=== PATIENT | male | born 1935 | race Two or more races ===

== ENCOUNTER → 2016-08-29 | Outpatient (CLI) | payer MEDICARE, BC ==
--- NOTE | 2016-08-29 14:28 | XR ---
EXAMINATION TYPE: XR chest 2V DATE OF EXAM: 08/29/2016 1:28 PM COMPARISON: 02/04/2016 HISTORY: 81-year-old male with dyspnea and shortness of breath TECHNIQUE: Frontal and lateral views FINDINGS: Heart is normal size. Mild atherosclerotic arch calcifications. Eventration of the right hemidiaphrag m. Mild interstitial prominence is unchanged. There is also mild hyperinflation. Some strandy atelect asis or scarring in the lower lungs. No consolidation or pleural effusion. IMPRESSION: Chronic appearing changes, possible underlying chronic bronchitis/asthma. Clinically correlate. No ac [place] process identified.
== END | disposition home or self-care (01) ==
LOC: RADXRMAIN 13:05
PROVIDERS: ATTEND Physician Assistant
DX: R06.00 Dyspnea, unspecified (principal)
CPT/HCPCS: 71020

== ENCOUNTER → 2016-12-19 | Outpatient (CLI) | payer MEDICARE, BC ==
[2016-12-19 15:00] LABS: CH 28.2; CHCM 32.1; HDW 2.52; HGB 15.8 gm/dL (13.0-17.5); MCH 29.1 pg (25.0-35.0); MCV 88.2 fL (80.0-100.0); RBC 5.44 m/uL (4.30-5.90); RDW 13.9 % (11.5-15.5)
[2016-12-19 15:17] LABS: Anion Gap 13 mmol/L; Blood Urea Nitrogen 17 mg/dL (9-20); Calcium 9.5 mg/dL (8.4-10.2); Carbon Dioxide 25 mmol/L (22-30); Chloride 104 mmol/L (98-107); Glucose 93 mg/dL (74-99); Iron 84 ug/dL (49-181); Non-African American GFR(MDRD) 53 (>60 ml/min/1.73 sqM); Potassium 3.9 mmol/L (3.5-5.1); Sodium 142 mmol/L (137-145); Uric Acid 5.5 mg/dL (3.5-8.5)
[2016-12-19 15:20] LABS: Creatinine,Urine Random 45.8 mg/dL
[2016-12-19 15:26] LABS: Total Iron Binding Capacity 279 ug/dL (261-462)
== END | disposition home or self-care (01) ==
LOC: LABWHC1 14:12
PROVIDERS: ATTEND Nurse Practitioner Family
DX: E21.3 Hyperparathyroidism, unspecified (principal); N18.3 Chronic kidney disease, stage 3 (moderate); D64.9 Anemia, unspecified; R80.9 Proteinuria, unspecified; E55.9 Vitamin D deficiency, unspecified; M10.9 Gout, unspecified
CPT/HCPCS: 36415; 80048; 82306; 82570; 82728; 83540; 83550; 83970; 84156; 84550; 85027

== ENCOUNTER → 2017-01-22 | Outpatient (CLI) | payer MEDICARE, BC ==
--- NOTE | 2017-01-22 08:04 | US ---
EXAMINATION TYPE: US kidneys/renal and bladder DATE OF EXAM: 01/22/2017 COMPARISON: NONE CLINICAL HISTORY: N18.3 Chronic kidney disease stage 3. CKD stage 3 EXAM MEASUREMENTS: Right Kidney: 11.4 x 5.9 x 5.9 cm Left Kidney: 10.8 x 5.7 x 4.9 cm Right Kidney: 0.9cm cystic area superior pole Left Kidney: fullness of renal pelvis Bladder: 4.3cm outpouching along right posterior portion of bladder Bilateral Jets seen: yes 9 mm cystic lesion in the right kidney is not simply cystic. The left kidney is normal. There is a hu tch-like diverticulum arising from the posterolateral aspect of the bladder on the right. IMPRESSION: 1. RIGHT RENAL CYST IS NOT SIMPLY CYSTIC. FURTHER EVALUATION WITH CT OR MR WOULD BE SUGGESTED. 2. ATELECTATIC DIVERTICULUM ARISING FROM THE POSTERIOR LATERAL ASPECT OF THE BLADDER ON THE RIGHT.
== END | disposition home or self-care (01) ==
LOC: RADUSWWP 06:49
PROVIDERS: ATTEND Internal Medicine Nephrology
DX: N28.1 Cyst of kidney, acquired (principal); N32.3 Diverticulum of bladder
CPT/HCPCS: 76770

== ENCOUNTER → 2017-02-04 | Outpatient (CLI) | payer MEDICARE, BC ==
--- NOTE | 2017-02-04 15:30 | CT ---
EXAMINATION TYPE: CT abdomen wo con DATE OF EXAM: 02/04/2017 COMPARISON: Correlation ultrasound 01/22/2017. CT chest 06/03/2015 HISTORY: 82-year-old male follow-up right renal cyst. TECHNIQUE: Contiguous axial scanning of the abdomen without IV contrast. Coronal and sagittal reconst ructions performed. CT DLP: 618 mGycm Automated exposure control for dose reduction was used. FINDINGS: The heart is normal size without pericardial effusion. Strandy atelectasis or scarring at the lung ba ses. A 5 mm subpleural pulmonary nodule right middle lobe was present back in 2014 compatible with a benign etiology. Fat-containing right-sided Bochdalek hernia. There is also a small hiatal hernia. Noncontrast appearance of the liver, gallbladder, adrenal glands, kidneys, spleen, and pancreas show no gross abnormally. No dilated small bowel, free fluid, or free air. Normal appendix. There is generalized colonic diverticulosis and scattered minimal stool. No pericolo antwon inflammatory change. Mild to moderate prostatic calcifications within the infrarenal abdominal aorta without aneurysm. The 9 mm cortical lesion seen on 01/22/2017 CT is not confidently identified on noncontrast CT. It may be along the lateral upper to midpole, axial image 33. No nephrolithiasis or hydronephrosis. Bones: Degenerative changes lower lumbar spine and endplate spondylosis lower thoracic spine. Grade 1 anterolisthesis at L4-L5. No osseous destructive process. IMPRESSION: 1. THE 9 MM RIGHT KIDNEY CORTICAL LESION SEEN ON 01/22/2017 ULTRASOUND IS NOT CONFIDENTLY IDENTIFIED O N NONCONTRAST CT. POSSIBLY ALONG THE LATERAL UPPER TO MID POLE, AXIAL IMAGE 33. A 6 MONTH FOLLOW-UP U LTRASOUND OF THE KIDNEYS IS RECOMMENDED TO REASSESS THIS REGION. 2. COLONICDIVERTICULOSIS AND SMALL HIATAL HERNIA.
== END | disposition home or self-care (01) ==
LOC: RADCTMAIN 12:45
PROVIDERS: ATTEND Internal Medicine Nephrology
DX: N28.89 Other specified disorders of kidney and ureter (principal); K44.9 Diaphragmatic hernia without obstruction or gangrene
CPT/HCPCS: 74150

== ENCOUNTER → 2017-09-29 | Outpatient (CLI) | payer MEDICARE, BC ==
[2017-09-29 07:47] LABS: HCT 46.3 % (39.0-53.0); MCH 27.6 pg (25.0-35.0); MCHC 32.3 g/dL (31.0-37.0); MCV 85.5 fL (80.0-100.0); Mean Platelet Volume 7.6; Platelet Count 151 k/uL (150-450); RBC 5.42 m/uL (4.30-5.90); RDW 13.9 % (11.5-15.5); WBC 5.3 k/uL (3.8-10.6)
[2017-09-29 08:15] LABS: Anion Gap 11 mmol/L; Blood Urea Nitrogen 18 mg/dL (9-20); Calcium 9.5 mg/dL (8.4-10.2); Carbon Dioxide 30 mmol/L (22-30); Chloride 101 mmol/L (98-107); Glucose 111 mg/dL (74-99); Phosphorus 3.5 mg/dL (2.5-4.5); Potassium 4.5 mmol/L (3.5-5.1); Sodium 142 mmol/L (137-145); Uric Acid 5.4 mg/dL (3.5-8.5)
[2017-09-29 11:18] LABS: Iron Saturation 25.42 (15.00-50.00)
[2017-09-29 11:26] LABS: Parathyroid Hormone Intact 52.1 pg/mL (14.0-72.0)
== END | disposition home or self-care (01) ==
LOC: LABWHC1 06:36
PROVIDERS: ATTEND Nurse Practitioner Family
DX: N18.3 Chronic kidney disease, stage 3 (moderate) (principal); D63.1 Anemia in chronic kidney disease; E21.3 Hyperparathyroidism, unspecified; E55.9 Vitamin D deficiency, unspecified; M10.9 Gout, unspecified
CPT/HCPCS: 36415; 80048; 82306; 82728; 83540; 83550; 83735; 83970; 84100; 84550; 85027

== ENCOUNTER → 2017-10-21 | Outpatient (CLI) | payer MEDICARE, BC ==
--- NOTE | 2017-10-21 12:15 | US ---
EXAMINATION TYPE: US kidneys/renal and bladder DATE OF EXAM: 10/21/2017 COMPARISON: US dated 01/14/2017, CT CLINICAL HISTORY: N18.3 Chronic kidney disease stage III; patient states has difficulty voiding EXAM MEASUREMENTS: Right Kidney: 10.5 x 4.7 x 5.4 cm Left Kidney: 10.6 x 4.5 x 4.5 cm Post Void Residual Volume: 464.6 mL Right Kidney: two cortical cysts noted: upper pole simple cyst = 0.8 x 0.6 x 0.7cm and lower lateral pole simple cyst = 0.6 x 0.7 x 0.6cm; micro hyperechoic focus noted lateral pole may be vascular wal l calcification. Left Kidney: mid low cortical cyst noted = 0.8 x 0.9 x 0.9cm; couple of hyperechoic foci note lower p ole may be vascular wall calcification Bladder: bladder diverticulum is noted posteriorly = 7.7 x 2.4 x 2.9cm and was previously seen Bilateral Jets seen: Yes Normal Post Void Residual: no, as volume > 50ml. In comparison to prior exam the upper pole focus at the right kidney is anechoic and shows increased through transmission, imperceptible wall compatible with simple cyst. IMPRESSION: Abnormal post void residual volume. Hutch diverticulum. Small cortical cysts are associated with the kidneys.
== END | disposition home or self-care (01) ==
LOC: RADUSWWP 09:40
PROVIDERS: ATTEND Internal Medicine Nephrology
DX: N28.1 Cyst of kidney, acquired (principal); N32.3 Diverticulum of bladder; N18.3 Chronic kidney disease, stage 3 (moderate)
CPT/HCPCS: 76770

== ENCOUNTER → 2017-12-12 | Outpatient (CLI) | payer MEDICARE, BC ==
[~2017-12-12] MED LIST: DIPH,PERTUS(ACELL)TETVAC-LF 0.5 ML VIAL IM ONE
[2017-12-12 11:17] VITALS: BP 192/87; PULSE 89; RESP 16; TEMP 97.8
== END | disposition home or self-care (01) ==
LOC: PROCWHC3 10:12
PROVIDERS: ATTEND Family Medicine
DX: S60.414A Abrasion of right ring finger, initial encounter (principal)
CPT/HCPCS: 90471; 90715

== ENCOUNTER 2018-01-07 15:54 | Inpatient (IN) | payer MEDICARE, BC ==
--- NOTE | 2018-01-07 15:56 | ED ---
General Adult HPI - General Stated complaint: Chest Pian Time Seen by Provider: 01/07/18 15:55 Source: RN notes reviewed, old records reviewed - History of Present Illness Initial comments: This is an 82-year-old male to the ER for evaluation. They presents for evaluation of pain. Patient has chest pain left-sided chest pain left-sided chest pain rating to his shoulder scapula and back. Patient has history of high cholesterol high blood pressure. Denies recent travel history no trauma no fevers. Mild shortness breath no cough or congestion. Patient denies history of similar pain. Pain started this morning around 1:00 and has persisted no modifying factors for pain - Related Data Home Medications Medication Instructions Recorded Confirmed Dutasteride [Avodart] 0.5 mg PO DAILY 03/21/14 01/07/18 Quinapril HCl [Accupril] 20 mg PO BID 03/21/14 01/07/18 Simvastatin [Zocor] 20 mg PO HS 03/21/14 01/07/18 amLODIPine BESYLATE [Amlodipine 1 tab PO DAILY 06/03/15 01/07/18 Besylate] Tamsulosin HCl [Flomax] 0.4 mg PO HS 02/04/16 01/07/18 Meclizine HCl 25 mg PO DIRECTED PRN 12/12/17 01/07/18 Cholecalciferol (Vitamin D3) 2,000 unit PO DAILY 01/07/18 01/07/18 [Vitamin D3] Allergies Allergy/AdvReac Type Severity Reaction Status Date / Time No Known Allergies Allergy Verified 01/07/18 16:34 Review of Systems ROS Statement: Those systems with pertinent positive or pertinent negative responses have been documented in the HPI. ROS Other: All systems not noted in ROS Statement are negative. Past Medical History Past Medical History: Hyperlipidemia, Hypertension, Renal Disease History of Any Multi-Drug Resistant Organisms: None Reported Past Surgical History: Hernia Repair, Tonsillectomy Additional Past Surgical History / Comment(s): hemorroid sx, Retina reattached Additional Past Anesthesia/Blood Transfusion Reaction / Comment(s): as a child had loss of vision after hernia surgery Smoking Status: Former smoker General Exam General appearance: alert, in no apparent distress Head exam: Present: atraumatic, normocephalic, normal inspection Eye exam: Present: normal appearance, PERRL, EOMI. Absent: scleral icterus, conjunctival injection, periorbital swelling ENT exam: Present: normal exam, mucous membranes moist Neck exam: Present: normal inspection. Absent: tenderness, meningismus, lymphadenopathy Respiratory exam: Present: normal lung sounds bilaterally. Absent: respiratory distress, wheezes, rales, rhonchi, stridor Cardiovascular Exam: Present: regular rate, normal rhythm, normal heart sounds. Absent: systolic murmur, diastolic murmur, rubs, gallop, clicks GI/Abdominal exam: Present: soft, normal bowel sounds. Absent: distended, tenderness, guarding, rebound, rigid Extremities exam: Present: normal inspection, full ROM, normal capillary refill. Absent: tenderness, pedal edema, joint swelling, calf tenderness Back exam: Present: normal inspection Neurological exam: Present: alert, oriented X3, CN II-XII intact Psychiatric exam: Present: normal affect, normal mood Skin exam: Present: warm, dry, intact, normal color. Absent: rash Course Vital Signs 01/07/18 01/07/18 16:10 17:15 Temperature 97.0 F L Pulse Rate 91 93 Respiratory 18 18 Rate Blood Pressure 175/79 180/79 O2 Sat by Pulse 94 L 97 Oximetry - Reevaluation(s) Reevaluation #1: 01/07/18 18:42 Patient has continuous chest pain here in the ER EKG Findings - EKG Comments: EKG Findings:: EKG shows normal sinus rhythm rate of 87, [place] 188, QRS 84, QTc 447 Medical Decision Making - Medical Decision Making 82 male the ER for evaluation, positive chest pain. Patient has continuous chest pain here in the ER CT negative, patient will be admitted for cardiac observation secondary to history of high blood pressure high cholesterol and age - Lab Data Result diagrams: 01/07/18 16:03 01/07/18 16:03 Lab Results 01/07/18 01/07/18 01/07/18 Range/Units 16:03 16:03 16:03 WBC 5.7 (3.8-10.6) k/uL RBC 5.47 (4.30-5.90) m/uL Hgb 15.4 (13.0-17.5) gm/dL Hct 46.2 (39.0-53.0) % MCV 84.5 (80.0-100.0) fL MCH 28.3 (25.0-35.0) pg MCHC 33.4 (31.0-37.0) g/dL RDW 14.5 (11.5-15.5) % Plt Count 164 (150-450) k/uL Neutrophils % 68 % Lymphocytes % 20 % Monocytes % 7 % Eosinophils % 2 % Basophils % 1 % Neutrophils # 3.9 (1.3-7.7) k/uL Lymphocytes # 1.1 (1.0-4.8) k/uL Monocytes # 0.4 (0-1.0) k/uL Eosinophils # 0.1 (0-0.7) k/uL Basophils # 0.0 (0-0.2) k/uL PT (9.0-12.0) sec INR (<1.2) APTT (22.0-30.0) sec D-Dimer (<0.60) mg/L FEU Sodium 143 (137-145) mmol/L Potassium 3.8 (3.5-5.1) mmol/L Chloride 105 (98-107) mmol/L Carbon Dioxide 26 (22-30) mmol/L Anion Gap 12 mmol/L BUN 20 (9-20) mg/dL Creatinine 1.10 (0.66-1.25) mg/dL Est GFR (CKD-EPI)AfAm 73 (>60 ml/min/1.73 sqM) Est GFR (CKD-EPI)NonAf 63 (>60 ml/min/1.73 sqM) Glucose 126 H (74-99) mg/dL Calcium 9.5 (8.4-10.2) mg/dL Magnesium 2.1 (1.6-2.3) mg/dL Total Bilirubin 0.4 (0.2-1.3) mg/dL AST 20 (17-59) U/L ALT 27 (21-72) U/L Alkaline Phosphatase 76 (38-126) U/L Total Creatine Kinase 66 (55-170) U/L CK-MB (CK-2) 1.5 (0.0-2.4) ng/mL CK-MB (CK-2) Rel Index 2.3 Troponin I <0.012 (0.000-0.034) ng/mL Total Protein 6.8 (6.3-8.2) g/dL Albumin 4.4 (3.5-5.0) g/dL Lipase 49 (23-300) U/L 01/07/18 Range/Units 16:03 WBC (3.8-10.6) k/uL RBC (4.30-5.90) m/uL Hgb (13.0-17.5) gm/dL Hct (39.0-53.0) % MCV (80.0-100.0) fL MCH (25.0-35.0) pg MCHC (31.0-37.0) g/dL RDW (11.5-15.5) % Plt Count (150-450) k/uL Neutrophils % % Lymphocytes % % Monocytes % % Eosinophils % % Basophils % % Neutrophils # (1.3-7.7) k/uL Lymphocytes # (1.0-4.8) k/uL Monocytes # (0-1.0) k/uL Eosinophils # (0-0.7) k/uL Basophils # (0-0.2) k/uL PT 9.9 (9.0-12.0) sec INR 1.0 (<1.2) APTT 23.2 (22.0-30.0) sec D-Dimer 0.30 (<0.60) mg/L FEU Sodium (137-145) mmol/L Potassium (3.5-5.1) mmol/L Chloride (98-107) mmol/L Carbon Dioxide (22-30) mmol/L Anion Gap mmol/L BUN (9-20) mg/dL Creatinine (0.66-1.25) mg/dL Est GFR (CKD-EPI)AfAm (>60 ml/min/1.73 sqM) Est GFR (CKD-EPI)NonAf (>60 ml/min/1.73 sqM) Glucose (74-99) mg/dL Calcium (8.4-10.2) mg/dL Magnesium (1.6-2.3) mg/dL Total Bilirubin (0.2-1.3) mg/dL AST (17-59) U/L ALT (21-72) U/L Alkaline Phosphatase (38-126) U/L Total Creatine Kinase (55-170) U/L CK-MB (CK-2) (0.0-2.4) ng/mL CK-MB (CK-2) Rel Index Troponin I (0.000-0.034) ng/mL Total Protein (6.3-8.2) g/dL Albumin (3.5-5.0) g/dL Lipase (23-300) U/L - Radiology Data Radiology results: report reviewed (CTA chest is negative for acute disease), image reviewed Critical Care Time Critical Care Time: Yes Total Critical Care Time: 31 Disposition Clinical Impression: Chest pain Disposition: ADMITTED IP TO THIS HOSP Condition: Undetermined Instructions: Chest Pain (ED) Referrals: Andrés Snow MD [Primary Care Provider] - 1-2 days
[2018-01-07 16:22] LABS: Basophils % (A) 1 %; Eosinophils # (A) 0.1 k/uL (0-0.7); Eosinophils % (A) 2 %; HCT 46.2 % (39.0-53.0); HGB 15.4 gm/dL (13.0-17.5); Lymphocytes # (A) 1.1 k/uL (1.0-4.8); Lymphocytes % (A) 20 %; MCH 28.3 pg (25.0-35.0); MCHC 33.4 g/dL (31.0-37.0); MCV 84.5 fL (80.0-100.0); Monocytes # (A) 0.4 k/uL (0-1.0); Monocytes % (A) 7 %; Neutrophils # (A) 3.9 k/uL (1.3-7.7); Neutrophils % (A) 68 %; Platelet Count 164 k/uL (150-450); RBC 5.47 m/uL (4.30-5.90); RDW 14.5 % (11.5-15.5); WBC 5.7 k/uL (3.8-10.6)
--- NOTE | 2018-01-07 16:23 | XR ---
EXAMINATION TYPE: XR chest 2V DATE OF EXAM: 01/07/2018 COMPARISON: 08/29/2016 INDICATION: Chest pain TECHNIQUE: Frontal and lateral views of the chest are obtained. FINDINGS: The heart size is normal. The pulmonary vasculature is normal. The lungs are clear. IMPRESSION: 1. No acute pulmonary process.
[2018-01-07 16:40] LABS: Albumin 4.4 g/dL (3.5-5.0); Calcium 9.5 mg/dL (8.4-10.2); D-Dimer 0.3 mg/L FEU (<0.60); Magnesium 2.1 mg/dL (1.6-2.3); Partial Thromboplastin Time 23.2 sec (22.0-30.0); Potassium 3.8 mmol/L (3.5-5.1); Prothrombin Time 9.9 sec (9.0-12.0); Total Bilirubin 0.4 mg/dL (0.2-1.3); Total Protein 6.8 g/dL (6.3-8.2)
[2018-01-07 16:45] LABS: Creatine Kinase 66 U/L (55-170)
[2018-01-07 16:58] LABS: Creatine Kinase MB 1.5 ng/mL (0.0-2.4); Troponin I <0.012 ng/mL (0.000-0.034)
[2018-01-07] MEDS ORDERED: MORPHINE SULFATE 2 MG/ML SYRINGE IVP STA (16:58)
--- NOTE | 2018-01-07 18:38 | CT ---
EXAMINATION TYPE: CT angio chest DATE OF EXAM: 01/07/2018 6:23 PM COMPARISON: NONE HISTORY: Right scapular pain and epigastric pain. CT DLP: 604 mGycm Automated exposure control for dose reduction was used. CONTRAST: CTA scan of the thorax is performed with IV Contrast, patient injected with 70 mL of Isovue 370, pulm onary embolism protocol. There are 3-D post processed images.. FINDINGS: The lungs are clear of infiltrate. There is no evidence of pleural effusion. There is no pulmonary ma ss. There is no pericardial effusion. There is normal contrast opacification of the pulmonary arteries. I see no filling defects. There is no evidence of aortic aneurysm or dissection. Osseous aorta is atheromatous. There are a few mediasti nal paratracheal lymph nodes that measure up to 1 cm. There is spurring in the thoracic spine. IMPRESSION: NO EVIDENCE OF PULMONARY EMBOLISM. MILD ATHEROSCLEROTIC VASCULAR DISEASE.
[2018-01-07] MEDS ORDERED: NITROGLYCERIN SL TABS 0.4 MG TAB SUBLINGUAL PRN (18:40)
[2018-01-07] MEDS ORDERED: ASPIRIN 81 MG PO STA (18:40)
[2018-01-07] MEDS: METOPROLOL TARTRATE 25 MG TAB PO SCH (21:19)
[2018-01-07 23:31] LABS: Creatine Kinase MB 3.8 ng/mL (0.0-2.4); Troponin I 0.541 ng/mL (0.000-0.034)
[2018-01-07] MEDS ORDERED: HEPARIN SODIUM,PORCINE 5,000 UNIT/ML 1 ML VIAL IV ONE (23:44)
[2018-01-07] MEDS ORDERED: HEPARIN SODIUM,PORCINE 5,000 UNIT/ML 1 ML VIAL IV PRN (23:44)
[2018-01-07] MEDS ORDERED: HEPARIN SODIUM,PORCINE/D5W PMX 25,000 UNIT in DEXTROSE/WATER 1 500ML.BAG IV SCH (23:45)
[2018-01-08 03:59] LABS: Basophils % (A) 1 %; Eosinophils # (A) 0.2 k/uL (0-0.7); Eosinophils % (A) 3 %; HCT 44.7 % (39.0-53.0); HGB 14.2 gm/dL (13.0-17.5); Lymphocytes # (A) 1.3 k/uL (1.0-4.8); Lymphocytes % (A) 23 %; MCH 27.1 pg (25.0-35.0); MCHC 31.8 g/dL (31.0-37.0); MCV 85.5 fL (80.0-100.0); Monocytes # (A) 0.4 k/uL (0-1.0); Monocytes % (A) 8 %; Neutrophils # (A) 3.5 k/uL (1.3-7.7); Neutrophils % (A) 63 %; Platelet Count 163 k/uL (150-450); RBC 5.23 m/uL (4.30-5.90); RDW 14.5 % (11.5-15.5); WBC 5.6 k/uL (3.8-10.6)
[2018-01-08 04:22] LABS: Cholesterol 137 mg/dL (<200); HDL Cholesterol 45 mg/dL (40-60); LDL Cholesterol,Calculated 79 mg/dL (0-99); Triglycerides 63 mg/dL (<150)
[2018-01-08 04:42] LABS: Creatine Kinase MB 5.4 ng/mL (0.0-2.4); Troponin I 1.26 ng/mL (0.000-0.034)
[2018-01-08] MEDS ORDERED: ATORVASTATIN 80 MG TAB PO SCH (09:00)
[2018-01-08] MEDS: ASPIRIN 325 MG TAB PO SCH (10:03)
[2018-01-08] MEDS: NITROGLYCERIN OINT 1 INCH/GM PACKET TOPICAL SCH ×3 (10:11→23:45)
[2018-01-08] MEDS ORDERED: ALPRAZolam 0.5 MG TAB PO PRN (10:26)
[2018-01-08] MEDS ORDERED: ALPRAZolam 0.25 MG TAB PO PRN (10:26)
[2018-01-08] MEDS ORDERED: SODIUM CHLORIDE 0.9% 1,000 ML in EMPTY BAG 1 BAG IV ONE (10:26)
[2018-01-08] MEDS ORDERED: MIDAZOLAM 2 MG/2 ML VIAL IV ONE ×2 (10:35→13:35)
--- NOTE | 2018-01-08 10:42 | P.CRDCN ---
History of Present Illness History of present illness: Mr. Cain is a pleasant 82-year-old male past medical history significant for hypertension, dyslipidemia and BPH. He denies history of coronary artery disease and is never seen a petrol tanker driver for any reason. We have been asked to see him in consultation for complaints of chest pain. He states he woke up around 1:00 the morning on Friday night and felt a discomfort in his right flank thoracic region he got up to use the restroom and back to bed and then he started feeling a discomfort in the right anterior chest wall. These sensations persisted throughout the night and into the morning. He states he was feeling like a mild ache or discomfort in his chest with no specific aggravating or alleviating factors. He denies associated shortness of breath, palpitations, nausea, vomiting, diaphoresis or dizziness. His symptoms persisted until he presented to the emergency department and he received morphine, aspirin and sublingual nitroglycerin. He denies any recurrence of the symptoms throughout the night. At the time of my exam he is resting comfortably in bed in no acute distress with no symptoms of chest pain. However when coming back around to the unit nurse advised me that the patient is starting to have pain in his right arm and shoulder. Described as a heavy sensation. He was given sublingual nitroglycerin times one and achieved relief of the pain. Nitropaste has been applied. EKG on arrival reveals sinus mechanism with no acute ST or T-wave abnormalities. Repeat EKG this morning reveals T-wave inversions in the anterior lateral leads. Chest x-ray is negative for an acute cardiopulmonary process. CT angios the chest performed yesterday and negative for pulmonary embolism with evidence of mild atherosclerotic vascular disease. Laboratory data reviewed, hemoglobin 14.2, platelets 163, d-dimer 0.30, sodium 143, potassium 3.8, creatinine 1.1, magnesium 2.1, cardiac enzymes 0.012, 0.541 and 1.26 with CK-MB 1.5, 3.8 and 5.4 respectively. LDL 79, HDL 45, triglycerides 63 and total cholesterol 137. Review of Systems At the time of my exam: CONSTITUTIONAL: Denies fever. Denies chills. EYES: Denies blurred vision. Denies vision changes. Denies eye pain. EARS, NOSE, MOUTH & THROAT: Denies headache. Denies sore throat. Denies ear pain. CARDIOVASCULAR: Complains of right shoulder and arm pain. Denies chest pain. Denies shortness of breath. Denies orthopnea. Denies PND. Denies palpitations. RESPIRATORY: Denies cough. GASTROINTESTINAL: Denies abdominal pain. Denies diarrhea. Denies constipation. Denies nausea. Denies vomiting. MUSCULOSKELETAL: Denies myalgias. INTEGUMENTARY: Denies pruitis. Denies rash. NEUROLOGIC: Denies numbness. Denies tingling. Denies weakness. PSYCHIATRIC: Denies anxiety. Denies depression. ENDOCRINE: Denies fatigue. Denies weight change. Denies polydipsia. Denies polyurina. GENITOURINARY: Denies burning, hematuria or urgency with micturation. HEMATOLOGIC: Denies history of anemia. Denies bleeding. Past Medical History Past Medical History: Hyperlipidemia, Hypertension, Pneumonia, Renal Disease Additional Past Medical History / Comment(s): born premature,vertigo, bph, colitis since 1968,past detatched retina -pt not sure which side, cataracts,as child had pne and yellow jaundice,sciatic nerve pain-sees chiropractor, wears hearing aids, glasses History of Any Multi-Drug Resistant Organisms: None Reported Past Surgical History: Hernia Repair, Orthopedic Surgery, Tonsillectomy Additional Past Surgical History / Comment(s): hemorroid sx, Retina reattached, rt knee sx reapired cartilage-wears a brace when uo Additional Past Anesthesia/Blood Transfusion Reaction / Comment(s): as a child had loss of vision after hernia surgery Smoking Status: Former smoker - Past Family History Father Additional Family Medical History / Comment(s): alcoholic- at age 69 Mother Family Medical History: CVA/TIA Medications and Allergies Home Medications Medication Instructions Recorded Confirmed Type Dutasteride [Avodart] 0.5 mg PO DAILY 03/21/14 01/07/18 History Quinapril HCl [Accupril] 20 mg PO BID 03/21/14 01/07/18 History Simvastatin [Zocor] 20 mg PO HS 03/21/14 01/07/18 History amLODIPine BESYLATE [Amlodipine 1 tab PO DAILY 06/03/15 01/07/18 History Besylate] Tamsulosin HCl [Flomax] 0.4 mg PO HS 02/04/16 01/07/18 History Meclizine HCl 25 mg PO DIRECTED PRN 12/12/17 01/07/18 History Cholecalciferol (Vitamin D3) 2,000 unit PO DAILY 01/07/18 01/07/18 History [Vitamin D3] Allergies Allergy/AdvReac Type Severity Reaction Status Date / Time No Known Allergies Allergy Verified 01/07/18 16:34 Physical Exam Vitals: Vital Signs Temp Pulse Pulse Resp BP BP Pulse Ox 01/08/18 07:20 97.7 F 63 18 151/80 93 L 01/08/18 04:00 74 16 01/08/18 03:49 98.2 F 62 16 146/73 92 L 01/08/18 00:00 53 L 16 01/07/18 23:38 97.8 F 56 L 16 108/65 93 L 01/07/18 20:30 51 L 16 01/07/18 20:24 174/76 01/07/18 19:30 97.8 F 88 18 179/85 93 L 01/07/18 18:57 97.6 F 82 18 157/77 97 01/07/18 17:15 93 18 180/79 97 01/07/18 16:10 97.0 F L 91 18 175/79 94 L Intake and Output 01/07/18 01/08/18 01/08/18 22:59 06:59 14:59 Other: Voiding Method Toilet Toilet # Voids 1 2 Weight 85.7 kg Blood pressure 151/80 heart rate 63 afebrile maintaining oxygen saturation on room air GENERAL: This is a 82-year-old male in no apparent distress at the time of my examination. HEENT: Head is atraumatic, normocephalic. Pupils are equal, round. Sclerae anicteric. Conjunctivae are clear. Mucous membranes of the mouth are moist. Neck is supple. There is no jugular venous distention. No carotid bruit is heard. LUNGS: Clear to auscultation no wheezes, rales or rhonchi. No chest wall tenderness is noted on palpation or with deep breathing. HEART: Regular rate and rhythm without murmurs, rubs or gallops. S1 and S2 heard. ABDOMEN: Soft, nontender. Bowel sounds are heard. No organomegaly noted. EXTREMITIES: No evidence of peripheral edema and no calf tenderness noted. VASCULAR: Radial and dorsalis pedis pulses palpated, no evidence of clubbing. NEUROLOGIC: Patient is awake, alert and oriented x3. Results 01/08/18 03:39 01/07/18 16:03 Cardiac Enzymes 01/07/18 01/07/18 01/07/18 Range/Units 16:03 16:03 21:46 AST 20 (17-59) U/L CK-MB (CK-2) 1.5 3.8 H* (0.0-2.4) ng/mL Troponin I <0.012 0.541 H* (0.000-0.034) ng/mL 01/08/18 Range/Units 03:39 AST (17-59) U/L CK-MB (CK-2) 5.4 H* (0.0-2.4) ng/mL Troponin I 1.260 H* (0.000-0.034) ng/mL Coagulation 01/07/18 01/08/18 Range/Units 16:03 07:20 PT 9.9 (9.0-12.0) sec APTT 23.2 58.4 H (22.0-30.0) sec Lipids 01/08/18 Range/Units 03:39 Triglycerides 63 (<150) mg/dL Cholesterol 137 (<200) mg/dL HDL Cholesterol 45 (40-60) mg/dL CBC 01/07/18 01/08/18 Range/Units 16:03 03:39 WBC 5.7 5.6 (3.8-10.6) k/uL RBC 5.47 5.23 (4.30-5.90) m/uL Hgb 15.4 14.2 (13.0-17.5) gm/dL Hct 46.2 44.7 (39.0-53.0) % Plt Count 164 163 (150-450) k/uL Comprehensive Metabolic Panel 01/07/18 Range/Units 16:03 Sodium 143 (137-145) mmol/L Potassium 3.8 (3.5-5.1) mmol/L Chloride 105 (98-107) mmol/L Carbon Dioxide 26 (22-30) mmol/L BUN 20 (9-20) mg/dL Creatinine 1.10 (0.66-1.25) mg/dL Glucose 126 H (74-99) mg/dL Calcium 9.5 (8.4-10.2) mg/dL AST 20 (17-59) U/L ALT 27 (21-72) U/L Alkaline Phosphatase 76 (38-126) U/L Total Protein 6.8 (6.3-8.2) g/dL Albumin 4.4 (3.5-5.0) g/dL Current Medications Generic Name Dose Route Start Last Admin Trade Name Freq PRN Reason Stop Dose Admin Aspirin 325 mg 01/08/18 09:00 Aspirin PO DAILY [facility] Atorvastatin Calcium 80 mg 01/08/18 09:00 Lipitor PO DAILY [facility] Heparin Sodium (Porcine) 0 unit 01/07/18 23:44 Heparin IV PER PROTOCOL PRN Low PTT Protocol Heparin Sodium/Dextrose 25,000 500 mls @ 20.56 mls/hr 01/07/18 23:45 01:24 unit/ IV Solution IV 12 units/kg/hr .Q24H ANA 20.56 mls/hr Protocol Administration 12 UNITS/KG/HR Metoprolol Tartrate 25 mg 01/07/18 21:00 01/07/18 21:19 Lopressor PO 25 mg BID [facility] Administration Nitroglycerin 0.4 mg 01/07/18 18:40 Nitrostat SUBLINGUAL Q5M PRN Chest Pain Intake and Output 01/07/18 01/08/18 01/08/18 22:59 06:59 14:59 Other: Voiding Method Toilet Toilet # Voids 1 2 Weight 85.7 kg 01/08/18 03:39 01/07/18 16:03 Assessment and Plan Assessment: ASSESSMENT 1. Non ST-elevated myocardial infarction with symptoms of ongoing chest and arm discomfort relieved with nitroglycerin. 2. Hypertension 3. Dyslipidemia 4. Benign prostatic hypertrophy PLAN 2-D echocardiogram and Doppler study has been performed and will be reviewed. Apply Nitropaste 1 inch now. Repeat kidney function 1 now prior to catheterization after receiving IV dye yesterday for CT. We recommend proceeding with cardiac catheterization to further assess for coronary artery disease. I have discussed the risks, benefits and alternative therapies for the above-mentioned procedure and for both sedation/analgesia as well as necessary blood product administration, if indicated, as they pertain to this patient. The patient has indicated understanding and acceptance of the risks and procedures discussed. I have also called and spoken with his next of kin which is his step-brother. Questions have been answered appropriately and he is agreeable to move forward with above stated procedure. Further recommendations to follow based on clinical course. Thank you kindly for this consultation. Nurse Practitioner note has been reviewed, I agree with a documented findings and plan of care. Patient was seen and examined.
[2018-01-08] MEDS: METOPROLOL TARTRATE 25 MG TAB PO SCH ×2 (10:45→21:31)
--- NOTE | 2018-01-08 11:20 | P.HPIM ---
History of Present Illness 82-year-old male presented to family physician wanting to the office complaining of midsternal chest pain since 1 AM in the morning. No history of coronary disease. This of a history of hyperlipidemia hypertension BPH. Computed tomography scan chest was negative. Patient does have elevated troponins diagnosed per cardiology with non-STEMI NE. Patient scheduled for cardiac catheterization. patient is very anxious man Review of Systems Cardiovascular: Reports chest pain Past Medical History Past Medical History: Hyperlipidemia, Hypertension, Pneumonia, Renal Disease Additional Past Medical History / Comment(s): born premature,vertigo, bph, colitis since 1968,past detatched retina -pt not sure which side, cataracts,as child had pne and yellow jaundice,sciatic nerve pain-sees chiropractor, wears hearing aids, glasses History of Any Multi-Drug Resistant Organisms: None Reported Past Surgical History: Hernia Repair, Orthopedic Surgery, Tonsillectomy Additional Past Surgical History / Comment(s): hemorroid sx, Retina reattached, rt knee sx reapired cartilage-wears a brace when uo Additional Past Anesthesia/Blood Transfusion Reaction / Comment(s): as a child had loss of vision after hernia surgery Smoking Status: Former smoker - Past Family History Father Additional Family Medical History / Comment(s): alcoholic- at age 69 Mother Family Medical History: CVA/TIA Medications and Allergies Home Medications Medication Instructions Recorded Confirmed Type Dutasteride [Avodart] 0.5 mg PO DAILY 03/21/14 01/07/18 History Quinapril HCl [Accupril] 20 mg PO BID 03/21/14 01/07/18 History Simvastatin [Zocor] 20 mg PO HS 03/21/14 01/07/18 History amLODIPine BESYLATE [Amlodipine 1 tab PO DAILY 06/03/15 01/07/18 History Besylate] Tamsulosin HCl [Flomax] 0.4 mg PO HS 02/04/16 01/07/18 History Meclizine HCl 25 mg PO DIRECTED PRN 12/12/17 01/07/18 History Cholecalciferol (Vitamin D3) 2,000 unit PO DAILY 01/07/18 01/07/18 History [Vitamin D3] Allergies Allergy/AdvReac Type Severity Reaction Status Date / Time No Known Allergies Allergy Verified 01/07/18 16:34 Physical Exam Vitals: Vital Signs Temp Pulse Pulse Resp BP BP Pulse Ox 01/08/18 08:00 18 01/08/18 07:20 97.7 F 63 18 151/80 93 L 01/08/18 04:00 74 16 01/08/18 03:49 98.2 F 62 16 146/73 92 L 01/08/18 00:00 53 L 16 01/07/18 23:38 97.8 F 56 L 16 108/65 93 L 01/07/18 20:30 51 L 16 01/07/18 20:24 174/76 01/07/18 19:30 97.8 F 88 18 179/85 93 L 01/07/18 18:57 97.6 F 82 18 157/77 97 01/07/18 17:15 93 18 180/79 97 01/07/18 16:10 97.0 F L 91 18 175/79 94 L Intake and Output 01/07/18 01/08/18 01/08/18 22:59 06:59 14:59 Other: Voiding Method Toilet Toilet # Voids 1 2 1 Weight 85.7 kg - Constitutional General appearance: mild distress - EENT Eyes: PERRLA Ears: bilateral: normal - Neck Neck: normal ROM - Respiratory Respiratory: bilateral: CTA - Cardiovascular Rhythm: regular - Gastrointestinal General gastrointestinal: soft - Integumentary Integumentary: normal - Neurologic Neurologic: CNII-XII intact - Musculoskeletal Musculoskeletal: gait normal - Psychiatric Psychiatric: A&O x's 3, intact judgment & insight Results CBC & Chem 7: 01/08/18 03:39 01/08/18 03:39 Labs: Abnormal Lab Results - Last 24 Hours (Table) 01/07/18 01/07/18 01/08/18 Range/Units 16:03 21:46 03:39 APTT (22.0-30.0) sec Glucose 126 H (74-99) mg/dL CK-MB (CK-2) 3.8 H* 5.4 H* (0.0-2.4) ng/mL Troponin I 0.541 H* 1.260 H* (0.000-0.034) ng/mL 01/08/18 Range/Units 07:20 APTT 58.4 H (22.0-30.0) sec Glucose (74-99) mg/dL CK-MB (CK-2) (0.0-2.4) ng/mL Troponin I (0.000-0.034) ng/mL Chest x-ray: report reviewed CT scan - chest: report reviewed Thrombosis Risk Factor Assmnt - Choose All That Apply Each Risk Factor Represents 3 Points: Age 75 years or older Thrombosis Risk Factor Assessment Total Risk Factor Score: 3 Thrombosis Risk Factor Assessment Level: Moderate Risk Assessment and Plan Plan: Assessment Chest pain non-STEMI Elevated troponins Hyperlipidemia Hypertension BPH Plan Cardiac catheterization schedule continue consultation with cardiology
--- NOTE | 2018-01-08 11:22 | ECHOF ---
Referral Reason:cp MEASUREMENTS -------- HEIGHT: 167.6 cm WEIGHT: 85.3 kg BP: 147/73 RVIDd: 3.1 cm (< 3.3) IVSd: 1.4 cm (0.6 - 1.1) LVIDd: 5.2 cm (3.9 - 5.3) LVPWd: 1.4 cm (0.6 - 1.1) IVSs: 2.1 cm LVIDs: 2.8 cm LVPWs: 1.7 cm LA Diam: 3.8 cm (2.7 - 3.8) LAESV Index (A-L): 27.72 ml/m Ao Diam: 3.8 cm (2.0 - 3.7) AV Cusp: 2.2 cm (1.5 - 2.6) MV EXCURSION: 15.618 mm (> 18.000) MV EF SLOPE: 48 mm/s (70 - 150) EPSS: 0.2 cm MV E Joesph: 0.89 m/s MV DecT: 162 ms MV A Joesph: 0.74 m/s MV E/A Ratio: 1.20 AR PHT: 681 ms RAP: 5.00 mmHg RVSP: 31.76 mmHg FINDINGS -------- Sinus rhythm. This was a technically good study. The left ventricular size is normal. There is moderate concentric left ventricular hypertrophy. O verall left ventricular systolic function is low-normal with, an EF between 50 - 55 %. Mid anterior LV wall motion is normal. Mid anteroseptal LV wall motion is normal. Apical anterior LV wall mot ion is hypokinetic. Apical inferior LV wall motion is hypokinetic. Apical septum LV wall motion is hypokinetic. The right ventricle is normal in size. Normal LA size by volume 22+/-6 ml/m2. The right atrium is normal in size. There is mild aortic valve sclerosis. There is [id number] aortic regurgitation. Mild mitral regurgitation is present. Mild tricuspid regurgitation present. Right ventricular systolic pressure is normal at < 35 mmHg. Trace/mild (physiologic) pulmonic regurgitation. The aortic root is dilated measuring 3.8cm. IVC Not well visulized. There is no pericardial effusion. CONCLUSIONS -------- 1. Sinus rhythm. 2. This was a technically good study. 3. The left ventricular size is normal. 4. There is moderate concentric left ventricular hypertrophy. 5. Overall left ventricular systolic function is low-normal with, an EF between 50 - 55 %. 6. Mid anterior LV wall motion is normal. 7. Mid anteroseptal LV wall motion is normal. 8. Apical anterior LV wall motion is hypokinetic. 9. Apical inferior LV wall motion is hypokinetic. 10. Apical septum LV wall motion is hypokinetic. 11. The right ventricle is normal in size. 12. Normal LA size by volume 22+/-6 ml/m2. 13. The right atrium is normal in size. 14. There is mild aortic valve sclerosis. 15. There is [id number] aortic regurgitation. 16. Mild mitral regurgitation is present. 17. Mild tricuspid regurgitation present. 18. Right ventricular systolic pressure is normal at < 35 mmHg. 19. Trace/mild (physiologic) pulmonic regurgitation. 20. The aortic root is dilated measuring 3.8cm. 21. IVC Not well visulized. 22. There is no pericardial effusion. CLINICAL UNIT EDUCATOR: Linn Villarreal RDCS
[2018-01-08] MEDS ORDERED: LIDOCAINE 2% SYG (PF) 100 MG/5 ML MISCELLANE ONE (13:50)
[2018-01-08] MEDS ORDERED: fentaNYL (PF) 50 MCG/ML 2 ML AMP IV ONE (13:53)
[2018-01-08] MEDS ORDERED: SODIUM CHLORIDE 0.9% 1,000 ML IV ONE (13:53)
[2018-01-08] MEDS ORDERED: RX INFO: IV CONTRAST WAS GIVEN 1 EACH MISC MISCELLANE PRN ×2 (14:12→20:09)
[2018-01-08] MEDS ORDERED: IOPAMIDOL-370 125ML BTL INJ ONE ×2 (14:18→19:58)
--- NOTE | 2018-01-08 14:24 | P.PCN ---
Date of Procedure: 01/08/18 Preoperative Diagnosis: Non-STEMI Postoperative Diagnosis: Critical lesion involving the mid LAD and significant lesion involving the distal LAD Procedure(s) Performed: Left heart catheterization without left ventriculography Description of Procedure: HISTORY: This is a 82-year-old gentleman who was admitted to the hospital with complaints of chest pain and positive cardiac enzymes. Suggestive of non-ST elevation MS. Echocardiogram showed hypokinesis of the mid and apical anterior and septal sommer. Patient is advised to have a cardiac catheterization for definitive diagnosis. CONSENT:I have discussed the risks, benefits and alternative therapies for the above-mentioned procedure and for both sedation/analgesia as well as necessary blood product administration, if indicated, as they pertain to this patient. The patient has indicated understanding and acceptance of the risks and procedures discussed. PROCEDURE: Patient was brought to the lab in a fasting state. Patient was given some IV sedation. The right groin is infiltrated with lidocaine and right femoral artery was entered using Seldinger technique. A 6-Persian catheter was left in place and selective coronary arteriography was performed. Patient tolerated the procedure well. Femoral angiogram was performed . No immediate complications were noted and patient was transferred to [facility] care in a stable condition. Patient has a sheath in the right femoral artery and is being maintained on heparin drip. I spoke with interventionalists. Patient will have stent placement later today Conscious Sedation: Versed 0.5mg Fentanyl 12.5 g Duration 17minutes HEMODYNAMICS: The aortic pressure is 120/70. Left ankle end-diastolic pressure is about 12-16. No gradient across the aortic valve SELECTIVE CORONARY ARTERIOGRAPHY: LEFT MAIN: Short and free of occlusive disease. THE LEFT ANTERIOR DESCENDING CORONARY ARTERY: Good caliber vessel with about 90% lesion in the mid LAD up to septal branch. There is also 70-80% lesion at the origin of the distal diagonal. THE LEFT CIRCUMFLEX AND IS CORONARY ARTERY: Good caliber vessel and codominant. It gives rise to good-sized OM branch and to PLV branches. The circumflex and branches are free of occlusive disease THE RIGHT CORONARY ARTERY: This is a good caliber vessel with a mild diffuse disease in the midportion. Gives rise to good-sized PDA branch. Free of any Sigmund focal occlusive disease. LEFT VENTRICULOGRAPHY: Not performed FINAL IMPRESSION: Critical lesion involving the mid LAD. Significant lesion involving the distal LAD at the origin of the diagonal. PLAN: Stent placement of the LAD to be done by Dr. Vincent PROGNOSIS: Fair
[2018-01-08] MEDS ORDERED: DEXTROSE IV SCH (14:30)
[2018-01-08] MEDS ORDERED: HEPARIN SODIUM IV SCH (14:30)
[2018-01-08] MEDS: SODIUM CHLORIDE 0.9% 1,000 ML IV SCH (14:44)
[2018-01-08] MEDS ORDERED: SODIUM CHLORIDE 0.9% 500 ML IV ONE (19:12)
[2018-01-08] MEDS ORDERED: HEPARIN SODIUM,PORCINE 30 ML 30 ML ONE (19:14)
[2018-01-08] MEDS ORDERED: MIDAZOLAM 2 MG/2 ML VIAL ONE (19:18)
[2018-01-08] MEDS ORDERED: fentaNYL (PF) 50 MCG/ML 2 ML AMP ONE (19:30)
[2018-01-08] MEDS ORDERED: fentaNYL (PF) 50 MCG/ML 2 ML AMP IVP ONE (19:31)
[2018-01-08] MEDS ORDERED: MIDAZOLAM 2 MG/2 ML VIAL IVP ONE (19:34)
[2018-01-08] MEDS ORDERED: LIDOCAINE 2% INJ 20 MG/ML SQ ONE (19:36)
[2018-01-08] MEDS ORDERED: CLOPIDOGREL 75 MG TAB ONE ×2 (19:42)
[2018-01-08] MEDS ORDERED: BIVALIRUDIN 250 MG in SODIUM CHLORIDE 0.9% 50 ML IV ONE (19:42)
[2018-01-08] MEDS ORDERED: BIVALIRUDIN BOLUS 250 MG/50 ML IV ONE (19:42)
[2018-01-08] MEDS ORDERED: CLOPIDOGREL 75 MG TAB PO ONE (19:47)
[2018-01-08] MEDS ORDERED: NITROGLYCERIN 1000MCG/10ML SYRINGE INTRACORON ONE (19:49)
[2018-01-08] MEDS ORDERED: ATROPINE SULFATE 0.1 MG/ML 10ML SYRINGE IV PRN (20:09)
[2018-01-08] MEDS ORDERED: ZOLPIDEM 5 MG TAB PO PRN (20:09)
[2018-01-08] MEDS ORDERED: MAG HYDROX/AL HYDROX/SIMETH 30 ML CUP PO PRN (20:09)
[2018-01-08] MEDS ORDERED: NITROGLYCERIN SL TABS 0.4 MG TAB SUBLINGUAL PRN (20:09)
[2018-01-08] MEDS ORDERED: SODIUM CHLORIDE 0.9% 1,000 ML IV SCH (20:15)
[2018-01-08] MEDS ORDERED: ATORVASTATIN 10 MG TAB PO SCH (21:00)
[2018-01-08] MEDS: LISINOPRIL 20 MG TAB PO SCH (21:30)
[2018-01-08] MEDS: TAMSULOSIN 0.4 MG CAP.ER.24H PO SCH (21:30)
[2018-01-09] MEDS: SODIUM CHLORIDE 0.9% 1,000 ML IV SCH ×2 (04:41→16:16)
[2018-01-09] MEDS: NITROGLYCERIN OINT 1 INCH/GM PACKET TOPICAL SCH (05:56)
[2018-01-09 06:35] LABS: Calcium 8.6 mg/dL (8.4-10.2); Potassium 3.9 mmol/L (3.5-5.1)
[2018-01-09 06:42] LABS: Basophils # (A) 0.1 k/uL (0-0.2); Basophils % (A) 1 %; Eosinophils # (A) 0.1 k/uL (0-0.7); Eosinophils % (A) 1 %; HCT 44.3 % (39.0-53.0); HGB 14.5 gm/dL (13.0-17.5); Lymphocytes # (A) 0.9 k/uL (1.0-4.8); Lymphocytes % (A) 13 %; MCH 28.3 pg (25.0-35.0); MCHC 32.8 g/dL (31.0-37.0); MCV 86.2 fL (80.0-100.0); Mean Platelet Volume 6.8; Monocytes # (A) 0.6 k/uL (0-1.0); Monocytes % (A) 9 %; Neutrophils # (A) 5.1 k/uL (1.3-7.7); Neutrophils % (A) 74 %; Platelet Count 148 k/uL (150-450); RBC 5.13 m/uL (4.30-5.90); RDW 14.9 % (11.5-15.5); WBC 6.9 k/uL (3.8-10.6)
[2018-01-09] MEDS: LISINOPRIL 20 MG TAB PO SCH ×2 (08:48→20:24)
[2018-01-09] MEDS: amLODIPine 5 MG TAB PO SCH (08:48)
[2018-01-09] MEDS: METOPROLOL TARTRATE 25 MG TAB PO SCH ×2 (08:48→20:24)
[2018-01-09] MEDS: FINASTERIDE 5 MG TAB PO SCH (08:48)
[2018-01-09] MEDS: ASPIRIN 325 MG TAB PO SCH (08:48)
--- NOTE | 2018-01-09 09:19 | PTCA ---
PERCUTANEOUSTRANS CORORONARY ANGIOGRAPHY DATE OF SERVICE: January 08, 2018 PERFORMING PHYSICIAN: Gonzalo Oliver MD, window repairer. PROCEDURE PERFORMED: Successful stenting of the proximal left anterior descending using a 3.0 x 15 mm Xience WOLFGANG with a good angiographic result. INDICATION: This is a pleasant 82-year-old gentleman who presented to the hospital with chest discomfort and ruled in for acute non ST elevation myocardial infarction. He underwent a heart catheterization by Dr. Galvan and was found to have severe disease involving the proximal LAD with possible thrombus formation. PCI of the LAD was advised. APPROACH: Right common femoral artery. COMPLICATION: None. LEVEL OF SEDATION: Moderate. Sedation length of 30 minutes. PROCEDURE DESCRIPTION: After diagnostic heart catheterization was performed by Dr. Galvan and after reviewing the angiogram, we decided to pursue with intervention on the LAD. Anticoagulation was initiated using Angiomax. Subsequently, I did engage the left main using a JL4 guiding catheter. Subsequently, I did wire the LAD using a Whisper wire. I did after that balloon angioplasty using 2.5 x 12 mm balloon, then I deployed 3.0 x 15 mm Xience WOLFGANG where the stent was positioned under fluoroscopic guidance and deployed under its nominal pressure. The following angiogram showed good angiographic results and the procedure was completed without any complication. POSTPROCEDURE MANAGEMENT: Dual anti-platelet therapy, risk factor modifications, follow up with the patient. MAGDIEL / ANIYAN: [id number] /
[2018-01-09 11:51] VITALS: BMI 20.6
--- NOTE | 2018-01-09 14:01 | P.PN ---
Subjective Progress Note Date: 01/09/18 Mr. Cain is a pleasant 82-year-old male past medical history significant for hypertension, dyslipidemia and BPH. He denies history of coronary artery disease and is never seen a grails web application developer for any reason. We have been asked to see him in consultation for complaints of chest pain. He states he woke up around 1:00 the morning on Friday night and felt a discomfort in his right flank thoracic region he got up to use the restroom and back to bed and then he started feeling a discomfort in the right anterior chest wall. These sensations persisted throughout the night and into the morning. He states he was feeling like a mild ache or discomfort in his chest with no specific aggravating or alleviating factors. He denies associated shortness of breath, palpitations, nausea, vomiting, diaphoresis or dizziness. His symptoms persisted until he presented to the emergency department and he received morphine, aspirin and sublingual nitroglycerin. He denies any recurrence of the symptoms throughout the night. At the time of my exam he is resting comfortably in bed in no acute distress with no symptoms of chest pain. However when coming back around to the unit nurse advised me that the patient is starting to have pain in his right arm and shoulder. Described as a heavy sensation. He was given sublingual nitroglycerin times one and achieved relief of the pain. Nitropaste has been applied. EKG on arrival reveals sinus mechanism with no acute ST or T-wave abnormalities. Repeat EKG this morning reveals T-wave inversions in the anterior lateral leads. Chest x-ray is negative for an acute cardiopulmonary process. CT angios the chest performed yesterday and negative for pulmonary embolism with evidence of mild atherosclerotic vascular disease. Laboratory data reviewed, hemoglobin 14.2, platelets 163, d-dimer 0.30, sodium 143, potassium 3.8, creatinine 1.1, magnesium 2.1, cardiac enzymes 0.012, 0.541 and 1.26 with CK-MB 1.5, 3.8 and 5.4 respectively. LDL 79, HDL 45, triglycerides 63 and total cholesterol 137. 01/09/2018 Patient was taken to the cardiac catheterization lab yesterday and subsequently underwent angioplasty with stenting of the LAD. He was seen and examined this morning, denied any chest pain or difficulty in breathing. Right groin is soft no evidence of any hematoma. Blood pressure 114/60 with a heart rate in the 60s , 93% on room air. White blood cell count 6.9, hemoglobin 14.5, platelet count 148. Sodium 142, potassium 3.9, BUN 19, creatinine 1.0. Patient did have a run of nonsustained ventricular tachycardia on the monitor. Echocardiogram with Doppler study was performed which revealed an ejection fraction of 50-55%. Patient has been encouraged to be up ambulating in the hallway today, plan for possible discharge home in 24 hours if stable. Objective - Vital Signs Vital signs: Vital Signs Temp 97.4 F L 01/09/18 08:00 Pulse 61 01/09/18 12:00 Resp 16 01/09/18 11:31 BP 114/66 01/09/18 11:31 Pulse Ox 93 L 01/09/18 11:31 Intake & Output 01/08/18 01/09/18 01/09/18 18:59 06:59 18:59 Intake Total 189 531 75 Output Total 2100 Balance 189 -1569 75 Weight 58 kg 58 kg Intake: IV 100 156 Intake, IV Titration 89 375 75 Amount Dextrose/Water 1 500ml. 14 bag @ 700 UNIT/HR 14 mls/ hr IV .Q24H AAN with Heparin Sodium,Porcine/ D5w Pmx 25,000 unit Rx#: [id number] Sodium Chloride 0.9% 1, 75 375 000 ml @ 75 mls/hr IV . [id number] ANA Rx#:[id number] Sodium Chloride 0.9% 1, 75 000 ml In Empty Bag 1 bag @ 1 ML/KG/HR 85.7 mls/hr IV .[id number] ONE Rx#: [id number] Output: Urine 1050 Straight 1050 Post Void Residual 1050 Other: Voiding Method Urinal # Voids 1 - Exam PHYSICAL EXAMINATION: GENERAL: 82-year-old gentleman in no apparent distress at the time of our examination. HEENT: Head is atraumatic, normocephalic. Pupils equal, round. Sclera anicteric. Conjunctiva are clear. Mucous membranes of the mouth are moist. Neck is supple. There is no elevated jugular venous pressure.] bruit is heard. HEART EXAMINATION: Heart S1, S2 normal. No murmur or gallop heard. CHEST EXAMINATION: Lungs are clear to auscultation and precussion. No chest wall tenderness is noted on palpation or with deep breathing. ABDOMEN: Soft, nontender. Bowel sounds are heard. No organomegaly noted. Right groin soft, no evidence of any hematoma. EXTREMITIES: 2+ peripheral pulses with no evidence of peripheral edema and no calf tenderness noted. NEUROLOGIC patient is awake, alert and oriented -3. . - Labs CBC & Chem 7: 01/09/18 05:22 01/09/18 05:22 Labs: Abnormal Lab Results - Last 24 Hours (Table) 01/09/18 Range/Units 05:22 Plt Count 148 L (150-450) k/uL Lymphocytes # 0.9 L (1.0-4.8) k/uL Assessment and Plan Plan: Assessment and plan #1 non-ST elevation myocardial infarction status post angioplasty and stenting of the LAD. #2 hypertension #3 hyperlipidemia #4 BPH Plan From cardiology's perspective, patient has been encouraged to be up ambulating in the hallway today. We'll plan for possible discharge home in 24 hours if stable. Follow-up appointment with Dr. Galvan in the office post discharge. DNP note has been reviewed, I agree with a documented findings and plan of care. Patient was seen and examined.
[2018-01-09] MEDS: CLOPIDOGREL 75 MG TAB PO SCH (17:52)
[2018-01-09] MEDS: TAMSULOSIN 0.4 MG CAP.ER.24H PO SCH (20:27)
[2018-01-09] MEDS ORDERED: ATORVASTATIN 40 MG TAB PO SCH (21:00)
[2018-01-10 03:53] VITALS: TEMP 97.5
[2018-01-10] MEDS: SODIUM CHLORIDE 0.9% 1,000 ML IV SCH (06:16)
[2018-01-10 06:27] LABS: Basophils % (A) 0 %; Eosinophils # (A) 0.1 k/uL (0-0.7); Eosinophils % (A) 2 %; HCT 42.2 % (39.0-53.0); HGB 13.9 gm/dL (13.0-17.5); Lymphocytes % (A) 15 %; MCH 28.2 pg (25.0-35.0); MCV 85.3 fL (80.0-100.0); Mean Platelet Volume 7.3; Monocytes # (A) 0.5 k/uL (0-1.0); Monocytes % (A) 8 %; Neutrophils # (A) 4.8 k/uL (1.3-7.7); Neutrophils % (A) 72 %; Platelet Count 129 k/uL (150-450); RBC 4.95 m/uL (4.30-5.90); RDW 15.4 % (11.5-15.5); WBC 6.7 k/uL (3.8-10.6)
[2018-01-10 06:28] LABS: Calcium 8.8 mg/dL (8.4-10.2); Potassium 4.1 mmol/L (3.5-5.1)
[2018-01-10 08:07] VITALS: RESP 16
[2018-01-10] MEDS: CLOPIDOGREL 75 MG TAB PO SCH (08:15)
[2018-01-10] MEDS: FINASTERIDE 5 MG TAB PO SCH (08:15)
[2018-01-10] MEDS: amLODIPine 5 MG TAB PO SCH (08:15)
[2018-01-10] MEDS: ASPIRIN 325 MG TAB PO SCH (08:15)
[2018-01-10] MEDS: METOPROLOL TARTRATE 25 MG TAB PO SCH (08:16)
[2018-01-10] MEDS: LISINOPRIL 20 MG TAB PO SCH (08:16)
[2018-01-10] MEDS ORDERED: METOPROLOL TARTRATE 25 MG TAB PO STA (09:17)
--- NOTE | 2018-01-10 11:12 | P.GSCN ---
History of Present Illness Consult date: 01/10/18 Reason for Consult: Urinary retention History of present illness: The patient is an 82-year-old male originally admitted on 01/07 for evaluation of chest pain. He was discovered to have a non-ST elevation myocardial infarction and underwent cardiac catheterization on 01/08. This showed evidence of severe stenosis of the LAD which was treated with placement of a stent. Later in the evening of 01/08 the patient was noted to have increasing difficulty with voiding and was in and out cathed for 1100 mL. He continued to have problems on 01/09 and a Jordan was eventually inserted when his post void residual was 700 mL. The catheter has remained in place. The patient has no previous history of urinary retention. He says that he has taken tamsulosin and dutasteride for several years. He says that his urine flow is actually relatively good and rated it as a 6 out of 10. He denied straining to void and night sensations of incomplete bladder emptying. Prior to his admission he was voiding every 2-4 hours during the day and 2 or 3 times at night. He has no history of gross hematuria or urinary tract infection. He says he has had constipation in the past but has had some bowel movements since he has been in the hospital. Review of Systems - Constitutional Reports as per HPI - Gastrointestinal Denies abdominal pain, Denies constipation - Genitourinary Reports as per HPI Past Medical History Past Medical History: Hyperlipidemia, Hypertension, Pneumonia, Renal Disease Additional Past Medical History / Comment(s): born premature,vertigo, bph, colitis since 1968,past detatched retina -pt not sure which side, cataracts,as child had pne and yellow jaundice,sciatic nerve pain-sees chiropractor, wears hearing aids, glasses History of Any Multi-Drug Resistant Organisms: None Reported Past Surgical History: Hernia Repair (Bilateral), Orthopedic Surgery, Tonsillectomy Additional Past Surgical History / Comment(s): hemorroid sx, Retina reattached, rt knee sx reapired cartilage-wears a brace when uo Additional Past Anesthesia/Blood Transfusion Reaction / Comm: as a child had loss of vision after hernia surgery Smoking Status: Former smoker - Past Family History Father Additional Family Medical History / Comment(s): alcoholic- at age 69 Mother Family Medical History: CVA/TIA Medications and Allergies Home Medications Medication Instructions Recorded Confirmed Type Dutasteride [Avodart] 0.5 mg PO DAILY 03/21/14 01/07/18 History Quinapril HCl [Accupril] 20 mg PO BID 03/21/14 01/07/18 History amLODIPine BESYLATE [Amlodipine 1 tab PO DAILY 06/03/15 01/07/18 History Besylate] Tamsulosin HCl [Flomax] 0.4 mg PO HS 02/04/16 01/07/18 History Meclizine HCl 25 mg PO DIRECTED PRN 12/12/17 01/07/18 History Cholecalciferol (Vitamin D3) 2,000 unit PO DAILY 01/07/18 01/07/18 History [Vitamin D3] Aspirin 325 mg PO DAILY #30 tab 01/09/18 Rx Atorvastatin [Lipitor] 40 mg PO HS #30 tab 01/09/18 Rx Clopidogrel [Plavix] 75 mg PO DAILY #30 tab 01/09/18 Rx Metoprolol Tartrate [Lopressor] 25 mg PO BID #60 tab 01/09/18 Rx Nitroglycerin Sl Tabs [Nitrostat] 0.4 mg SUBLINGUAL Q5M PRN #25 tab 01/09/18 Rx Allergies Allergy/AdvReac Type Severity Reaction Status Date / Time No Known Allergies Allergy Verified 01/07/18 16:34 Surgical - Exam Vital Signs Temp Pulse Resp BP Pulse Ox 97.0 F L 91 18 175/79 94 L 01/07/18 16:10 01/07/18 16:10 01/07/18 16:10 01/07/18 16:10 01/07/18 16:10 - General well developed, well nourished, no distress - Respiratory normal respiratory effort - Abdomen Abdomen: soft, non tender, no organomegaly - Genitourinary normal penis with no external lesions (Only catheters in place and is draining clear urine), testicles present, testicles non-tender - Rectum Rectum: normal sphincter tone, no hemorrhoids, no masses, other (Prostate is 20- 30 g size and benign) Results - Labs 01/10/18 05:31 01/10/18 05:31 Abnormal Lab Results - Last 24 Hours (Table) 01/10/18 01/10/18 Range/Units 05:31 05:31 Plt Count 129 L (150-450) k/uL BUN 25 H (9-20) mg/dL Diabetes panel 01/10/18 Range/Units 05:31 Sodium 139 (137-145) mmol/L Potassium 4.1 (3.5-5.1) mmol/L Chloride 107 (98-107) mmol/L Carbon Dioxide 22 (22-30) mmol/L BUN 25 H (9-20) mg/dL Creatinine 1.10 (0.66-1.25) mg/dL Glucose 92 (74-99) mg/dL Calcium 8.8 (8.4-10.2) mg/dL Calcium panel 01/10/18 Range/Units 05:31 Calcium 8.8 (8.4-10.2) mg/dL Pituitary panel 01/10/18 Range/Units 05:31 Sodium 139 (137-145) mmol/L Potassium 4.1 (3.5-5.1) mmol/L Chloride 107 (98-107) mmol/L Carbon Dioxide 22 (22-30) mmol/L BUN 25 H (9-20) mg/dL Creatinine 1.10 (0.66-1.25) mg/dL Glucose 92 (74-99) mg/dL Calcium 8.8 (8.4-10.2) mg/dL Adrenal panel 01/10/18 Range/Units 05:31 Sodium 139 (137-145) mmol/L Potassium 4.1 (3.5-5.1) mmol/L Chloride 107 (98-107) mmol/L Carbon Dioxide 22 (22-30) mmol/L BUN 25 H (9-20) mg/dL Creatinine 1.10 (0.66-1.25) mg/dL Glucose 92 (74-99) mg/dL Calcium 8.8 (8.4-10.2) mg/dL Assessment and Plan (1) Urinary retention Narrative/Plan: The patient's urinary retention following cardiac catheterization may have been related to some sedation given at the time of the procedure coupled with IV fluids which allowed the bladder to become distended without the patient being aware of this. He may have also had difficulty voiding lying in bed following the procedure. Unfortunately the patient's bladder was overdistended to 1100 mL later that day and this may lead to some temporary bladder dysfunction. The patient should be continued on tamsulosin and dutasteride. I told him I would like for him to have the catheter left in place at the time of discharge. Ideally the patient or a nurse can remove the catheter for him before he goes to bed on 01/12 and I can see him on 01/13 in the morning in the office to check a postvoid residual. Current Visit: Yes Status: Acute Code(s): R33.9 - RETENTION OF URINE, UNSPECIFIED SNOMED Code(s): 349978660
[2018-01-10 11:16] VITALS: BP 131/71; PULSE 56
--- NOTE | 2018-01-10 12:08 | PN ---
PROGRESS NOTE Mr. Cain came in with an with an acute myocardial infarction. He underwent stenting to the LAD. He is stable, doing well. His LV function is normal. He is afebrile, 97.5 degrees Fahrenheit, pulse rate in the 50s and 60s. He is appropriately medicated for CAD and post acute [place]. Blood pressure is 131/79 mmHg. Head and neck examination normal. Heart sounds normal. Lungs are clear to auscultation. Extremities are warm, no edema. IMPRESSION: Acute myocardial infarction status post coronary stenting. SUGGEST: Continue statins. Continue dual anti-platelet therapy and beta blockers and follow up with primary skidder loader within 1 week. The patient may be discharged home within the next 24 to 48 hours. MMODL / IJN: [id number] /
--- NOTE | 2018-01-10 14:05 | P.DS ---
Providers Date of admission: 01/08/18 13:54 Attending physician: Andrés Snow Consults: 01/07/18 18:40 Consult Physician Urgent Consulting Provider: Ethan Delgado Consult Reason/Comments: cp Do you want consulting provider notified?: Yes 01/08/18 20:09 Consult Physician Routine Consulting Provider: [facility] Consult Reason/Comments: Post Interventional patient Do you want consulting provider notified?: Already Contacted 01/09/18 16:58 Consult Physician Urgent Consulting Provider: Estrada Booker Consult Reason/Comments: retention, bph Do you want consulting provider notified?: Yes Primary care physician: Andrés Snow Hospital Course: 82-year-old admitted for non-ST elevation myocardial infarction patient underwent stenting of LAD clinically doing well patient is unable to urinate because of which urology valid the patient the recommending to keep his Jordan catheter and patient will be seen in urology clinic on Friday. Patient blood pressure is on the low normal side because of which discontinued amlodipine rest the medications will be continued, patient has normal ejection fraction. Physical therapy is recommending home with home care which will be provided to the patient and patient will be discharged today. PHYSICAL EXAMINATION: GENERAL: The patient is alert and oriented x3, not in any acute distress. Well developed, well nourished. HEENT: Pupils are round and equally reacting to light. EOMI. No scleral icterus. No conjunctival pallor. Normocephalic, atraumatic. No pharyngeal erythema. No thyromegaly. CARDIOVASCULAR: S1 and S2 present. No murmurs, rubs, or gallops. PULMONARY: Chest is clear to auscultation, no wheezing or crackles. ABDOMEN: Soft, nontender, nondistended, normoactive bowel sounds. No palpable organomegaly. MUSCULOSKELETAL: No joint swelling or deformity. EXTREMITIES: No cyanosis, clubbing, or pedal edema. NEUROLOGICAL: Gross neurological examination did not reveal any focal deficits. SKIN: No rashes. Plan: Assessment and plan #1 non-ST elevation myocardial infarction status post angioplasty and stenting of the LAD. #2 hypertension #3 hyperlipidemia #4 BPH Patient Condition at Discharge: Undetermined Plan - Discharge Summary Discharge Rx Participant: Yes New Discharge Prescriptions: New Aspirin 325 mg PO DAILY #30 tab Atorvastatin [Lipitor] 40 mg PO HS #30 tab Clopidogrel [Plavix] 75 mg PO DAILY #30 tab Metoprolol Tartrate [Lopressor] 25 mg PO BID #60 tab Nitroglycerin Sl Tabs [Nitrostat] 0.4 mg SUBLINGUAL Q5M PRN #25 tab PRN Reason: Chest Pain Continue Quinapril HCl [Accupril] 20 mg PO BID Discontinued Simvastatin [Zocor] 20 mg PO HS amLODIPine BESYLATE [Amlodipine Besylate] 1 tab PO DAILY No Action Dutasteride [Avodart] 0.5 mg PO DAILY Tamsulosin HCl [Flomax] 0.4 mg PO HS Meclizine HCl 25 mg PO DIRECTED PRN PRN Reason: Vertigo Cholecalciferol (Vitamin D3) [Vitamin D3] 2,000 unit PO DAILY Discharge Medication List Dutasteride [Avodart] 0.5 mg PO DAILY 03/21/14 [History] Quinapril HCl [Accupril] 20 mg PO BID 03/21/14 [History] Tamsulosin HCl [Flomax] 0.4 mg PO HS 02/04/16 [History] Meclizine HCl 25 mg PO DIRECTED PRN 12/12/17 [History] Cholecalciferol (Vitamin D3) [Vitamin D3] 2,000 unit PO DAILY 01/07/18 [History] Aspirin 325 mg PO DAILY #30 tab 01/09/18 [Rx] Atorvastatin [Lipitor] 40 mg PO HS #30 tab 01/09/18 [Rx] Clopidogrel [Plavix] 75 mg PO DAILY #30 tab 01/09/18 [Rx] Metoprolol Tartrate [Lopressor] 25 mg PO BID #60 tab 01/09/18 [Rx] Nitroglycerin Sl Tabs [Nitrostat] 0.4 mg SUBLINGUAL Q5M PRN #25 tab 01/09/18 [Rx ] Follow up Appointment(s)/Referral(s): Andrés Snow MD [Primary Care Provider] - 01/14/18 9:40 am [facility], [NON-STAFF] - Viraj Delgado MD [STAFF PHYSICIAN] - 01/13/18 (Call office to make appointment. ) Emily Galvan MD [STAFF PHYSICIAN] - 01/15/18 2:30 pm Patient Instructions/Handouts: *Surgery [facility] - After Heart Catheterization - Structural Engineering Drafting Officer Instructions, Urinary Retention in Men (GEN), Heart Healthy Diet (DC), Urinary Leg Bag (GEN), Coronary Intravascular Stent Placement (DC) Discharge Disposition: HOME WITH HOME HEALTH SERVICES
[2018-01-10] MEDS ORDERED: METOPROLOL TARTRATE 50 MG TAB PO SCH (21:00)
[2018-01-11] MEDS ORDERED: LISINOPRIL 20 MG TAB PO SCH (09:00)
--- NOTE | 2018-01-11 15:45 | P.PN ---
Subjective Progress Note Date: 01/09/18 Progress note being dictated for Dr. Avilez Interval history:82-year-old admitted for non-ST elevation myocardial infarction , status post stenting of LAD, and multiple other medical issues. Presenting with urinary retention in a patient with history of BPH. Denies chest pain, palpitations or increased shortness of breath. Telemetry sinus rhythm. Objective - Vital Signs Vital signs: Vital Signs Temp 97.5 F L 01/10/18 11:15 Pulse 56 L 01/10/18 12:00 Resp 16 01/10/18 11:15 BP 131/71 01/10/18 11:15 Pulse Ox 93 L 01/10/18 11:15 Intake & Output 01/10/18 01/11/18 01/11/18 18:59 06:59 18:59 Intake Total 716 Balance 716 Intake: Oral 716 Other: Voiding Method Indwelling Catheter - Exam GENERAL:alert and oriented x3, not in any acute distress. Well developed, well nourished. HEENT: Pupils are round and equally reacting to light. EOMI. No scleral icterus. No conjunctival pallor. Normocephalic, atraumatic. No pharyngeal erythema. No thyromegaly. CARDIOVASCULAR: S1 and S2 present. No murmurs, rubs, or gallops. PULMONARY: Chest is clear to auscultation, no wheezing or crackles. ABDOMEN: Soft, nontender, nondistended, normoactive bowel sounds. No palpable organomegaly. MUSCULOSKELETAL: No joint swelling or deformity. EXTREMITIES: No cyanosis, clubbing, or pedal edema. NEUROLOGICAL: Gross neurological examination did not reveal any focal deficits. SKIN: No rashes. - Labs CBC & Chem 7: 01/10/18 05:31 01/10/18 05:31 Assessment and Plan Assessment: #1 non-ST elevation myocardial infarction status post angioplasty and stenting of the LAD. #2 hypertension #3 hyperlipidemia #4 Urinary retention with hx of BPH Plan continue on current medication regime ,monitoring and symptomatic treatment. Orders given for Jordan catheter and urology consult. Increase ambulation as tolerated. Discharge planning in progress for tomorrow. The impression and plan of care has been dictated as directed. : I performed a history and examination of this patient, discussed the same with the dictator. I agree with the dictator's note ,documented as a scribe. Any additional findings or plans will be noted.
== END 2018-01-10 15:15 | disposition home health service (06) | DRG 247 ==
LOC: EC 15:54 → 3OBS 18:40 → 6SEL 01-08 11:07 → OBSVTOIN 01-08 13:54
PROVIDERS: ADMIT Family Medicine; ATTEND Family Medicine
PROC: 4A023N7 Measurement of Cardiac Sampling and Pressure, Left Heart, Percutaneous Approach (ICD-10-PCS; 2018-01-08)
PROC: B2111ZZ Fluoroscopy of Multiple Coronary Arteries using Low Osmolar Contrast (ICD-10-PCS; 2018-01-08)
PROC: 027034Z Dilation of Coronary Artery, One Artery with Drug-eluting Intraluminal Device, Percutaneous Approach (ICD-10-PCS; principal; 2018-01-08 13:40)
DX: I21.4 Non-ST elevation (NSTEMI) myocardial infarction (principal); I47.2 Ventricular tachycardia; I25.10 Atherosclerotic heart disease of native coronary artery without angina pectoris; E78.5 Hyperlipidemia, unspecified; I10 Essential (primary) hypertension; E78.00 Pure hypercholesterolemia, unspecified; N40.1 Benign prostatic hyperplasia with lower urinary tract symptoms; R33.8 Other retention of urine; Z87.891 Personal history of nicotine dependence; Z79.899 Other long term (current) drug therapy; Z79.4 Long term (current) use of insulin; Z79.3 Long term (current) use of hormonal contraceptives
CPT/HCPCS: 36415; 71046; 71275; 80048; 80053; 80061; 82550; 82553; 82565; 83690; 83735; 84484; 84520; 85025; 85379; 85610; 85730; 93005; 93306; 93458; 94760; 96374; 99291

== ENCOUNTER 2018-01-15 09:34 | Emergency (ER) | payer MEDICARE, BC ==
[2018-01-15 09:38] VITALS: RESP 16
[2018-01-15 10:34] LABS: Appearance,Urine Clear (Clear); Bacteria,Urine Rare /hpf; Bilirubin,Urine Negative (Negative); Blood,Urine Moderate (Negative); Color,Urine Light Yellow; Glucose,Urine (UA) Negative (Negative); Ketones,Urine Negative (Negative); Leukocyte Esterase,Urine Negative (Negative); Mucus,Urine Rare /hpf; Nitrite,Urine Negative (Negative); PH, Urine 6.5 (5.0-8.0); Protein,Urine Negative (Negative); RBC,Urine 6 /hpf (0-5); Specific Gravity,Urine 1.006 (1.001-1.035); Urobilinogen,Urine <2.0 mg/dL (<2.0); WBC,Urine 1 /hpf (0-5)
--- NOTE | 2018-01-15 10:45 | ED ---
Male Urogenital HPI - General Chief complaint: Urogenital Stated complaint: catheter problem Time Seen by Provider: 01/15/18 09:45 Source: patient Mode of arrival: wheelchair Limitations: no limitations - History of Present Illness Initial comments: 82-year-old male presents emergency Department chief complaint of catheter pain. Patient states that he has pain in his penis where the catheter isn't states that he knows some blood this morning. Patient states it was placed last Friday he has a follow-up appointment on Friday with urology to have it removed. Patient states he is not sure why her ears this time. Patient reports no fever no chills. He did have urine in the Jordan bag. - Related Data Home Medications Medication Instructions Recorded Confirmed Dutasteride [Avodart] 0.5 mg PO DAILY 03/21/14 01/15/18 Quinapril HCl [Accupril] 20 mg PO BID 03/21/14 01/15/18 Tamsulosin HCl [Flomax] 0.4 mg PO HS 02/04/16 01/15/18 Meclizine HCl 25 mg PO TID PRN 12/12/17 01/15/18 Cholecalciferol (Vitamin D3) 2,000 unit PO DAILY 01/07/18 01/15/18 [Vitamin D3] Previous Rx's Medication Instructions Recorded Aspirin 325 mg PO DAILY #30 tab 01/09/18 Atorvastatin [Lipitor] 40 mg PO HS #30 tab 01/09/18 Clopidogrel [Plavix] 75 mg PO DAILY #30 tab 01/09/18 Metoprolol Tartrate [Lopressor] 25 mg PO BID #60 tab 01/09/18 Nitroglycerin Sl Tabs [Nitrostat] 0.4 mg SUBLINGUAL Q5M PRN #25 tab 01/09/18 Allergies Allergy/AdvReac Type Severity Reaction Status Date / Time No Known Allergies Allergy Verified 01/15/18 10:02 Review of Systems ROS Statement: Those systems with pertinent positive or pertinent negative responses have been documented in the HPI. ROS Other: All systems not noted in ROS Statement are negative. Past Medical History Past Medical History: Hyperlipidemia, Hypertension, Pneumonia, Renal Disease Additional Past Medical History / Comment(s): born premature,vertigo, bph, colitis since 1968,past detatched retina -pt not sure which side, cataracts,as child had pne and yellow jaundice,sciatic nerve pain-sees chiropractor, wears hearing aids, glasses History of Any Multi-Drug Resistant Organisms: None Reported Past Surgical History: Hernia Repair, Orthopedic Surgery, Tonsillectomy Additional Past Surgical History / Comment(s): hemorroid sx, Retina reattached, rt knee sx reapired cartilage-wears a brace when uo Additional Past Anesthesia/Blood Transfusion Reaction / Comment(s): as a child had loss of vision after hernia surgery Past Psychological History: No Psychological Hx Reported Smoking Status: Former smoker - Past Family History Father Additional Family Medical History / Comment(s): alcoholic- at age 69 Mother Family Medical History: CVA/TIA General Exam Limitations: no limitations General appearance: alert, in no apparent distress Respiratory exam: Present: normal lung sounds bilaterally. Absent: respiratory distress, wheezes, rales, rhonchi, stridor Cardiovascular Exam: Present: regular rate, normal rhythm, normal heart sounds. Absent: systolic murmur, diastolic murmur, rubs, gallop, clicks GI/Abdominal exam: Present: soft, normal bowel sounds. Absent: distended, tenderness, guarding, rebound, rigid exam: Absent: normal inspection (Catheter noted with some blood at the urethra) Course Vital Signs 01/15/18 09:37 Temperature 98 F Pulse Rate 71 Respiratory 16 Rate Blood Pressure 167/75 O2 Sat by Pulse 97 Oximetry Medical Decision Making - Medical Decision Making 82-year-old male presented emergency from for catheter pain. The balloon was deflated, advanced and reinflated. The salt patient's pain this time. Patient most likely pulled the catheter down causing some urethral trauma. Patient has a follow-up appointment on Friday. Return parameters were discussed. - Lab Data Lab Results 01/15/18 Range/Units 10:01 Urine Color Light Yellow Urine Appearance Clear (Clear) Urine pH 6.5 (5.0-8.0) Ur Specific [place] 1.006 (1.001-1.035) Urine Protein Negative (Negative) Urine Glucose (UA) Negative (Negative) Urine Ketones Negative (Negative) Urine Blood Moderate H (Negative) Urine Nitrite Negative (Negative) Urine Bilirubin Negative (Negative) Urine Urobilinogen <2.0 (<2.0) mg/dL Ur Leukocyte Esterase Negative (Negative) Urine RBC 6 H (0-5) /hpf Urine WBC 1 (0-5) /hpf Urine Bacteria Rare H (None) /hpf Urine Mucus Rare H (None) /hpf Disposition Clinical Impression: Jordan catheter problem Disposition: HOME SELF-CARE Condition: Stable Instructions: Jordan Catheter Placement and Care (ED) Additional Instructions: Please return to the Emergency Department if symptoms worsen or any other concerns. Is patient prescribed a controlled substance at d/c from ED?: No Referrals: Andrés Snow MD [Primary Care Provider] - 1-2 days Time of Disposition: 10:45
[2018-01-15 11:09] VITALS: BP 159/78; PULSE 66; TEMP 97.8
== END 2018-01-15 11:08 | disposition home or self-care (01) ==
LOC: EC 09:34
DX: T83.098A Other mechanical complication of other urinary catheter, initial encounter (principal); N40.0 Benign prostatic hyperplasia without lower urinary tract symptoms; I10 Essential (primary) hypertension; Z87.891 Personal history of nicotine dependence; Z79.899 Other long term (current) drug therapy
CPT/HCPCS: 81001; 87086; 99283

== ENCOUNTER 2018-01-18 12:14 | Emergency (ER) | payer MEDICARE, BC ==
--- NOTE | 2018-01-18 12:28 | ED ---
General Adult HPI - General Stated complaint: Blood in Urine Time Seen by Provider: 01/18/18 12:27 Limitations: no limitations - History of Present Illness Initial comments: Patient presents for hematuria. Patient has indwelling Jordan catheter has been in for approximately 10 days since getting cardiac stents placed. Patient states she had an appointment with urologist Dr. Delgado tomorrow to have catheter removed. Patient states he noticed blood in the urine this morning, everything was normal yesterday. Patient denies any pain. Patient on aspirin and Plavix for recent cardiac stent. Patient states Jordan catheter was placed for urinary retention following the cardiac cath procedure. - Related Data Home Medications Medication Instructions Recorded Confirmed Dutasteride [Avodart] 0.5 mg PO DAILY 03/21/14 01/18/18 Quinapril HCl [Accupril] 20 mg PO BID 03/21/14 01/18/18 Tamsulosin HCl [Flomax] 0.4 mg PO HS 02/04/16 01/18/18 Meclizine HCl 25 mg PO TID PRN 12/12/17 01/18/18 Cholecalciferol (Vitamin D3) 2,000 unit PO DAILY 01/07/18 01/18/18 [Vitamin D3] Previous Rx's Medication Instructions Recorded Aspirin 325 mg PO DAILY #30 tab 01/09/18 Atorvastatin [Lipitor] 40 mg PO HS #30 tab 01/09/18 Clopidogrel [Plavix] 75 mg PO DAILY #30 tab 01/09/18 Metoprolol Tartrate [Lopressor] 25 mg PO BID #60 tab 01/09/18 Nitroglycerin Sl Tabs [Nitrostat] 0.4 mg SUBLINGUAL Q5M PRN #25 tab 01/09/18 Allergies Allergy/AdvReac Type Severity Reaction Status Date / Time No Known Allergies Allergy Verified 01/18/18 12:37 Review of Systems ROS Statement: Those systems with pertinent positive or pertinent negative responses have been documented in the HPI. ROS Other: All systems not noted in ROS Statement are negative. Constitutional: Denies: fever, chills, weakness, night sweats Eyes: Denies: vision change ENT: Denies: epistaxis Respiratory: Denies: cough, dyspnea Cardiovascular: Denies: chest pain, palpitations, dyspnea on exertion, syncope Endocrine: Denies: fatigue Gastrointestinal: Denies: abdominal pain, nausea, vomiting, diarrhea, constipation, melena, hematochezia Genitourinary: Reports: hematuria. Denies: urgency, dysuria, frequency, discharge, testicular pain, testicular mass Musculoskeletal: Denies: back pain Skin: Denies: rash, change in color Neurological: Denies: headache, weakness, numbness, confusion Hematological/Lymphatic: Reports: easy bleeding Past Medical History Past Medical History: Hyperlipidemia, Hypertension, Pneumonia, Renal Disease Additional Past Medical History / Comment(s): born premature,vertigo, bph, colitis since 1968,past detatched retina -pt not sure which side, cataracts,as child had pne and yellow jaundice,sciatic nerve pain-sees chiropractor, wears hearing aids, glasses History of Any Multi-Drug Resistant Organisms: None Reported Past Surgical History: Hernia Repair, Orthopedic Surgery, Tonsillectomy Additional Past Surgical History / Comment(s): hemorroid sx, Retina reattached, rt knee sx reapired cartilage-wears a brace when uo Additional Past Anesthesia/Blood Transfusion Reaction / Comment(s): as a child had loss of vision after hernia surgery Past Psychological History: No Psychological Hx Reported Smoking Status: Former smoker - Past Family History Father Additional Family Medical History / Comment(s): alcoholic- at age 69 Mother Family Medical History: CVA/TIA General Exam - General Exam Comments Initial Comments: Sitting up in bed. No acute distress. Conversing normally. Calm, pleasant. Limitations: no limitations General appearance: alert, in no apparent distress Head exam: Present: atraumatic, normocephalic Eye exam: Present: normal appearance, PERRL, EOMI. Absent: scleral icterus, conjunctival injection ENT exam: Present: normal exam, mucous membranes moist Neck exam: Present: normal inspection Respiratory exam: Present: normal lung sounds bilaterally. Absent: respiratory distress, wheezes, rales Cardiovascular Exam: Present: regular rate, normal rhythm GI/Abdominal exam: Present: soft. Absent: distended, tenderness, guarding, rebound exam: Present: normal inspection, other (Jordan catheter in place, dark red urine in Jordan leg bag.). Absent: urethral discharge, scrotal swelling External exam: Absent: erythema, swelling, lesions Extremities exam: Present: normal inspection Back exam: Present: normal inspection Neurological exam: Present: alert, oriented X3 Psychiatric exam: Present: normal affect, normal mood Skin exam: Present: warm, dry, intact, normal color. Absent: rash, erythema, pallor Course Vital Signs 01/18/18 01/18/18 12:26 13:44 Temperature 97.4 F L Pulse Rate 71 67 Respiratory 18 16 Rate Blood Pressure 180/79 172/75 O2 Sat by Pulse 94 L 93 L Oximetry Medical Decision Making - Medical Decision Making Patient with 365 on bladder scan, Jordan catheter extending far out of urethral meatus, possibly pulled out partially/dislodged, will remove Jordan and replace. Urinalysis shows hematuria, culture pending. Hemoglobin level within normal range. Jordan catheter exchange, draining clear red urine. Patient has appointment tomorrow morning at 8 AM with his urologist, patient instructed to follow-up at his scheduled appointment tomorrow morning. Return to ER if new or worsening symptoms including increased bleeding, urinary retention. Given recent stent placement, patient to speak with his senior systems software engineer regarding aspirin and Plavix use, given hematuria, continue as prescribed at this time, call senior systems software engineer in the morning. - Lab Data Result diagrams: 01/18/18 13:02 01/18/18 13:02 Lab Results 01/18/18 01/18/18 01/18/18 Range/Units 13:02 13:02 13:02 WBC 12.1 H (3.8-10.6) k/uL RBC 5.50 (4.30-5.90) m/uL Hgb 15.4 (13.0-17.5) gm/dL Hct 46.6 (39.0-53.0) % MCV 84.7 (80.0-100.0) fL MCH 28.0 (25.0-35.0) pg MCHC 33.1 (31.0-37.0) g/dL RDW 14.1 (11.5-15.5) % Plt Count 182 (150-450) k/uL Neutrophils % 88 % Lymphocytes % 5 % Monocytes % 5 % Eosinophils % 1 % Basophils % 0 % Neutrophils # 10.6 H (1.3-7.7) k/uL Lymphocytes # 0.6 L (1.0-4.8) k/uL Monocytes # 0.6 (0-1.0) k/uL Eosinophils # 0.1 (0-0.7) k/uL Basophils # 0.1 (0-0.2) k/uL PT 10.6 (9.0-12.0) sec INR 1.1 (<1.2) APTT 24.7 (22.0-30.0) sec Sodium 139 (137-145) mmol/L Potassium 4.1 (3.5-5.1) mmol/L Chloride 103 (98-107) mmol/L Carbon Dioxide 24 (22-30) mmol/L Anion Gap 12 mmol/L BUN 18 (9-20) mg/dL Creatinine 1.10 (0.66-1.25) mg/dL Est GFR (CKD-EPI)AfAm 73 (>60 ml/min/1.73 sqM) Est GFR (CKD-EPI)NonAf 63 (>60 ml/min/1.73 sqM) Glucose 105 H (74-99) mg/dL Calcium 9.3 (8.4-10.2) mg/dL Urine Color Urine Appearance (Clear) Urine RBC (0-5) /hpf Urine WBC (0-5) /hpf 01/18/18 Range/Units 13:35 WBC (3.8-10.6) k/uL RBC (4.30-5.90) m/uL Hgb (13.0-17.5) gm/dL Hct (39.0-53.0) % MCV (80.0-100.0) fL MCH (25.0-35.0) pg MCHC (31.0-37.0) g/dL RDW (11.5-15.5) % Plt Count (150-450) k/uL Neutrophils % % Lymphocytes % % Monocytes % % Eosinophils % % Basophils % % Neutrophils # (1.3-7.7) k/uL Lymphocytes # (1.0-4.8) k/uL Monocytes # (0-1.0) k/uL Eosinophils # (0-0.7) k/uL Basophils # (0-0.2) k/uL PT (9.0-12.0) sec INR (<1.2) APTT (22.0-30.0) sec Sodium (137-145) mmol/L Potassium (3.5-5.1) mmol/L Chloride (98-107) mmol/L Carbon Dioxide (22-30) mmol/L Anion Gap mmol/L BUN (9-20) mg/dL Creatinine (0.66-1.25) mg/dL Est GFR (CKD-EPI)AfAm (>60 ml/min/1.73 sqM) Est GFR (CKD-EPI)NonAf (>60 ml/min/1.73 sqM) Glucose (74-99) mg/dL Calcium (8.4-10.2) mg/dL Urine Color Red Urine Appearance Bloody (Clear) Urine RBC >182 H (0-5) /hpf Urine WBC >182 H (0-5) /hpf Disposition Clinical Impression: Hematuria Disposition: HOME SELF-CARE Condition: Good Instructions: Hematuria (ED) Additional Instructions: Follow-up at your urology appointment tomorrow. Call your senior systems software engineer to discuss aspirin tablets he is given hematuria. Is patient prescribed a controlled substance at d/c from ED?: No Referrals: Andrés Snow MD [Primary Care Provider] - 1-2 days Viraj Delgado MD [STAFF PHYSICIAN] - 1-2 days
[2018-01-18] MEDS ORDERED: LIDOCAINE URO-JET JELLY 2% 5 ML KIT URETHRAL ONE ×2 (13:04→15:27)
[2018-01-18 13:26] LABS: Basophils # (A) 0.1 k/uL (0-0.2); Basophils % (A) 0 %; Eosinophils # (A) 0.1 k/uL (0-0.7); Eosinophils % (A) 1 %; HCT 46.6 % (39.0-53.0); HGB 15.4 gm/dL (13.0-17.5); Lymphocytes # (A) 0.6 k/uL (1.0-4.8); Lymphocytes % (A) 5 %; MCHC 33.1 g/dL (31.0-37.0); MCV 84.7 fL (80.0-100.0); Mean Platelet Volume 7.1; Monocytes # (A) 0.6 k/uL (0-1.0); Monocytes % (A) 5 %; Neutrophils # (A) 10.6 k/uL (1.3-7.7); Neutrophils % (A) 88 %; Platelet Count 182 k/uL (150-450); RDW 14.1 % (11.5-15.5); WBC 12.1 k/uL (3.8-10.6)
[2018-01-18 13:27] LABS: INR 1.1 (<1.2); Partial Thromboplastin Time 24.7 sec (22.0-30.0); Prothrombin Time 10.6 sec (9.0-12.0)
[2018-01-18 13:30] LABS: Calcium 9.3 mg/dL (8.4-10.2); Potassium 4.1 mmol/L (3.5-5.1)
[2018-01-18 13:52] LABS: RBC,Urine >182 /hpf (0-5); WBC,Urine >182 /hpf (0-5)
[2018-01-18 13:53] LABS: Appearance,Urine Bloody (Clear); Color,Urine Red
[2018-01-18 15:15] VITALS: RESP 18
[2018-01-18 18:37] VITALS: BP 171/69; PULSE 78; TEMP 98.1
== END 2018-01-18 17:30 | disposition home or self-care (01) ==
LOC: EC 12:14
DX: R31.9 Hematuria, unspecified (principal); Z87.891 Personal history of nicotine dependence; I10 Essential (primary) hypertension; N40.1 Benign prostatic hyperplasia with lower urinary tract symptoms; H33.20 Serous retinal detachment, unspecified eye; H26.9 Unspecified cataract; Z79.02 Long term (current) use of antithrombotics/antiplatelets; Z79.82 Long term (current) use of aspirin; Z79.899 Other long term (current) drug therapy; Z97.3 Presence of spectacles and contact lenses; Z97.4 Presence of external hearing-aid; Z95.5 Presence of coronary angioplasty implant and graft
CPT/HCPCS: 36415; 51702; 51798; 80048; 85025; 85610; 85730; 87077; 87086; 87186; 99284

== ENCOUNTER 2018-01-18 19:13 | Inpatient (IN) | payer MEDICARE, BC ==
--- NOTE | 2018-01-18 19:43 | ED ---
Male Urogenital HPI - General Chief complaint: Urogenital Stated complaint: Recheck/Cath/Blocked Time Seen by Provider: 01/18/18 19:43 Source: patient, family Mode of arrival: wheelchair Limitations: physical limitation - History of Present Illness Initial comments: Patient presents with hematuria, Jordan catheter dysfunction. Patient was seen in the ER the previous visit earlier today. During your visit earlier today patient's Jordan catheter appeared to be partially pulled out, causing hematuria that started this morning. Patient's Jordan catheter was exchanged for a 22- Macedonian Jordan catheter and irrigated. Jordan catheter was draining without difficulty at time of discharge from ER earlier today. Patient states he feels scared at home, lives at home by himself, would like to be admitted to the hospital for this. He called a friend from his [facility] who brought him back to the ER for evaluations as Jordan catheter, she was concerned it might not be draining. Patient denies any abdominal pain or flank pain, patient bled some mild discomfort in his penis from the catheter. Denies lightheadedness, syncope , chest pain, shortness breath, palpitations, nausea, vomiting. Hemoglobin was within normal limits earlier today during 1st ER visit. - Related Data Home Medications Medication Instructions Recorded Confirmed Dutasteride [Avodart] 0.5 mg PO DAILY 03/21/14 01/18/18 Quinapril HCl [Accupril] 20 mg PO BID 03/21/14 01/18/18 Tamsulosin HCl [Flomax] 0.4 mg PO HS 02/04/16 01/18/18 Meclizine HCl 25 mg PO TID PRN 12/12/17 01/18/18 Cholecalciferol (Vitamin D3) 2,000 unit PO DAILY 01/07/18 01/18/18 [Vitamin D3] Previous Rx's Medication Instructions Recorded Aspirin 325 mg PO DAILY #30 tab 01/09/18 Atorvastatin [Lipitor] 40 mg PO HS #30 tab 01/09/18 Clopidogrel [Plavix] 75 mg PO DAILY #30 tab 01/09/18 Metoprolol Tartrate [Lopressor] 25 mg PO BID #60 tab 01/09/18 Nitroglycerin Sl Tabs [Nitrostat] 0.4 mg SUBLINGUAL Q5M PRN #25 tab 01/09/18 Allergies Allergy/AdvReac Type Severity Reaction Status Date / Time No Known Allergies Allergy Verified 01/18/18 19:40 Review of Systems ROS Statement: Those systems with pertinent positive or pertinent negative responses have been documented in the HPI. ROS Other: All systems not noted in ROS Statement are negative. Constitutional: Denies: fever, chills Eyes: Denies: vision change ENT: Denies: congestion Respiratory: Denies: dyspnea Cardiovascular: Denies: chest pain, palpitations Endocrine: Denies: fatigue Gastrointestinal: Denies: abdominal pain, nausea, vomiting Genitourinary: Reports: hematuria, other (Mild penile pain). Denies: testicular pain, testicular mass Musculoskeletal: Denies: back pain, joint swelling, arthralgia Skin: Denies: change in color Neurological: Denies: headache, weakness, numbness, confusion Hematological/Lymphatic: Reports: easy bleeding Past Medical History Past Medical History: Hyperlipidemia, Hypertension, Pneumonia, Renal Disease Additional Past Medical History / Comment(s): born premature,vertigo, bph, colitis since 1968,past detatched retina -pt not sure which side, cataracts,as child had pne and yellow jaundice,sciatic nerve pain-sees chiropractor, wears hearing aids, glasses History of Any Multi-Drug Resistant Organisms: None Reported Past Surgical History: Hernia Repair, Orthopedic Surgery, Tonsillectomy Additional Past Surgical History / Comment(s): hemorroid sx, Retina reattached, rt knee sx reapired cartilage-wears a brace when uo Additional Past Anesthesia/Blood Transfusion Reaction / Comment(s): as a child had loss of vision after hernia surgery Past Psychological History: No Psychological Hx Reported Smoking Status: Former smoker Past Alcohol Use History: None Reported Past Drug Use History: None Reported - Past Family History Father Additional Family Medical History / Comment(s): alcoholic- at age 69 Mother Family Medical History: CVA/TIA General Exam - General Exam Comments Initial Comments: Sitting up in bed alert. No acute distress. Conversing normally. Calm, pleasant. Well-groomed well-dressed. Well-appearing. Not appear in pain. Limitations: physical limitation General appearance: alert, in no apparent distress Head exam: Present: atraumatic, normocephalic Eye exam: Present: normal appearance, PERRL, EOMI ENT exam: Present: normal exam, normal oropharynx Neck exam: Present: normal inspection. Absent: tenderness Respiratory exam: Present: normal lung sounds bilaterally. Absent: respiratory distress, wheezes, rales Cardiovascular Exam: Present: regular rate, normal rhythm GI/Abdominal exam: Present: soft, other (No suprapubic tenderness or distention. No CVA tenderness.). Absent: distended, tenderness, guarding, rebound exam: Present: other (Jordan catheter in place. Draining clear red urine from Jordan. Jordan bag emptied, drained clear red urine immediately, catheter appears to be functioning properly.). Absent: urethral discharge, scrotal swelling Extremities exam: Present: normal inspection. Absent: pedal edema Back exam: Present: normal inspection. Absent: CVA tenderness (R), CVA tenderness (L) Neurological exam: Present: alert, oriented X3 Psychiatric exam: Present: normal affect, normal mood Skin exam: Present: warm, dry, intact, normal color. Absent: pallor Course Vital Signs 01/18/18 19:35 Temperature 98.4 F Pulse Rate 73 Respiratory 18 Rate Blood Pressure 120/74 O2 Sat by Pulse 94 L Oximetry Medical Decision Making - Medical Decision Making 19:[address] Booker, covering for Dr Delgado, updated with patient condition results, states no acute interventions required at this time, however this patient's primary care team would like to be admitted, urology will see him during admission. 20:[address] Jensen, covering for Dr. Snow, updated patient condition results, agrees with observation. Patient updated with results and plan, Elizabeth observation at this time. Patient may require continuous bladder irrigation, if Jordan starts to clot, however at this time. Draining, although patient does have persistent hematuria despite irrigation. Patient may require cystoscopy by urology, will await urology recommendations after patient is evaluated tomorrow. Consult to urology placed. Disposition Clinical Impression: Urinary retention, Hematuria Disposition: ADMITTED IP TO THIS [facility] Condition: Good Referrals: Andrés Snow MD [Primary Care Provider] - 1-2 days
[2018-01-18] MEDS ORDERED: NITROGLYCERIN SL TABS 0.4 MG TAB SUBLINGUAL PRN (21:37)
[2018-01-18] MEDS ORDERED: MECLIZINE 25 MG TAB PO PRN (21:37)
[2018-01-18] MEDS ORDERED: ACETAMINOPHEN TAB 500 MG TAB PO PRN (21:39)
[2018-01-18] MEDS ORDERED: TEMAZEPAM 15 MG CAP PO PRN (21:39)
[2018-01-18] MEDS ORDERED: HYDROcodone/APAP 5-325MG 1 EACH TAB PO PRN (21:39)
[2018-01-18] MEDS ORDERED: ALPRAZolam 0.25 MG TAB PO PRN (21:39)
[2018-01-18] MEDS: TAMSULOSIN 0.4 MG CAP.ER.24H PO SCH (22:37)
--- NOTE | 2018-01-18 23:46 | HP ---
HISTORY AND PHYSICAL DATE OF SERVICE: 01/18/2018. I am covering for Dr. Andrés Snow. CHIEF COMPLAINT: Hematuria and catheter placement. HISTORY OF PRESENT ILLNESS: This 82-year-old gentleman with a past medical history of multiple medical problems, being followed by Dr. Andrés Snow in the outpatient setting, recently had non-ST segment elevation myocardial infarction and patient had angioplasty and stenting of the LAD. The patient had some urinary difficulties during the procedure. The patient had a catheter which was placed and subsequently patient was also evaluated by Urology , Dr. Delgado as well. Patient also had a previous history of urinary retention. The patient had an ER visit this morning, Jordan catheter was partially pulled out causing hematuria. The Jordan catheter was 65, 20-[place] Jordan catheter and was irrigated. Jordan catheter was draining without any difficulty at the time in the ER, but subsequently the patient was living by himself and the patient was brought back to the hospital with some bloody urine and the patient was admitted for evaluation and treatment. There is no history of any fever, rigors or chills at this time. PAST MEDICAL HISTORY: History of recent CAD stenting, history of hypertension, pneumonia, history of vertigo. HOME MEDICATIONS: 1. Flomax 0.4 at bedtime. 2. 20 mg b.i.d. 3. Antivert 25 mg t.i.d. p.r.n. 4. Avodart 0.5 mg daily. 5. Vitamin D3, 2000 daily. 6. Nitrostat 0.4. 7. Lopressor 25 mg b.i.d. 8. Plavix 75 mg. 9. Lipitor 40 mg a.m. 10.Aspirin 325 mg p.o. daily. ALLERGIES: None. FAMILY HISTORY: History of cerebrovascular accident, transient ischemic attack, alcoholism. SOCIAL HISTORY: History of alcohol on occasion. Smoked previously. REVIEW OF SYSTEMS: ENT: No diminished hearing or vision. CARDIOVASCULAR: As mentioned. GI: No nausea. : No dysuria. NERVOUS SYSTEMS: No numbness or weakness. ALLERGY/IMMUNOLOGY: As mentioned. MUSCULOSKELETAL: As mentioned earlier. HEMATOLOGY: As mentioned. ENDOCRINE: No history of diabetes or hypothyroidism. CONSTITUTIONAL: As mentioned earlier. DERMATOLOGY: Negative. PSYCHIATRY: As mentioned earlier. PHYSICAL EXAMINATION: GENERAL: Alert and oriented x3. Pulse 67, blood pressure 153/70, respirations 16, temperature 98.2, pulse ox 94% room air. HEENT: Conjunctivae normal. Oral mucosa moist. NECK: No jugular venous distention. No lymph node enlargement. CARDIOVASCULAR: S1 and S2 muffled. RESPIRATORY: Breath sounds diminished in the bases. No rhonchi no crackles. ABDOMEN: Soft nontender. EXTREMITIES: Legs, status post right femoral cardiac cath. Some minimal ecchymosis. : Jordan catheter draining some bloody urine. LEGS: No edema. No swelling. NERVOUS SYSTEM: Higher functions as mentioned earlier. Moves all four limbs. LYMPHATICS: No skin lesions. No rash. LAB STUDIES: WBC 12.5, hemoglobin 15.4, and INR is 1.1. Chemistry showed glucose 105. ASSESSMENT: 1. Hematuria for evaluation. 2. Recent folic catheter for urinary obstruction. 3. History of recent non ST-segment elevation myocardial, status post angioplasty with stenting of the LAD. 4. History of hypertension. 5. History of hyperlipidemia. 6. History of benign prostatic hypertrophy. 7. Previous history of nicotine dependence. 8. History of detached retina. 9. History of degenerative joint disease. 10.FULL CODE. RECOMMENDATIONS: This 82-year-old gentleman presented with multiple medical problems. We will monitor the patient closely. Continue the current management and symptomatic treatment. Recommend initiate home medications. Monitor labs closely. Cardiology evaluation. Urology evaluation. Prognosis guarded because of multiple complex medical issues. We will repeat the labs tomorrow morning. Dr. Snow will follow in the morning. MMODL / IJN: [id number] / MTDD
[2018-01-19] MEDS: METOPROLOL TARTRATE 25 MG TAB PO SCH ×3 (00:40→20:39)
[2018-01-19] MEDS: ATORVASTATIN 20 MG TAB PO SCH ×3 (00:40→20:39)
[2018-01-19] MEDS: CLOPIDOGREL 75 MG TAB PO SCH ×2 (00:40→10:34)
[2018-01-19] MEDS: ATORVASTATIN 40 MG TAB PO SCH ×2 (00:40→20:39)
[2018-01-19] MEDS: FINASTERIDE 5 MG TAB PO SCH ×2 (00:52→10:33)
[2018-01-19 06:48] LABS: Basophils # (A) 0.1 k/uL (0-0.2); Basophils % (A) 1 %; Eosinophils # (A) 0.1 k/uL (0-0.7); Eosinophils % (A) 2 %; HGB 13.7 gm/dL (13.0-17.5); Lymphocytes # (A) 1.1 k/uL (1.0-4.8); Lymphocytes % (A) 14 %; MCH 27.8 pg (25.0-35.0); MCHC 32.6 g/dL (31.0-37.0); MCV 85.4 fL (80.0-100.0); Mean Platelet Volume 7.4; Monocytes # (A) 0.6 k/uL (0-1.0); Monocytes % (A) 8 %; Neutrophils # (A) 5.7 k/uL (1.3-7.7); Neutrophils % (A) 74 %; Platelet Count 180 k/uL (150-450); RBC 4.92 m/uL (4.30-5.90); RDW 14.3 % (11.5-15.5); WBC 7.6 k/uL (3.8-10.6)
[2018-01-19 06:57] LABS: Calcium 8.6 mg/dL (8.4-10.2); Potassium 4.2 mmol/L (3.5-5.1)
--- NOTE | 2018-01-19 07:30 | P.GSCN ---
History of Present Illness Consult date: 01/19/18 Reason for Consult: Hematuria Requesting physician: Andrés Snow History of present illness: The patient is an 82 year old white male who had an acute myocardial infarction on 01/07/2018 and underwent cardiac catheterization with stent placement of the LAD on 01/08/2018. He was unable to void postop and had 1100 cc in his bladder when a catheter was inserted. He remained unable to void and a catheter was reinserted the next day, draining 700 cc. He failed a voiding trial one week ago. He has no previous history of urinary retention. He has taken tamsulosin and dutasteride for years. He usually voids every 2-4 hours during the day and 2 or 3 times at night. He was scheduled to see Dr. Delgado today in the office but presented to the ER last night with gross hematuria and was admitted. Review of Systems - Constitutional Denies fever - Genitourinary Reports hematuria Past Medical History Past Medical History: Hyperlipidemia, Hypertension, Pneumonia, Renal Disease Additional Past Medical History / Comment(s): born premature,vertigo, bph, colitis since 1968,past detatched retina -pt not sure which side, cataracts,as child had pne and yellow jaundice,sciatic nerve pain-sees chiropractor, wears hearing aids, glasses History of Any Multi-Drug Resistant Organisms: None Reported Past Surgical History: Heart Catheterization With Stent, Hernia Repair, Orthopedic Surgery, Tonsillectomy Additional Past Surgical History / Comment(s): hemorroid sx, Retina reattached, rt knee sx reapired cartilage-wears a brace when uo Additional Past Anesthesia/Blood Transfusion Reaction / Comm: as a child had loss of vision after hernia surgery Date of Last Stent Placement:: 01/08/2018 Smoking Status: Former smoker - Past Family History Father Additional Family Medical History / Comment(s): alcoholic- at age 69 Mother Family Medical History: CVA/TIA Medications and Allergies Home Medications Medication Instructions Recorded Confirmed Type Dutasteride [Avodart] 0.5 mg PO DAILY 03/21/14 01/18/18 History Quinapril HCl [Accupril] 20 mg PO BID 03/21/14 01/18/18 History Tamsulosin HCl [Flomax] 0.4 mg PO HS 02/04/16 01/18/18 History Meclizine HCl 25 mg PO TID PRN 12/12/17 01/18/18 History Cholecalciferol (Vitamin D3) 2,000 unit PO DAILY 01/07/18 01/18/18 History [Vitamin D3] Aspirin 325 mg PO DAILY #30 tab 01/09/18 01/18/18 Rx Atorvastatin [Lipitor] 40 mg PO HS #30 tab 01/09/18 01/18/18 Rx Clopidogrel [Plavix] 75 mg PO DAILY #30 tab 01/09/18 01/18/18 Rx Metoprolol Tartrate [Lopressor] 25 mg PO BID #60 tab 01/09/18 01/18/18 Rx Nitroglycerin Sl Tabs [Nitrostat] 0.4 mg SUBLINGUAL Q5M PRN #25 tab 01/09/18 Rx Allergies Allergy/AdvReac Type Severity Reaction Status Date / Time No Known Allergies Allergy Verified 01/18/18 21:29 Surgical - Exam Vital Signs Temp Pulse Resp BP Pulse Ox 98.4 F 73 18 120/74 94 L 01/18/18 19:35 01/18/18 19:35 01/18/18 19:35 01/18/18 19:35 01/18/18 19:35 - General well developed, well nourished, no distress - Abdomen Abdomen: soft, non tender, no guarding, no rigid, no rebound - Genitourinary normal penis with no external lesions, testicles non-tender - Psychiatric oriented to time, oriented to person, oriented to place, speech is normal, memory intact Results - Labs 01/19/18 06:10 01/19/18 06:10 Assessment and Plan (1) Hematuria Current Visit: Yes Status: Acute Code(s): R31.9 - HEMATURIA, UNSPECIFIED SNOMED Code(s): 19392105 (2) Urinary retention Current Visit: Yes Status: Acute Code(s): R33.9 - RETENTION OF URINE, UNSPECIFIED SNOMED Code(s): 049587251 Plan: Continue Avodart and tamsulosin. Remove Jordan catheter for a voiding trial. Time with Patient: Less than 30
[2018-01-19] MEDS ORDERED: ASPIRIN 325 MG TAB PO SCH (09:00)
[2018-01-19] MEDS: PANTOPRAZOLE 40 MG TABLET PO SCH (10:33)
[2018-01-19] MEDS: CHOLECALCIFEROL 1,000 UNIT TAB PO SCH (10:34)
[2018-01-19] MEDS: ASPIRIN 81 MG PO SCH (10:34)
--- NOTE | 2018-01-19 11:56 | P.PN ---
Subjective Jordan catheter removed patient able to void on his own. Will discharge when cleared with urology Objective - Vital Signs Vital signs: Vital Signs Temp 97.5 F L 01/19/18 11:51 Pulse 63 01/19/18 11:51 Resp 18 01/19/18 11:51 BP 164/77 01/19/18 11:51 Pulse Ox 95 01/19/18 11:51 Intake & Output 01/18/18 01/19/18 01/19/18 18:59 06:59 18:59 Intake Total 118 Output Total 500 Balance -500 118 Weight 81.193 kg Intake: Oral 118 Output: Urine 500 Other: Voiding Method Indwelling Catheter - Constitutional General appearance: Present: mild distress - EENT Eyes: Present: PERRLA Ears: bilateral: normal - Neck Neck: Present: normal ROM - Respiratory Respiratory: bilateral: CTA - Cardiovascular Rhythm: regular - Gastrointestinal General gastrointestinal: Present: soft - Genitourinary Genitourinary Comment(s): Hematuria - Integumentary Integumentary: Present: normal - Neurologic Neurologic: Present: CNII-XII intact - Psychiatric Psychiatric: Present: A&O x's 3, appropriate affect, intact judgment & insight - Labs CBC & Chem 7: 01/19/18 06:10 01/19/18 06:10 Labs: Abnormal Lab Results - Last 24 Hours (Table) 01/19/18 Range/Units 06:10 BUN 21 H (9-20) mg/dL Assessment and Plan Plan: Assessment Hematuria with urinary retention has of Jordan catheter Recent history of non-ST segment elevation DE post angioplasty with stent LAD Hypertension Hyperlipidemia Degenerative joint disease Plan Continue consultation with urology
[2018-01-19 12:17] VITALS: BMI 28.8
--- NOTE | 2018-01-19 12:36 | P.CRDCN ---
History of Present Illness History of present illness: Mr. Cain is a pleasant 82-year-old male past medical history significant for coronary artery disease s/p LAD angioplasty earlier this month, dyslipidemia, hypertension, BPH, chronic kidney disease and former nicotine dependence. We have been asked to see him in consultation secondary to hematuria on aspirin and plavix. He was here with unstable angina 01/07 and underwent coronary angiography and successful stenting of the proximal LAD. He has had urinary retention in the past and after his catheterization he was having difficulty urinating and was seen in consultation by urology. He was sent home with an indwelling hong catheter at that time. He was seen in the ER twice yesterday for what seemed to be a partially pulled out catheter with hematuria. Urinalysis noted with blood in urine. Urology saw the patient this morning and has recommended removal of the hong for voiding trial. At the time of my exam he is seen sitting up in bed in no acute distress. He denies symptoms of chest pain, shortness of breath, nausea, vomiting, diaphoresis, palpitations or dizziness. He states he has been taking his plavix and aspirin as prescribed. Hgb is stable at13.7, platelets 180. Review of Systems At the time of my exam: CONSTITUTIONAL: Denies fever. Denies chills. EYES: Denies blurred vision. Denies vision changes. Denies eye pain. EARS, NOSE, MOUTH & THROAT: Denies headache. Denies sore throat. Denies ear pain. CARDIOVASCULAR: Denies chest pain. Denies shortness of breath. Denies orthopnea. Denies PND. Denies palpitations. RESPIRATORY: Denies cough. GASTROINTESTINAL: Denies abdominal pain. Denies diarrhea. Denies constipation. Denies nausea. Denies vomiting. MUSCULOSKELETAL: Denies myalgias. INTEGUMENTARY: Denies pruitis. Denies rash. NEUROLOGIC: Denies numbness. Denies tingling. Denies weakness. PSYCHIATRIC: Denies anxiety. Denies depression. ENDOCRINE: Denies fatigue. Denies weight change. Denies polydipsia. Denies polyurina. GENITOURINARY: Denies burning, hematuria or urgency with micturation. HEMATOLOGIC: Denies history of anemia. Denies bleeding. Past Medical History Past Medical History: Hyperlipidemia, Hypertension, Pneumonia, Renal Disease Additional Past Medical History / Comment(s): born premature,vertigo, bph, colitis since 1968,past detatched retina -pt not sure which side, cataracts,as child had pne and yellow jaundice,sciatic nerve pain-sees chiropractor, wears hearing aids, glasses History of Any Multi-Drug Resistant Organisms: None Reported Past Surgical History: Heart Catheterization With Stent, Hernia Repair, Orthopedic Surgery, Tonsillectomy Additional Past Surgical History / Comment(s): hemorroid sx, Retina reattached, rt knee sx reapired cartilage-wears a brace when uo Additional Past Anesthesia/Blood Transfusion Reaction / Comment(s): as a child had loss of vision after hernia surgery Date of Last Stent Placement:: 01/08/2018 Smoking Status: Former smoker - Past Family History Father Additional Family Medical History / Comment(s): alcoholic- at age 69 Mother Family Medical History: CVA/TIA Medications and Allergies Home Medications Medication Instructions Recorded Confirmed Type Dutasteride [Avodart] 0.5 mg PO DAILY 03/21/14 01/19/18 History Quinapril HCl [Accupril] 20 mg PO BID 03/21/14 01/19/18 History Tamsulosin HCl [Flomax] 0.4 mg PO HS 02/04/16 01/19/18 History Meclizine HCl 25 mg PO TID PRN 12/12/17 01/19/18 History Cholecalciferol (Vitamin D3) 2,000 unit PO DAILY 01/07/18 01/19/18 History [Vitamin D3] Aspirin 325 mg PO DAILY #30 tab 01/09/18 01/19/18 Rx Atorvastatin [Lipitor] 40 mg PO HS #30 tab 01/09/18 01/19/18 Rx Clopidogrel [Plavix] 75 mg PO DAILY #30 tab 01/09/18 01/19/18 Rx Metoprolol Tartrate [Lopressor] 25 mg PO BID #60 tab 01/09/18 01/19/18 Rx Nitroglycerin Sl Tabs [Nitrostat] 0.4 mg SUBLINGUAL Q5M PRN #25 tab 01/09/18 Rx Allergies Allergy/AdvReac Type Severity Reaction Status Date / Time No Known Allergies Allergy Verified 01/19/18 07:54 Physical Exam Vitals: Vital Signs Temp Pulse Pulse Resp BP BP Pulse Ox 01/19/18 11:51 97.5 F L 63 18 164/77 95 01/19/18 08:00 98 F 68 16 165/71 93 L 01/19/18 04:00 97.4 F L 68 18 128/60 92 L 01/19/18 00:00 97.7 F 65 18 133/74 95 01/18/18 22:18 16 01/18/18 20:39 98.2 F 67 16 153/70 94 L 01/18/18 19:35 98.4 F 73 18 120/74 94 L Intake and Output 01/18/18 01/19/18 01/19/18 22:59 06:59 14:59 Intake Total 118 Output Total 500 Balance -500 118 Intake: Oral 118 Output: Urine 500 Other: Voiding Method Indwelling Catheter Indwelling Catheter Weight 81.193 kg 81.193 kg Blood pressure 165/71 heart rate 68 afebrile maintaining oxygen saturation on room air GENERAL: This is a 82-year-old male in no apparent distress at the time of my examination. HEENT: Head is atraumatic, normocephalic. Pupils are equal, round. Sclerae anicteric. Conjunctivae are clear. Mucous membranes of the mouth are moist. Neck is supple. There is no jugular venous distention. No carotid bruit is heard. LUNGS: Clear to auscultation no wheezes, rales or rhonchi. No chest wall tenderness is noted on palpation or with deep breathing. HEART: Regular rate and rhythm without murmurs, rubs or gallops. S1 and S2 heard. ABDOMEN: Soft, nontender. Bowel sounds are heard. No organomegaly noted. EXTREMITIES: No evidence of peripheral edema and no calf tenderness noted. VASCULAR: Radial and dorsalis pedis pulses palpated, no evidence of clubbing. NEUROLOGIC: Patient is awake, alert and oriented x3. Results 01/19/18 06:10 01/19/18 06:10 CBC 01/19/18 Range/Units 06:10 WBC 7.6 (3.8-10.6) k/uL RBC 4.92 (4.30-5.90) m/uL Hgb 13.7 (13.0-17.5) gm/dL Hct 42.0 (39.0-53.0) % Plt Count 180 (150-450) k/uL Comprehensive Metabolic Panel 01/19/18 Range/Units 06:10 Sodium 138 (137-145) mmol/L Potassium 4.2 (3.5-5.1) mmol/L Chloride 104 (98-107) mmol/L Carbon Dioxide 26 (22-30) mmol/L BUN 21 H (9-20) mg/dL Creatinine 1.00 (0.66-1.25) mg/dL Glucose 94 (74-99) mg/dL Calcium 8.6 (8.4-10.2) mg/dL Current Medications Generic Name Dose Route Start Last Admin Trade Name Freq PRN Reason Stop Dose Admin Acetaminophen 500 mg 01/18/18 21:39 Tylenol Tab PO Q6HR PRN Fever and/ or Pain Hydrocodone Bitart/Acetaminophen 1 each 01/18/18 21:39 [place] 5-325 PO Q6HR PRN Pain Alprazolam 0.25 mg 01/18/18 21:39 Xanax PO TID PRN Anxiety Aspirin 81 mg 01/19/18 09:00 01/19/18 10:34 Aspirin PO 81 mg DAILY ANA Administration Atorvastatin Calcium 40 mg 01/18/18 22:00 01/19/18 00:40 Lipitor PO Not Given HS ANA Atorvastatin Calcium 20 mg 01/18/18 22:00 01/19/18 10:33 Lipitor PO 20 mg BID ANA Administration Cholecalciferol 2,000 unit 01/19/18 09:00 01/19/18 10:34 Vitamin D3 PO 2,000 unit DAILY ANA Administration Clopidogrel Bisulfate 75 mg 01/18/18 22:00 01/19/18 10:34 Plavix PO 75 mg DAILY ANA Administration Finasteride 5 mg 01/18/18 21:45 01/19/18 10:33 Proscar PO 5 mg DAILY ANA Administration Meclizine HCl 25 mg 01/18/18 21:37 Antivert PO TID PRN Vertigo Metoprolol Tartrate 25 mg 01/18/18 22:00 01/19/18 10:33 Lopressor PO 25 mg BID ANA Administration Nitroglycerin 0.4 mg 01/18/18 21:37 Nitrostat SUBLINGUAL Q5M PRN Chest Pain Pantoprazole Sodium 40 mg 01/19/18 07:30 01/19/18 10:33 Protonix PO 40 mg [id number] ANA Administration Tamsulosin HCl 0.4 mg 01/18/18 21:00 01/18/18 22:37 Flomax PO 0.4 mg HS ANA Administration Temazepam 15 mg 01/18/18 21:39 Restoril PO HS PRN Insomnia Intake and Output 01/18/18 01/19/18 01/19/18 22:59 06:59 14:59 Intake Total 118 Output Total 500 Balance -500 118 Intake: Oral 118 Output: Urine 500 Other: Voiding Method Indwelling Catheter Indwelling Catheter Weight 81.193 kg 81.193 kg Patient Weight 01/20/18 06:59 Weight 81.193 kg 01/19/18 06:10 01/19/18 06:10 Assessment and Plan Assessment: ASSESSMENT 1. Hematuria with urinary retention. Hemodynamically stable. 2. Coronary artery disease with recent angioplasty of LAD on dual anti-platelet therapy 3. Hypertension 4. Dyslipidemia 5. Benign prostatic hypertrophy PLAN Continue with ongoing medical management with urology team. Continue dual anti-platelet therapy, decrease aspirin to 81 mg daily. Follow up with Dr. Galvan at next scheduled appointment. Thank you kindly for this consultation. Nurse Practitioner note has been reviewed, I agree with a documented findings and plan of care. Patient was seen and examined.
[2018-01-19] MEDS ORDERED: LIDOCAINE URO-JET JELLY 2% 5 ML KIT URETHRAL ONE (15:51)
--- NOTE | 2018-01-19 16:18 | P.PN ---
Progress Note - Text Progress Note Date: 01/19/18 The patient's hematuria resolved overnight and his catheter was removed this morning. The patient has been able to void only small amounts and his post void residuals have gradually increased and are now over 600 mL. A catheter will be reinserted and the patient will need to be discharged with a catheter in place. He should continue tamsulosin and finasteride and should see me in the office in 1 week for another voiding trial.
[2018-01-19] MEDS: TAMSULOSIN 0.4 MG CAP.ER.24H PO SCH (20:39)
[2018-01-20 07:14] LABS: Basophils # (A) 0.1 k/uL (0-0.2); Basophils % (A) 1 %; Eosinophils # (A) 0.2 k/uL (0-0.7); Eosinophils % (A) 2 %; HCT 39.9 % (39.0-53.0); HGB 13.3 gm/dL (13.0-17.5); Lymphocytes % (A) 13 %; MCH 28.7 pg (25.0-35.0); MCHC 33.4 g/dL (31.0-37.0); Mean Platelet Volume 7.1; Monocytes # (A) 0.6 k/uL (0-1.0); Monocytes % (A) 9 %; Neutrophils # (A) 5.5 k/uL (1.3-7.7); Neutrophils % (A) 73 %; Platelet Count 203 k/uL (150-450); RBC 4.64 m/uL (4.30-5.90); RDW 14.3 % (11.5-15.5); WBC 7.4 k/uL (3.8-10.6)
[2018-01-20 07:35] LABS: Calcium 8.4 mg/dL (8.4-10.2)
[2018-01-20] MEDS: CHOLECALCIFEROL 1,000 UNIT TAB PO SCH (08:59)
[2018-01-20] MEDS: ASPIRIN 81 MG PO SCH (08:59)
[2018-01-20] MEDS: FINASTERIDE 5 MG TAB PO SCH (08:59)
[2018-01-20] MEDS: PANTOPRAZOLE 40 MG TABLET PO SCH (08:59)
[2018-01-20] MEDS: CLOPIDOGREL 75 MG TAB PO SCH (08:59)
[2018-01-20] MEDS: ATORVASTATIN 20 MG TAB PO SCH ×2 (08:59→20:50)
[2018-01-20] MEDS: METOPROLOL TARTRATE 25 MG TAB PO SCH ×2 (08:59→20:59)
--- NOTE | 2018-01-20 11:55 | P.PN ---
Subjective Patient has needed to have the catheter reinserted for urinary retention. Patient has developed significant weakness as observed by physical therapy plan is to changed to inpatient status and hopefully transferred to extended care facility for rehab Objective - Vital Signs Vital signs: Vital Signs Temp 97.6 F 01/20/18 11:33 Pulse 68 01/20/18 11:33 Resp 16 01/20/18 11:33 BP 168/79 01/20/18 11:33 Pulse Ox 94 L 01/20/18 11:33 Intake & Output 01/19/18 01/20/18 01/20/18 18:59 06:59 18:59 Intake Total 762 118 Output Total 1200 400 Balance -438 -400 118 Weight 81.193 kg Intake: Oral 762 118 Output: Urine 1200 400 Other: Voiding Method Indwelling Catheter Indwelling Catheter Indwelling Catheter # Voids 150 - Constitutional General appearance: Present: mild distress - EENT Eyes: Present: PERRLA Ears: bilateral: normal - Neck Neck: Present: normal ROM - Respiratory Respiratory: bilateral: CTA - Cardiovascular Rhythm: regular - Gastrointestinal General gastrointestinal: Present: soft - Genitourinary Genitourinary Comment(s): Jordan catheter in place - Integumentary Integumentary: Present: normal - Neurologic Neurologic: Present: CNII-XII intact - Musculoskeletal Musculoskeletal: Present: generalized weakness - Psychiatric Psychiatric: Present: A&O x's 3, appropriate affect, intact judgment & insight - Labs CBC & Chem 7: 01/20/18 06:56 01/20/18 06:56 Labs: Abnormal Lab Results - Last 24 Hours (Table) 01/20/18 Range/Units 06:56 BUN 25 H (9-20) mg/dL Assessment and Plan Plan: Assessment Hematuria with urinary retention History of recent non-ST segment ID post angioplasty with stenting to LAD Hypertension Hyperlipidemia BPH Degenerative joint disease Generalized weakness with gait dysfunction Plan Hopeful transferred to extended care facility for rehab Continue consultation with urology
[2018-01-20] MEDS: ATORVASTATIN 40 MG TAB PO SCH (20:59)
[2018-01-20] MEDS: TAMSULOSIN 0.4 MG CAP.ER.24H PO SCH (20:59)
[2018-01-21 09:05] LABS: Calcium 8.4 mg/dL (8.4-10.2); Potassium 4.3 mmol/L (3.5-5.1)
[2018-01-21] MEDS ORDERED: FINASTERIDE 5 MG TAB ONE (09:30)
[2018-01-21] MEDS ORDERED: METOPROLOL TARTRATE 25 MG TAB ONE (09:30)
[2018-01-21] MEDS ORDERED: PANTOPRAZOLE 40 MG TABLET PO ONE (09:30)
[2018-01-21] MEDS ORDERED: CLOPIDOGREL 75 MG TAB ONE (09:30)
[2018-01-21] MEDS ORDERED: CHOLECALCIFEROL 1,000 UNIT TAB ONE (09:30)
[2018-01-21] MEDS ORDERED: ASPIRIN 81 MG ONE (09:30)
[2018-01-21] MEDS: ASPIRIN 81 MG PO SCH (10:46)
[2018-01-21] MEDS: PANTOPRAZOLE 40 MG TABLET PO SCH (10:46)
[2018-01-21] MEDS: ATORVASTATIN 20 MG TAB PO SCH ×2 (10:46→21:37)
[2018-01-21] MEDS: FINASTERIDE 5 MG TAB PO SCH (10:47)
[2018-01-21] MEDS: CLOPIDOGREL 75 MG TAB PO SCH (10:47)
[2018-01-21] MEDS: METOPROLOL TARTRATE 25 MG TAB PO SCH ×2 (10:47→21:36)
[2018-01-21] MEDS: CHOLECALCIFEROL 1,000 UNIT TAB PO SCH (10:47)
[2018-01-21 10:59] LABS: Basophils % (A) 1 %; Eosinophils # (A) 0.2 k/uL (0-0.7); Eosinophils % (A) 3 %; HCT 41.2 % (39.0-53.0); HGB 13.3 gm/dL (13.0-17.5); Lymphocytes # (A) 0.8 k/uL (1.0-4.8); Lymphocytes % (A) 11 %; MCH 28.2 pg (25.0-35.0); MCHC 32.4 g/dL (31.0-37.0); MCV 87.1 fL (80.0-100.0); Mean Platelet Volume 7.5; Monocytes # (A) 0.4 k/uL (0-1.0); Monocytes % (A) 7 %; Neutrophils # (A) 5.2 k/uL (1.3-7.7); Neutrophils % (A) 77 %; Platelet Count 186 k/uL (150-450); RBC 4.74 m/uL (4.30-5.90); RDW 14.2 % (11.5-15.5); WBC 6.8 k/uL (3.8-10.6)
[2018-01-21] MEDS: MAGNESIUM HYDROXIDE 2,400 MG/10 ML CUP PO PRN (12:56)
--- NOTE | 2018-01-21 13:05 | P.PN ---
Subjective Patient stable at this time awaiting on transfer to extended care facility for rehab for generalized weakness Objective - Vital Signs Vital signs: Vital Signs Temp 97.5 F L 01/21/18 11:34 Pulse 59 L 01/21/18 12:00 Resp 18 01/21/18 12:00 BP 118/69 01/21/18 11:34 Pulse Ox 95 01/21/18 11:34 Intake & Output 01/20/18 01/21/18 01/21/18 18:59 06:59 18:59 Intake Total 236 Output Total 1500 1200 0 Balance -1264 -1200 0 Intake: Oral 236 Output: Urine 1500 1200 Straight 900 Stool 0 0 Other: Voiding Method Indwelling Catheter Indwelling Catheter Indwelling Catheter - Constitutional General appearance: Present: average body habitus - EENT Eyes: Present: PERRLA Ears: bilateral: normal - Neck Neck: Present: normal ROM - Respiratory Respiratory: bilateral: CTA - Cardiovascular Rhythm: regular - Gastrointestinal General gastrointestinal: Present: soft - Integumentary Integumentary: Present: normal - Neurologic Neurologic: Present: CNII-XII intact - Musculoskeletal Musculoskeletal: Present: generalized weakness - Psychiatric Psychiatric: Present: A&O x's 3, appropriate affect, intact judgment & insight - Labs CBC & Chem 7: 01/21/18 06:22 01/20/18 06:56 Labs: Abnormal Lab Results - Last 24 Hours (Table) 01/21/18 Range/Units 06:22 Lymphocytes # 0.8 L (1.0-4.8) k/uL Assessment and Plan Plan: Assessment Hematuria secondary to urinary Jordan catheter present on admission Urinary retention History of recent non-ST segment elevation VT with angioplasty stenting of LAD History of hypertension History of hyperlipidemia BPH Degenerative joint disease Generalized weakness with gait dysfunction Plan Transfer to extended care facility for rehab
[2018-01-21] MEDS: ATORVASTATIN 40 MG TAB PO SCH (21:33)
[2018-01-21] MEDS: TAMSULOSIN 0.4 MG CAP.ER.24H PO SCH (21:36)
[2018-01-22 08:08] LABS: Basophils % (A) 1 %; Eosinophils # (A) 0.2 k/uL (0-0.7); Eosinophils % (A) 4 %; HCT 41.9 % (39.0-53.0); HGB 13.8 gm/dL (13.0-17.5); Lymphocytes % (A) 16 %; MCH 28.4 pg (25.0-35.0); MCHC 32.9 g/dL (31.0-37.0); MCV 86.3 fL (80.0-100.0); Mean Platelet Volume 7.3; Monocytes # (A) 0.5 k/uL (0-1.0); Monocytes % (A) 8 %; Neutrophils # (A) 4.3 k/uL (1.3-7.7); Neutrophils % (A) 69 %; Platelet Count 219 k/uL (150-450); RBC 4.85 m/uL (4.30-5.90); RDW 14.3 % (11.5-15.5); WBC 6.1 k/uL (3.8-10.6)
[2018-01-22] MEDS: ASPIRIN 81 MG PO SCH (08:15)
[2018-01-22] MEDS: ATORVASTATIN 20 MG TAB PO SCH ×2 (08:15→21:57)
[2018-01-22] MEDS: FINASTERIDE 5 MG TAB PO SCH (08:15)
[2018-01-22] MEDS: METOPROLOL TARTRATE 25 MG TAB PO SCH ×2 (08:15→21:57)
[2018-01-22] MEDS: CLOPIDOGREL 75 MG TAB PO SCH (08:16)
[2018-01-22] MEDS: CHOLECALCIFEROL 1,000 UNIT TAB PO SCH (08:16)
[2018-01-22] MEDS: PANTOPRAZOLE 40 MG TABLET PO SCH (08:16)
[2018-01-22 08:24] LABS: Calcium 8.8 mg/dL (8.4-10.2); Potassium 4.6 mmol/L (3.5-5.1)
[2018-01-22] MEDS: MAGNESIUM HYDROXIDE 2,400 MG/10 ML CUP PO PRN (11:57)
--- NOTE | 2018-01-22 13:02 | P.PN ---
Subjective Patient sitting at side of bed. No complaints expressed. Awaiting transferred to extended care facility [facility] for rehab regarding weakness and gait dysfunction. Can to use with of Jordan catheter will continue for 1 week as prescribed by Dr. Freitas Objective - Vital Signs Vital signs: Vital Signs Temp 97.5 F L 01/22/18 06:00 Pulse 62 01/22/18 08:00 Resp 17 01/22/18 08:00 BP 124/70 01/22/18 06:00 Pulse Ox 94 L 01/22/18 06:00 Intake & Output 01/21/18 01/22/18 01/22/18 18:59 06:59 18:59 Intake Total 800 Output Total 1800 1200 Balance -1000 -1200 Intake: Oral 800 Output: Urine 1800 1200 Stool 0 Other: Voiding Method Indwelling Catheter Indwelling Catheter Indwelling Catheter # Bowel Movements 1 - Constitutional General appearance: Present: average body habitus - EENT Eyes: Present: PERRLA Ears: bilateral: normal - Neck Neck: Present: normal ROM - Respiratory Respiratory: bilateral: CTA - Cardiovascular Rhythm: regular - Gastrointestinal General gastrointestinal: Present: soft - Genitourinary Genitourinary Comment(s): Jordan catheter in place - Integumentary Integumentary: Present: normal - Neurologic Neurologic Comment(s): Resting tremor Neurologic: Present: CNII-XII intact - Musculoskeletal Musculoskeletal: Present: generalized weakness - Psychiatric Psychiatric: Present: A&O x's 3, appropriate affect, intact judgment & insight - Labs CBC & Chem 7: 01/22/18 07:35 01/22/18 07:35 Labs: Abnormal Lab Results - Last 24 Hours (Table) 01/21/18 Range/Units 06:22 BUN 22 H (9-20) mg/dL Assessment and Plan Plan: Assessment Hematuria from Jordan catheter use Urinary retention Recent history of non-ST segment elevation HI with post angioplasty to LAD Hypertension Hyperlipidemia BPH General weakness and gait dysfunction Plan Transfer to [facility] for rehab tomorrow
[2018-01-22] MEDS: ATORVASTATIN 40 MG TAB PO SCH (21:55)
[2018-01-22] MEDS: TAMSULOSIN 0.4 MG CAP.ER.24H PO SCH (21:57)
[2018-01-23 07:50] LABS: Basophils # (A) 0.1 k/uL (0-0.2); Basophils % (A) 1 %; Eosinophils # (A) 0.2 k/uL (0-0.7); Eosinophils % (A) 4 %; HCT 43.2 % (39.0-53.0); HGB 13.9 gm/dL (13.0-17.5); Lymphocytes # (A) 0.8 k/uL (1.0-4.8); Lymphocytes % (A) 13 %; MCH 27.5 pg (25.0-35.0); MCHC 32.1 g/dL (31.0-37.0); MCV 85.6 fL (80.0-100.0); Monocytes # (A) 0.4 k/uL (0-1.0); Monocytes % (A) 7 %; Neutrophils # (A) 4.3 k/uL (1.3-7.7); Neutrophils % (A) 73 %; Platelet Count 233 k/uL (150-450); RBC 5.05 m/uL (4.30-5.90); RDW 14.3 % (11.5-15.5); WBC 5.9 k/uL (3.8-10.6)
[2018-01-23 08:01] LABS: Potassium 4.8 mmol/L (3.5-5.1)
[2018-01-23] MEDS: CLOPIDOGREL 75 MG TAB PO SCH (09:08)
[2018-01-23] MEDS: PANTOPRAZOLE 40 MG TABLET PO SCH (09:08)
[2018-01-23] MEDS: METOPROLOL TARTRATE 25 MG TAB PO SCH (09:08)
[2018-01-23] MEDS: ASPIRIN 81 MG PO SCH (09:08)
[2018-01-23] MEDS: ATORVASTATIN 20 MG TAB PO SCH (09:09)
[2018-01-23] MEDS: FINASTERIDE 5 MG TAB PO SCH (09:09)
[2018-01-23] MEDS: CHOLECALCIFEROL 1,000 UNIT TAB PO SCH (09:09)
[2018-01-23 15:05] VITALS: BP 111/57; PULSE 67; RESP 18; TEMP 97.1
--- NOTE | 2018-01-23 16:04 | P.DS ---
Providers Date of admission: 01/20/18 15:25 Expected date of discharge: 01/23/18 Attending physician: Andrés Avilez Consults: 01/18/18 20:17 Consult Physician Routine Consulting Provider: Viraj Delgado Consult Reason/Comments: hematuria Do you want consulting provider notified?: Yes 01/19/18 00:27 Consult Physician Routine Consulting Provider: Gonzalo Oliver Consult Reason/Comments: recent stent Do you want consulting provider notified?: Yes, Notify in am Primary care physician: Andrés Snow Hospital Course: Final Diagnoses: 1. Hematuria secondary to traumatic injury associated with Jordan catheter, placed for urinary retention. 2. Recent non-STEMI, with angioplasty, stenting of LAD 3. Hypertension 4. Hyperlipidemia 5. BPH 6. Gait dysfunction Hospital course: This is a 82-year-old gentleman admitted with hematuria secondary to traumatic Jordan catheter use. Presented to ER with Jordan catheter partially pulled out. Evaluated by urology and cardiology. Maintained on dual antiplatelet therapy with aspirin decreased 81 mg as per cardiology. Hematuria resolved, hemoglobin stable 13.9. Voiding trials attempted. Jordan catheter reinserted and patient to be discharged with Jordan catheter, follow up with urology in 1 week. Significant clinical improvement. Patient has been cleared by her consults for discharge. Patient is being discharged to [facility] subacute rehab in a stable condition with guarded prognosis. Exam: Gen.: ALert & Oriented X 3, no acute distress.CV: Regular S1 and S2. LUNGS; diminished. ABD: Soft, nontender, positive bowel sounds. Neuro: No focal deficits. The impression and plan of care has been dictated as directed. : I performed a history and examination of this patient, discussed the same with the dictator. I agree with the dictator's note ,documented as a scribe. Any additional findings or plans will be noted. Time taken: 35 minutes Patient Condition at Discharge: Stable Plan - Discharge Summary Discharge Rx Participant: No New Discharge Prescriptions: New Acetaminophen Tab [Tylenol] 500 mg PO Q6HR PRN tab PRN Reason: Fever And/ Or Pain Aspirin 81 mg PO DAILY chew Magnesium Hydroxide [Milk of Magnesia Concentrate] 2,400 mg PO DAILY PRN ml PRN Reason: Constipation Pantoprazole [Protonix] 40 mg PO AC-BRKFST tablet.dr Miguel Quinapril HCl [Accupril] 20 mg PO BID Dutasteride [Avodart] 0.5 mg PO DAILY Tamsulosin HCl [Flomax] 0.4 mg PO HS Cholecalciferol (Vitamin D3) [Vitamin D3] 2,000 unit PO DAILY Atorvastatin [Lipitor] 40 mg PO HS #30 tab Clopidogrel [Plavix] 75 mg PO DAILY #30 tab Metoprolol Tartrate [Lopressor] 25 mg PO BID #60 tab Nitroglycerin Sl Tabs [Nitrostat] 0.4 mg SUBLINGUAL Q5M PRN #25 tab PRN Reason: Chest Pain Changed Meclizine HCl 12.5 mg PO TID PRN #1 PRN Reason: Vertigo Discontinued Aspirin 325 mg PO DAILY #30 tab Discharge Medication List Dutasteride [Avodart] 0.5 mg PO DAILY 03/21/14 [History] Quinapril HCl [Accupril] 20 mg PO BID 03/21/14 [History] Tamsulosin HCl [Flomax] 0.4 mg PO HS 02/04/16 [History] Cholecalciferol (Vitamin D3) [Vitamin D3] 2,000 unit PO DAILY 01/07/18 [History] Atorvastatin [Lipitor] 40 mg PO HS #30 tab 01/09/18 [Rx] Clopidogrel [Plavix] 75 mg PO DAILY #30 tab 01/09/18 [Rx] Metoprolol Tartrate [Lopressor] 25 mg PO BID #60 tab 01/09/18 [Rx] Nitroglycerin Sl Tabs [Nitrostat] 0.4 mg SUBLINGUAL Q5M PRN #25 tab 01/09/18 [Rx ] Acetaminophen Tab [Tylenol] 500 mg PO Q6HR PRN tab 01/23/18 [Rx] Aspirin 81 mg PO DAILY chew 01/23/18 [Rx] Magnesium Hydroxide [Milk of Magnesia Concentrate] 2,400 mg PO DAILY PRN ml [Rx] Meclizine HCl 12.5 mg PO TID PRN #1 01/23/18 [Rx] Pantoprazole [Protonix] 40 mg PO AC-BRKFST tablet. 01/23/18 [Rx] Follow up Appointment(s)/Referral(s): Andrés Snow MD [Primary Care Provider] - 1-2 days Viraj Delgado MD [STAFF PHYSICIAN] - 1 Week Emily Galvan MD [STAFF PHYSICIAN] - 1 Week Activity/Diet/Wound Care/Special Instructions: [facility] Diet: Cardiac Activity: As tolerated cbc,bmp in 3 days Refer to discharge summary note, maintaining Jordan catheter, follow up with urology in 1 week. Discharge Disposition: TRANSFER TO SNF/ECF
== END 2018-01-23 17:15 | DRG 699 ==
LOC: EC 19:13 → 3OBS 20:18 → OBSVTOIN 01-20 15:25 → 4MS4W 01-21 19:28
PROVIDERS: ADMIT Family Medicine; ATTEND Family Medicine
DX: T83.091A Other mechanical complication of indwelling urethral catheter, initial encounter (principal); S37.19XA Other injury of ureter, initial encounter; I25.110 Atherosclerotic heart disease of native coronary artery with unstable angina pectoris; Y73.8 Miscellaneous gastroenterology and urology devices associated with adverse incidents, not elsewhere classified; E78.5 Hyperlipidemia, unspecified; I12.9 Hypertensive chronic kidney disease with stage 1 through stage 4 chronic kidney disease, or unspecified chronic kidney disease; I25.2 Old myocardial infarction; M19.90 Unspecified osteoarthritis, unspecified site; N18.9 Chronic kidney disease, unspecified; N40.1 Benign prostatic hyperplasia with lower urinary tract symptoms; R31.0 Gross hematuria; R33.8 Other retention of urine; Z79.02 Long term (current) use of antithrombotics/antiplatelets; Z79.82 Long term (current) use of aspirin; Z79.899 Other long term (current) drug therapy; Z87.891 Personal history of nicotine dependence
CPT/HCPCS: 36415; 51702; 51798; 80048; 85025; 85610; 85730; 87077; 87086; 87186; 99284

== ENCOUNTER 2018-03-29 14:18 | Emergency (ER) | payer MEDICARE, BC ==
[2018-03-29 14:26] VITALS: RESP 16
[2018-03-29 14:36] LABS: Basophils % (A) 1 %; Eosinophils # (A) 0.1 k/uL (0-0.7); Eosinophils % (A) 1 %; HCT 43.5 % (39.0-53.0); HGB 14.1 gm/dL (13.0-17.5); Lymphocytes # (A) 0.7 k/uL (1.0-4.8); Lymphocytes % (A) 9 %; MCH 27.5 pg (25.0-35.0); MCHC 32.3 g/dL (31.0-37.0); MCV 85.2 fL (80.0-100.0); Monocytes # (A) 0.3 k/uL (0-1.0); Monocytes % (A) 4 %; Neutrophils # (A) 6.6 k/uL (1.3-7.7); Neutrophils % (A) 84 %; Platelet Count 187 k/uL (150-450); RDW 14.2 % (11.5-15.5); WBC 7.9 k/uL (3.8-10.6)
[2018-03-29 14:45] LABS: Calcium 9.4 mg/dL (8.4-10.2); Potassium 4.3 mmol/L (3.5-5.1); Total Bilirubin 0.8 mg/dL (0.2-1.3); Total Protein 6.8 g/dL (6.3-8.2)
--- NOTE | 2018-03-29 14:47 | XR ---
EXAMINATION TYPE: XR KUB DATE OF EXAM: 03/29/2018 COMPARISON: NONE HISTORY: Constipation TECHNIQUE: 2 views upright FINDINGS: Bowel gas pattern is normal. There is no sign of intestinal obstruction or pneumoperitoneum . Fecal pattern is normal. Lung bases are clear. There are coils over the right pubic symphysis. Ther e are no pathologic calcifications over the kidneys. IMPRESSION: Nonacute abdomen.
--- NOTE | 2018-03-29 15:09 | ED ---
General Adult HPI - General Chief complaint: Abdominal Pain Stated complaint: Constipation/ HTN Time Seen by Provider: 03/29/18 14:20 Source: patient, RN notes reviewed Mode of arrival: EMS Limitations: no limitations - History of Present Illness Initial comments: This is a 83-year-old male whose presenting to the emergency department with no complaint. EMS was called by the [id number] because the patient was unable to bowel movement for one day and he thought maybe the patient had a bowel obstruction even though there is no history of bowel obstructions. Patient currently states he has no pain he states his last bowel movement was 1 day ago. Patient states he does feel like he has to go but he has been unable to go. Patient denies any abdominal pain patient denies any nausea or vomiting. Patient denies any fever chills. Patient denies any chest pain difficulty breathing or shortness of breath. Patient denies any recent injury or trauma. - Related Data Home Medications Medication Instructions Recorded Confirmed Dutasteride [Avodart] 0.5 mg PO DAILY 03/21/14 03/29/18 Quinapril HCl [Accupril] 20 mg PO BID 03/21/14 03/29/18 Tamsulosin HCl [Flomax] 0.4 mg PO HS 02/04/16 03/29/18 Cholecalciferol (Vitamin D3) 2,000 unit PO DAILY 01/07/18 03/29/18 [Vitamin D3] Previous Rx's Medication Instructions Recorded Atorvastatin [Lipitor] 40 mg PO HS #30 tab 01/09/18 Clopidogrel [Plavix] 75 mg PO DAILY #30 tab 01/09/18 Metoprolol Tartrate [Lopressor] 25 mg PO BID #60 tab 01/09/18 Nitroglycerin Sl Tabs [Nitrostat] 0.4 mg SUBLINGUAL Q5M PRN #25 tab 01/09/18 Acetaminophen Tab [Tylenol] 500 mg PO Q6HR PRN tab 01/23/18 Aspirin 81 mg PO DAILY chew 01/23/18 Meclizine HCl 12.5 mg PO TID PRN #1 01/23/18 Pantoprazole [Protonix] 40 mg PO AC-BRKFST tablet. 01/23/18 Allergies Allergy/AdvReac Type Severity Reaction Status Date / Time No Known Allergies Allergy Verified 03/29/18 14:58 Review of Systems ROS Statement: Those systems with pertinent positive or pertinent negative responses have been documented in the HPI. ROS Other: All systems not noted in ROS Statement are negative. Past Medical History Past Medical History: Hyperlipidemia, Hypertension, Pneumonia, Renal Disease Additional Past Medical History / Comment(s): born premature,vertigo, bph, colitis since 1968,past detatched retina -pt not sure which side, cataracts,as child had pne and yellow jaundice,sciatic nerve pain-sees chiropractor, wears hearing aids, glasses History of Any Multi-Drug Resistant Organisms: None Reported Past Surgical History: Heart Catheterization With Stent, Hernia Repair, Orthopedic Surgery, Tonsillectomy Additional Past Surgical History / Comment(s): hemorroid sx, Retina reattached, rt knee sx reapired cartilage-wears a brace when uo Additional Past Anesthesia/Blood Transfusion Reaction / Comment(s): as a child had loss of vision after hernia surgery Date of Last Stent Placement:: 01/08/2018 Past Psychological History: No Psychological Hx Reported Smoking Status: Former smoker Past Alcohol Use History: None Reported - Past Family History Father Additional Family Medical History / Comment(s): alcoholic- at age 69 Mother Family Medical History: CVA/TIA General Exam - General Exam Comments Initial Comments: GENERAL: Patient is well-developed and well-nourished. Patient is nontoxic and well- hydrated and is in no acute distress. ENT: Neck is soft and supple. No significant lymphadenopathy is noted. Oropharynx is clear. Moist mucous membranes. Neck has full range of motion without eliciting any pain. EYES: The sclera were anicteric and conjunctiva were pink and moist. Extraocular movements were intact and pupils were equal round and reactive to light. Eyelids were unremarkable. PULMONARY: Unlabored respirations. Good breath sounds bilaterally. No audible rales rhonchi or wheezing was noted. CARDIOVASCULAR: There is a regular rate and rhythm without any murmurs gallops or rubs. ABDOMEN: Soft and nontender with normal bowel sounds. No palpable organomegaly was noted. There is no palpable pulsatile mass. SKIN: Skin is clear with no lesions or rashes and otherwise unremarkable. NEUROLOGIC: Patient is alert and oriented x3. Cranial nerves II through XII are grossly intact. Motor and sensory are also intact. Normal speech, volume and content. Symmetrical smile. MUSCULOSKELETAL: Normal extremities with adequate strength and full range of motion. No lower extremity swelling or edema. No calf tenderness. LYMPHATICS: No significant lymphadenopathy is noted PSYCHIATRIC: Normal psychiatric evaluation. Limitations: no limitations Course Vital Signs 03/29/18 14:22 Temperature 98.8 F Pulse Rate 70 Respiratory 16 Rate Blood Pressure 155/78 O2 Sat by Pulse 94 L Oximetry Medical Decision Making - Medical Decision Making Patient is a large bowel movement in the emergency department. KUB shows some stool - Lab Data Result diagrams: 03/29/18 14:23 03/29/18 14:23 Lab Results 03/29/18 03/29/18 Range/Units 14:23 14:23 WBC 7.9 (3.8-10.6) k/uL RBC 5.10 (4.30-5.90) m/uL Hgb 14.1 (13.0-17.5) gm/dL Hct 43.5 (39.0-53.0) % MCV 85.2 (80.0-100.0) fL MCH 27.5 (25.0-35.0) pg MCHC 32.3 (31.0-37.0) g/dL RDW 14.2 (11.5-15.5) % Plt Count 187 (150-450) k/uL Neutrophils % 84 % Lymphocytes % 9 % Monocytes % 4 % Eosinophils % 1 % Basophils % 1 % Neutrophils # 6.6 (1.3-7.7) k/uL Lymphocytes # 0.7 L (1.0-4.8) k/uL Monocytes # 0.3 (0-1.0) k/uL Eosinophils # 0.1 (0-0.7) k/uL Basophils # 0.0 (0-0.2) k/uL Sodium 138 (137-145) mmol/L Potassium 4.3 (3.5-5.1) mmol/L Chloride 102 (98-107) mmol/L Carbon Dioxide 25 (22-30) mmol/L Anion Gap 11 mmol/L BUN 20 (9-20) mg/dL Creatinine 1.15 (0.66-1.25) mg/dL Est GFR (CKD-EPI)AfAm 69 (>60 ml/min/1.73 sqM) Est GFR (CKD-EPI)NonAf 59 (>60 ml/min/1.73 sqM) Glucose 107 H (74-99) mg/dL Calcium 9.4 (8.4-10.2) mg/dL Total Bilirubin 0.8 (0.2-1.3) mg/dL AST 17 (17-59) U/L ALT 27 (21-72) U/L Alkaline Phosphatase 114 (38-126) U/L Total Protein 6.8 (6.3-8.2) g/dL Albumin 4.0 (3.5-5.0) g/dL Amylase 75 (30-110) U/L Lipase 113 (23-300) U/L Disposition Clinical Impression: Constipation Disposition: HOME SELF-CARE Condition: Good Instructions: Constipation (ED), High Fiber Diet (ED) Is patient prescribed a controlled substance at d/c from ED?: No Referrals: Ganesh Melo MD [Primary Care Provider] - 1-2 days
[2018-03-29 15:38] VITALS: BP 139/79; PULSE 78; TEMP 97.8
== END 2018-03-29 15:37 | disposition home or self-care (01) ==
LOC: EC 14:18
DX: K59.00 Constipation, unspecified (principal); I10 Essential (primary) hypertension; N40.0 Benign prostatic hyperplasia without lower urinary tract symptoms; Z87.891 Personal history of nicotine dependence; Z98.890 Other specified postprocedural states; Z79.899 Other long term (current) drug therapy
CPT/HCPCS: 36415; 74018; 80053; 82150; 83690; 85025; 99284

== ENCOUNTER 2018-04-04 13:14 | Emergency (ER) | payer MEDICARE, BC ==
[2018-04-04 13:28] VITALS: BP 145/70; PULSE 76; RESP 18; TEMP 98
--- NOTE | 2018-04-04 13:50 | ED ---
General Adult HPI - General Chief complaint: Recheck/Abnormal Lab/Rx Stated complaint: Nose packing falling out Time Seen by Provider: 04/04/18 13:26 Source: patient Mode of arrival: ambulatory Limitations: no limitations - History of Present Illness Initial comments: This 83-year-old male presenting today for chief complaint of nasal packing falling out. Patient was seen in emergency yesterday by myself, posterior epistaxis on Plavix. He was minimal and patient was sent home when hemostasis was obtained. Packing was in place. Patient placed on Augmentin. Patient presents today for the nasal packing falling out. He denies any additional bleeding, stating that he is no longer spitting up blood. Patient denies any palpitations, pallor, or cold intolerance. Patient states that he is feeling fine he just would like the nasal packing out. Patient states that he did fill his medication yesterday. Patient did not yet make his appointment with ENT, however he states that today he well. Remainder of review of systems negative. Vital signs stable. Heart rate within normal limits and blood pressure stable. - Related Data Previous Rx's Medication Instructions Recorded Amoxicillin/Potassium Clav 1 tab PO Q12HR 5 Days #10 tab 04/03/18 [Augmentin 500-125 Tablet] Allergies Allergy/AdvReac Type Severity Reaction Status Date / Time No Known Allergies Allergy Verified 04/03/18 12:39 Review of Systems ROS Statement: Those systems with pertinent positive or pertinent negative responses have been documented in the HPI. ROS Other: All systems not noted in ROS Statement are negative. Constitutional: Denies: fever, chills ENT: Denies: ear pain, epistaxis Respiratory: Denies: cough, dyspnea Cardiovascular: Denies: chest pain, palpitations Endocrine: Denies: fatigue, heat or cold intolerance Gastrointestinal: Denies: abdominal pain, nausea, vomiting Genitourinary: Denies: urgency, dysuria, frequency, hematuria Skin: Denies: rash, lesions Neurological: Denies: headache Past Medical History Past Medical History: Coronary Artery Disease (CAD), Hyperlipidemia, Hypertension, Myocardial Infarction (SC) History of Any Multi-Drug Resistant Organisms: None Reported Past Surgical History: Heart Catheterization With Stent Past Psychological History: No Psychological Hx Reported Smoking Status: Never smoker Past Alcohol Use History: None Reported Past Drug Use History: None Reported General Exam - General Exam Comments Initial Comments: General: The patient is awake and alert, in no distress, and does not appear acutely ill. Pt skin pink, no pallor or diaphoresis. Warm to touch. Eye: Pupils are equal, round and reactive to light, extra-ocular movements are intact. No nystagmus. There is normal conjunctiva bilaterally. No signs of icterus. Ears, nose, mouth and throat: There are moist mucous membranes and no oral lesions. Exam of the oropharynx, reveals no active bleeding. No bleeding from the nares bilaterally. Neck: The neck is supple, there is no tenderness or JVD. Cardiovascular: There is a regular rate and rhythm. No murmur, rub or gallop is appreciated. Respiratory: Lungs are clear to auscultation, respirations are non-labored, breath sounds are equal. No wheezes, stridor, rales, or rhonchi. Musculoskeletal: Radial pulses equal bilaterally 2+. Neurological: A&O x 3. CN II-XII intact, There are no obvious motor or sensory deficits. Coordination appears grossly intact. Speech is normal. Skin: Skin is warm and dry and no rashes or lesions are noted. Psychiatric: Cooperative, appropriate mood & affect, normal judgment. Limitations: no limitations Course Vital Signs 04/04/18 13:24 Temperature 98.0 F Pulse Rate 76 Respiratory 18 Rate Blood Pressure 145/70 O2 Sat by Pulse 98 Oximetry Medical Decision Making - Medical Decision Making Nasal packing removed. No signs of active bleeding. pt instructed to continue antibiotics and f/u with ENT on Friday as instructed yesterday. Pt verbalized understanding. Case discussed in detail with Dr. Bowers. Pt discharged VS in stable. Pt instructed to return for any active bleeding, palpatations, pallor or cold intolerance. Pt verbalized agreement as well as his friend that accompanied him today. Disposition Clinical Impression: Encounter for removal of nasal packing Disposition: HOME SELF-CARE Condition: Good Instructions: Nosebleed (ED) Additional Instructions: Please use medication as discussed. Please follow-up with ENT Friday as instructed. Please return to emergency room if the symptoms increase or worsen or for any other concerns, as discussed. Is patient prescribed a controlled substance at d/c from ED?: No Referrals: Andrés Snow MD [Primary Care Provider] - 1-2 days Escobar Lopes MD [STAFF PHYSICIAN] - 1-2 days Time of Disposition: 13:49
== END 2018-04-04 14:12 | disposition home or self-care (01) ==
LOC: EC 13:14 → MERGE 13:14 → EC 14:12
DX: Z48.00 Encounter for change or removal of nonsurgical wound dressing (principal); I25.10 Atherosclerotic heart disease of native coronary artery without angina pectoris; I25.2 Old myocardial infarction; Z95.5 Presence of coronary angioplasty implant and graft; Z79.02 Long term (current) use of antithrombotics/antiplatelets
CPT/HCPCS: 99283

== ENCOUNTER 2018-04-04 21:48 | Emergency (ER) | payer MEDICARE, BC ==
[2018-04-04 21:58] VITALS: BP 154/83; PULSE 66; RESP 20; TEMP 97.9
[2018-04-04] MEDS ORDERED: LIDOCAINE URO-JET JELLY 2% 5 ML KIT URETHRAL ONE (22:23)
--- NOTE | 2018-04-04 22:29 | ED ---
ENT HPI - General Chief complaint: ENT Stated complaint: Nose Bleed Time Seen by Provider: 04/04/18 21:58 Source: patient, RN notes reviewed Mode of arrival: ambulatory Limitations: no limitations - History of Present Illness Initial comments: This is an 83-year-old male who presents to the emergency department with chief complaint of epistaxis. Patient states that he was seen here in the emergency department yesterday and diagnosed with posterior epistaxis. Nasal packing was placed at that time and patient returned again today and the packing was removed. At that time, patient no longer had bleeding from the nose. Patient states that between 6 and 9 PM this evening he has had intermittent mild bleeding from both the right nostril and in the back of his throat. Patient states he does plan on following up with ENT on Friday. He denies any recent fevers or chills, chest pain or shortness of breath, abdominal pain, nausea or vomiting, dizziness. Patient does state that he is currently on Plavix. - Related Data Previous Rx's Medication Instructions Recorded Amoxicillin/Potassium Clav 1 tab PO Q12HR 5 Days #10 tab 04/03/18 [Augmentin 500-125 Tablet] Allergies Allergy/AdvReac Type Severity Reaction Status Date / Time No Known Allergies Allergy Verified 04/04/18 21:57 Review of Systems ROS Statement: Those systems with pertinent positive or pertinent negative responses have been documented in the HPI. ROS Other: All systems not noted in ROS Statement are negative. Past Medical History Past Medical History: Coronary Artery Disease (CAD), Hyperlipidemia, Hypertension, Myocardial Infarction ([place]) History of Any Multi-Drug Resistant Organisms: None Reported Past Surgical History: Heart Catheterization With Stent Past Psychological History: No Psychological Hx Reported Smoking Status: Never smoker Past Alcohol Use History: None Reported Past Drug Use History: None Reported General Exam - General Exam Comments Initial Comments: General: Awake and alert, well-developed; in no apparent distress. HEENT: Head atraumatic, normocephalic. Pupils are equal, round and reactive to light. Extraocular movements intact. Oropharynx moist with minimal bright red blood noted posteriorly. No active bleeding from bilateral nares. No septal hematomas. Neck: Supple. Normal ROM. Cardiovascular: Regular rate and rhythm. No murmurs, rubs or gallops. Chest symmetrical. Respiratory: Lungs clear to auscultation bilaterally. No wheezes, rales or rhonchi. Normal respiratory effort with no use of accessory muscles. Musculoskeletal: Normal ROM, no tenderness bilateral upper and lower extremities. Ambulating with assistance from cane. Skin: [place], warm and dry without rashes or lesions. Neurological: Alert and oriented x3. CN II-XII grossly intact. Speech is fluent and answers are appropriate. No focal neuro deficits. Psychiatric: Normal mood and affect. No overt signs of depression or anxiety noted. Limitations: no limitations Course Vital Signs 04/04/18 21:53 Temperature 97.9 F Pulse Rate 66 Respiratory 20 Rate Blood Pressure 154/83 O2 Sat by Pulse 95 Oximetry Medical Decision Making - Medical Decision Making This is an 83-year-old male who presents to the emergency department with chief complaint of nosebleed. Patient diagnosed with posterior epistaxis yesterday and nasal packing was placed. Patient returned again today to the emergency department and the packing was removed. Patient was noted to have no more active bleeding. Patient reports that the bleeding returned at approximately 6 PM this evening. States it has been minimal, however he has noticed some blood coming from the right nare as well as the back of the throat. Minimal bright red blood noted to the posterior oropharynx. No septal hematomas or bleeding from bilateral nares. Urojet lidocaine was used to coat rhino rocket. Packing was placed into the right nare and patient tolerated well. Recommended following up with ENT on Friday. Patient states he does have contact information for this. Vital signs are stable and patient is in no acute distress. He will be discharged home at this time. He voices understanding. All questions answered. Disposition Clinical Impression: Posterior epistaxis Disposition: HOME SELF-CARE Condition: Good Instructions: Nosebleed (ED) Additional Instructions: As discussed, please follow-up with ENT on Friday. Please follow up with primary care provider within 1-2 days. Return to emergency department if symptoms should worsen or any concerns arise. Is patient prescribed a controlled substance at d/c from ED?: No Referrals: Andrés Snow MD [Primary Care Provider] - 1-2 days Time of Disposition: 22:44
== END 2018-04-04 22:48 | disposition home or self-care (01) ==
LOC: MERGE 21:48 → EC 21:48
DX: R04.0 Epistaxis (principal); I25.10 Atherosclerotic heart disease of native coronary artery without angina pectoris; I25.2 Old myocardial infarction; Z79.02 Long term (current) use of antithrombotics/antiplatelets; Z95.5 Presence of coronary angioplasty implant and graft
CPT/HCPCS: 30901; 99283

== ENCOUNTER 2018-07-13 23:47 | Observation (INO) | payer MEDICARE, BC ==
[2018-07-14 01:34] LABS: Basophils % (A) 1 %; Eosinophils # (A) 0.2 k/uL (0-0.7); Eosinophils % (A) 3 %; HCT 44.9 % (39.0-53.0); HGB 14.6 gm/dL (13.0-17.5); Lymphocytes # (A) 0.9 k/uL (1.0-4.8); Lymphocytes % (A) 13 %; MCH 27.4 pg (25.0-35.0); MCHC 32.4 g/dL (31.0-37.0); MCV 84.6 fL (80.0-100.0); Mean Platelet Volume 7.1; Monocytes # (A) 0.5 k/uL (0-1.0); Monocytes % (A) 7 %; Neutrophils # (A) 5.4 k/uL (1.3-7.7); Neutrophils % (A) 75 %; Platelet Count 159 k/uL (150-450); RBC 5.31 m/uL (4.30-5.90); RDW 14.1 % (11.5-15.5); WBC 7.2 k/uL (3.8-10.6)
[2018-07-14 01:42] LABS: Albumin 3.9 g/dL (3.5-5.0); Calcium 9.2 mg/dL (8.4-10.2); Magnesium 2.2 mg/dL (1.6-2.3); Potassium 4.8 mmol/L (3.5-5.1); Total Bilirubin 0.5 mg/dL (0.2-1.3); Total Protein 6.6 g/dL (6.3-8.2)
[2018-07-14 01:43] LABS: INR 0.9 (<1.2); Partial Thromboplastin Time 24.4 sec (22.0-30.0); Prothrombin Time 9.9 sec (9.0-12.0)
--- NOTE | 2018-07-14 01:48 | XR ---
EXAMINATION TYPE: XR chest 1V portable DATE OF EXAM: 07/14/2018 COMPARISON: 01/07/2018 HISTORY: Chest pain TECHNIQUE: Single frontal view of the chest is obtained. FINDINGS: There is no heart failure nor confluent pneumonic infiltrate. Costophrenic angles are doyle r. There is small linear density at the right lung base. Heart size is normal. Thoracic aorta is athe romatous. Bony thorax is intact. IMPRESSION: Minimal subsegmental atelectasis right lung base is new compared to old exam. Normal hea rt.
[2018-07-14 01:53] LABS: Creatine Kinase 70 U/L (55-170)
[2018-07-14 02:06] LABS: Creatine Kinase MB 1.4 ng/mL (0.0-2.4); Troponin I <0.012 ng/mL (0.000-0.034)
[2018-07-14] MEDS ORDERED: NITROGLYCERIN SL TABS 0.4 MG TAB SUBLINGUAL PRN ×2 (03:13→11:47)
[2018-07-14] MEDS ORDERED: METOPROLOL TARTRATE 25 MG TAB PO STA (03:19)
[2018-07-14] MEDS ORDERED: LISINOPRIL 20 MG TAB PO STA (03:19)
--- NOTE | 2018-07-14 03:24 | ED ---
Chest Pain HPI - General Chief Complaint: Back Pain/Injury Stated Complaint: back pain Time Seen by Provider: 07/14/18 00:50 Source: patient, EMS Mode of arrival: EMS Limitations: no limitations - History of Present Illness Initial Comments: This patient is a 3-year-old man who presents to be evaluated for pain in the left chest that does radiate to his back. He indicates the area below they left scapula. The triage complaint was as his back pain but he states that this is where the pain seems to radiate to. He states the pain started about 4 hours ago. He denies an exertional component. States the pain was constant but has resolved now. He did not have any associated symptoms. The pain was moderate intensity. He did not note any worsening or relieving factors. When asked if this was similar to the pain he had associated with his previous AL he states that it is somewhat similar but not identical. MD Complaint: chest pain Onset/Timin -: hour(s) Onset: during rest Pain Location: left chest Pain Radiation: back Severity: mild Quality: aching Consistency: now resolved Improves With: nothing Worsens With: nothing Treatments Prior to Arrival: none - Related Data Home Medications Medication Instructions Recorded Confirmed Dutasteride [Avodart] 0.5 mg PO DAILY 03/21/14 04/07/18 Quinapril HCl [Accupril] 20 mg PO BID 03/21/14 04/07/18 Tamsulosin HCl [Flomax] 0.4 mg PO HS 02/04/16 04/07/18 Cholecalciferol (Vitamin D3) 2,000 unit PO AC-SUPPER 01/07/18 04/07/18 [Vitamin D3] Aspirin 81 mg PO AC-SUPPER 04/07/18 04/07/18 Previous Rx's Medication Instructions Recorded Atorvastatin [Lipitor] 40 mg PO HS #30 tab 01/09/18 Clopidogrel [Plavix] 75 mg PO DAILY #30 tab 01/09/18 Metoprolol Tartrate [Lopressor] 25 mg PO BID #60 tab 01/09/18 Nitroglycerin Sl Tabs [Nitrostat] 0.4 mg SUBLINGUAL Q5M PRN #25 tab 01/09/18 Acetaminophen Tab [Tylenol] 500 mg PO Q6HR PRN tab 01/23/18 Meclizine HCl 12.5 mg PO TID PRN #1 01/23/18 Pantoprazole [Protonix] 40 mg PO AC-BRKFST tablet. 01/23/18 Amoxicillin/Potassium Clav 1 tab PO Q12HR 5 Days #10 tab 04/03/18 [Augmentin 500-125 Tablet] Cephalexin [Keflex] 500 mg PO Q12HR 7 Days cap 04/07/18 Allergies Allergy/AdvReac Type Severity Reaction Status Date / Time No Known Allergies Allergy Verified 04/07/18 16:23 Review of Systems ROS Statement: Those systems with pertinent positive or pertinent negative responses have been documented in the HPI. ROS Other: All systems not noted in ROS Statement are negative. Constitutional: Denies: fever, chills Respiratory: Denies: cough, dyspnea Cardiovascular: Reports: chest pain. Denies: palpitations, orthopnea, edema, syncope Gastrointestinal: Denies: abdominal pain, nausea, vomiting Genitourinary: Denies: dysuria, hematuria Musculoskeletal: Denies: back pain Skin: Denies: rash Neurological: Denies: headache, weakness, numbness EKG Findings - EKG Results: EKG: interpreted by ERMA, sinus rhythm (Rate 61 bpm), normal ST/T - Blocks, [place], Hypertrophy, ST Abn: QRS axis and voltage: left axis deviation (-30 to -90) Chamber hypertrophy or enlargement: left ventricular hypertrophy or enlargement (LVE) Past Medical History Past Medical History: Coronary Artery Disease (CAD), Hyperlipidemia, Hypertension, Myocardial Infarction ([place]), Pneumonia, Renal Disease Additional Past Medical History / Comment(s): born premature,vertigo, bph, colitis since 1968,past detatched retina -pt not sure which side, cataracts,as child had pne and yellow jaundice,sciatic nerve pain-sees chiropractor, wears hearing aids, glasses History of Any Multi-Drug Resistant Organisms: None Reported Past Surgical History: Heart Catheterization With Stent, Hernia Repair, Orthopedic Surgery, Tonsillectomy Additional Past Surgical History / Comment(s): hemorroid sx, Retina reattached, rt knee sx reapired cartilage-wears a brace when uo Additional Past Anesthesia/Blood Transfusion Reaction / Comment(s): as a child had loss of vision after hernia surgery Date of Last Stent Placement:: 01/08/2018 Past Psychological History: No Psychological Hx Reported Smoking Status: Never smoker Past Alcohol Use History: None Reported Past Drug Use History: None Reported - Past Family History Father Additional Family Medical History / Comment(s): alcoholic- at age 69 Mother Family Medical History: CVA/TIA General Exam Limitations: no limitations General appearance: alert, in no apparent distress Head exam: Present: atraumatic, normocephalic Eye exam: Present: normal appearance. Absent: scleral icterus, conjunctival injection Neck exam: Present: normal inspection Respiratory exam: Present: normal lung sounds bilaterally. Absent: respiratory distress, wheezes, rales, rhonchi, stridor, chest wall tenderness, accessory muscle use, decreased breath sounds Cardiovascular Exam: Present: regular rate, normal rhythm, normal heart sounds. Absent: systolic murmur, diastolic murmur, rubs, gallop GI/Abdominal exam: Present: soft. Absent: distended, tenderness, guarding, rebound, mass Extremities exam: Present: normal inspection, normal capillary refill. Absent: pedal edema, calf tenderness Back exam: Present: normal inspection. Absent: CVA tenderness (R), CVA tenderness (L) Neurological exam: Present: alert Skin exam: Present: warm, dry, intact, normal color. Absent: rash Course Vital Signs 07/13/18 23:51 Temperature 98.9 F Pulse Rate 67 Respiratory 19 Rate Blood Pressure 151/106 O2 Sat by Pulse 96 Oximetry Disposition Clinical Impression: Chest pain, Hypertension Disposition: ADMITTED IP TO THIS HOSP Condition: Good Referrals: Andrés Snow MD [Primary Care Provider] - 1-2 days
[2018-07-14 09:35] LABS: Creatine Kinase 51 U/L (55-170)
[2018-07-14 09:49] LABS: Troponin I <0.012 ng/mL (0.000-0.034)
[2018-07-14] MEDS ORDERED: DOBUTamine DRIP for NUC MED 500 MG in DEXTROSE/WATER 1 250ML.BAG IV ONE (10:22)
[2018-07-14] MEDS ORDERED: CLOPIDOGREL 75 MG TAB PO SCH (10:45)
[2018-07-14] MEDS ORDERED: ATROPINE SULFATE 0.1 MG/ML 10ML SYRINGE ONE (11:18)
--- NOTE | 2018-07-14 11:27 | P.CRDCN ---
History of Present Illness History of present illness: This is a pleasant 83-year-old male past medical history significant for coronary artery disease s/p stenting of proximal LAD 12/2017, hypertension, dyslipidemia, chronic kidney disease and BPH. He follows with Dr. Galvan in the office. We have been asked to see him in consultation for chest pain. He states he saw his chiropractor earlier in the morning yesterday for symptoms of lower back pain and sciatica. He had an adjustment. Later in the evening around 1900 he started feeling an achy sensation in the mid-scapular region. The pain seemed to be worse when he moved his arms. It remained persistent through the evening and eventually started radiating around under the left axilla and left thoracic region. He called EMS to come around 2300. Through the night his pain has subsided. He denies associated shortness of breath, dizziness, nausea, vomiting or diaphoresis. EKG reveals sinus mechanism with no acute ST or T-wave abnormalities. Chest x-ray reveals minimal subsegmental atelectasis in the right lung base. Laboratory data reviewed, WBC 7.2, hemoglobin 14.6, platelets 159, sodium 139, potassium 4.8, creatinine 1.12, magnesium 2.2, cardiac enzymes negative 2. Most recent echocardiogram obtained reveals preserved left ventricular systolic function with ejection fraction 50-55%. Mild to moderate aortic regurgitation, mild mitral regurgitation and mild tricuspid regurgitation. Most recent cardiac catheterization performed December 2017 revealed diffuse disease to the RCA as well as critical stenosis to proximal LAD, he underwent stenting of the LAD at that time. Current cardiac medications include aspirin 81 mg daily, atorvastatin 40 mg daily, Lopressor 25 mg twice a day, Plavix 75 mg daily and quinapril 20 mg twice a day. At the time of my exam: CONSTITUTIONAL: Denies fever. Denies chills. EYES: Denies blurred vision. Denies vision changes. Denies eye pain. EARS, NOSE, MOUTH & THROAT: Denies headache. Denies sore throat. Denies ear pain. CARDIOVASCULAR: Denies chest pain. Denies shortness of breath. Denies orthopnea. Denies PND. Denies palpitations. RESPIRATORY: Denies cough. GASTROINTESTINAL: Denies abdominal pain. Denies diarrhea. Denies constipation. Denies nausea. Denies vomiting. MUSCULOSKELETAL: Denies myalgias. INTEGUMENTARY: Denies pruitis. Denies rash. NEUROLOGIC: Denies numbness. Denies tingling. Denies weakness. PSYCHIATRIC: Denies anxiety. Denies depression. ENDOCRINE: Denies fatigue. Denies weight change. Denies polydipsia. Denies polyurina. GENITOURINARY: Denies burning, hematuria or urgency with micturation. HEMATOLOGIC: Denies history of anemia. Denies bleeding. Blood pressure 179/71 heart rate 60 afebrile maintaining oxygen saturation on room air GENERAL: This is a 83-year-old male in no apparent distress at the time of my examination. Hard of hearing. HEENT: Head is atraumatic, normocephalic. Pupils are equal, round. Sclerae anicteric. Conjunctivae are clear. Mucous membranes of the mouth are moist. Neck is supple. There is no jugular venous distention. No carotid bruit is heard. LUNGS: Clear to auscultation no wheezes, rales or rhonchi. No chest wall tenderness is noted on palpation or with deep breathing. HEART: Regular rate and rhythm without murmurs, rubs or gallops. S1 and S2 heard. ABDOMEN: Soft, nontender. Bowel sounds are heard. No organomegaly noted. EXTREMITIES: No evidence of peripheral edema and no calf tenderness noted. VASCULAR: Radial and dorsalis pedis pulses palpated, no evidence of clubbing. NEUROLOGIC: Patient is awake, alert and oriented x3. ASSESSMENT Chest pain, atypical. An acute coronary event has been ruled out with no EKG evidence of ischemia and negative cardiac enzymes. Pain may be musckuloskeletal related to recent chiropractor manipulation. History of coronary artery disease s/p recent stenting to proximal LAD 12/2017 maintained on dual anti-platelet therapy Hypertension Dyslipidemia Chronic kidney disease Benign prostatic hypertrophy PLAN An acute coronary event has been ruled out with no EKG evidence of ischemia and negative cardiac enzymes. Obtain 2D echocardiogram and doppler study to assess cardiac structure and function. Perform dobutamine stress echocardiogram to assess for stress induced ischemia. Resume home medications, plavix, aspirin, lisinopril and atorvastatin. If stress test is normal he is stable from a cardiac perspective. Follow up with Dr. Galvan upon discharge. Thank you kindly for this consultation. Nurse Practitioner note has been reviewed, I agree with a documented findings and plan of care. Patient was seen and examined. Past Medical History Past Medical History: Coronary Artery Disease (CAD), Hyperlipidemia, Hypertension, Myocardial Infarction ([place]), Pneumonia, Renal Disease Additional Past Medical History / Comment(s): born premature,vertigo, bph, colitis since 1968,past detatched retina -pt not sure which side, cataracts,as child had pne and yellow jaundice,sciatic nerve pain-sees chiropractor, wears hearing aids, glasses History of Any Multi-Drug Resistant Organisms: None Reported Past Surgical History: Heart Catheterization With Stent, Hernia Repair, Orthopedic Surgery, Tonsillectomy Additional Past Surgical History / Comment(s): hemorroid sx, Retina reattached, rt knee sx reapired cartilage-wears a brace when uo Additional Past Anesthesia/Blood Transfusion Reaction / Comment(s): as a child had loss of vision after hernia surgery Date of Last Stent Placement:: 01/08/2018 Past Psychological History: No Psychological Hx Reported Smoking Status: Never smoker Past Alcohol Use History: None Reported Past Drug Use History: None Reported - Past Family History Father Additional Family Medical History / Comment(s): alcoholic- at age 69 Mother Family Medical History: CVA/TIA Medications and Allergies Home Medications Medication Instructions Recorded Confirmed Type Dutasteride [Avodart] 0.5 mg PO DAILY 03/21/14 07/14/18 History Quinapril HCl [Accupril] 20 mg PO BID 03/21/14 07/14/18 History Tamsulosin HCl [Flomax] 0.4 mg PO HS 02/04/16 07/14/18 History Cholecalciferol (Vitamin D3) 2,000 unit PO AC-SUPPER 01/07/18 07/14/18 History [Vitamin D3] Atorvastatin [Lipitor] 40 mg PO HS #30 tab 01/09/18 07/14/18 Rx Clopidogrel [Plavix] 75 mg PO DAILY #30 tab 01/09/18 07/14/18 Rx Metoprolol Tartrate [Lopressor] 25 mg PO BID #60 tab 01/09/18 07/14/18 Rx Nitroglycerin Sl Tabs [Nitrostat] 0.4 mg SUBLINGUAL Q5M PRN #25 tab 01/09/18 Rx Acetaminophen Tab [Tylenol] 500 mg PO Q6HR PRN tab 01/23/18 07/14/18 Rx Meclizine HCl 12.5 mg PO TID PRN #1 01/23/18 07/14/18 Rx Pantoprazole [Protonix] 40 mg PO AC-BRKFST tablet. 01/23/18 07/14/18 Rx Aspirin 81 mg PO AC-SUPPER 04/07/18 07/14/18 History Allergies Allergy/AdvReac Type Severity Reaction Status Date / Time No Known Allergies Allergy Verified 07/14/18 07:30 Physical Exam Vitals: Vital Signs Temp Pulse Resp BP Pulse Ox 07/14/18 07:00 98.3 F 54 L 19 158/84 96 07/14/18 06:06 64 16 07/14/18 04:57 64 18 165/92 99 07/14/18 03:10 57 L 19 204/86 100 07/13/18 23:51 98.9 F 67 19 151/106 96 Intake and Output 07/13/18 07/14/18 07/14/18 22:59 06:59 14:59 Other: Weight 84.368 kg Results 07/14/18 01:20 07/14/18 01:20 Cardiac Enzymes 07/14/18 07/14/18 Range/Units 01:20 01:20 AST 22 (17-59) U/L CK-MB (CK-2) 1.4 (0.0-2.4) ng/mL Troponin I <0.012 (0.000-0.034) ng/mL Coagulation 07/14/18 Range/Units 01:20 PT 9.9 (9.0-12.0) sec APTT 24.4 (22.0-30.0) sec CBC 07/14/18 Range/Units 01:20 WBC 7.2 (3.8-10.6) k/uL RBC 5.31 (4.30-5.90) m/uL Hgb 14.6 (13.0-17.5) gm/dL Hct 44.9 (39.0-53.0) % Plt Count 159 (150-450) k/uL Comprehensive Metabolic Panel 07/14/18 Range/Units 01:20 Sodium 139 (137-145) mmol/L Potassium 4.8 (3.5-5.1) mmol/L Chloride 106 (98-107) mmol/L Carbon Dioxide 26 (22-30) mmol/L BUN 29 H (9-20) mg/dL Creatinine 1.12 (0.66-1.25) mg/dL Glucose 112 H (74-99) mg/dL Calcium 9.2 (8.4-10.2) mg/dL AST 22 (17-59) U/L ALT 22 (21-72) U/L Alkaline Phosphatase 76 (38-126) U/L Total Protein 6.6 (6.3-8.2) g/dL Albumin 3.9 (3.5-5.0) g/dL Current Medications Generic Name Dose Route Start Last Admin Trade Name Freq PRN Reason Stop Dose Admin Aspirin 325 mg 07/15/18 09:00 Aspirin PO DAILY ANA Nitroglycerin 0.4 mg 07/14/18 03:13 Nitrostat SUBLINGUAL Q5M PRN Chest Pain Sodium Chloride 10 ml 07/14/18 09:00 Saline Flush IV BID ANA Intake and Output 07/13/18 07/14/18 07/14/18 22:59 06:59 14:59 Other: Weight 84.368 kg 07/14/18 01:20 07/14/18 01:20
[2018-07-14] MEDS ORDERED: ACETAMINOPHEN TAB 500 MG TAB PO PRN (11:47)
[2018-07-14] MEDS ORDERED: MECLIZINE 25 MG TAB PO PRN (11:47)
[2018-07-14 11:51] VITALS: TEMP 97.6
--- NOTE | 2018-07-14 12:34 | ECHOF ---
Referral Reason:cp MEASUREMENTS -------- HEIGHT: 167.6 cm WEIGHT: 80.7 kg BP: 179/71 RVIDd: 3.4 cm (< 3.3) IVSd: 1.1 cm (0.6 - 1.1) LVIDd: 4.7 cm (3.9 - 5.3) LVPWd: 1.1 cm (0.6 - 1.1) IVSs: 1.7 cm LVIDs: 2.8 cm LVPWs: 1.7 cm LAESV Index (A-L): 18.82 ml/m Ao Diam: 3.6 cm (2.0 - 3.7) AV Cusp: 2.2 cm (1.5 - 2.6) LA Diam: 4.3 cm (2.7 - 3.8) MV E Joesph: 0.67 m/s MV DecT: 211 ms MV A Joesph: 0.80 m/s MV E/A Ratio: 0.84 RAP: 5.00 mmHg RVSP: 23.60 mmHg FINDINGS -------- Resting bradycardia (HR<60bpm). This was a technically adequate study. The left ventricular size is normal. There is borderline concentric left ventricular hypertrophy. Overall left ventricular systolic function is normal with, an EF between 55 - 60 %. The right ventricle is mildly enlarged. Normal LA size by volume 22+/-6 ml/m2. RA appears enlarged. Aortic valve is trileaflet and is mildly thickened. Trace to mild aortic regurgitation. There is no evidence of aortic stenosis. The mitral valve leaflets are mildly thickened. There is trace to mild mitral regurgitation. Mild tricuspid regurgitation present. Right ventricular systolic pressure is normal at < 35 mmHg. There is no evidence of pulmonary hypertension. Trace/mild (physiologic) pulmonic regurgitation. The aortic root size is normal. Normal inferior vena cava with normal inspiratory collapse consistent with estimated right atrial pre ssure of 5 mmHg. There is no pericardial effusion. CONCLUSIONS -------- 1. Resting bradycardia (HR<60bpm). 2. This was a technically adequate study. 3. The left ventricular size is normal. 4. There is borderline concentric left ventricular hypertrophy. 5. Overall left ventricular systolic function is normal with, an EF between 55 - 60 %. 6. The right ventricle is mildly enlarged. 7. Normal LA size by volume 22+/-6 ml/m2. 8. RA appears enlarged. 9. Aortic valve is trileaflet and is mildly thickened. 10. Trace to mild aortic regurgitation. 11. The mitral valve leaflets are mildly thickened. 12. There is trace to mild mitral regurgitation. 13. Mild tricuspid regurgitation present. 14. Right ventricular systolic pressure is normal at < 35 mmHg. 15. There is no evidence of pulmonary hypertension. 16. Trace/mild (physiologic) pulmonic regurgitation. 17. The aortic root size is normal. 18. There is no pericardial effusion. COM WRITER: Fredrick Muhammad RDCS
--- NOTE | 2018-07-14 13:26 | ECHOS ---
STRESS ECHOCARDIOGRAM DATE OF SERVICE: 07/14/2018 INDICATIONS: Chest pain. MEDICATIONS: BASELINE HEART RATE: 59 BASELINE BLOOD PRESSURE: 162/87 MAXIMUM HEART RATE: 124 MAXIMUM BLOOD PRESSURE: 194/70 85% MPHR: 117 100% MPHR: 138 METS: MAXIMUM STAGE REACHED: TOTAL EXERCISE TIME: CLINICAL INFORMATION: A dobutamine echocardiographic study was performed. The peak heart rate of 124 was achieved. Maximum blood pressure of 194/70 mmHg was noted. Resting EKG shows normal sinus rhythm with normal AK interval and QRS duration and normal ST-T waves. No ST- segment depression suggestive of ischemia was noted. Occasional PVCs were noted. The baseline echocardiographic images reveals normal left ventricular chamber size with normal left ventricular systolic function. At the peak dose of dobutamine infusion, normal increase in the wall thickness and contractility is noted. FINAL IMPRESSION: 1. This dobutamine stress echocardiographic study is negative for stress-induced ischemia. 2. EKG portion of the stress test is not suggestive of ischemia. 3. Occasional PVCs were noted. MMODL / IJN: [id number] /
--- NOTE | 2018-07-14 16:02 | P.HPIM ---
History of Present Illness 83-year-old male states that he developed of back pain radiating to the left flank for 4 hours and home. Denies any nausea sweats. Stated it felt similar to when he had an IL. Patient has a history of coronary disease with IL and stent hypertension hyperlipidemia Review of Systems Cardiovascular: Reports chest pain Past Medical History Past Medical History: Coronary Artery Disease (CAD), Hyperlipidemia, Hypertension, Myocardial Infarction ([place]), Pneumonia, Renal Disease Additional Past Medical History / Comment(s): born premature,vertigo, bph, colitis since 1968,past detatched retina -pt not sure which side, cataracts,as child had pne and yellow jaundice,sciatic nerve pain-sees chiropractor, wears hearing aids, glasses Last Myocardial Infarction Date:: 01/08/18 History of Any Multi-Drug Resistant Organisms: None Reported Past Surgical History: Heart Catheterization With Stent, Hernia Repair, Orthopedic Surgery, Tonsillectomy Additional Past Surgical History / Comment(s): hemorroid sx, Retina reattached, rt knee sx reapired cartilage-wears a brace when uo Past Anesthesia/Blood Transfusion Reactions: No Reported Reaction Additional Past Anesthesia/Blood Transfusion Reaction / Comment(s): as a child had loss of vision after hernia surgery Date of Last Stent Placement:: 01/08/2018 Past Psychological History: No Psychological Hx Reported Smoking Status: Never smoker Past Alcohol Use History: None Reported Past Drug Use History: None Reported - Past Family History Father Additional Family Medical History / Comment(s): alcoholic- at age 69 Mother Family Medical History: CVA/TIA Medications and Allergies Home Medications Medication Instructions Recorded Confirmed Type Dutasteride [Avodart] 0.5 mg PO DAILY 03/21/14 07/14/18 History Quinapril HCl [Accupril] 20 mg PO BID 03/21/14 07/14/18 History Tamsulosin HCl [Flomax] 0.4 mg PO HS 02/04/16 07/14/18 History Cholecalciferol (Vitamin D3) 2,000 unit PO AC-SUPPER 01/07/18 07/14/18 History [Vitamin D3] Atorvastatin [Lipitor] 40 mg PO HS #30 tab 01/09/18 07/14/18 Rx Clopidogrel [Plavix] 75 mg PO DAILY #30 tab 01/09/18 07/14/18 Rx Metoprolol Tartrate [Lopressor] 25 mg PO BID #60 tab 01/09/18 07/14/18 Rx Nitroglycerin Sl Tabs [Nitrostat] 0.4 mg SUBLINGUAL Q5M PRN #25 tab 01/09/18 Rx Acetaminophen Tab [Tylenol] 500 mg PO Q6HR PRN tab 01/23/18 07/14/18 Rx Meclizine HCl 12.5 mg PO TID PRN #1 01/23/18 07/14/18 Rx Pantoprazole [Protonix] 40 mg PO AC-BRKFST tablet. 01/23/18 07/14/18 Rx Aspirin 81 mg PO AC-SUPPER 04/07/18 07/14/18 History Allergies Allergy/AdvReac Type Severity Reaction Status Date / Time No Known Allergies Allergy Verified 07/14/18 07:30 Physical Exam Vitals: Vital Signs Temp Pulse Pulse Resp BP BP Pulse Ox 07/14/18 11:48 97.6 F 86 19 159/90 95 07/14/18 08:15 16 07/14/18 07:40 97.5 F L 60 16 179/71 97 07/14/18 07:00 98.3 F 54 L 19 158/84 96 07/14/18 06:06 64 16 07/14/18 04:57 64 18 165/92 99 07/14/18 03:10 57 L 19 204/86 100 07/13/18 23:51 98.9 F 67 19 151/106 96 Intake and Output 07/14/18 07/14/18 07/14/18 06:59 14:59 22:59 Intake Total 100 Balance 100 Intake: Oral 100 Other: Voiding Method Toilet # Voids 1 Weight 84.368 kg 80.739 kg - Constitutional General appearance: average body habitus - EENT Eyes: PERRLA Ears: bilateral: normal - Neck Neck: normal ROM - Respiratory Respiratory: bilateral: CTA - Cardiovascular Rhythm: regular - Gastrointestinal General gastrointestinal: soft - Integumentary Integumentary: normal - Neurologic Neurologic: CNII-XII intact - Musculoskeletal Musculoskeletal: gait normal - Psychiatric Psychiatric: A&O x's 3, appropriate affect, intact judgment & insight Results CBC & Chem 7: 07/14/18 01:20 07/14/18 01:20 Labs: Abnormal Lab Results - Last 24 Hours (Table) 07/14/18 07/14/18 07/14/18 Range/Units 01:20 01:20 08:27 Lymphocytes # 0.9 L (1.0-4.8) k/uL BUN 29 H (9-20) mg/dL Glucose 112 H (74-99) mg/dL Total Creatine Kinase 51 L (55-170) U/L Chest x-ray: report reviewed Thrombosis Risk Factor Assmnt - Choose All That Apply Any of the Below Risk Factors Present?: Yes Each Factor Represents 1 point: Obesity (BMI >25) Other Risk Factors: Yes Each Risk Factor Represents 3 Points: Age 75 years or older Other congenital or acquired thrombophilia - If yes, enter type in comment: No Thrombosis Risk Factor Assessment Total Risk Factor Score: 4 Thrombosis Risk Factor Assessment Level: Moderate Risk Assessment and Plan Plan: Assessment Atypical chest pain troponins negative 2 negative stress test Hypertension history of coronary disease with IL plus stent Hyperlipidemia Chronic renal disease Plan Cardiology consultation Serial enzymes and Calan stress test
--- NOTE | 2018-07-14 16:08 | P.DS ---
Providers Date of admission: 07/14/18 03:13 Expected date of discharge: 07/14/18 Attending physician: Andrés Snow Consults: 07/14/18 03:13 Consult Physician Routine Consulting Provider: Phil Morris Consult Reason/Comments: chest pain Do you want consulting provider notified?: Yes Primary care physician: Andrés Snow Hospital Course: 83-year-old male was admitted to the emergency room for observation with complaints of atypical chest pain lasting for 4 hours at home. Patient is a history of coronary disease with ID and stent hyperlipidemia and renal disease Patient was evaluated by cardiology negative stress test negative all ultrasound. Was cleared for discharge Assessment Atypical chest pain troponins negative stress test negative Hypertension History of coronary disease with ID and stents Hyperlipidemia Chronic renal disease Plan Follow-up with family physician Dr. Andrés Snow and cardiology Patient Condition at Discharge: Good Plan - Discharge Summary Discharge Rx Participant: No New Discharge Prescriptions: Continue Quinapril HCl [Accupril] 20 mg PO BID Tamsulosin HCl [Flomax] 0.4 mg PO HS Cholecalciferol (Vitamin D3) [Vitamin D3] 2,000 unit PO AC-SUPPER Atorvastatin [Lipitor] 40 mg PO HS #30 tab Clopidogrel [Plavix] 75 mg PO DAILY #30 tab Metoprolol Tartrate [Lopressor] 25 mg PO BID #60 tab Nitroglycerin Sl Tabs [Nitrostat] 0.4 mg SUBLINGUAL Q5M PRN #25 tab PRN Reason: Chest Pain Acetaminophen Tab [Tylenol] 500 mg PO Q6HR PRN tab PRN Reason: Fever And/ Or Pain Pantoprazole [Protonix] 40 mg PO AC-BRKFST tablet. Meclizine HCl 12.5 mg PO TID PRN #1 PRN Reason: Vertigo Aspirin 81 mg PO AC-SUPPER Dutasteride [Avodart] 0.5 mg PO DAILY 90 Days #90 capsule Discharge Medication List Quinapril HCl [Accupril] 20 mg PO BID 03/21/14 [History] Tamsulosin HCl [Flomax] 0.4 mg PO HS 02/04/16 [History] Cholecalciferol (Vitamin D3) [Vitamin D3] 2,000 unit PO AC-SUPPER 01/07/18 [ History] Atorvastatin [Lipitor] 40 mg PO HS #30 tab 01/09/18 [Rx] Clopidogrel [Plavix] 75 mg PO DAILY #30 tab 01/09/18 [Rx] Metoprolol Tartrate [Lopressor] 25 mg PO BID #60 tab 01/09/18 [Rx] Nitroglycerin Sl Tabs [Nitrostat] 0.4 mg SUBLINGUAL Q5M PRN #25 tab 01/09/18 [Rx ] Acetaminophen Tab [Tylenol] 500 mg PO Q6HR PRN tab 01/23/18 [Rx] Meclizine HCl 12.5 mg PO TID PRN #1 01/23/18 [Rx] Pantoprazole [Protonix] 40 mg PO AC-BRKFST tablet. 01/23/18 [Rx] Aspirin 81 mg PO AC-SUPPER 04/07/18 [History] Dutasteride [Avodart] 0.5 mg PO DAILY 90 Days #90 capsule 07/14/18 [Rx] Follow up Appointment(s)/Referral(s): Andrés Snow MD [Primary Care Provider] - 1-2 days Emily Galvan MD [STAFF PHYSICIAN] - 2 Weeks
[2018-07-14 16:11] VITALS: BP 119/66; PULSE 59; RESP 18
[2018-07-14] MEDS ORDERED: CHOLECALCIFEROL 1,000 UNIT TAB PO SCH (17:30)
[2018-07-14] MEDS ORDERED: ASPIRIN 81 MG PO SCH (17:30)
[2018-07-14] MEDS ORDERED: METOPROLOL TARTRATE 25 MG TAB PO SCH (21:00)
[2018-07-14] MEDS ORDERED: LISINOPRIL 20 MG TAB PO SCH (21:00)
[2018-07-14] MEDS ORDERED: QUINAPRIL HCL 20 MG PO SCH (21:00)
[2018-07-14] MEDS ORDERED: ATORVASTATIN 40 MG TAB PO SCH (21:00)
[2018-07-14] MEDS ORDERED: TAMSULOSIN 0.4 MG CAP.ER.24H PO SCH (21:00)
[2018-07-15] MEDS ORDERED: PANTOPRAZOLE 40 MG TABLET PO SCH (07:30)
[2018-07-15] MEDS ORDERED: ASPIRIN 325 MG TAB PO SCH (09:00)
[2018-07-15] MEDS ORDERED: FINASTERIDE 5 MG TAB PO SCH (09:00)
== END 2018-07-14 17:17 | disposition home or self-care (01) ==
LOC: EC 23:47 → 1SOBS 07-14 03:13
PROVIDERS: ADMIT Family Medicine; ATTEND Family Medicine
DX: R07.89 Other chest pain (principal); I12.9 Hypertensive chronic kidney disease with stage 1 through stage 4 chronic kidney disease, or unspecified chronic kidney disease; N18.9 Chronic kidney disease, unspecified; I25.10 Atherosclerotic heart disease of native coronary artery without angina pectoris; E78.5 Hyperlipidemia, unspecified; N40.0 Benign prostatic hyperplasia without lower urinary tract symptoms; H26.9 Unspecified cataract; M54.40 Lumbago with sciatica, unspecified side; I08.3 Combined rheumatic disorders of mitral, aortic and tricuspid valves; E66.9 Obesity, unspecified; Z68.28 Body mass index [BMI] 28.0-28.9, adult; Z79.02 Long term (current) use of antithrombotics/antiplatelets; Z79.82 Long term (current) use of aspirin; Z79.899 Other long term (current) drug therapy; Z87.01 Personal history of pneumonia (recurrent); Z97.4 Presence of external hearing-aid; I25.2 Old myocardial infarction; Z87.19 Personal history of other diseases of the digestive system; Z95.5 Presence of coronary angioplasty implant and graft; Z81.1 Family history of alcohol abuse and dependence; Z82.3 Family history of stroke
CPT/HCPCS: 36415; 71045; 80053; 82550; 82553; 83735; 84484; 85025; 85610; 85730; 93005; 93306; 93351; 99285

== ENCOUNTER 2018-07-29 15:06 | Emergency (ER) | payer MEDICARE, BC ==
[2018-07-29 15:18] VITALS: TEMP 98.3
--- NOTE | 2018-07-29 16:53 | ED ---
General Adult HPI - General Chief complaint: Extremity Injury, Upper Stated complaint: cant use rt arm sent Time Seen by Provider: 07/29/18 16:30 Source: patient, RN notes reviewed Mode of arrival: wheelchair Limitations: no limitations - History of Present Illness Initial comments: Patient 83-year-old male presented to the emergency room today with a chief complaint of pain to the right shoulder. He does admit that it started 5 days ago to see his family doctor for. Does admit that it has improved but is still causing him some pain. He states it's worse when he is trying to lift his hand above his head. Gives an example when he touches the back of his head with his hand. He does feel pain to the back of the right shoulder. Denies any injury or trauma. Does admit that he tried Tylenol yesterday did have some relief. Has not had Tylenol today. Patient denies any other symptoms or complaints currently. Patient denies any recent fever, chills, shortness of breath, chest pain, back pain, abdominal pain, nausea or vomiting, numbness or tingling, headaches or visual changes, or any other complaints. - Related Data Home Medications Medication Instructions Recorded Confirmed Quinapril HCl [Accupril] 20 mg PO BID 03/21/14 07/14/18 Tamsulosin HCl [Flomax] 0.4 mg PO HS 02/04/16 07/14/18 Cholecalciferol (Vitamin D3) 2,000 unit PO AC-SUPPER 01/07/18 07/14/18 [Vitamin D3] Aspirin 81 mg PO AC-SUPPER 04/07/18 07/14/18 Previous Rx's Medication Instructions Recorded Atorvastatin [Lipitor] 40 mg PO HS #30 tab 01/09/18 Clopidogrel [Plavix] 75 mg PO DAILY #30 tab 01/09/18 Metoprolol Tartrate [Lopressor] 25 mg PO BID #60 tab 01/09/18 Nitroglycerin Sl Tabs [Nitrostat] 0.4 mg SUBLINGUAL Q5M PRN #25 tab 01/09/18 Acetaminophen Tab [Tylenol] 500 mg PO Q6HR PRN tab 01/23/18 Meclizine HCl 12.5 mg PO TID PRN #1 01/23/18 Pantoprazole [Protonix] 40 mg PO AC-BRKFST tablet. 01/23/18 Dutasteride [Avodart] 0.5 mg PO DAILY 90 Days #90 capsule 07/14/18 Allergies Allergy/AdvReac Type Severity Reaction Status Date / Time No Known Allergies Allergy Verified 07/14/18 07:30 Review of Systems ROS Statement: Those systems with pertinent positive or pertinent negative responses have been documented in the HPI. ROS Other: All systems not noted in ROS Statement are negative. Past Medical History Past Medical History: Coronary Artery Disease (CAD), Hyperlipidemia, Hypertension, Myocardial Infarction ([place]), Pneumonia, Renal Disease Additional Past Medical History / Comment(s): born premature,vertigo, bph, colitis since 1968,past detatched retina -pt not sure which side, cataracts,as child had pne and yellow jaundice,sciatic nerve pain-sees chiropractor, wears hearing aids, glasses Last Myocardial Infarction Date:: 01/08/18 History of Any Multi-Drug Resistant Organisms: None Reported Past Surgical History: Heart Catheterization With Stent, Hernia Repair, Orthopedic Surgery, Tonsillectomy Additional Past Surgical History / Comment(s): hemorroid sx, Retina reattached, rt knee sx reapired cartilage-wears a brace when uo Past Anesthesia/Blood Transfusion Reactions: No Reported Reaction Additional Past Anesthesia/Blood Transfusion Reaction / Comment(s): as a child had loss of vision after hernia surgery Date of Last Stent Placement:: 01/08/2018 Past Psychological History: No Psychological Hx Reported Smoking Status: Never smoker Past Alcohol Use History: None Reported Past Drug Use History: None Reported - Past Family History Father Additional Family Medical History / Comment(s): alcoholic- at age 69 Mother Family Medical History: CVA/TIA General Exam - General Exam Comments Initial Comments: General: The patient is awake and alert, in no distress, and does not appear acutely ill. Neck: The neck is supple, there is no tenderness or JVD. Cardiovascular: There is a regular rate and rhythm. No murmur, rub or gallop is appreciated. Respiratory: Lungs are clear to auscultation, respirations are non-labored, breath sounds are equal. No wheezes, stridor, rales, or rhonchi. Musculoskeletal: normal appearance of the right shoulder no obvious deformity. No redness or swelling. Patient has mild tenderness to the posterior aspect. Patient shows good range of motion and is able to lift above 90. Does have some pain when he tries to touch the back of his head. Patient radial pulses 2+ . Strength 5/5. Neurological: A&O x 3. CN II-XII intact, There are no obvious motor or sensory deficits. Coordination appears grossly intact. Speech is normal. Skin: Skin is warm and dry and no rashes or lesions are noted. Psychiatric: Normal mood and affect. Limitations: no limitations Course Vital Signs 07/29/18 07/29/18 15:16 17:07 Temperature 98.3 F Pulse Rate 61 Respiratory 18 Rate Blood Pressure 200/97 140/88 O2 Sat by Pulse 97 Oximetry Medical Decision Making - Medical Decision Making X-ray reviewed negative for any acute fracture dislocation. Patient does not that symptoms started 5 days ago but aren't improving as he has better range of motion today than he did 5 days ago was on the family doctor. There is no redness no change to the skin. No signs of swelling. Patient's vitals are stable. He does admit that he tried Tylenol but did not take it today. He is advised used Tylenol for the pain. Advised follow-up family doctor over the next 2 days. Advised return for any other concerns. Disposition Clinical Impression: Shoulder pain Disposition: HOME SELF-CARE Condition: Good Instructions: Shoulder Pain (ED) Additional Instructions: Please use medication as discussed. Please follow-up with family doctor in the next 2 days of symptoms have not improved. Please return to emergency room if the symptoms increase or worsen or for any other concerns. Is patient prescribed a controlled substance at d/c from ED?: No Referrals: Andrés Snow MD [Primary Care Provider] - 1-2 days Time of Disposition: 17:34
--- NOTE | 2018-07-29 16:55 | XR ---
EXAMINATION TYPE: XR shoulder complete RT DATE OF EXAM: 07/29/2018 COMPARISON: NONE HISTORY: Shoulder pain TECHNIQUE: 3 views FINDINGS: There is spurring at the AC joint. There is some spurring at the greater tuberosity of the humerus. There is also hypertrophic spurring of the inferior glenoid. I see no fracture nor dislocati on. IMPRESSION: Mild osteoarthritis. No fracture seen.
[2018-07-29 17:09] VITALS: BP 140/88
[2018-07-29 18:04] VITALS: PULSE 88; RESP 16
== END 2018-07-29 18:03 | disposition home or self-care (01) ==
LOC: EC 15:06
DX: M25.511 Pain in right shoulder (principal); I10 Essential (primary) hypertension; I25.10 Atherosclerotic heart disease of native coronary artery without angina pectoris; I25.2 Old myocardial infarction; N40.0 Benign prostatic hyperplasia without lower urinary tract symptoms; H54.7 Unspecified visual loss; Z79.82 Long term (current) use of aspirin; Z79.899 Other long term (current) drug therapy; Z95.5 Presence of coronary angioplasty implant and graft
CPT/HCPCS: 99283

== ENCOUNTER 2018-08-20 03:09 | Emergency (ER) | payer MEDICARE, BC ==
[2018-08-20] MEDS ORDERED: SODIUM CHLORIDE 0.9% 500 ML 500 ML IV STA (03:31)
--- NOTE | 2018-08-20 03:31 | ED ---
General Adult HPI - General Chief complaint: Nausea/Vomiting/Diarrhea Stated complaint: diarrhea Time Seen by Provider: 08/20/18 03:21 Source: patient, family Mode of arrival: ambulatory Limitations: no limitations - History of Present Illness Initial comments: Harish is a pleasant 83-year-old gentleman with an extensive past medical history who presents to the emergency department today for evaluation of recent diarrhea and now some leakage from the rectum. Patient reports that he has been constipated for nearly a week, he saw his primary care physician earlier in the day today for evaluation of hives that he's been experiencing and was given steroids patient also discussed his constipation with his primary care physician at the time and was prescribed a stool softener which he has not started taking. Patient reports that around 3 PM he started having urge to have a bowel movement however when he went to the restroom he noted that only liquid stool was present. She denies any abdominal pain, he reports he does have a history of colitis which she has had most of his life, he states that usually when he has flares of colitis he usually has diarrhea for which he ulcers his diet and follows a BRAT diet which usually cures his colitis. - Related Data Home Medications Medication Instructions Recorded Confirmed Quinapril HCl [Accupril] 20 mg PO BID 03/21/14 08/20/18 Tamsulosin HCl [Flomax] 0.4 mg PO HS 02/04/16 08/20/18 Cholecalciferol (Vitamin D3) 2,000 unit PO AC-SUPPER 01/07/18 08/20/18 [Vitamin D3] Aspirin 81 mg PO AC-SUPPER 04/07/18 08/20/18 Docusate [Colace] 100 mg PO DAILY PRN 08/20/18 08/20/18 Loratadine [Claritin] 10 mg PO DAILY 08/20/18 08/20/18 Ticagrelor [Brilinta] 90 mg PO BID 08/20/18 08/20/18 methylPREDNISolone Dose Pack See Taper PO DAILY 08/20/18 08/20/18 [Medrol Dose Pack] Previous Rx's Medication Instructions Recorded Atorvastatin [Lipitor] 40 mg PO HS #30 tab 01/09/18 Metoprolol Tartrate [Lopressor] 25 mg PO BID #60 tab 01/09/18 Nitroglycerin Sl Tabs [Nitrostat] 0.4 mg SUBLINGUAL Q5M PRN #25 tab 01/09/18 Acetaminophen Tab [Tylenol] 500 mg PO Q6HR PRN tab 01/23/18 Meclizine HCl 12.5 mg PO TID PRN #1 01/23/18 Pantoprazole [Protonix] 40 mg PO AC-BRKFST tablet. 01/23/18 Dutasteride [Avodart] 0.5 mg PO DAILY 90 Days #90 capsule 07/14/18 Allergies Allergy/AdvReac Type Severity Reaction Status Date / Time No Known Allergies Allergy Verified 08/20/18 06:59 Review of Systems ROS Statement: Those systems with pertinent positive or pertinent negative responses have been documented in the HPI. ROS Other: All systems not noted in ROS Statement are negative. Past Medical History Past Medical History: Coronary Artery Disease (CAD), Hyperlipidemia, Hypertension, Myocardial Infarction ([place]), Pneumonia, Renal Disease Additional Past Medical History / Comment(s): born premature,vertigo, bph, colitis since 1968,past detatched retina -pt not sure which side, cataracts,as child had pne and yellow jaundice,sciatic nerve pain-sees chiropractor, wears hearing aids, glasses Last Myocardial Infarction Date:: 01/08/18 History of Any Multi-Drug Resistant Organisms: None Reported Past Surgical History: Heart Catheterization With Stent, Hernia Repair, Orthopedic Surgery, Tonsillectomy Additional Past Surgical History / Comment(s): hemorroid sx, Retina reattached, rt knee sx reapired cartilage-wears a brace when uo Past Anesthesia/Blood Transfusion Reactions: No Reported Reaction Additional Past Anesthesia/Blood Transfusion Reaction / Comment(s): as a child had loss of vision after hernia surgery Date of Last Stent Placement:: 01/08/2018 Past Psychological History: No Psychological Hx Reported Smoking Status: Never smoker Past Alcohol Use History: None Reported Past Drug Use History: None Reported - Past Family History Father Additional Family Medical History / Comment(s): alcoholic- at age 69 Mother Family Medical History: CVA/TIA General Exam - General Exam Comments Initial Comments: Physical Exam GENERAL: Chronically ill-appearing elderly gentleman. HENT: Normocephalic, Atraumatic. EYES: PERRL, EOMI Cataracts bilaterally PULMONARY: Unlabored respirations. No audible rales rhonchi or wheezing was noted. CARDIOVASCULAR: There is a regular rate and rhythm without any gallops or rubs. ABDOMEN: Soft and nontender with normal bowel sounds. SKIN: Skin is clear with no lesions or rashes and otherwise unremarkable. : Deferred NEUROLOGIC: Patient is alert and oriented x3. Moving all extremities spontaneously MUSCULOSKELETAL: Normal extremities with adequate strength and full range of motion. No lower extremity swelling or edema. No calf tenderness. PSYCHIATRIC: Normal psychiatric evaluation. Limitations: no limitations Limitations: no limitations Course Vital Signs 08/20/18 08/20/18 03:10 07:15 Temperature 97.8 F 98.6 F Pulse Rate 85 97 Respiratory 24 16 Rate Blood Pressure 210/90 137/54 O2 Sat by Pulse 95 100 Oximetry Medical Decision Making - Medical Decision Making Patient was seen and evaluated history was obtained from patient Patient with recent constipation now having overflow stool incontinence with minimal abdominal pain Labs and imaging ordered Given the patient's history of colitis a computed tomography scan was ordered Labs are unremarkable neck sign CT with fecal impaction Patient had 2 very large firm bowel movements while in the ER and reports feeling much better. Patient was reevaluated and is resting comfortably. At this time the patient and family members are comfortable with the plan for discharge home. Patient was advised to begin taking a stool softener and increase his fiber and fluid intake. Return parameters were discussed, patient was advised to follow-up with Dr. Snow again before the end of the week. All questions pertaining to care were answered the best my ability patient was discharged home in stable condition - Lab Data Result diagrams: 08/20/18 03:29 08/20/18 03:29 Lab Results 08/20/18 08/20/18 08/20/18 Range/Units 03:29 03:29 03:29 WBC 8.8 (3.8-10.6) k/uL RBC 5.52 (4.30-5.90) m/uL Hgb 15.5 (13.0-17.5) gm/dL Hct 45.7 (39.0-53.0) % MCV 82.8 (80.0-100.0) fL MCH 28.1 (25.0-35.0) pg MCHC 33.9 (31.0-37.0) g/dL RDW 13.9 (11.5-15.5) % Plt Count 196 (150-450) k/uL Neutrophils % 78 % Lymphocytes % 12 % Monocytes % 6 % Eosinophils % 2 % Basophils % 0 % Neutrophils # 6.8 (1.3-7.7) k/uL Lymphocytes # 1.1 (1.0-4.8) k/uL Monocytes # 0.5 (0-1.0) k/uL Eosinophils # 0.2 (0-0.7) k/uL Basophils # 0.0 (0-0.2) k/uL Sodium 138 (137-145) mmol/L Potassium 3.9 (3.5-5.1) mmol/L Chloride 102 (98-107) mmol/L Carbon Dioxide 24 (22-30) mmol/L Anion Gap 12 mmol/L BUN 21 H (9-20) mg/dL Creatinine 1.17 (0.66-1.25) mg/dL Est GFR (CKD-EPI)AfAm 67 (>60 ml/min/1.73 sqM) Est GFR (CKD-EPI)NonAf 58 (>60 ml/min/1.73 sqM) Glucose 113 H (74-99) mg/dL Plasma Lactic Acid Chip 1.4 (0.7-2.0) mmol/L Calcium 9.5 (8.4-10.2) mg/dL Total Bilirubin 1.1 (0.2-1.3) mg/dL AST 24 (17-59) U/L ALT 29 (21-72) U/L Alkaline Phosphatase 122 (38-126) U/L Total Protein 7.1 (6.3-8.2) g/dL Albumin 4.3 (3.5-5.0) g/dL Amylase 59 (30-110) U/L Lipase 73 (23-300) U/L Urine Color Urine Appearance (Clear) Urine pH (5.0-8.0) Ur Specific [place] (1.001-1.035) Urine Protein (Negative) Urine Glucose (UA) (Negative) Urine Ketones (Negative) Urine Blood (Negative) Urine Nitrite (Negative) Urine Bilirubin (Negative) Urine Urobilinogen (<2.0) mg/dL Ur Leukocyte Esterase (Negative) Urine RBC (0-5) /hpf Urine WBC (0-5) /hpf Ur Squamous Epith Cells (0-4) /hpf Urine Mucus (None) /hpf 08/20/18 Range/Units 03:52 WBC (3.8-10.6) k/uL RBC (4.30-5.90) m/uL Hgb (13.0-17.5) gm/dL Hct (39.0-53.0) % MCV (80.0-100.0) fL MCH (25.0-35.0) pg MCHC (31.0-37.0) g/dL RDW (11.5-15.5) % Plt Count (150-450) k/uL Neutrophils % % Lymphocytes % % Monocytes % % Eosinophils % % Basophils % % Neutrophils # (1.3-7.7) k/uL Lymphocytes # (1.0-4.8) k/uL Monocytes # (0-1.0) k/uL Eosinophils # (0-0.7) k/uL Basophils # (0-0.2) k/uL Sodium (137-145) mmol/L Potassium (3.5-5.1) mmol/L Chloride (98-107) mmol/L Carbon Dioxide (22-30) mmol/L Anion Gap mmol/L BUN (9-20) mg/dL Creatinine (0.66-1.25) mg/dL Est GFR (CKD-EPI)AfAm (>60 ml/min/1.73 sqM) Est GFR (CKD-EPI)NonAf (>60 ml/min/1.73 sqM) Glucose (74-99) mg/dL Plasma Lactic Acid Chip (0.7-2.0) mmol/L Calcium (8.4-10.2) mg/dL Total Bilirubin (0.2-1.3) mg/dL AST (17-59) U/L ALT (21-72) U/L Alkaline Phosphatase (38-126) U/L Total Protein (6.3-8.2) g/dL Albumin (3.5-5.0) g/dL Amylase (30-110) U/L Lipase (23-300) U/L Urine Color Yellow Urine Appearance Clear (Clear) Urine pH 5.5 (5.0-8.0) Ur Specific [place] 1.012 (1.001-1.035) Urine Protein Negative (Negative) Urine Glucose (UA) Negative (Negative) Urine Ketones Trace H (Negative) Urine Blood Negative (Negative) Urine Nitrite Negative (Negative) Urine Bilirubin Negative (Negative) Urine Urobilinogen <2.0 (<2.0) mg/dL Ur Leukocyte Esterase Trace H (Negative) Urine RBC 2 (0-5) /hpf Urine WBC 5 (0-5) /hpf Ur Squamous Epith Cells <1 (0-4) /hpf Urine Mucus Occasional H (None) /hpf Disposition Clinical Impression: Fecal impaction of rectum Disposition: HOME SELF-CARE Instructions (If sedation given, give patient instructions): Constipation (ED) , High Fiber Diet (ED) Is patient prescribed a controlled substance at d/c from ED?: No Referrals: Andrés Snow MD [Primary Care Provider] - 1-2 days
[2018-08-20 03:55] LABS: Basophils % (A) 0 %; Eosinophils # (A) 0.2 k/uL (0-0.7); Eosinophils % (A) 2 %; HCT 45.7 % (39.0-53.0); HGB 15.5 gm/dL (13.0-17.5); Lymphocytes # (A) 1.1 k/uL (1.0-4.8); Lymphocytes % (A) 12 %; MCH 28.1 pg (25.0-35.0); MCHC 33.9 g/dL (31.0-37.0); MCV 82.8 fL (80.0-100.0); Mean Platelet Volume 7.3; Monocytes # (A) 0.5 k/uL (0-1.0); Monocytes % (A) 6 %; Neutrophils # (A) 6.8 k/uL (1.3-7.7); Neutrophils % (A) 78 %; Platelet Count 196 k/uL (150-450); RBC 5.52 m/uL (4.30-5.90); RDW 13.9 % (11.5-15.5); WBC 8.8 k/uL (3.8-10.6)
[2018-08-20 04:11] LABS: Albumin 4.3 g/dL (3.5-5.0); Calcium 9.5 mg/dL (8.4-10.2); Potassium 3.9 mmol/L (3.5-5.1); Total Bilirubin 1.1 mg/dL (0.2-1.3); Total Protein 7.1 g/dL (6.3-8.2)
[2018-08-20 04:18] LABS: Appearance,Urine Clear (Clear); Bilirubin,Urine Negative (Negative); Blood,Urine Negative (Negative); Color,Urine Yellow; Glucose,Urine (UA) Negative (Negative); Ketones,Urine Trace (Negative); Leukocyte Esterase,Urine Trace (Negative); Mucus,Urine Occasional /hpf; Nitrite,Urine Negative (Negative); PH, Urine 5.5 (5.0-8.0); Protein,Urine Negative (Negative); RBC,Urine 2 /hpf (0-5); Specific Gravity,Urine 1.012 (1.001-1.035); Squamous Epithelial Cell,Urine <1 /hpf (0-4); Urobilinogen,Urine <2.0 mg/dL (<2.0); WBC,Urine 5 /hpf (0-5)
--- NOTE | 2018-08-20 05:08 | CT ---
EXAMINATION TYPE: CT abdomen pelvis w con DATE OF EXAM: 08/20/2018 COMPARISON: 02/04/2017 HISTORY: LLQ pain and diarrhea x4 days. CT DLP: 945.9 mGycm Automated exposure control for dose reduction was used. TECHNIQUE: Helical acquisition of images was performed from the lung bases through the pelvis. CONTRAST: Performed without Oral Contrast and with IV Contrast, patient injected with 80mL mL of Isovue 300. FINDINGS: Lung bases are clear. There is no pleural effusion. There is hiatal hernia. Heart is enlarged. There is no pericardial effusion. Liver and spleen appear normal. Bile ducts are not dilated. There is no p ancreatic mass. Gallbladder appears normal. The stomach appears otherwise normal. Kidneys show satisfactory contrast opacification. There is no hydronephrosis. There is 1 cm cortical cyst lateral right kidney. There is no retroperitoneal adenopathy. Ureters are not dilated.There is a 5 cm fluid collection on the right side of the urinary bladder consistent with large diverticulum. T here is no inguinal hernia. There is retained fecal material in the rectum that measures 6.5 cm. Ther e is no evidence of free air. There is no evidence of a bowel obstruction. Appendix appears normal. There is no mesenteric edema. T here are numerous diverticula in the colon. There is multilevel spondylotic changes in the lumbar spi ne. IMPRESSION: BLADDER DIVERTICULUM. RECTAL FECAL IMPACTION. 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 HIATAL HERNIA.
[2018-08-20 07:16] VITALS: BP 137/54; PULSE 97; RESP 16; TEMP 98.6
== END 2018-08-20 07:14 | disposition home or self-care (01) ==
LOC: EC 03:09
DX: K56.41 Fecal impaction (principal); R11.2 Nausea with vomiting, unspecified; I25.10 Atherosclerotic heart disease of native coronary artery without angina pectoris; I10 Essential (primary) hypertension; I25.2 Old myocardial infarction; N40.0 Benign prostatic hyperplasia without lower urinary tract symptoms; Z87.19 Personal history of other diseases of the digestive system; Z95.5 Presence of coronary angioplasty implant and graft; Z98.890 Other specified postprocedural states; Z79.02 Long term (current) use of antithrombotics/antiplatelets; Z79.82 Long term (current) use of aspirin; Z79.52 Long term (current) use of systemic steroids; Z79.899 Other long term (current) drug therapy
CPT/HCPCS: 99284; 36415; 80053; 82150; 83605; 83690; 85025; 81001; 74177; Q9967

== ENCOUNTER 2018-12-21 06:50 | Emergency (ER) | payer MEDICARE, BC ==
[2018-12-21 07:02] VITALS: RESP 16
--- NOTE | 2018-12-21 07:18 | ED ---
General Adult HPI - General Chief complaint: Urogenital Stated complaint: Urogenital Time Seen by Provider: 12/21/18 07:00 Source: patient, RN notes reviewed Mode of arrival: ambulatory Limitations: no limitations - History of Present Illness Initial comments: This is an 83-year-old male who presents emergency Department complaining of difficulty urinating. Patient states his been intermittent throughout the weekend. Patient states it started Friday night Better Friday but again on Friday got worse again. Patient states he still going but he does not believe he is going enough. Patient denies any abdominal pain. Patient denies any history of urinary tract infections. Patient states there is a little dysuria when he does go. She denies any hematuria. Patient denies any back pain. Patient denies any fever chills per patient denies abdominal pain denies any nausea vomiting diarrhea. Patient denies any other symptoms at this time. Moon weber is brought blood work with him from the seventh and shows his kidney function at that time was normal - Related Data Home Medications Medication Instructions Recorded Confirmed Quinapril HCl [Accupril] 20 mg PO BID 03/21/14 12/21/18 Tamsulosin HCl [Flomax] 0.4 mg PO HS 02/04/16 12/21/18 Cholecalciferol (Vitamin D3) 2,000 unit PO AC-SUPPER 01/07/18 12/21/18 [Vitamin D3] Aspirin 81 mg PO AC-SUPPER 04/07/18 12/21/18 Clopidogrel [Plavix] 75 mg PO DAILY 12/21/18 12/21/18 Metoprolol Tartrate [Lopressor] 50 mg PO DAILY 12/21/18 12/21/18 Previous Rx's Medication Instructions Recorded Atorvastatin [Lipitor] 40 mg PO HS #30 tab 01/09/18 Nitroglycerin Sl Tabs [Nitrostat] 0.4 mg SUBLINGUAL Q5M PRN #25 tab 01/09/18 Acetaminophen Tab [Tylenol] 500 mg PO Q6HR PRN tab 01/23/18 Meclizine HCl 12.5 mg PO TID PRN #1 01/23/18 Pantoprazole [Protonix] 40 mg PO AC-BRKFST tablet. 01/23/18 Dutasteride [Avodart] 0.5 mg PO DAILY 90 Days #90 capsule 07/14/18 Allergies Allergy/AdvReac Type Severity Reaction Status Date / Time No Known Allergies Allergy Verified 12/21/18 08:42 Review of Systems ROS Statement: Those systems with pertinent positive or pertinent negative responses have been documented in the HPI. ROS Other: All systems not noted in ROS Statement are negative. Past Medical History Past Medical History: Coronary Artery Disease (CAD), Hyperlipidemia, Hypertension, Myocardial Infarction ([place]), Pneumonia, Renal Disease Additional Past Medical History / Comment(s): born premature,vertigo, bph, colitis since 1968,past detatched retina -pt not sure which side, cataracts,as child had pne and yellow jaundice,sciatic nerve pain-sees chiropractor, wears hearing aids, glasses Last Myocardial Infarction Date:: 01/08/18 History of Any Multi-Drug Resistant Organisms: None Reported Past Surgical History: Heart Catheterization With Stent, Hernia Repair, Orthopedic Surgery, Tonsillectomy Additional Past Surgical History / Comment(s): hemorroid sx, Retina reattached, rt knee sx reapired cartilage-wears a brace when uo Past Anesthesia/Blood Transfusion Reactions: No Reported Reaction Additional Past Anesthesia/Blood Transfusion Reaction / Comment(s): as a child had loss of vision after hernia surgery Date of Last Stent Placement:: 01/08/2018 Past Psychological History: No Psychological Hx Reported Smoking Status: Never smoker Past Alcohol Use History: None Reported Past Drug Use History: None Reported - Past Family History Father Additional Family Medical History / Comment(s): alcoholic- at age 69 Mother Family Medical History: CVA/TIA General Exam - General Exam Comments Initial Comments: GENERAL: Patient is well-developed and well-nourished. Patient is nontoxic and well-hydrated and is in no acute distress. Patient has a persistent tremor. ENT: Neck is soft and supple. No significant lymphadenopathy is noted. Oropharynx is clear. Moist mucous membranes. Neck has full range of motion without eliciting any pain. EYES: The sclera were anicteric and conjunctiva were pink and moist. Extraocular movements were intact and pupils were equal round and reactive to light. Eyelids were unremarkable. PULMONARY: Unlabored respirations. Good breath sounds bilaterally. No audible rales rhonchi or wheezing was noted. CARDIOVASCULAR: There is a regular rate and rhythm without any murmurs gallops or rubs. ABDOMEN: Soft and nontender with normal bowel sounds. SKIN: Skin is clear with no lesions or rashes and otherwise unremarkable. NEUROLOGIC: Patient is alert and oriented x3. Cranial nerves II through XII are grossly intact. Motor and sensory are also intact. Normal speech, volume and content. Symmetrical smile. MUSCULOSKELETAL: Normal extremities with adequate strength and full range of motion. LYMPHATICS: No significant lymphadenopathy is noted PSYCHIATRIC: Normal psychiatric evaluation. Limitations: no limitations Course Vital Signs 12/21/18 12/21/18 07:00 10:19 Temperature 97.7 F 97.8 F Pulse Rate 65 57 L Respiratory 16 16 Rate Blood Pressure 202/89 191/90 O2 Sat by Pulse 95 96 Oximetry Medical Decision Making - Lab Data Result diagrams: 12/21/18 07:40 12/21/18 07:40 Lab Results 12/21/18 12/21/18 12/21/18 Range/Units 07:40 07:40 07:40 WBC 7.4 (3.8-10.6) k/uL RBC 5.40 (4.30-5.90) m/uL Hgb 14.8 (13.0-17.5) gm/dL Hct 46.6 (39.0-53.0) % MCV 86.3 (80.0-100.0) fL MCH 27.4 (25.0-35.0) pg MCHC 31.7 (31.0-37.0) g/dL RDW 14.7 (11.5-15.5) % Plt Count 168 (150-450) k/uL Neutrophils % 75 % Lymphocytes % 13 % Monocytes % 5 % Eosinophils % 4 % Basophils % 1 % Neutrophils # 5.6 (1.3-7.7) k/uL Lymphocytes # 1.0 (1.0-4.8) k/uL Monocytes # 0.4 (0-1.0) k/uL Eosinophils # 0.3 (0-0.7) k/uL Basophils # 0.1 (0-0.2) k/uL Sodium 141 (137-145) mmol/L Potassium 4.0 (3.5-5.1) mmol/L Chloride 105 (98-107) mmol/L Carbon Dioxide 29 (22-30) mmol/L Anion Gap 7 mmol/L BUN 16 (9-20) mg/dL Creatinine 0.98 (0.66-1.25) mg/dL Est GFR (CKD-EPI)AfAm 83 (>60 ml/min/1.73 sqM) Est GFR (CKD-EPI)NonAf 72 (>60 ml/min/1.73 sqM) Glucose 108 H (74-99) mg/dL Calcium 9.2 (8.4-10.2) mg/dL Total Bilirubin 0.9 (0.2-1.3) mg/dL AST 20 (17-59) U/L ALT 27 (21-72) U/L Alkaline Phosphatase 98 (38-126) U/L Total Protein 6.9 (6.3-8.2) g/dL Albumin 4.3 (3.5-5.0) g/dL Urine Color Light Yellow Urine Appearance Clear (Clear) Urine pH 7.0 (5.0-8.0) Ur Specific [place] 1.008 (1.001-1.035) Urine Protein Negative (Negative) Urine Glucose (UA) Negative (Negative) Urine Ketones Negative (Negative) Urine Blood Negative (Negative) Urine Nitrite Negative (Negative) Urine Bilirubin Negative (Negative) Urine Urobilinogen <2.0 (<2.0) mg/dL Ur Leukocyte Esterase Negative (Negative) Disposition Clinical Impression: Urinary retention Disposition: HOME SELF-CARE Instructions (If sedation given, give patient instructions): Urinary Retention in Men (ED) Is patient prescribed a controlled substance at d/c from ED?: No Referrals: Estrada Booker MD [STAFF PHYSICIAN] - 1-2 days Time of Disposition: 08:09
[2018-12-21 07:52] LABS: Appearance,Urine Clear (Clear); Bilirubin,Urine Negative (Negative); Blood,Urine Negative (Negative); Color,Urine Light Yellow; Glucose,Urine (UA) Negative (Negative); Ketones,Urine Negative (Negative); Leukocyte Esterase,Urine Negative (Negative); Nitrite,Urine Negative (Negative); Protein,Urine Negative (Negative); Specific Gravity,Urine 1.008 (1.001-1.035); Urobilinogen,Urine <2.0 mg/dL (<2.0)
[2018-12-21 07:55] LABS: Basophils # (A) 0.1 k/uL (0-0.2); Basophils % (A) 1 %; Eosinophils # (A) 0.3 k/uL (0-0.7); Eosinophils % (A) 4 %; HCT 46.6 % (39.0-53.0); HGB 14.8 gm/dL (13.0-17.5); Lymphocytes % (A) 13 %; MCH 27.4 pg (25.0-35.0); MCHC 31.7 g/dL (31.0-37.0); MCV 86.3 fL (80.0-100.0); Mean Platelet Volume 7.2; Monocytes # (A) 0.4 k/uL (0-1.0); Monocytes % (A) 5 %; Neutrophils # (A) 5.6 k/uL (1.3-7.7); Neutrophils % (A) 75 %; Platelet Count 168 k/uL (150-450); RDW 14.7 % (11.5-15.5); WBC 7.4 k/uL (3.8-10.6)
[2018-12-21 08:04] LABS: Albumin 4.3 g/dL (3.5-5.0); Calcium 9.2 mg/dL (8.4-10.2); Total Bilirubin 0.9 mg/dL (0.2-1.3); Total Protein 6.9 g/dL (6.3-8.2)
[2018-12-21 10:20] VITALS: BP 191/90; PULSE 57; TEMP 97.8
== END 2018-12-21 10:25 | disposition home or self-care (01) ==
LOC: EC 06:50
DX: R33.9 Retention of urine, unspecified (principal); R30.0 Dysuria; I10 Essential (primary) hypertension; I25.2 Old myocardial infarction; N40.1 Benign prostatic hyperplasia with lower urinary tract symptoms; Z79.02 Long term (current) use of antithrombotics/antiplatelets; Z79.82 Long term (current) use of aspirin; Z79.899 Other long term (current) drug therapy; I25.10 Atherosclerotic heart disease of native coronary artery without angina pectoris; Z97.3 Presence of spectacles and contact lenses; Z97.4 Presence of external hearing-aid; Z95.5 Presence of coronary angioplasty implant and graft
CPT/HCPCS: 36415; 51701; 80053; 81003; 85025; 99284

== ENCOUNTER 2018-12-27 11:34 | Emergency (ER) | payer MEDICARE, BC ==
[2018-12-27 11:52] VITALS: RESP 18
--- NOTE | 2018-12-27 12:21 | ED ---
Extremity Problem HPI - General Chief complaint: Extremity Problem,Nontraumatic Stated complaint: ankle & feet swelling Time Seen by Provider: 12/27/18 11:42 Source: patient, RN notes reviewed Mode of arrival: ambulatory Limitations: no limitations - History of Present Illness Initial comments: 73-year-old male presents emergency Department with chief complaint of leg swelling. Patient states that he does of the last couple days. Denies any difficulty breathing or orthopnea. Patient does admit that he's had Jordan catheter placed and did follow-up with urology in which she needs clearance for surgery. Patient states that he's been sleeping in a recliner at this time. He does not take any diuretics including Lasix or hydrochlorothiazide. Patient states he is just worried about his condition and any time he notices new symptoms - Related Data Home Medications Medication Instructions Recorded Confirmed Quinapril HCl [Accupril] 20 mg PO BID 03/21/14 12/21/18 Tamsulosin HCl [Flomax] 0.4 mg PO HS 02/04/16 12/21/18 Cholecalciferol (Vitamin D3) 2,000 unit PO AC-SUPPER 01/07/18 12/21/18 [Vitamin D3] Aspirin 81 mg PO AC-SUPPER 04/07/18 12/21/18 Clopidogrel [Plavix] 75 mg PO DAILY 12/21/18 12/21/18 Metoprolol Tartrate [Lopressor] 50 mg PO DAILY 12/21/18 12/21/18 Previous Rx's Medication Instructions Recorded Atorvastatin [Lipitor] 40 mg PO HS #30 tab 01/09/18 Nitroglycerin Sl Tabs [Nitrostat] 0.4 mg SUBLINGUAL Q5M PRN #25 tab 01/09/18 Acetaminophen Tab [Tylenol] 500 mg PO Q6HR PRN tab 01/23/18 Meclizine HCl 12.5 mg PO TID PRN #1 01/23/18 Pantoprazole [Protonix] 40 mg PO AC-BRKFST tablet. 01/23/18 Dutasteride [Avodart] 0.5 mg PO DAILY 90 Days #90 capsule 07/14/18 Allergies Allergy/AdvReac Type Severity Reaction Status Date / Time No Known Allergies Allergy Verified 12/21/18 08:42 Review of Systems ROS Statement: Those systems with pertinent positive or pertinent negative responses have been documented in the HPI. ROS Other: All systems not noted in ROS Statement are negative. Past Medical History Past Medical History: Coronary Artery Disease (CAD), Hyperlipidemia, Hypertension, Myocardial Infarction ([place]), Pneumonia, Prostate Disorder, Renal Disease Additional Past Medical History / Comment(s): ,vertigo, bph, colitis since 1968,past detatched retina -pt not sure which side, cataracts,as child had pne and yellow jaundice,sciatic nerve pain-sees chiropractor, wears hearing aids, glasses Last Myocardial Infarction Date:: 01/08/18 History of Any Multi-Drug Resistant Organisms: None Reported Past Surgical History: Heart Catheterization With Stent, Hernia Repair, Orthopedic Surgery, Tonsillectomy Additional Past Surgical History / Comment(s): hemorroid sx, Retina reattached, rt knee sx reapired cartilage-wears a brace when uo Past Anesthesia/Blood Transfusion Reactions: No Reported Reaction Additional Past Anesthesia/Blood Transfusion Reaction / Comment(s): as a child had loss of vision after hernia surgery Date of Last Stent Placement:: 01/08/2018 Past Psychological History: No Psychological Hx Reported Smoking Status: Never smoker Past Alcohol Use History: None Reported Past Drug Use History: None Reported - Past Family History Father Additional Family Medical History / Comment(s): alcoholic- at age 69 Mother Family Medical History: CVA/TIA General Exam Limitations: no limitations General appearance: alert, in no apparent distress, anxious Head exam: Present: atraumatic, normocephalic, normal inspection Eye exam: Present: normal appearance, PERRL, EOMI. Absent: scleral icterus, conjunctival injection, periorbital swelling Respiratory exam: Present: normal lung sounds bilaterally. Absent: respiratory distress, wheezes, rales, rhonchi, stridor Cardiovascular Exam: Present: regular rate, normal rhythm, normal heart sounds. Absent: systolic murmur, diastolic murmur, rubs, gallop, clicks Extremities exam: Present: pedal edema (Minimal bilateral) Psychiatric exam: Present: normal affect, normal mood Course Vital Signs 12/27/18 11:36 Temperature 97.2 F L Pulse Rate 64 Respiratory 18 Rate Blood Pressure 198/85 O2 Sat by Pulse 97 Oximetry Medical Decision Making - Medical Decision Making 83-year-old male presented from for leg edema. Patient's labwork is unchanged, BMP is unremarkable chest x-ray clear for any pleural effusion. Patient will be given one dose of Lasix. This most likely is related to an sleeping recliner and his legs not elevated. This is dependent edema. is instructed to elevate his legs more - Lab Data Result diagrams: 12/27/18 12:25 12/27/18 12:25 Lab Results 12/27/18 12/27/18 12/27/18 Range/Units 12:25 12:25 12:25 WBC 5.8 (3.8-10.6) k/uL RBC 5.27 (4.30-5.90) m/uL Hgb 14.5 (13.0-17.5) gm/dL Hct 45.0 (39.0-53.0) % MCV 85.3 (80.0-100.0) fL MCH 27.5 (25.0-35.0) pg MCHC 32.2 (31.0-37.0) g/dL RDW 14.8 (11.5-15.5) % Plt Count 161 (150-450) k/uL Neutrophils % 74 % Lymphocytes % 14 % Monocytes % 6 % Eosinophils % 3 % Basophils % 1 % Neutrophils # 4.3 (1.3-7.7) k/uL Lymphocytes # 0.8 L (1.0-4.8) k/uL Monocytes # 0.3 (0-1.0) k/uL Eosinophils # 0.2 (0-0.7) k/uL Basophils # 0.1 (0-0.2) k/uL Sodium 141 (137-145) mmol/L Potassium 4.1 (3.5-5.1) mmol/L Chloride 107 (98-107) mmol/L Carbon Dioxide 27 (22-30) mmol/L Anion Gap 7 mmol/L BUN 20 (9-20) mg/dL Creatinine 1.07 (0.66-1.25) mg/dL Est GFR (CKD-EPI)AfAm 75 (>60 ml/min/1.73 sqM) Est GFR (CKD-EPI)NonAf 65 (>60 ml/min/1.73 sqM) Glucose 100 H (74-99) mg/dL Calcium 9.5 (8.4-10.2) mg/dL Total Bilirubin 1.0 (0.2-1.3) mg/dL AST 18 (17-59) U/L ALT 21 (21-72) U/L Alkaline Phosphatase 94 (38-126) U/L NT-Pro-B Natriuret Pep 100 pg/mL Total Protein 6.7 (6.3-8.2) g/dL Albumin 4.1 (3.5-5.0) g/dL Disposition Clinical Impression: Leg edema Disposition: HOME SELF-CARE Condition: Stable Instructions (If sedation given, give patient instructions): Leg Edema (ED) Additional Instructions: Please return to the Emergency Department if symptoms worsen or any other conc erns. Is patient prescribed a controlled substance at d/c from ED?: No Referrals: Andrés Snow MD [Primary Care Provider] - 1-2 days Time of Disposition: 13:26
[2018-12-27 12:37] LABS: Basophils # (A) 0.1 k/uL (0-0.2); Basophils % (A) 1 %; Eosinophils # (A) 0.2 k/uL (0-0.7); Eosinophils % (A) 3 %; HGB 14.5 gm/dL (13.0-17.5); Lymphocytes # (A) 0.8 k/uL (1.0-4.8); Lymphocytes % (A) 14 %; MCH 27.5 pg (25.0-35.0); MCHC 32.2 g/dL (31.0-37.0); MCV 85.3 fL (80.0-100.0); Mean Platelet Volume 7.1; Monocytes # (A) 0.3 k/uL (0-1.0); Monocytes % (A) 6 %; Neutrophils # (A) 4.3 k/uL (1.3-7.7); Neutrophils % (A) 74 %; Platelet Count 161 k/uL (150-450); RBC 5.27 m/uL (4.30-5.90); RDW 14.8 % (11.5-15.5); WBC 5.8 k/uL (3.8-10.6)
[2018-12-27 12:45] LABS: Albumin 4.1 g/dL (3.5-5.0); Calcium 9.5 mg/dL (8.4-10.2); Potassium 4.1 mmol/L (3.5-5.1); Total Protein 6.7 g/dL (6.3-8.2)
--- NOTE | 2018-12-27 13:07 | XR ---
EXAMINATION TYPE: XR chest 2V DATE OF EXAM: 12/27/2018 HISTORY: Chest pain. REFERENCE: Previous study dated 07/14/2018. FINDINGS: The lungs are clear. Pleural space are clear. Heart size upper limits of normal. IMPRESSION: NO ACUTE INTRATHORACIC ABNORMALITY
[2018-12-27] MEDS ORDERED: FUROSEMIDE 10 MG/ML 4 ML VIAL IV STA (13:23)
[2018-12-27 13:32] VITALS: BP 170/77; PULSE 54; TEMP 97.9
== END 2018-12-27 13:51 | disposition home or self-care (01) ==
LOC: EC 11:34
DX: R60.0 Localized edema (principal); I25.10 Atherosclerotic heart disease of native coronary artery without angina pectoris; I10 Essential (primary) hypertension; I25.2 Old myocardial infarction; N40.0 Benign prostatic hyperplasia without lower urinary tract symptoms; Z79.02 Long term (current) use of antithrombotics/antiplatelets; Z79.82 Long term (current) use of aspirin; Z79.899 Other long term (current) drug therapy; Z95.5 Presence of coronary angioplasty implant and graft; Z96.0 Presence of urogenital implants; Z98.890 Other specified postprocedural states
CPT/HCPCS: 36415; 83880; 80053; 85025; 71046; 99283; 96374; J1940

== ENCOUNTER 2019-04-29 08:22 | Observation (INO) | payer MEDICARE, BC ==
[2019-04-29] MEDS ORDERED: ASPIRIN 81 MG PO STA (08:39)
[2019-04-29] MEDS ORDERED: SODIUM CHLORIDE 0.9% 1,000 ML IV STA (08:55)
--- NOTE | 2019-04-29 09:04 | ED ---
General Adult HPI - General Chief complaint: Chest Pain Stated complaint: back pain Time Seen by Provider: 04/29/19 08:29 Source: EMS Mode of arrival: EMS - History of Present Illness Initial comments: Dictation was produced using [employer] dictation software. please excuse any grammatical, word or spelling errors. Chief Complaint: 84-year-old male presents with chest discomfort History of Present Illness: 84-year-old male presents with chest discomfort. He was brought in by EMS. According to patient he was complaining of chest discomfort and crampy left scapular pain since waking this morning. Patient reports that he has history of recent myocardial infarction with recent stent placement. Patient reports that she had a cath with stent placement couple months ago. Patient states that his symptoms today remind him of our tachycardia suffered recently. Patient denies any nausea or vomiting. States that the pain is crampy and localized to his left anterior chest. 9 is any numbness to her paresthesias to the arms or legs. The ROS documented in this emergency department record has been reviewed and confirmed by me. Those systems with pertinent positive or negative responses have been documented in the HPI. All other systems are other negative and/or noncontributory. PHYSICAL EXAM: General Impression: Alert and oriented x3, not in acute distress HEENT: Normocephalic atraumatic, extra-ocular movements intact, pupils equal and reactive to light bilaterally, mucous membranes moist. Cardiovascular: Heart regular rate and rhythm, S1&S2 audible, no murmurs, rubs or gallops Chest: Lungs clear to auscultation bilaterally, no rhonchi, no wheeze, no rales Abdomen: Bowel sounds present, abdomen soft, non-tender, non-distended, no organomegaly Musculoskeletal: Pulses present and equal in all extremities, no peripheral edema Motor: no focal deficits noted Neurological: CN II-XII grossly intact, no focal motor or sensory deficits noted Skin: Intact with no visualized rashes Psych: Anxious ED course: 84-year-old male presents with chest pain. Vital signs upon arrival shows heart rate of 54, rest of vital signs within acceptable limits. Clinical presentation consistent with atypical chest pain with typical features. Patient has multiple risk factors including recent cardiac cath with stent placement. Chart review does not show that he had any cardiac catheterizations performed at our hospital within the last several months. EKG does not show signs of ST segment elevation ME. Patient was reevaluated. He states that he had a heart attack diagnosed here in our hospital 2 months ago. He states he has had a stent. There is no such record in our chart. Question the patient's reliability. Laboratory evaluation obtained. CBC, coag panel, metabolic panel is unremarkable. Coag panel shows no elevation in troponin. He is well-appearing at this time and requests water. Patient denies any chest pain currently. Given patient's risk factors we will admit patient observation for suture punching cardiology consultation. Patient is understandable and agreeable with disposition. Patient has normal vitals and is not dyspneic. No concern for PE. As any symptoms at this time has normal pulses to his upper extremities and no neuro deficits. No concern for aortic dissection at this time. EKG interpretation: Ventricular rate 57, sinus bradycardia, WA interval 172, care 76, QTC 424. No WA prolongation, no QTC prolongation, no ST or T-wave changes noted. EKG compared to 07/14/2018 showing no changes. Overall, this EKG is unremarkable - Related Data Home Medications Medication Instructions Recorded Confirmed Quinapril HCl [Accupril] 20 mg PO BID 03/21/14 04/29/19 Tamsulosin HCl [Flomax] 0.4 mg PO HS 02/04/16 04/29/19 Aspirin 81 mg PO AC-SUPPER 04/07/18 04/29/19 Metoprolol Tartrate [Lopressor] 50 mg PO DAILY 12/21/18 04/29/19 Docusate [Colace] 100 mg PO DAILY 04/29/19 04/29/19 Previous Rx's Medication Instructions Recorded Atorvastatin [Lipitor] 40 mg PO HS #30 tab 01/09/18 Nitroglycerin Sl Tabs [Nitrostat] 0.4 mg SUBLINGUAL Q5M PRN #25 tab 01/09/18 Pantoprazole [Protonix] 40 mg PO AC-BRKFST tablet. 01/23/18 Dutasteride [Avodart] 0.5 mg PO DAILY 90 Days #90 capsule 07/14/18 Allergies Allergy/AdvReac Type Severity Reaction Status Date / Time No Known Allergies Allergy Verified 04/29/19 09:52 Review of Systems ROS Statement: Those systems with pertinent positive or pertinent negative responses have been documented in the HPI. ROS Other: All systems not noted in ROS Statement are negative. Past Medical History Past Medical History: Coronary Artery Disease (CAD), Hyperlipidemia, Hypertension, Myocardial Infarction ([place]), Pneumonia, Prostate Disorder, Renal Disease Additional Past Medical History / Comment(s): ,vertigo, bph, colitis since 1968,past detatched retina -pt not sure which side, cataracts,as child had pne and yellow jaundice,sciatic nerve pain-sees chiropractor, wears hearing aids, glasses Last Myocardial Infarction Date:: 01/08/18 History of Any Multi-Drug Resistant Organisms: None Reported Past Surgical History: Heart Catheterization With Stent, Hernia Repair, Orthopedic Surgery, Tonsillectomy Additional Past Surgical History / Comment(s): hemorroid sx, Retina reattached, rt knee sx reapired cartilage-wears a brace when uo Past Anesthesia/Blood Transfusion Reactions: No Reported Reaction Additional Past Anesthesia/Blood Transfusion Reaction / Comment(s): as a child had loss of vision after hernia surgery Date of Last Stent Placement:: 01/08/2018 Past Psychological History: No Psychological Hx Reported Smoking Status: Never smoker Past Alcohol Use History: None Reported Past Drug Use History: None Reported - Past Family History Father Additional Family Medical History / Comment(s): alcoholic- at age 69 Mother Family Medical History: CVA/TIA Course Vital Signs 04/29/19 08:37 Temperature 98.8 F Pulse Rate 54 L Respiratory 16 Rate Blood Pressure 174/91 O2 Sat by Pulse 99 Oximetry Medical Decision Making - Lab Data Result diagrams: 04/29/19 08:50 04/29/19 08:50 Lab Results 04/29/19 04/29/19 04/29/19 Range/Units 08:50 08:50 08:50 WBC 5.0 (3.8-10.6) k/uL RBC 5.08 (4.30-5.90) m/uL Hgb 13.9 (13.0-17.5) gm/dL Hct 44.1 (39.0-53.0) % MCV 86.9 (80.0-100.0) fL MCH 27.3 (25.0-35.0) pg MCHC 31.4 (31.0-37.0) g/dL RDW 13.8 (11.5-15.5) % Plt Count 159 (150-450) k/uL Neutrophils % 74 % Lymphocytes % 15 % Monocytes % 5 % Eosinophils % 3 % Basophils % 1 % Neutrophils # 3.7 (1.3-7.7) k/uL Lymphocytes # 0.7 L (1.0-4.8) k/uL Monocytes # 0.3 (0-1.0) k/uL Eosinophils # 0.1 (0-0.7) k/uL Basophils # 0.1 (0-0.2) k/uL PT 10.3 (9.0-12.0) sec INR 1.0 (<1.2) APTT 25.4 (22.0-30.0) sec Sodium 140 (137-145) mmol/L Potassium 4.1 (3.5-5.1) mmol/L Chloride 104 (98-107) mmol/L Carbon Dioxide 27 (22-30) mmol/L Anion Gap 9 mmol/L BUN 16 (9-20) mg/dL Creatinine 1.06 (0.66-1.25) mg/dL Est GFR (CKD-EPI)AfAm 75 (>60 ml/min/1.73 sqM) Est GFR (CKD-EPI)NonAf 65 (>60 ml/min/1.73 sqM) Glucose 115 H (74-99) mg/dL Calcium 9.3 (8.4-10.2) mg/dL Magnesium 2.1 (1.6-2.3) mg/dL Total Bilirubin 1.0 (0.2-1.3) mg/dL AST 21 (17-59) U/L ALT 22 (21-72) U/L Alkaline Phosphatase 113 (38-126) U/L Troponin I (0.000-0.034) ng/mL Total Protein 6.4 (6.3-8.2) g/dL Albumin 3.8 (3.5-5.0) g/dL 04/29/19 Range/Units 08:50 WBC (3.8-10.6) k/uL RBC (4.30-5.90) m/uL Hgb (13.0-17.5) gm/dL Hct (39.0-53.0) % MCV (80.0-100.0) fL MCH (25.0-35.0) pg MCHC (31.0-37.0) g/dL RDW (11.5-15.5) % Plt Count (150-450) k/uL Neutrophils % % Lymphocytes % % Monocytes % % Eosinophils % % Basophils % % Neutrophils # (1.3-7.7) k/uL Lymphocytes # (1.0-4.8) k/uL Monocytes # (0-1.0) k/uL Eosinophils # (0-0.7) k/uL Basophils # (0-0.2) k/uL PT (9.0-12.0) sec INR (<1.2) APTT (22.0-30.0) sec Sodium (137-145) mmol/L Potassium (3.5-5.1) mmol/L Chloride (98-107) mmol/L Carbon Dioxide (22-30) mmol/L Anion Gap mmol/L BUN (9-20) mg/dL Creatinine (0.66-1.25) mg/dL Est GFR (CKD-EPI)AfAm (>60 ml/min/1.73 sqM) Est GFR (CKD-EPI)NonAf (>60 ml/min/1.73 sqM) Glucose (74-99) mg/dL Calcium (8.4-10.2) mg/dL Magnesium (1.6-2.3) mg/dL Total Bilirubin (0.2-1.3) mg/dL AST (17-59) U/L ALT (21-72) U/L Alkaline Phosphatase (38-126) U/L Troponin I <0.012 (0.000-0.034) ng/mL Total Protein (6.3-8.2) g/dL Albumin (3.5-5.0) g/dL Disposition Clinical Impression: Chest pain Disposition: ADMITTED IP TO THIS HOSP Condition: Fair Referrals: Andrés Snow MD [Primary Care Provider] - 1-2 days Decision Time: 10:08
[2019-04-29 09:13] LABS: Basophils # (A) 0.1 k/uL (0-0.2); Basophils % (A) 1 %; Eosinophils # (A) 0.1 k/uL (0-0.7); Eosinophils % (A) 3 %; HCT 44.1 % (39.0-53.0); HGB 13.9 gm/dL (13.0-17.5); Lymphocytes # (A) 0.7 k/uL (1.0-4.8); Lymphocytes % (A) 15 %; MCH 27.3 pg (25.0-35.0); MCHC 31.4 g/dL (31.0-37.0); MCV 86.9 fL (80.0-100.0); Mean Platelet Volume 6.8; Monocytes # (A) 0.3 k/uL (0-1.0); Monocytes % (A) 5 %; Neutrophils # (A) 3.7 k/uL (1.3-7.7); Neutrophils % (A) 74 %; Platelet Count 159 k/uL (150-450); RBC 5.08 m/uL (4.30-5.90); RDW 13.8 % (11.5-15.5)
[2019-04-29 09:24] LABS: Albumin 3.8 g/dL (3.5-5.0); Calcium 9.3 mg/dL (8.4-10.2); Magnesium 2.1 mg/dL (1.6-2.3); Potassium 4.1 mmol/L (3.5-5.1); Total Protein 6.4 g/dL (6.3-8.2)
[2019-04-29 09:25] LABS: Partial Thromboplastin Time 25.4 sec (22.0-30.0); Prothrombin Time 10.3 sec (9.0-12.0)
--- NOTE | 2019-04-29 09:46 | XR ---
EXAMINATION TYPE: XR chest 2V DATE OF EXAM: 04/29/2019 COMPARISON: 12/27/2018 HISTORY: Chest pain TECHNIQUE: Frontal and lateral views of the chest are obtained. FINDINGS: There is no focal air space opacity, pleural effusion, or pneumothorax seen. There is sli ght eventration of the right hemidiaphragm incidentally seen. Slight elevation of the right hemidiaph ragm is unchanged from the prior. The cardiac silhouette size is within normal limits. The osseous structures are intact. [id number] multilevel degenerative changes of the spine. Degenerative ch anges are also seen of the acromioclavicular joints. IMPRESSION: No acute cardiopulmonary process.
[2019-04-29] MEDS ORDERED: NITROGLYCERIN SL TABS 0.4 MG TAB SUBLINGUAL PRN (10:04)
--- NOTE | 2019-04-29 12:11 | P.HPIM ---
History of Present Illness 84-year-old male called EMS this morning after experiencing 2 hours of pain to his scapular area. States it was the same kind of pain in the had when he had an DE. Patient is a history of coronary disease with stent and DE hypertension hyperlipidemia. Patient is a resident at [facility] Review of Systems Cardiovascular: Reports chest pain Past Medical History Past Medical History: Coronary Artery Disease (CAD), Hyperlipidemia, Hypertension, Myocardial Infarction (DE), Pneumonia, Prostate Disorder, Renal Disease Additional Past Medical History / Comment(s): ,vertigo, bph, colitis since 1968,past detatched retina -pt not sure which side, cataracts,as child had pne and yellow jaundice,sciatic nerve pain-sees chiropractor, wears hearing aids, glasses Last Myocardial Infarction Date:: 01/08/18 History of Any Multi-Drug Resistant Organisms: None Reported Past Surgical History: Heart Catheterization With Stent, Hernia Repair, Orthopedic Surgery, Tonsillectomy Additional Past Surgical History / Comment(s): hemorroid sx, Retina reattached, rt knee sx reapired cartilage-wears a brace when uo Past Anesthesia/Blood Transfusion Reactions: No Reported Reaction Additional Past Anesthesia/Blood Transfusion Reaction / Comment(s): as a child had loss of vision after hernia surgery Date of Last Stent Placement:: 01/08/2018 Past Psychological History: No Psychological Hx Reported Smoking Status: Never smoker Past Alcohol Use History: None Reported Past Drug Use History: None Reported - Past Family History Father Additional Family Medical History / Comment(s): alcoholic- at age 69 Mother Family Medical History: CVA/TIA Medications and Allergies Home Medications Medication Instructions Recorded Confirmed Type Quinapril HCl [Accupril] 20 mg PO BID 03/21/14 04/29/19 History Tamsulosin HCl [Flomax] 0.4 mg PO HS 02/04/16 04/29/19 History Atorvastatin [Lipitor] 40 mg PO HS #30 tab 01/09/18 04/29/19 Rx Nitroglycerin Sl Tabs [Nitrostat] 0.4 mg SUBLINGUAL Q5M PRN #25 tab 01/09/18 04/29/19 Rx Pantoprazole [Protonix] 40 mg PO AC-BRKFST tablet. 01/23/18 04/29/19 Rx Aspirin 81 mg PO AC-SUPPER 04/07/18 04/29/19 History Dutasteride [Avodart] 0.5 mg PO DAILY 90 Days #90 capsule 07/14/18 04/29/19 Rx Metoprolol Tartrate [Lopressor] 50 mg PO DAILY 12/21/18 04/29/19 History Docusate [Colace] 100 mg PO DAILY 04/29/19 04/29/19 History Allergies Allergy/AdvReac Type Severity Reaction Status Date / Time No Known Allergies Allergy Verified 04/29/19 09:52 Physical Exam Vitals: Vital Signs Temp Pulse Resp BP Pulse Ox 04/29/19 08:37 98.8 F 54 L 16 174/91 99 Intake and Output 04/28/19 04/29/19 04/29/19 22:59 06:59 14:59 Other: Weight 80.739 kg - Constitutional General appearance: mild distress - EENT Eyes: PERRLA Ears: bilateral: normal - Neck Neck: normal ROM - Respiratory Respiratory: bilateral: CTA - Cardiovascular Rhythm: regular - Gastrointestinal General gastrointestinal: soft - Integumentary Integumentary: normal - Neurologic Facial tic Neurologic: CNII-XII intact - Musculoskeletal Musculoskeletal: gait normal - Psychiatric Psychiatric: A&O x's 3, appropriate affect, intact judgment & insight Results CBC & Chem 7: 04/29/19 08:50 04/29/19 08:50 Labs: Abnormal Lab Results - Last 24 Hours (Table) 04/29/19 04/29/19 Range/Units 08:50 08:50 Lymphocytes # 0.7 L (1.0-4.8) k/uL Glucose 115 H (74-99) mg/dL Chest x-ray: report reviewed Assessment and Plan Plan: Assessment Chest pain history of coronary disease with stents and DE Hyperlipidemia Hypertension BPH Renal disease Plan Cardiology evaluation
[2019-04-29] MEDS ORDERED: INFLUENZA VACCINE (6 MOS+) 60 MCG/0.5 ML SYRINGE IM ONE (12:25)
[2019-04-29 18:34] VITALS: RESP 18
[2019-04-29] MEDS: LISINOPRIL 20 MG TAB PO SCH (20:23)
[2019-04-29] MEDS ORDERED: ATORVASTATIN 40 MG TAB PO SCH (21:00)
[2019-04-29] MEDS ORDERED: TAMSULOSIN 0.4 MG CAP.ER.24H PO SCH (21:00)
[2019-04-30] MEDS ORDERED: PANTOPRAZOLE 40 MG TABLET PO SCH (07:30)
[2019-04-30 07:53] LABS: Cholesterol 117 mg/dL (<200); HDL Cholesterol 34 mg/dL (40-60); LDL Cholesterol,Calculated 59 mg/dL (0-99); Triglycerides 122 mg/dL (<150)
[2019-04-30] MEDS ORDERED: ASPIRIN 325 MG TAB PO SCH (09:00)
[2019-04-30] MEDS ORDERED: DOCUSATE 100 MG CAP PO SCH (09:00)
[2019-04-30] MEDS ORDERED: FINASTERIDE 5 MG TAB PO SCH (09:00)
[2019-04-30] MEDS ORDERED: ASPIRIN 81 MG PO SCH (09:00)
[2019-04-30] MEDS ORDERED: METOPROLOL TARTRATE 50 MG TAB PO SCH (09:00)
[2019-04-30] MEDS: LISINOPRIL 20 MG TAB PO SCH (10:18)
--- NOTE | 2019-04-30 10:46 | P.CRDCN ---
History of Present Illness History of present illness: This is a pleasant 84-year-old male past medical history significant for coronary artery disease status post stent placement to the LAD in the setting of a non-ST elevated myocardial infarction January 2018, hypertension, dyslipidemia, BPH status post TURP in January 2019. He follows in the office with Dr. Galvan. We have asked to see him in consultation secondary to chest discomfort. He states he felt a discomfort in the left precordial region, no pain, just uncomfortable, early morning. He moved around in bed for a little while seeing if it was a muscular pain that would subside with time or position change. However the discomfort persisted and radiated at times to the left scapular region. He walked out to the kitchen to check his blood pressure. It was elevated 180/95. He denies associated shortness of breath, dizziness, nausea, vomiting, palpitations or diaphoresis. He called EMS due to ongoing discomfort and elevated blood pressure. Prior to leaving his house he did take his prescribed medications. On arrival BP was 147/91 and 148/73 heart rate in the 50's. Prior to undergoing TURP in January he saw Dr. Galvan in the office and had a Lexiscan stress test that showed a predominantly fixed defect with no definite reversibility. He is seen and examined sitting up in bed in no acute distress. He denies ongoing chest pain. EKG reveals sinus bradycardia heart rate of 57, left axis deviation and nonspecific T-wave flattening in inferior leads. Chest x-ray is negative for an acute cardiopulmonary process. Laboratory data reviewed, CBC unremarkable, sodium 140, potassium 4.1, creatinine 1.06, magnesium 2.1, cardiac enzymes negative 3, LDL 59. Current daily cardiac medications include aspirin 81 mg daily, atorvastatin 40 mg daily, Lopressor 50 mg daily and quinapril 20 mg twice a day. Most recent echocardiogram obtained June 2019 reveals preserved LV systolic function with ejection fraction 55-60%, mildly enlarged right ventricle, enlarged right atrium, mild tricuspid regurgitation and no wall motion abnormalities noted. At the time of my exam: CONSTITUTIONAL: Denies fever. Denies chills. EYES: Denies blurred vision. Denies vision changes. Denies eye pain. EARS, NOSE, MOUTH & THROAT: Denies headache. Denies sore throat. Denies ear pain. CARDIOVASCULAR: Denies chest pain. Denies shortness of breath. Denies orthopnea. Denies PND. Denies palpitations. RESPIRATORY: Denies cough. GASTROINTESTINAL: Denies abdominal pain. Denies diarrhea. Denies constipation. Denies nausea. Denies vomiting. MUSCULOSKELETAL: Denies myalgias. INTEGUMENTARY: Denies pruitis. Denies rash. NEUROLOGIC: Denies numbness. Denies tingling. Denies weakness. PSYCHIATRIC: Denies anxiety. Denies depression. ENDOCRINE: Denies fatigue. Denies weight change. Denies polydipsia. Denies polyurina. GENITOURINARY: Denies burning, hematuria or urgency with micturation. HEMATOLOGIC: Denies history of anemia. Denies bleeding. Blood pressure 172/71 heart rate 71 afebrile maintaining oxygen saturation on room air GENERAL: This is a 84-year-old male in no apparent distress at the time of my examination. HEENT: Head is atraumatic, normocephalic. Pupils are equal, round. Sclerae anicteric. Conjunctivae are clear. Mucous membranes of the mouth are moist. Neck is supple. There is no jugular venous distention. No carotid bruit is heard. LUNGS: Clear to auscultation no wheezes, rales or rhonchi. No chest wall tenderness is noted on palpation or with deep breathing. HEART: Regular rate and rhythm without murmurs, rubs or gallops. S1 and S2 h eard. ABDOMEN: Soft, nontender. Bowel sounds are heard. No organomegaly noted. EXTREMITIES: No evidence of peripheral edema and no calf tenderness noted. VASCULAR: Radial and dorsalis pedis pulses palpated, no evidence of clubbing. NEUROLOGIC: Patient is awake, alert and oriented x3. ASSESSMENT Chest pain, atypical for angina. An acute coronary event has been ruled out. History of coronary artery disease s/p stent placement 01/2018 History of myocardial infarction Hypertension Dyslipidemia BPH s/p TURP 01/2019 PLAN An acute coronary event has been ruled out. Obtain 2D echocardiogram and doppler study to assess cardiac structure and function. If echo is normal, he may be discharged home. Advised him to check his blood pressures daily and bring with him to follow up appointment with Dr. Galvan for possible medication adjustments. Thank you kindly for this consultation. Nurse Practitioner note has been reviewed, I agree with a documented findings and plan of care. Patient was seen and examined. Past Medical History Past Medical History: Coronary Artery Disease (CAD), Hyperlipidemia, Hypertension, Memory Impairment, Myocardial Infarction ([place]), Pneumonia, Prostate Disorder, Renal Disease Additional Past Medical History / Comment(s): BPH with surgery in 01/2019-had hematuria post op, past urinary retention, CRD stage III, sciatic nerve pain, vertigo, colitis years ago, past detached retina with surgery-pt cannot recall laterallity, gait sysfunction, wears R leg brace, [place]-wears hearing aides, pneumonia and yellow jaundice as a child. Last Myocardial Infarction Date:: 01/08/18 History of Any Multi-Drug Resistant Organisms: None Reported Past Surgical History: Heart Catheterization With Stent, Hernia Repair, Orthopedic Surgery, Tonsillectomy Additional Past Surgical History / Comment(s): PCI with stent 01/08/18, inguinal hernia repair-pt cannot recall laterallity, 02/17/19 TURP, R knee surgery to repair cartlidge, hemorroidectomy, colonoscopy, retinal surgery for detachment- pt cannot recall laterallity. Past Anesthesia/Blood Transfusion Reactions: No Reported Reaction Additional Past Anesthesia/Blood Transfusion Reaction / Comment(s): as a child had loss of vision after hernia surgery Date of Last Stent Placement:: 01/08/2018 Smoking Status: Former smoker - Past Family History Father Additional Family Medical History / Comment(s): alcoholic- at age 69 Mother Family Medical History: CVA/TIA Medications and Allergies Home Medications Medication Instructions Recorded Confirmed Type Quinapril HCl [Accupril] 20 mg PO BID 03/21/14 04/29/19 History Tamsulosin HCl [Flomax] 0.4 mg PO HS 02/04/16 04/29/19 History Atorvastatin [Lipitor] 40 mg PO HS #30 tab 01/09/18 04/29/19 Rx Nitroglycerin Sl Tabs [Nitrostat] 0.4 mg SUBLINGUAL Q5M PRN #25 tab 01/09/18 04/29/19 Rx Pantoprazole [Protonix] 40 mg PO AC-BRKFST tablet. 01/23/18 04/29/19 Rx Aspirin 81 mg PO AC-SUPPER 04/07/18 04/29/19 History Dutasteride [Avodart] 0.5 mg PO DAILY 90 Days #90 capsule 07/14/18 04/29/19 Rx Metoprolol Tartrate [Lopressor] 50 mg PO DAILY 12/21/18 04/29/19 History Docusate [Colace] 100 mg PO DAILY 04/29/19 04/29/19 History Allergies Allergy/AdvReac Type Severity Reaction Status Date / Time No Known Allergies Allergy Verified 04/29/19 09:52 Physical Exam Vitals: Vital Signs Temp Pulse Pulse Resp BP BP Pulse Ox 04/30/19 03:46 97.8 F 65 18 108/64 95 04/30/19 00:00 97.3 F L 59 L 18 136/68 95 04/29/19 20:00 18 04/29/19 19:46 58 L 18 150/78 94 L 04/29/19 18:33 97.7 F 65 18 186/85 96 04/29/19 12:13 57 L 16 148/73 99 04/29/19 08:37 98.8 F 54 L 16 174/91 99 Intake and Output 04/29/19 04/30/19 04/30/19 22:59 06:59 14:59 Other: Voiding Method Toilet Toilet # Voids 1 1 Results 04/29/19 08:50 04/29/19 08:50 Cardiac Enzymes 04/29/19 04/29/19 04/29/19 Range/Units 08:50 08:50 15:40 AST 21 (17-59) U/L Troponin I <0.012 0.014 (0.000-0.034) ng/mL 04/29/19 Range/Units 20:10 AST (17-59) U/L Troponin I <0.012 (0.000-0.034) ng/mL Coagulation 04/29/19 Range/Units 08:50 PT 10.3 (9.0-12.0) sec APTT 25.4 (22.0-30.0) sec Lipids 04/30/19 Range/Units 07:03 Triglycerides 122 (<150) mg/dL Cholesterol 117 (<200) mg/dL HDL Cholesterol 34 L (40-60) mg/dL CBC 04/29/19 Range/Units 08:50 WBC 5.0 (3.8-10.6) k/uL RBC 5.08 (4.30-5.90) m/uL Hgb 13.9 (13.0-17.5) gm/dL Hct 44.1 (39.0-53.0) % Plt Count 159 (150-450) k/uL Comprehensive Metabolic Panel 04/29/19 Range/Units 08:50 Sodium 140 (137-145) mmol/L Potassium 4.1 (3.5-5.1) mmol/L Chloride 104 (98-107) mmol/L Carbon Dioxide 27 (22-30) mmol/L BUN 16 (9-20) mg/dL Creatinine 1.06 (0.66-1.25) mg/dL Glucose 115 H (74-99) mg/dL Calcium 9.3 (8.4-10.2) mg/dL AST 21 (17-59) U/L ALT 22 (21-72) U/L Alkaline Phosphatase 113 (38-126) U/L Total Protein 6.4 (6.3-8.2) g/dL Albumin 3.8 (3.5-5.0) g/dL Current Medications Generic Name Dose Route Start Last Admin Trade Name Freq PRN Reason Stop Dose Admin Aspirin 325 mg 04/30/19 09:00 Aspirin PO DAILY [facility] Atorvastatin Calcium 40 mg 04/29/19 21:00 04/29/19 20:23 Lipitor PO 40 mg HS ANA Administration Docusate Sodium 100 mg 04/30/19 09:00 Colace PO DAILY [facility] Finasteride 5 mg 04/30/19 09:00 Proscar PO DAILY [facility] Lisinopril 20 mg 04/29/19 21:00 04/29/19 20:23 Zestril PO 20 mg BID ANA Administration Metoprolol Tartrate 50 mg 04/30/19 09:00 Lopressor PO DAILY [facility] Nitroglycerin 0.4 mg 04/29/19 10:04 Nitrostat SUBLINGUAL Q5M PRN Chest Pain Pantoprazole Sodium 40 mg 04/30/19 07:30 Protonix PO AC-BRKFST [facility] Tamsulosin HCl 0.4 mg 04/29/19 21:00 04/29/19 20:23 Flomax PO 0.4 mg HS ANA Administration Intake and Output 04/29/19 04/30/19 04/30/19 22:59 06:59 14:59 Other: Voiding Method Toilet Toilet # Voids 1 1 04/29/19 08:50 04/29/19 08:50
[2019-04-30 12:05] VITALS: BP 168/79; PULSE 56; TEMP 97.7
--- NOTE | 2019-04-30 15:48 | P.DS ---
Providers Date of admission: 04/29/19 10:04 Attending physician: Andrés Snow Consults: 04/29/19 10:04 Consult Physician Urgent Consulting Provider: Emily Galvan Consult Reason/Comments: chest pain Do you want consulting provider notified?: Yes Primary care physician: Andrés Snow Hospital Course: Patient is a pleasant 84-year-old female admitted for left shoulder pain appears to be musculoskeletal patient was evaluated by cardiology rule out a concurrent syndromes patient was cleared by cardiology patient is being discharged today in stable medical condition to home. PHYSICAL EXAMINATION: GENERAL: The patient is alert and oriented x3, not in any acute distress. Well developed, well nourished. HEENT: Pupils are round and equally reacting to light. EOMI. No scleral icterus. No conjunctival pallor. Normocephalic, atraumatic. No pharyngeal erythema. No thyromegaly. CARDIOVASCULAR: S1 and S2 present. No murmurs, rubs, or gallops. PULMONARY: Chest is clear to auscultation, no wheezing or crackles. ABDOMEN: Soft, nontender, nondistended, normoactive bowel sounds. No palpable organomegaly. MUSCULOSKELETAL: No joint swelling or deformity. EXTREMITIES: No cyanosis, clubbing, or pedal edema. NEUROLOGICAL: Gross neurological examination did not reveal any focal deficits. SKIN: No rashes. The rest of the chronic medical problems hospitalization course please refer to dictation of HPI from Dr. Snow yesterday Patient Condition at Discharge: Fair Plan - Discharge Summary Discharge Rx Participant: No New Discharge Prescriptions: Continue Quinapril HCl [Accupril] 20 mg PO BID Tamsulosin HCl [Flomax] 0.4 mg PO HS Atorvastatin [Lipitor] 40 mg PO HS #30 tab Nitroglycerin Sl Tabs [Nitrostat] 0.4 mg SUBLINGUAL Q5M PRN #25 tab PRN Reason: Chest Pain Pantoprazole [Protonix] 40 mg PO AC-BRKFST tablet. Aspirin 81 mg PO AC-SUPPER Dutasteride [Avodart] 0.5 mg PO DAILY 90 Days #90 capsule Metoprolol Tartrate [Lopressor] 50 mg PO DAILY Docusate [Colace] 100 mg PO DAILY Discharge Medication List Quinapril HCl [Accupril] 20 mg PO BID 03/21/14 [History] Tamsulosin HCl [Flomax] 0.4 mg PO HS 02/04/16 [History] Atorvastatin [Lipitor] 40 mg PO HS #30 tab 01/09/18 [Rx] Nitroglycerin Sl Tabs [Nitrostat] 0.4 mg SUBLINGUAL Q5M PRN #25 tab 01/09/18 [Rx] Pantoprazole [Protonix] 40 mg PO AC-BRKFST tablet. 01/23/18 [Rx] Aspirin 81 mg PO AC-SUPPER 04/07/18 [History] Dutasteride [Avodart] 0.5 mg PO DAILY 90 Days #90 capsule 07/14/18 [Rx] Metoprolol Tartrate [Lopressor] 50 mg PO DAILY 12/21/18 [History] Docusate [Colace] 100 mg PO DAILY 04/29/19 [History] Follow up Appointment(s)/Referral(s): Andrés Snow MD [Primary Care Provider] - 3 Days Emily Galvan MD [STAFF PHYSICIAN] - 2 Weeks Discharge Disposition: HOME SELF-CARE
--- NOTE | 2019-05-03 11:44 | ECHOF ---
Referral Reason:cp MEASUREMENTS -------- HEIGHT: 167.6 cm WEIGHT: 80.7 kg BP: 108/64 RVIDd: 3.5 cm (< 3.3) IVSd: 1.6 cm (0.6 - 1.1) LVIDd: 3.5 cm (3.9 - 5.3) LVPWd: 1.6 cm (0.6 - 1.1) IVSs: 1.8 cm LVIDs: 2.6 cm LVPWs: 1.8 cm LA Diam: 3.5 cm (2.7 - 3.8) LAESV Index (A-L): 20.99 ml/m Ao Diam: 3.5 cm (2.0 - 3.7) AV Cusp: 2.2 cm (1.5 - 2.6) MV EXCURSION: 14.230 mm (> 18.000) MV EF SLOPE: 1 mm/s (70 - 150) EPSS: 0.3 cm MV E Joesph: 0.47 m/s MV DecT: 213 ms MV A Joesph: 0.90 m/s MV E/A Ratio: 0.52 AR PHT: 662 ms RAP: 5.00 mmHg RVSP: 20.73 mmHg TAPSE: 19.09 mm FINDINGS -------- Sinus rhythm. This was a technically adequate study. The left ventricular size is normal. There is moderate concentric left ventricular hypertrophy. O verall left ventricular systolic function is normal with, an EF between 55 - 60 %. The diastolic fi lling pattern is normal for the age of the patient 10.64. The right ventricle is mildly enlarged. Normal LA size by volume 22+/-6 ml/m2. The right atrium is normal in size. Interatrial and interventricular septum intact. There is mild aortic valve sclerosis. There is trace to mild mitral regurgitation. Mild tricuspid regurgitation present. Right ventricular systolic pressure is normal at < 35 mmHg. Trace/mild (physiologic) pulmonic regurgitation. The aortic root size is normal. IVC Not well visulized. There is no pericardial effusion. CONCLUSIONS -------- 1. Sinus rhythm. 2. This was a technically adequate study. 3. The left ventricular size is normal. 4. There is moderate concentric left ventricular hypertrophy. 5. Overall left ventricular systolic function is normal with, an EF between 55 - 60 %. 6. The diastolic filling pattern is normal for the age of the patient 10.64 7. The right ventricle is mildly enlarged. 8. Normal LA size by volume 22+/-6 ml/m2. 9. The right atrium is normal in size. 10. Interatrial and interventricular septum intact. 11. There is mild aortic valve sclerosis. 12. There is trace to mild mitral regurgitation. 13. Mild tricuspid regurgitation present. 14. Right ventricular systolic pressure is normal at < 35 mmHg. 15. Trace/mild (physiologic) pulmonic regurgitation. 16. The aortic root size is normal. 17. IVC Not well visulized. 18. There is no pericardial effusion. CHIEF METEOROLOGIST: Linn Villarreal RDCS
== END 2019-04-30 13:30 | disposition home or self-care (01) ==
LOC: EC 08:22 → 1SOBS 10:04
PROVIDERS: ADMIT Family Medicine; ATTEND Family Medicine
DX: R07.89 Other chest pain (principal); M25.512 Pain in left shoulder; I12.9 Hypertensive chronic kidney disease with stage 1 through stage 4 chronic kidney disease, or unspecified chronic kidney disease; N18.3 Chronic kidney disease, stage 3 (moderate); I25.10 Atherosclerotic heart disease of native coronary artery without angina pectoris; E78.5 Hyperlipidemia, unspecified; N40.0 Benign prostatic hyperplasia without lower urinary tract symptoms; H26.9 Unspecified cataract; Z90.79 Acquired absence of other genital organ(s); I36.1 Nonrheumatic tricuspid (valve) insufficiency; R41.3 Other amnesia; Z79.82 Long term (current) use of aspirin; Z79.899 Other long term (current) drug therapy; I25.2 Old myocardial infarction; Z87.01 Personal history of pneumonia (recurrent); Z95.5 Presence of coronary angioplasty implant and graft; Z87.891 Personal history of nicotine dependence; Z97.4 Presence of external hearing-aid; Z87.19 Personal history of other diseases of the digestive system; Z81.1 Family history of alcohol abuse and dependence; Z82.3 Family history of stroke
CPT/HCPCS: 96360; 99285; 36415; 93005; 93306; 80061; 80053; 83735; 84484; 85025; 85610; 85730; 71046; G0378 ×2; S0138

== ENCOUNTER 2021-01-21 08:15 | Inpatient (IN) | payer MEDICARE, BC ==
--- NOTE | 2021-01-21 09:08 | ED ---
General Adult HPI - General Chief complaint: Weakness Stated complaint: Weakness Time Seen by Provider: 01/21/21 08:18 Source: patient, EMS, RN notes reviewed Mode of arrival: EMS Limitations: no limitations - History of Present Illness Initial comments: Patient is a pleasant 85-year-old male presenting to the emergency department complaints of some mild constipation. Last bowel movement was approximately 2-3 days ago. Patient felt like he had to have one this morning however he did not. Patient again felt like he needed to have one and did not. Patient had a small bowel movement here in the emergency department. Patient was at restoration today during the second attempt and was advised to come to the emergency department. Patient states otherwise he does not know why he is here. Patient denies any weakness or difficulty with walking. Patient denies any abdominal pain. No dysuria or retention. No nausea vomiting. No fever. - Related Data Home Medications Medication Instructions Recorded Confirmed Quinapril HCl [Accupril] 20 mg PO BID 03/21/14 01/21/21 Tamsulosin HCl [Flomax] 0.4 mg PO BID 02/04/16 01/21/21 Metoprolol Tartrate [Lopressor] 25 mg PO BID 12/21/18 01/21/21 hydroCHLOROthiazide [Hydrodiuril] 12.5 mg PO DAILY 01/21/21 01/21/21 Previous Rx's Medication Instructions Recorded Atorvastatin [Lipitor] 40 mg PO HS #30 tab 01/09/18 Pantoprazole [Protonix] 40 mg PO AC-BRKFST tablet. 01/23/18 Allergies Allergy/AdvReac Type Severity Reaction Status Date / Time No Known Allergies Allergy Verified 01/21/21 14:50 Review of Systems ROS Statement: Those systems with pertinent positive or pertinent negative responses have been documented in the HPI. ROS Other: All systems not noted in ROS Statement are negative. Constitutional: Denies: fever Eyes: Denies: eye pain ENT: Denies: ear pain Respiratory: Denies: cough Cardiovascular: Denies: chest pain Endocrine: Denies: fatigue Gastrointestinal: Reports: as per HPI, constipation. Denies: abdominal pain, nausea, vomiting, diarrhea Genitourinary: Denies: dysuria Musculoskeletal: Denies: back pain Skin: Denies: rash Neurological: Denies: weakness Past Medical History Past Medical History: Coronary Artery Disease (CAD), Hyperlipidemia, Hypertension, Memory Impairment, Myocardial Infarction ([place]), Pneumonia, Prostate Disorder, Renal Disease Additional Past Medical History / Comment(s): BPH with surgery in 01/2019-had hematuria post op, past urinary retention, CRD stage III, sciatic nerve pain, vertigo, colitis years ago, past detached retina with surgery-pt cannot recall laterallity, gait sysfunction, wears R leg brace, [place]-wears hearing aides, pneumonia and yellow jaundice as a child. Last Myocardial Infarction Date:: 01/08/18 History of Any Multi-Drug Resistant Organisms: None Reported Past Surgical History: Heart Catheterization With Stent, Hernia Repair, Orthopedic Surgery, Tonsillectomy Additional Past Surgical History / Comment(s): PCI with stent 01/08/18, inguinal hernia repair-pt cannot recall laterallity, 02/17/19 TURP, R knee surgery to repair cartlidge, hemorroidectomy, colonoscopy, retinal surgery for detachment- pt cannot recall laterallity. Past Anesthesia/Blood Transfusion Reactions: No Reported Reaction Additional Past Anesthesia/Blood Transfusion Reaction / Comment(s): as a child had loss of vision after hernia surgery Date of Last Stent Placement:: 01/08/2018 Past Psychological History: No Psychological Hx Reported Smoking Status: Former smoker Past Alcohol Use History: None Reported Past Drug Use History: None Reported - Past Family History Father Additional Family Medical History / Comment(s): alcoholic- at age 69 Mother Family Medical History: CVA/TIA General Exam Limitations: no limitations General appearance: alert, in no apparent distress Head exam: Present: normocephalic Eye exam: Present: normal appearance Neck exam: Present: normal inspection Respiratory exam: Present: normal lung sounds bilaterally Cardiovascular Exam: Present: regular rate, normal rhythm Expanded Peripheral pulses: 2+: Posterior Tibialis (R), Posterior Tibialis (L) GI/Abdominal exam: Present: soft, normal bowel sounds. Absent: distended, tenderness, guarding, rebound, rigid, pulsatile mass Extremities exam: Present: normal inspection Neurological exam: Present: alert Psychiatric exam: Present: normal affect, normal mood Skin exam: Present: normal color Course Vital Signs 01/21/21 01/21/21 08:17 14:09 Temperature 97.6 F Pulse Rate 64 72 Respiratory 18 18 Rate Blood Pressure 152/78 140/70 O2 Sat by Pulse 94 L 96 Oximetry - Reevaluation(s) Reevaluation #1: 01/21/21 14:44 Patient reevaluated and still having some symptoms. Computed tomography scan was ordered showing fecal impaction. Rectal exam done with stool high in the rectal vault, unable to disimpact. Medical Decision Making - Medical Decision Making Patient was reevaluated and updated. Case was discussed in detail with Dr. Medley, covering Dr. Snow, - Lab Data Lab Results 01/21/21 Range/Units 14:03 Urine Color Yellow Urine Appearance Cloudy (Clear) Urine pH 6.0 (5.0-8.0) Ur Specific [place] 1.012 (1.001-1.035) Urine Protein Negative (Negative) Urine Glucose (UA) Negative (Negative) Urine Ketones Negative (Negative) Urine Blood Trace H (Negative) Urine Nitrite Negative (Negative) Urine Bilirubin Negative (Negative) Urine Urobilinogen <2.0 (<2.0) mg/dL Ur Leukocyte Esterase Large H (Negative) Urine RBC 2 (0-5) /hpf Urine WBC >182 H (0-5) /hpf Urine WBC Clumps Few H (None) /hpf Urine Mucus Rare H (None) /hpf - Radiology Data Radiology results: report reviewed (Computed tomography scan shows bladder diverticulum. Fecal impaction with inflammatory changes.), image reviewed (Abdominal x-ray shows nonobstructive pattern. Gas and fecal material is seen in nondistended colon.) Disposition Clinical Impression: Constipation, Fecal impaction, Urinary retention, Urinary tract infection Disposition: ADMITTED IP TO THIS HOSP Is patient prescribed a controlled substance at d/c from ED?: No Referrals: Andrés Snow MD [Primary Care Provider] - 1-2 days
--- NOTE | 2021-01-21 09:53 | XR ---
EXAMINATION TYPE: XR KUB DATE OF EXAM: 01/21/2021 COMPARISON: 04-14 HISTORY: Pain TECHNIQUE: Single supine KUB image of the abdomen is obtained FINDINGS: Small bowel demonstrates no evidence for dilatation or air fluid levels. Gas and fecal material is seen in non-distended colon. No convincing evidence for pneumoperitoneum. No unusual calcifications. The lung bases are clear. The osseous structures are intact. IMPRESSION: 1. Overall nonobstructive bowel gas pattern.
--- NOTE | 2021-01-21 14:14 | CT ---
EXAMINATION TYPE: CT abdomen pelvis wo con DATE OF EXAM: 01/21/2021 COMPARISON: 08/20/2018 HISTORY: Abdominal pain with weakness CT DLP: 628.6 mGycm Automated exposure control for dose reduction was used. TECHNIQUE: Helical acquisition of images was performed from the lung bases through the pelvis. FINDINGS: The lung bases are clear. The gallbladder is unremarkable there is no gallstones, wall thickening or distention. There is no organomegaly involving the liver pancreas, spleen or adrenal glands. There is no hydronephrosis or renal calcification. The caliber of the abdominal aorta is normal and there is no retroperitoneal adenopathy or hemorrhage . The bowel loops are normal in caliber and there is no evidence of obstruction. There is fecal impacti on in the rectum there is mild hazy density in the perirectal fat. There is marked diverticulosis throughout the colon. There is no definite evidence of diverticulitis There is a large right-sided urinary bladder diverticulum.. These changes were seen previously. IMPRESSION: 1. Fecal impaction with edematous/inflammatory changes in the perirectal fat. 2. Large right urinary bladder diverticulum. 3. Marked diverticulosis of the colon.
[2021-01-21 14:26] LABS: Appearance,Urine Cloudy (Clear); Bilirubin,Urine Negative (Negative); Blood,Urine Trace (Negative); Color,Urine Yellow; Glucose,Urine (UA) Negative (Negative); Ketones,Urine Negative (Negative); Leukocyte Esterase,Urine Large (Negative); Mucus,Urine Rare /hpf; Nitrite,Urine Negative (Negative); Protein,Urine Negative (Negative); RBC,Urine 2 /hpf (0-5); Specific Gravity,Urine 1.012 (1.001-1.035); Urobilinogen,Urine <2.0 mg/dL (<2.0); WBC,Urine >182 /hpf (0-5)
[2021-01-21] MEDS ORDERED: LACTULOSE 20 GM/30 ML CUP PO ONE (14:45)
[2021-01-21] MEDS ORDERED: NA PHOS,M-B/NA PHOS,DI-BA 133 ML ENEMA RECTAL PRN (14:46)
[2021-01-21] MEDS ORDERED: bisacodyL 10 MG SUPP RECTAL PRN (14:47)
[2021-01-21] MEDS ORDERED: bisacodyL 5 MG TABLET.DR PO PRN (14:47)
[2021-01-21] MEDS ORDERED: LACTULOSE 20 GM/30 ML CUP PO PRN (14:47)
[2021-01-21] MEDS ORDERED: DOCUSATE 100 MG CAP PO PRN (14:47)
[2021-01-21] MEDS ORDERED: NALOXONE 0.4 MG/ML 1 ML VIAL IV PRN (14:47)
[2021-01-21 15:26] LABS: Basophils % (A) 0 %; Eosinophils # (A) 0.2 k/uL (0-0.7); Eosinophils % (A) 1 %; HCT 39.6 % (39.0-53.0); HGB 13.5 gm/dL (13.0-17.5); Lymphocytes # (A) 0.6 k/uL (1.0-4.8); Lymphocytes % (A) 5 %; MCH 28.5 pg (25.0-35.0); MCV 83.8 fL (80.0-100.0); Mean Platelet Volume 7.2; Monocytes # (A) 0.6 k/uL (0-1.0); Monocytes % (A) 5 %; Neutrophils # (A) 10.6 k/uL (1.3-7.7); Neutrophils % (A) 88 %; Platelet Count 160 k/uL (150-450); RBC 4.73 m/uL (4.30-5.90); RDW 14.2 % (11.5-15.5); WBC 12.1 k/uL (3.8-10.6)
[2021-01-21 15:45] LABS: Albumin 4.2 g/dL (3.5-5.0); Calcium 8.9 mg/dL (8.4-10.2); Total Bilirubin 1.2 mg/dL (0.2-1.3)
[2021-01-21] MEDS ORDERED: ACETAMINOPHEN TAB 500 MG TAB PO PRN (16:03)
[2021-01-21] MEDS ORDERED: HYDROmorphone 0.5 MG/0.5 ML SYRINGE IVP PRN (16:03)
[2021-01-21] MEDS ORDERED: HYDROcodone/APAP 5-325MG 1 EACH TAB PO PRN (16:03)
[2021-01-21] MEDS ORDERED: ALPRAZolam 0.25 MG TAB PO PRN (16:03)
--- NOTE | 2021-01-21 18:29 | HP ---
HISTORY AND PHYSICAL I am covering for Dr. Snow. DATE OF SERVICE: 01/21/2021 CHIEF COMPLAINT: Weakness and confusion and constipation, urinary difficulty. HISTORY OF PRESENT ILLNESS: This 85-year-old gentleman with a past medical history of CAD, history of hypertension, hyperlipidemia, history of memory impairment, history of myocardial infarction, history of BPH, history of CAD/stent being followed by Dr. Andrés Snow in the outpatient setting has also seen Urology also. The patient apparently went to the restoration and the patient was apparently mildly confused and the patient has also had some constipation and the patient taken to [facility] and was admitted for further evaluation and treatment. The patient is unable to go and disimpaction cannot be done manually from the ER physician. White count is elevated 12.1. The patient also had features of UTI. The patient also had a straight cath which yielded about 625 mg mL urine. The patient admitted for further evaluation and treatment. There is no history of any fever, rigor or chills at this time. PAST MEDICAL HISTORY: Past medical history of CAD, hypertension, hyperlipidemia, memory impairment, DJD, history of prostate disorder, history of BPH, history of CAD/stent. MEDICATIONS: Home medications are: Flomax 0.4 b.i.d., Accupril, Protonix, Lopressor, Hydrodiuril, Lipitor. ALLERGIES: None. FAMILY HISTORY: History of CVA, TIA, alcohol. SOCIAL HISTORY: Previous history of smoking. No history of alcohol intake. REVIEW OF SYSTEMS: ENT: No diminished vision. No diminished hearing. CARDIOVASCULAR: No angina or palpitations. RESPIRATION: As mentioned earlier. GI: As mentioned earlier. : No dysuria. NERVOUS SYSTEM: No numbness or weakness. ALLERGY/IMMUNOLOGY: No asthma or hayfever. MUSCULOSKELETAL as mentioned earlier. HEMATOLOGY/ONCOLOGY: No history of anemia. ENDOCRINE: No history of diabetes or hypothyroidism. CONSTITUTIONAL: As mentioned earlier. DERMATOLOGY: Negative. RHEUMATOLOGY negative. PSYCHIATRY as mentioned earlier. PHYSICAL EXAMINATION: Alert and oriented times three. Pulse 72, blood pressure 140/70. Respirations 18, temperature 97.5, pulse ox 97% on room air. HEENT: Conjunctivae normal. NECK: No JVD. CARDIOVASCULAR: S1, S2 muffled. RESPIRATIONS: No rhonchi, no crackles. ABDOMEN: Soft. Mild diffuse discomfort on palpation especially the lower part. Mild diffuse distention. No mass palpable. No guarding. No rigidity. Bowel sounds present. LEGS: No edema. No swelling. NERVOUS SYSTEM: Higher functions as mentioned earlier. Moves all 4 limbs. Mild tremors present. Otherwise mild diffuse weakness. LYMPHATICS: No lymph nodes palpable in the neck, axillae or groin. SKIN: No ulcer, rashes or bleeding. JOINTS: No active deforming arthropathy. LAB STUDIES: WBC 12.2, hemoglobin 13.5, glucose 123. UA noted. The KUB x-ray which was done today I reviewed personally showed nonobstructive bowel gas pattern and a CT scan of the abdomen and pelvis, which is also reviewed showed fecal impaction with erythematous inflammatory changes in the perirectal fat and large right urinary bladder diverticulum and marked diverticulosis of the colon. ASSESSMENT: 1. Possible acute urinary tract infection with sepsis, present on admission. 2. Constipation, obstipation, as well as fecal impaction. 3. Large right urinary bladder diverticulum in the CT scan. 4. Marked diverticulosis of the colon. 5. Increased WBC. 6. History of coronary artery disease. 7. Hypertension. 8. Hyperlipidemia. 9. History of memory impairment. 10.History of myocardial infarction. 11.History of pneumonia. 12.History of benign prostatic hypertrophy. 13.History of hematuria. 14.History of chronic kidney disease stage 3. 15.Degenerative joint disease, sciatic nerve pain. 16.History of detached retina. 17.History of gait dysfunction. 18.History of coronary artery disease/stent. 19.History of degenerative joint disease. 20.History of inguinal hernia. 21.History of nicotine dependence. RECOMMENDATIONS AND DISCUSSION: This 86-year-old gentleman who presented with multiple complex medical issues, at this time, I recommend to continue the current medications, management and symptomatic treatment. Empiric antibiotics. Otherwise, the lactulose. Closely monitor. CT scan has been done. I would also recommend surgical consultation as well. Otherwise prognosis guarded because of multiple complex medical issues. Further recommendations to follow. A copy of this dictation being forwarded to Dr. Andrés Snow who is the primary physician. MMODL / IJN: [id number] /
[2021-01-21] MEDS: ATORVASTATIN 40 MG TAB PO SCH (19:52)
[2021-01-21] MEDS: METOPROLOL TARTRATE 25 MG TAB PO SCH (19:52)
[2021-01-21] MEDS: lisinopriL 20 MG TAB PO SCH (19:53)
[2021-01-21] MEDS: HEPARIN SODIUM,PORCINE/PF 5,000 UNIT/0.5 ML SYRINGE SQ SCH (19:53)
[2021-01-21] MEDS: TAMSULOSIN 0.4 MG CAP.ER.24H PO SCH (19:54)
[2021-01-22 08:47] LABS: Basophils # (A) 0.04 X 10*3/uL (0.00-0.10); Basophils % (A) 0.6 %; Eosinophils # (A) 0.13 X 10*3/uL (0.04-0.35); Eosinophils % (A) 1.8 %; HGB 12.7 g/dL (13.0-17.0); Lymphocytes # (A) 1.11 X 10*3/uL (0.90-5.00); Lymphocytes % (A) 15.5 %; MCH 27.1 pg (27.0-32.0); MCV 87.6 fL (80.0-97.0); Mean Platelet Volume 10.4 fL (9.5-12.2); Monocytes # (A) 0.76 X 10*3/uL (0.20-1.00); Monocytes % (A) 10.6 %; Neutrophils # (A) 5.07 X 10*3/uL (1.80-7.70); Neutrophils % (A) 71.1 %; Platelet Count 181 X 10*3/uL (140-440); RBC 4.68 X 10*6/uL (4.40-5.60); RDW 14.7 % (11.5-14.5); WBC 7.14 X 10*3/uL (4.50-10.00)
[2021-01-22] MEDS: HEPARIN SODIUM,PORCINE/PF 5,000 UNIT/0.5 ML SYRINGE SQ SCH ×2 (08:51→21:32)
[2021-01-22] MEDS: PANTOPRAZOLE 40 MG TABLET PO SCH (08:51)
[2021-01-22] MEDS: lisinopriL 20 MG TAB PO SCH ×2 (08:51→21:33)
[2021-01-22] MEDS: METOPROLOL TARTRATE 25 MG TAB PO SCH ×2 (08:51→21:33)
[2021-01-22] MEDS: hydroCHLOROthiazide 12.5 MG CAP PO SCH (08:51)
[2021-01-22] MEDS: TAMSULOSIN 0.4 MG CAP.ER.24H PO SCH ×2 (08:51→21:33)
[2021-01-22 09:26] LABS: Anion Gap 9.6 mmol/L (4.00-12.00); Calcium 8.6 mg/dL (8.7-10.3); Carbon Dioxide 27.4 mmol/L (21.6-31.8); Non-African American GFR(CKD) 55.2 (60.0-200.0); Potassium 3.9 mmol/L (3.5-5.5)
--- NOTE | 2021-01-22 14:15 | P.GSCN ---
History of Present Illness Consult date: 01/22/21 History of present illness: CHIEF COMPLAINT: Abdominal discomfort HISTORY OF PRESENT ILLNESS: This is a 85-year-old male with a known history of myocardial infarction with coronary artery disease and cardiac stents, colitis, hypertension, BPH status post TURP. Prior surgical history of hemorrhoidectomy and hernia repair. He presented to the hospital with complaints of lower abdominal discomfort and approximately 3 days without a bowel movement. He denies any nausea or vomiting. He reports that he has been able to eat. However he was having difficulty with bowel movements. He had a computed tomography scan of the abdomen and pelvis that showed fecal impaction with edematous/inflammatory changes in the perirectal fat. Marked diverticulosis of the colon. Patient was given an enema, lactulose and stool softeners. He did have multiple bowel movements. And had bowel movement this morning and flatus. He reports that he has no abdominal pain. He's been afebrile. He is also being treated for a possible UTI. Surgical service consult placed for constipation and fecal impaction. Patient reports that his last colonoscopy he thinks was about 5 years ago and reports that it was normal. PAST MEDICAL HISTORY: See list. PAST SURGICAL HISTORY: See list. MEDICATIONS: See list. ALLERGIES: See list. SOCIAL HISTORY: No illicit drug use. REVIEW OF SYSTEMS: CONSTITUTIONAL: Denies fever or chills. HEENT: Denies blurred vision, vision changes, or eye pain. Denies hemoptysis ENDOCRINE: Denies heat or cold intolerance. CARDIOVASCULAR: Denies chest pain or pressure. RESPIRATORY: No shortness of breath. GASTROINTESTINAL: Denies abdominal pain. Denies nausea or vomiting. NEURO: Denies history of seizures. PSYCH: No depression or suicidal ideation HEMATOLOGIC: Denies bleeding disorders. LYMPHATIC: The patient denies any lumps and bumps around the neck. GENITOURINARY: Denies any blood in urine or increased urinary frequency. MUSCULOSKELETAL: Denies myalgias. Denies joint swelling. Denies decreased range of motion beyond patients baseline. SKIN: Denies pruitis. Denies rash. PHYSICAL EXAM: VITAL SIGNS: Reviewed GENERAL: Well-developed in no acute distress. HEENT: No sclera icterus. Extraocular movements grossly intact. Moist buccal mucosa. Head is atraumatic, normocephalic. Hears conversational speech. No nasal drainage. NECK: Supple without lymphadenopathy. CHEST: Non-labored respirations and equal bilateral excursions. CARDIOVASCULAR: Palpable 2+ radial pulses. ABDOMEN: Soft. Mildly distended Nontender MUSCULOSKELETAL: No clubbing or cyanosis. NEUROLOGIC: No focal or lateralizing signs. Cranial nerves II through XII grossly intact. PSYCH: Appropriate affect. Alert and oriented to person, place and time. SKIN: Well perfused. Good skin turgor. LABORATORY DATA: WBC 12.1 down to 7.14 hemoglobin 12.7 platelets 181 sodium 140 potassium 3.9 creatinine 1.2 Urinalysis positive for UTI COVID-19 not detected IMAGING: computed tomography scan of the abdomen and pelvis that showed fecal impaction with edematous/inflammatory changes in the perirectal fat. Marked diverticulosis of the colon. ASSESSMENT: 1. Constipation and fecal impaction 2. Diverticulosis 3. History of colitis 4. History of myocardial infarction and coronary disease with cardiac stents 5. Hypertension 6. UTI PLAN: -No surgical intervention planned -Continue the lactulose and Colace -Advance diet to Fulls Thank you for this consultation Physician De Icer note has been reviewed by physician. Signing provider agrees with the documented findings, assessment, and plan of care. Past Medical History Past Medical History: Coronary Artery Disease (CAD), Hyperlipidemia, Hypert ension, Memory Impairment, Myocardial Infarction ([place]), Pneumonia, Prostate Disorder, Renal Disease Additional Past Medical History / Comment(s): BPH with surgery in 01/2019-had hematuria post op, past urinary retention, CRD stage III, sciatic nerve pain, vertigo, colitis years ago, past detached retina with surgery-pt cannot recall laterallity, gait sysfunction, wears R leg brace, [place]-wears hearing aides, pneumonia and yellow jaundice as a child. Last Myocardial Infarction Date:: 01/08/18 History of Any Multi-Drug Resistant Organisms: None Reported Past Surgical History: Heart Catheterization With Stent, Hernia Repair, Orthopedic Surgery, Tonsillectomy Additional Past Surgical History / Comment(s): PCI with stent 01/08/18, inguinal hernia repair-pt cannot recall laterallity, 02/17/19 TURP, R knee surgery to repair cartlidge, hemorroidectomy, colonoscopy, retinal surgery for detachment- pt cannot recall laterallity. Past Anesthesia/Blood Transfusion Reactions: No Reported Reaction Additional Past Anesthesia/Blood Transfusion Reaction / Comm: as a child had loss of vision after hernia surgery Date of Last Stent Placement:: 01/08/2018 Past Psychological History: No Psychological Hx Reported Additional Psychological History / Comment(s): Pt resides alone. He uses a R leg brace and cane or walker to ambulate. He drives short distances. He resides at [facility] in an apartment. There is an elevator. Smoking Status: Former smoker Past Alcohol Use History: None Reported Additional Past Alcohol Use History / Comment(s): started smoking at age 17(1952) and quit 2007 smoked 1/2 ppd Past Drug Use History: None Reported - Past Family History Father Additional Family Medical History / Comment(s): alcoholic- at age 69 Mother Family Medical History: CVA/TIA Medications and Allergies Home Medications Medication Instructions Recorded Confirmed Type Quinapril HCl [Accupril] 20 mg PO BID 03/21/14 01/21/21 History Tamsulosin HCl [Flomax] 0.4 mg PO BID 02/04/16 01/21/21 History Atorvastatin [Lipitor] 40 mg PO HS #30 tab 01/09/18 01/21/21 Rx Pantoprazole [Protonix] 40 mg PO AC-BRKFST tablet. 01/23/18 01/21/21 Rx Metoprolol Tartrate [Lopressor] 25 mg PO BID 12/21/18 01/21/21 History hydroCHLOROthiazide [Hydrodiuril] 12.5 mg PO DAILY 01/21/21 01/21/21 History Allergies Allergy/AdvReac Type Severity Reaction Status Date / Time No Known Allergies Allergy Verified 01/21/21 14:50 Surgical - Exam Vital Signs Temp Pulse Resp BP Pulse Ox 97.6 F 64 18 152/78 94 L 01/21/21 08:17 01/21/21 08:17 01/21/21 08:17 01/21/21 08:17 01/21/21 08:17 Results - Labs 01/22/21 05:54 01/22/21 05:54 Abnormal Lab Results - Last 24 Hours (Table) 01/21/21 01/21/21 01/21/21 Range/Units 14:03 15:14 15:14 WBC 12.1 H (3.8-10.6) k/uL Hgb (13.0-17.0) g/dL MCHC (32.0-37.0) g/dL RDW (11.5-14.5) % Neutrophils # 10.6 H (1.3-7.7) k/uL Lymphocytes # 0.6 L (1.0-4.8) k/uL BUN 21 H (9-20) mg/dL Est GFR (CKD-EPI)NonAf (60.0-200.0) Glucose 123 H (74-99) mg/dL Calcium (8.7-10.3) mg/dL Urine Blood Trace H (Negative) Ur Leukocyte Esterase Large H (Negative) Urine WBC >182 H (0-5) /hpf Urine WBC Clumps Few H (None) /hpf Urine Mucus Rare H (None) /hpf 01/22/21 01/22/21 Range/Units 05:54 05:54 WBC (3.8-10.6) k/uL Hgb 12.7 L (13.0-17.0) g/dL MCHC 31.0 L (32.0-37.0) g/dL RDW 14.7 H (11.5-14.5) % Neutrophils # (1.3-7.7) k/uL Lymphocytes # (1.0-4.8) k/uL BUN (9-20) mg/dL Est GFR (CKD-EPI)NonAf 55.2 L (60.0-200.0) Glucose 120 H (74-99) mg/dL Calcium 8.6 L (8.7-10.3) mg/dL Urine Blood (Negative) Ur Leukocyte Esterase (Negative) Urine WBC (0-5) /hpf Urine WBC Clumps (None) /hpf Urine Mucus (None) /hpf Microbiology - Last 24 Hours (Table) 01/21/21 14:03 Urine Culture - Preliminary Urine,Voided Diabetes panel 01/21/21 01/22/21 Range/Units 15:14 05:54 Sodium 139 140 (137-145) mmol/L Potassium 5.0 3.9 (3.5-5.1) mmol/L Chloride 104 103 (98-107) mmol/L Carbon Dioxide 23 27.4 (22-30) mmol/L BUN 21 H 18.0 (9-20) mg/dL Creatinine 1.20 1.2 (0.66-1.25) mg/dL Glucose 123 H 120 H (74-99) mg/dL Calcium 8.9 8.6 L (8.4-10.2) mg/dL AST 34 (17-59) U/L ALT 16 (4-49) U/L Alkaline Phosphatase 123 (38-126) U/L Total Protein 7.0 (6.3-8.2) g/dL Albumin 4.2 (3.5-5.0) g/dL Calcium panel 01/21/21 01/22/21 Range/Units 15:14 05:54 Calcium 8.9 8.6 L (8.4-10.2) mg/dL Albumin 4.2 (3.5-5.0) g/dL Pituitary panel 01/21/21 01/22/21 Range/Units 15:14 05:54 Sodium 139 140 (137-145) mmol/L Potassium 5.0 3.9 (3.5-5.1) mmol/L Chloride 104 103 (98-107) mmol/L Carbon Dioxide 23 27.4 (22-30) mmol/L BUN 21 H 18.0 (9-20) mg/dL Creatinine 1.20 1.2 (0.66-1.25) mg/dL Glucose 123 H 120 H (74-99) mg/dL Calcium 8.9 8.6 L (8.4-10.2) mg/dL Adrenal panel 01/21/21 01/22/21 Range/Units 15:14 05:54 Sodium 139 140 (137-145) mmol/L Potassium 5.0 3.9 (3.5-5.1) mmol/L Chloride 104 103 (98-107) mmol/L Carbon Dioxide 23 27.4 (22-30) mmol/L BUN 21 H 18.0 (9-20) mg/dL Creatinine 1.20 1.2 (0.66-1.25) mg/dL Glucose 123 H 120 H (74-99) mg/dL Calcium 8.9 8.6 L (8.4-10.2) mg/dL Total Bilirubin 1.2 (0.2-1.3) mg/dL AST 34 (17-59) U/L ALT 16 (4-49) U/L Alkaline Phosphatase 123 (38-126) U/L Total Protein 7.0 (6.3-8.2) g/dL Albumin 4.2 (3.5-5.0) g/dL
[2021-01-22] MEDS: PIPERACILLIN-TAZOBACTAM 3.375 GM in SODIUM CHLORIDE 0.9% 100 ML IVPB SCH ×2 (16:23→23:51)
--- NOTE | 2021-01-22 17:01 | PN ---
PROGRESS NOTE DATE OF SERVICE: 01/22/2021 I am covering for Dr. Snow. This 85-year-old gentleman admitted with severe constipation, also had UTI. The patient is on empiric antibiotics. No chest pain. No palpitations. No fever. PHYSICAL EXAMINATION: Alert and oriented x2. Pulse is 63, blood pressure 160/70, respiration 20, temperature 97.6, pulse ox 98% on room air. HEENT: Conjunctivae normal. Neck: No JVD. Cardiovascular: S1, S2 muffled. Respiration: Breath sounds diminished in the bases. A few scattered rhonchi. Abdomen: Soft, mild diffuse discomfort. Legs: No edema. No swelling. LABS: WBC 7.4, hemoglobin 12.2, sodium 140, potassium 3.9. UA noted. Cultures are negative. ASSESSMENT: 1. Acute urinary tract infection with possible sepsis present on admission. 2. Constipation, obstipation, as well as fecal impaction. 3. Large right urinary bladder diverticulum in the CT scan. 4. Marked diverticulosis of the colon. 5. Increased WBC. 6. History of coronary artery disease. 7. Hypertension. 8. Hyperlipidemia. 9. History of memory impairment. 10.History of myocardial infarction. 11.History of pneumonia. 12.History of benign prostatic hypertrophy. 13.History of hematuria. 14.History of chronic kidney disease stage 3. 15.Degenerative joint disease, sciatic nerve pain. 16.History of detached retina. 17.History of gait dysfunction. 18.History of coronary artery disease/stent. 19.History of degenerative joint disease. 20.History of inguinal hernia. 21.History of nicotine dependence. RECOMMENDATIONS AND DISCUSSION: I recommend to continue current medications, symptomatic treatment. Otherwise at this time I recommend continue the antibiotics. The patient also with urology consultation at some point. Otherwise, surgery has been consulted for evaluation of the constipation including endoscopes. Prognosis guarded. further recommendations to follow. Dr. Snow will follow tomorrow. MMODL / IJN: [id number] /
[2021-01-22] MEDS: DOCUSATE 100 MG CAP PO SCH (21:32)
[2021-01-22] MEDS: ATORVASTATIN 40 MG TAB PO SCH (21:33)
[2021-01-23] MEDS: PANTOPRAZOLE 40 MG TABLET PO SCH (07:04)
[2021-01-23] MEDS: PIPERACILLIN-TAZOBACTAM 3.375 GM in SODIUM CHLORIDE 0.9% 100 ML IVPB SCH ×2 (08:07→17:48)
[2021-01-23] MEDS: lisinopriL 20 MG TAB PO SCH (08:13)
[2021-01-23] MEDS: TAMSULOSIN 0.4 MG CAP.ER.24H PO SCH (08:13)
[2021-01-23] MEDS: METOPROLOL TARTRATE 25 MG TAB PO SCH (08:14)
[2021-01-23] MEDS: DOCUSATE 100 MG CAP PO SCH (08:14)
[2021-01-23] MEDS: HEPARIN SODIUM,PORCINE/PF 5,000 UNIT/0.5 ML SYRINGE SQ SCH (08:14)
[2021-01-23] MEDS: hydroCHLOROthiazide 12.5 MG CAP PO SCH (08:15)
[2021-01-23 09:23] LABS: Basophils # (A) 0.05 X 10*3/uL (0.00-0.10); Basophils % (A) 0.7 %; Eosinophils # (A) 0.23 X 10*3/uL (0.04-0.35); Eosinophils % (A) 3.2 %; HCT 42.2 % (39.6-50.0); HGB 13.7 g/dL (13.0-17.0); Lymphocytes # (A) 0.98 X 10*3/uL (0.90-5.00); Lymphocytes % (A) 13.4 %; MCH 27.9 pg (27.0-32.0); MCHC 32.5 g/dL (32.0-37.0); MCV 85.9 fL (80.0-97.0); Mean Platelet Volume 10.6 fL (9.5-12.2); Monocytes # (A) 0.65 X 10*3/uL (0.20-1.00); Monocytes % (A) 8.9 %; Neutrophils # (A) 5.37 X 10*3/uL (1.80-7.70); Neutrophils % (A) 73.5 %; Platelet Count 184 X 10*3/uL (140-440); RBC 4.91 X 10*6/uL (4.40-5.60); RDW 14.6 % (11.5-14.5)
[2021-01-23 14:10] LABS: African American GFR (CKD) 53.1 (60.0-200.0); Albumin/Globulin Ratio 1.74 (1.60-3.17); Anion Gap 8.7 mmol/L (4.00-12.00); BUN/Creat Ratio 12.14 Ratio (12.00-20.00); Calcium 8.9 mg/dL (8.7-10.3); Carbon Dioxide 27.3 mmol/L (21.6-31.8); Globulin 2.3 g/dL (1.6-3.3); Magnesium 2.1 mg/dL (1.5-2.4); Non-African American GFR(CKD) 45.8 (60.0-200.0); Total Bilirubin 1.1 mg/dL (0.3-1.2); Total Protein 6.3 g/dL (6.2-8.2)
[2021-01-23 14:13] VITALS: BP 118/66; PULSE 63; RESP 18; TEMP 97.3
--- NOTE | 2021-01-23 14:17 | P.PN ---
Subjective Progress Note Date: 01/23/21 CHIEF COMPLAINT: Abdominal discomfort HISTORY OF PRESENT ILLNESS: Surgical service is following in regards to patient's constipation and fecal impaction. Patient has been having bowel movements. He had multiple bowel movements yesterday. He denies any nausea or vomiting. He is tolerating a regular diet. Patient is afebrile. WBC 7.30 hemoglobin 13.7 PHYSICAL EXAM: VITAL SIGNS: Reviewed GENERAL: Well-developed in no acute distress. HEENT: No sclera icterus. Extraocular movements grossly intact. Moist buccal mucosa. Head is atraumatic, normocephalic. Hears conversational speech. No nasal d rainage. NECK: Supple without lymphadenopathy. CHEST: Non-labored respirations and equal bilateral excursions. CARDIOVASCULAR: Palpable 2+ radial pulses. ABDOMEN: Soft. Nondistended. Nontender. MUSCULOSKELETAL: No clubbing or cyanosis. NEUROLOGIC: No focal or lateralizing signs. Cranial nerves II through XII grossly intact. PSYCH: Appropriate affect. Alert and oriented to person, place and time. SKIN: Well perfused. Good skin turgor. ASSESSMENT: 1. Constipation and fecal impaction 2. Diverticulosis 3. History of colitis 4. History of myocardial infarction and coronary disease with cardiac stents 5. Hypertension 6. UTI PLAN: -Recommend conservative management -Continue regular diet -No plan for endoscopies -Continue lactulose PRN and Colace Physician [employer] note has been reviewed by physician. Signing provider agrees with the documented findings, assessment, and plan of care. Objective - Vital Signs Vital signs: Vital Signs Temp 97.3 F L 01/23/21 14:12 Pulse 63 01/23/21 14:12 Resp 18 01/23/21 14:12 BP 118/66 01/23/21 14:12 Pulse Ox 95 01/23/21 14:12 Intake & Output 01/22/21 01/23/21 01/23/21 18:59 06:59 18:59 Intake Total 660 350 180 Balance 660 350 180 Intake: Intake, IV Titration 350 Amount Piperacillin-Tazobactam 3 200 .375 gm In Sodium Chloride 0.9% 100 ml @ 25 mls/hr IVPB Q8HR ANA Rx# :[id number] cefTRIAXone 1 gm In 150 Sodium Chloride 0.9% 50 ml @ 100 mls/hr IVPB Q12HR ANA Rx#:[id number] Oral 660 180 Other: Voiding Method Toilet Toilet Toilet # Voids 2 1 # Bowel Movements 2 - Labs CBC & Chem 7: 01/23/21 06:23 01/23/21 06:23 Labs: Abnormal Lab Results - Last 24 Hours (Table) 01/23/21 01/23/21 Range/Units 06:23 06:23 RDW 14.6 H (11.5-14.5) % Est GFR (CKD-EPI)AfAm 53.1 L (60.0-200.0) Est GFR (CKD-EPI)NonAf 45.8 L (60.0-200.0) Microbiology - Last 24 Hours (Table) 01/21/21 14:03 Urine Culture - Preliminary Urine,Voided Group D Enterococcus
--- NOTE | 2021-01-23 18:40 | P.DS ---
Providers Date of admission: 01/23/21 12:52 Expected date of discharge: 01/23/21 Attending physician: Andrés Snow Consults: 01/21/21 16:02 Consult Physician Routine Consulting Provider: Priscila Castorena Consult Reason/Comments: constipation Do you want consulting provider notified?: Yes 01/23/21 11:31 Consult Physician Routine Consulting Provider: Estrada Booker Consult Reason/Comments: bladder diverticulum Do you want consulting provider notified?: Yes Primary care physician: Andrés Snow Hospital Course: 85-year-old gentleman with past medical history of coronary artery disease, hypertension, hyperlipidemia, memory impairment, history of myocardial infarction, BPH, history of coronary artery disease with stenting was admitted to the hospital with constipation with fecal impaction, acute urinary tract infection. Patient was evaluated by surgery due to constipation with severe fecal impaction, conservative measures with stool softeners and supportive care were given to increase peristalsis, with associated bowel movements during hospital stay. For acute urinary tract infection patient was placed on Zosyn 3.375 g. Patient will be sent home with Augmentin 875/125 by mouth twice a day for 10 day duration for completion of urinary tract infection. To increase peristalsis and recurrent constipation patient will be sent home with Colace and lactulose. Patient will have home health care and close follow-up with primary care within 1-2 days. Assessment: Acute urinary tract infection with sepsis present on admission Constipation, with fecal impaction Large right urinary bladder diverticulum seen and CAT scan Diverticulosis of the colon Leukocytosis History of coronary artery disease Hypertension Hyperlipidemia History of memory impairment History of myocardial infarction History of frequent pneumonia History of BPH Remote history of hematuria History of chronicus kidney disease stage III Degenerative joint disease Sciatic nerve History of detached retina History of gait dysfunction History of coronary artery disease/stent History of inguinal hernia History of nicotine dependence Health Concerns: Multiple comorbidities Gait dysfunction Memory impairment Pertinent Studies: KUB x-ray CT abdomen and pelvis Procedures: No procedures performed during hospital stay Patient Condition at Discharge: Fair Plan - Discharge Summary Discharge Rx Participant: No New Discharge Prescriptions: New Amoxic-Pot Clav 875-125Mg [Augmentin 875-125] 1 tab PO Q12HR 1 Days #20 tab Docusate [Colace] 100 mg PO BID #60 cap Lactulose [Cephulac] 20 gm PO DAILY PRN #300 ml PRN Reason: Constipation Continue Quinapril HCl [Accupril] 20 mg PO BID Tamsulosin HCl [Flomax] 0.4 mg PO BID Atorvastatin [Lipitor] 40 mg PO HS #30 tab Pantoprazole [Protonix] 40 mg PO AC-BRKFST tablet. Metoprolol Tartrate [Lopressor] 25 mg PO BID hydroCHLOROthiazide [Hydrodiuril] 12.5 mg PO DAILY Discharge Medication List Quinapril HCl [Accupril] 20 mg PO BID 03/21/14 [History] Tamsulosin HCl [Flomax] 0.4 mg PO BID 02/04/16 [History] Atorvastatin [Lipitor] 40 mg PO HS #30 tab 01/09/18 [Rx] Pantoprazole [Protonix] 40 mg PO AC-BRKFST tablet. 01/23/18 [Rx] Metoprolol Tartrate [Lopressor] 25 mg PO BID 12/21/18 [History] hydroCHLOROthiazide [Hydrodiuril] 12.5 mg PO DAILY 01/21/21 [History] Amoxic-Pot Clav 875-125Mg [Augmentin 875-125] 1 tab PO Q12HR 1 Days #20 tab 01/23/21 [Rx] Docusate [Colace] 100 mg PO BID #60 cap 01/23/21 [Rx] Lactulose [Cephulac] 20 gm PO DAILY PRN #300 ml 01/23/21 [Rx] Follow up Appointment(s)/Referral(s): Andrés Snow MD [Primary Care Provider] - 3 Days [facility] [facility] [NON-STAFF] - As Needed [facility], [NON-STAFF] - 1-2 Days Patient Instructions/Handouts: Constipation (DC), Fecal Impaction (ED), Urinary Tract Infection in Older Adults (DC) Discharge/Stand Alone Forms: Who Do I Call?, Help In The Home Discharge Disposition: HOME WITH HOME HEALTH SERVICES
== END 2021-01-23 18:29 | disposition home health service (06) | DRG 872 ==
LOC: EC 08:15 → 6NMEDSUR 14:47 → OBSVTOIN 01-23 12:52
PROVIDERS: ADMIT Family Medicine; ATTEND Family Medicine
DX: A41.9 Sepsis, unspecified organism (principal); N39.0 Urinary tract infection, site not specified; K56.41 Fecal impaction; N32.3 Diverticulum of bladder; K57.30 Diverticulosis of large intestine without perforation or abscess without bleeding; I25.10 Atherosclerotic heart disease of native coronary artery without angina pectoris; I12.9 Hypertensive chronic kidney disease with stage 1 through stage 4 chronic kidney disease, or unspecified chronic kidney disease; N18.30 Chronic kidney disease, stage 3 unspecified; E78.5 Hyperlipidemia, unspecified; G31.84 Mild cognitive impairment of uncertain or unknown etiology; K52.9 Noninfective gastroenteritis and colitis, unspecified; N40.1 Benign prostatic hyperplasia with lower urinary tract symptoms; I25.2 Old myocardial infarction; R31.9 Hematuria, unspecified; M19.90 Unspecified osteoarthritis, unspecified site; M54.30 Sciatica, unspecified side; R26.9 Unspecified abnormalities of gait and mobility; Z20.822 Contact with and (suspected) exposure to COVID-19; Z87.891 Personal history of nicotine dependence; Z95.5 Presence of coronary angioplasty implant and graft; Z87.01 Personal history of pneumonia (recurrent); Z90.79 Acquired absence of other genital organ(s); Z87.19 Personal history of other diseases of the digestive system; Z79.899 Other long term (current) drug therapy
CPT/HCPCS: 74018; 74176; 80048; 80053; 81001; 83735; 85025; 87077; 87086; 87186; 87635; 99285

== ENCOUNTER → 2021-03-27 | Outpatient (CLI) | payer MEDICARE, BC ==
--- NOTE | 2021-03-27 16:13 | MR ---
EXAMINATION TYPE: MR iac wo/w con DATE OF EXAM: 03/27/2021 COMPARISON: None HISTORY: Left side hearing loss CONTRAST: Performed utilizing 8 mL intravenous Gadavist gadolinium contrast. TECHNIQUE: Multiplanar, multiecho imaging on a 3.0 Donna magnet at this location is performed through the brain. Attention is paid to the internal auditory canals with thin section imaging. Postcontra st imaging is performed through the internal auditory canals. FINDINGS:Craniovertebral junction is normal. The pituitary is normal. Diffusion-weighted imaging is performed. No suspicious hyperintensity is present to suggest an acute intracranial infarct or acute ischemic area. Signal within the brain has increased signal adjacent to the ventricles as well as some increased sig nal within the brainstem. This is hyperintense on T2 and inversion recovery weighted sequences compat ible with microvascular ischemic change.. Thin section imaging is performed through the internal auditory canals and cerebellar pontine angles. No cerebellar pontine angle masses are evident. The internal auditory canals appear normal without expansion or erosion. Postcontrast imaging was performed. No suspicious enhancement is evident within the internal audito ry canals or the included portions of the brain. Inspissated mucus within the right sphenoid sinus is evident. There is additional mucosal thickening within maxillary sinuses. IMPRESSIONS: 1. Normal internal auditory canals. 2. Chronic appearing periventricular white matter ischemic changes. Additional white matter change ap pears to be within the brainstem.
== END | disposition home or self-care (01) ==
LOC: RADMRIMAIN 10:37
PROVIDERS: ATTEND Otolaryngology
DX: H93.3X2 Disorders of left acoustic nerve (principal); R90.82 White matter disease, unspecified
CPT/HCPCS: 70553; A9585

== ENCOUNTER 2021-05-11 16:37 | Emergency (ER) | payer MEDICARE, BC ==
[2021-05-11 16:47] VITALS: BP 188/84; TEMP 98.4
[2021-05-11 17:11] VITALS: RESP 16
[2021-05-11 17:34] LABS: Basophils # (A) 0.1 k/uL (0-0.2); Basophils % (A) 1 %; Eosinophils # (A) 0.1 k/uL (0-0.7); Eosinophils % (A) 2 %; HCT 42.4 % (39.0-53.0); HGB 14.4 gm/dL (13.0-17.5); Lymphocytes # (A) 0.8 k/uL (1.0-4.8); Lymphocytes % (A) 14 %; MCH 28.9 pg (25.0-35.0); MCHC 33.9 g/dL (31.0-37.0); MCV 85.2 fL (80.0-100.0); Mean Platelet Volume 7.3; Monocytes # (A) 0.3 k/uL (0-1.0); Monocytes % (A) 6 %; Neutrophils # (A) 4.3 k/uL (1.3-7.7); Neutrophils % (A) 75 %; Platelet Count 184 k/uL (150-450); RBC 4.98 m/uL (4.30-5.90); RDW 14.7 % (11.5-15.5); WBC 5.7 k/uL (3.8-10.6)
--- NOTE | 2021-05-11 17:34 | ED ---
General Adult HPI - General Chief complaint: Chest Pain Stated complaint: Abnormal EKG bradycardia Time Seen by Provider: 05/11/21 17:03 Source: patient, RN notes reviewed, old records reviewed Mode of arrival: ambulatory Limitations: no limitations - History of Present Illness Initial comments: This is a 86-year-old male history of cardiac disease who was sent over from his doctor's office for evaluation for a abnormal EKG and shortness of breath. He patient denies any chest pain fevers chills nausea vomiting sweats he does have peripheral edema which he states he always seems to have. He has no other complaints no couplets palpitations. No other symptoms reported. - Related Data Home Medications Medication Instructions Recorded Confirmed Quinapril HCl [Accupril] 20 mg PO BID 03/21/14 05/11/21 Tamsulosin HCl [Flomax] 0.8 mg PO DAILY 02/04/16 05/11/21 Metoprolol Tartrate [Lopressor] 25 mg PO BID 12/21/18 05/11/21 Aspirin EC [Ecotrin Low Dose] 81 mg PO DAILY@1700 05/11/21 05/11/21 Cephalexin [Keflex] 750 mg PO BID 05/11/21 05/11/21 Ketoconazole 2% Cream [Nizoral 2%] 1 applic TOPICAL DAILY 05/11/21 05/11/21 Meclizine [Antivert] 12.5 mg PO TID PRN 05/11/21 05/11/21 diphenhydrAMINE [Benadryl] 25 mg PO Q6H PRN 05/11/21 05/11/21 Previous Rx's Medication Instructions Recorded Atorvastatin [Lipitor] 40 mg PO HS #30 tab 01/09/18 Pantoprazole [Protonix] 40 mg PO AC-BRKFST tablet. 01/23/18 Allergies Allergy/AdvReac Type Severity Reaction Status Date / Time No Known Allergies Allergy Verified 05/11/21 17:37 Review of Systems ROS Statement: Those systems with pertinent positive or pertinent negative responses have been documented in the HPI. ROS Other: All systems not noted in ROS Statement are negative. Past Medical History Past Medical History: Coronary Artery Disease (CAD), Hyperlipidemia, Hype rtension, Memory Impairment, Myocardial Infarction ([place]), Pneumonia, Prostate Disorder, Renal Disease Additional Past Medical History / Comment(s): BPH with surgery in 01/2019-had hematuria post op, past urinary retention, CRD stage III, sciatic nerve pain, vertigo, colitis years ago, past detached retina with surgery-pt cannot recall laterallity, gait sysfunction, wears R leg brace, ELIM IRA-wears hearing aides, pneumonia and yellow jaundice as a child. Last Myocardial Infarction Date:: 01/08/18 History of Any Multi-Drug Resistant Organisms: None Reported Past Surgical History: Heart Catheterization With Stent, Hernia Repair, Orthopedic Surgery, Tonsillectomy Additional Past Surgical History / Comment(s): PCI with stent 01/08/18, inguinal hernia repair-pt cannot recall laterallity, 02/17/19 TURP, R knee surgery to repair cartlidge, hemorroidectomy, colonoscopy, retinal surgery for detachment- pt cannot recall laterallity. Past Anesthesia/Blood Transfusion Reactions: No Reported Reaction Additional Past Anesthesia/Blood Transfusion Reaction / Comment(s): as a child had loss of vision after hernia surgery Date of Last Stent Placement:: 01/08/2018 Past Psychological History: No Psychological Hx Reported Smoking Status: Former smoker Past Alcohol Use History: None Reported Past Drug Use History: None Reported - Past Family History Father Additional Family Medical History / Comment(s): alcoholic- at age 69 Mother Family Medical History: CVA/TIA General Exam - General Exam Comments Initial Comments: This is a well-developed well-nourished awake alert oriented 3 male Limitations: no limitations General appearance: alert, in no apparent distress Head exam: Present: atraumatic, normocephalic, normal inspection Eye exam: Present: normal appearance, PERRL, EOMI. Absent: scleral icterus, conjunctival injection, periorbital swelling ENT exam: Present: normal exam, mucous membranes moist Neck exam: Present: normal inspection, full ROM, other (No stridor JVD or bruits). Absent: tenderness, meningismus, lymphadenopathy Respiratory exam: Present: normal lung sounds bilaterally. Absent: respiratory distress, wheezes, rales, rhonchi, stridor Cardiovascular Exam: Present: regular rate, normal rhythm, normal heart sounds. Absent: systolic murmur, diastolic murmur, rubs, gallop, clicks GI/Abdominal exam: Present: soft, normal bowel sounds. Absent: distended, tenderness, guarding, rebound, rigid Extremities exam: Present: normal inspection, full ROM, normal capillary refill, pedal edema. Absent: tenderness, joint swelling, calf tenderness Back exam: Present: normal inspection Neurological exam: Present: alert, oriented X3, CN II-XII intact Psychiatric exam: Present: normal affect, normal mood Skin exam: Present: warm, dry, intact, normal color. Absent: rash Course Vital Signs 05/11/21 05/11/21 16:44 17:07 Temperature 98.4 F Pulse Rate 63 Pulse Rate [ 63 Cribber ] Respiratory 18 16 Rate Blood Pressure 188/84 O2 Sat by Pulse 98 Oximetry EKG Findings - EKG Results: EKG: interpreted by ERMD (Sinus bradycardia rate of 59 MO interval 186 QRS duration 80 QT since QTC 4:30/425 left anterior fascicular block pulses criteria for LVH nonspecific septal configuration this is compared to an EKG except for the office today also one dated ) Medical Decision Making - Medical Decision Making I did a long discussion with patient regarding the findings the patient has no new findings on evaluation at this time he will be discharged with outpatient follow-up. - Lab Data Result diagrams: 05/11/21 17:30 05/11/21 17:30 Lab Results 05/11/21 05/11/21 05/11/21 Range/Units 17:30 17:30 17:30 WBC 5.7 (3.8-10.6) k/uL RBC 4.98 (4.30-5.90) m/uL Hgb 14.4 (13.0-17.5) gm/dL Hct 42.4 (39.0-53.0) % MCV 85.2 (80.0-100.0) fL MCH 28.9 (25.0-35.0) pg MCHC 33.9 (31.0-37.0) g/dL RDW 14.7 (11.5-15.5) % Plt Count 184 (150-450) k/uL MPV 7.3 Neutrophils % 75 % Lymphocytes % 14 % Monocytes % 6 % Eosinophils % 2 % Basophils % 1 % Neutrophils # 4.3 (1.3-7.7) k/uL Lymphocytes # 0.8 L (1.0-4.8) k/uL Monocytes # 0.3 (0-1.0) k/uL Eosinophils # 0.1 (0-0.7) k/uL Basophils # 0.1 (0-0.2) k/uL PT 9.9 (9.0-12.0) sec INR 0.9 (<1.2) APTT 22.9 (22.0-30.0) sec Sodium 140 (137-145) mmol/L Potassium 4.1 (3.5-5.1) mmol/L Chloride 106 (98-107) mmol/L Carbon Dioxide 26 (22-30) mmol/L Anion Gap 8 mmol/L BUN 15 (9-20) mg/dL Creatinine 1.26 H (0.66-1.25) mg/dL Est GFR (CKD-EPI)AfAm 60 (>60 ml/min/1.73 sqM) Est GFR (CKD-EPI)NonAf 52 (>60 ml/min/1.73 sqM) Glucose 111 H (74-99) mg/dL Plasma Lactic Acid Chip (0.7-2.0) mmol/L Calcium 9.2 (8.4-10.2) mg/dL Magnesium 2.1 (1.6-2.3) mg/dL Total Bilirubin 0.6 (0.2-1.3) mg/dL AST 20 (17-59) U/L ALT 14 (4-49) U/L Alkaline Phosphatase 105 (38-126) U/L Troponin I (0.000-0.034) ng/mL NT-Pro-B Natriuret Pep pg/mL Total Protein 6.2 L (6.3-8.2) g/dL Albumin 3.6 (3.5-5.0) g/dL 05/11/21 05/11/21 05/11/21 Range/Units 17:30 17:30 17:46 WBC (3.8-10.6) k/uL RBC (4.30-5.90) m/uL Hgb (13.0-17.5) gm/dL Hct (39.0-53.0) % MCV (80.0-100.0) fL MCH (25.0-35.0) pg MCHC (31.0-37.0) g/dL RDW (11.5-15.5) % Plt Count (150-450) k/uL MPV Neutrophils % % Lymphocytes % % Monocytes % % Eosinophils % % Basophils % % Neutrophils # (1.3-7.7) k/uL Lymphocytes # (1.0-4.8) k/uL Monocytes # (0-1.0) k/uL Eosinophils # (0-0.7) k/uL Basophils # (0-0.2) k/uL PT (9.0-12.0) sec INR (<1.2) APTT (22.0-30.0) sec Sodium (137-145) mmol/L Potassium (3.5-5.1) mmol/L Chloride (98-107) mmol/L Carbon Dioxide (22-30) mmol/L Anion Gap mmol/L BUN (9-20) mg/dL Creatinine (0.66-1.25) mg/dL Est GFR (CKD-EPI)AfAm (>60 ml/min/1.73 sqM) Est GFR (CKD-EPI)NonAf (>60 ml/min/1.73 sqM) Glucose (74-99) mg/dL Plasma Lactic Acid Chip 0.8 (0.7-2.0) mmol/L Calcium (8.4-10.2) mg/dL Magnesium (1.6-2.3) mg/dL Total Bilirubin (0.2-1.3) mg/dL AST (17-59) U/L ALT (4-49) U/L Alkaline Phosphatase (38-126) U/L Troponin I <0.012 (0.000-0.034) ng/mL NT-Pro-B Natriuret Pep 254 pg/mL Total Protein (6.3-8.2) g/dL Albumin (3.5-5.0) g/dL - Radiology Data Radiology results: report reviewed (Imaging reviewed no acute findings.), image reviewed Disposition Clinical Impression: Peripheral edema, Feared condition not demonstrated Disposition: HOME SELF-CARE Condition: Good Instructions (If sedation given, give patient instructions): Leg Edema (ED) Is patient prescribed a controlled substance at d/c from ED?: No Referrals: nAdrés Snow MD [Primary Care Provider] - 1-2 days
[2021-05-11 17:46] LABS: INR 0.9 (<1.2); Partial Thromboplastin Time 22.9 sec (22.0-30.0); Prothrombin Time 9.9 sec (9.0-12.0)
[2021-05-11 17:48] LABS: Albumin 3.6 g/dL (3.5-5.0); Calcium 9.2 mg/dL (8.4-10.2); Magnesium 2.1 mg/dL (1.6-2.3); Potassium 4.1 mmol/L (3.5-5.1); Total Bilirubin 0.6 mg/dL (0.2-1.3); Total Protein 6.2 g/dL (6.3-8.2)
--- NOTE | 2021-05-11 17:54 | XR ---
EXAMINATION TYPE: XR chest 2V DATE OF EXAM: 05/11/2021 COMPARISON: 04/29/2019 HISTORY: Difficulty breathing TECHNIQUE: 2 views FINDINGS: There is no heart failure nor confluent pneumonic infiltrate. Costophrenic angles are clear . There are no hilar masses. Bony thorax is intact. Sternum is intact. Thoracic aorta shows mild athe romatous change. IMPRESSION: No active cardiopulmonary disease. No change.
[2021-05-11 19:40] VITALS: PULSE 72
== END 2021-05-11 19:40 | disposition home or self-care (01) ==
LOC: EC 16:37
DX: R60.9 Edema, unspecified (principal); I25.2 Old myocardial infarction; E78.5 Hyperlipidemia, unspecified; I25.10 Atherosclerotic heart disease of native coronary artery without angina pectoris; R07.9 Chest pain, unspecified; R00.1 Bradycardia, unspecified; R06.02 Shortness of breath; I12.9 Hypertensive chronic kidney disease with stage 1 through stage 4 chronic kidney disease, or unspecified chronic kidney disease; N18.9 Chronic kidney disease, unspecified; Z79.82 Long term (current) use of aspirin; Z79.899 Other long term (current) drug therapy; Z87.891 Personal history of nicotine dependence; Z95.5 Presence of coronary angioplasty implant and graft; Z71.1 Person with feared health complaint in whom no diagnosis is made
CPT/HCPCS: 36415; 71046; 80053; 83605; 83735; 83880; 84484; 85025; 85610; 85730; 93005; 99285

== ENCOUNTER → 2021-05-15 | Outpatient (CLI) | payer MEDICARE, BC ==
--- NOTE | 2021-05-15 14:42 | XR ---
EXAMINATION TYPE: XR hand complete RT DATE OF EXAM: 05/15/2021 COMPARISON: NONE HISTORY: 86-year-old male M79.641 PAIN IN RIGHT HAND TECHNIQUE: 3 views FINDINGS: Mild/moderate degenerative change first CMC joint with marginal spurring. Possible widening at the sc apholunate interval. Dedicated views of the wrist if there is any wrist instability. Scattered mild d egenerative spurring at the DIP joints especially the second and third PIP joint. Some focal calcific ation at the dorsal aspect of the second DIP joint is noted. No acute fracture, subluxation, or dislo cation. No marginal erosions. IMPRESSION: 1. 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 2. Focus of calcification along the dorsal aspect of the second DIP joint may be on a degenerative ba sis. This may also be seen with calcific capsulitis. Correlate for any point tenderness. 3. Possible widening of the scapholunate interval. If there is any wrist instability, dedicated views of the wrist can be obtained.
== END | disposition home or self-care (01) ==
LOC: RADXRMAIN 11:13
PROVIDERS: ATTEND Nurse Practitioner
DX: M79.641 Pain in right hand (principal)

== ENCOUNTER → 2021-10-05 | Outpatient (CLI) | payer MEDICARE, BC ==
--- NOTE | 2021-10-05 12:14 | XR ---
EXAMINATION TYPE: XR chest 2V DATE OF EXAM: 10/05/2021 COMPARISON: 05/11/2021 HISTORY: Shortness of breath TECHNIQUE: Frontal and lateral views of the chest are obtained. FINDINGS: Scattered senescent parenchymal changes noted. Hyperinflation compatible with COPD. No evidence for infiltrate. No evidence for atelectasis. Heart size is stable. Mediastinal structures are stable and grossly unremarkable. No evidence for hilar prominence. Degenerative changes dorsal spine. IMPRESSION: 1. No evidence for acute pulmonary disease.
== END | disposition home or self-care (01) ==
LOC: RADXRMAIN 11:37
PROVIDERS: ATTEND Nurse Practitioner Family
DX: R07.89 Other chest pain (principal)
CPT/HCPCS: 71046; 93005

== ENCOUNTER 2021-10-14 15:01 | Emergency (ER) | payer MEDICARE, BC ==
[2021-10-14 15:54] VITALS: BP 173/86; PULSE 79; RESP 16; TEMP 97.9
--- NOTE | 2021-10-14 16:49 | ED ---
General Adult HPI - General Chief complaint: Skin/Abscess/Foreign Body Stated complaint: Facial swelling Time Seen by Provider: 10/14/21 16:40 Source: patient, RN notes reviewed, old records reviewed Mode of arrival: ambulatory Limitations: no limitations - History of Present Illness Initial comments: 86-year-old male presents to the emergency room with complaints of left lower lip swelling since 11:00 today. Patient had a similar episode while taking Accupril and was taken off that medication on 09/12/21. He denies any shortness of breath, chest pain no nausea vomiting diarrhea rashes or fevers. He denies any difficulty swallowing or tongue swelling. -: hour(s) (6) Location: mouth (bottom lower lip left side) Severity scale (1-10): 0 Consistency: constant Improves with: none Worsens with: none Associated Symptoms: denies other symptoms Treatments Prior to Arrival: none - Related Data Home Medications Medication Instructions Recorded Confirmed Quinapril HCl [Accupril] 20 mg PO BID 03/21/14 09/12/21 Tamsulosin HCl [Flomax] 0.8 mg PO DAILY 02/04/16 09/12/21 Metoprolol Tartrate [Lopressor] 50 mg PO DAILY 12/21/18 09/12/21 Aspirin EC [Ecotrin Low Dose] 81 mg PO DAILY 05/11/21 09/12/21 Atorvastatin [Lipitor] 40 mg PO DAILY 09/12/21 09/12/21 Pantoprazole [Protonix] 40 mg PO DAILY 09/12/21 09/12/21 Wheat Dextrin [Benefiber] 1 packet PO DAILY 09/12/21 09/12/21 hydroCHLOROthiazide [Hydrodiuril] 12.5 mg PO DAILY 09/12/21 09/12/21 Allergies Allergy/AdvReac Type Severity Reaction Status Date / Time No Known Allergies Allergy Verified 10/14/21 15:54 Review of Systems ROS Statement: Those systems with pertinent positive or pertinent negative responses have been documented in the HPI. ROS Other: All systems not noted in ROS Statement are negative. Past Medical History Past Medical History: Coronary Artery Disease (CAD), Hyperlipidemia, Hypertension, Memory Impairment, Myocardial Infarction ([place]), Pneumonia, Prostate Disorder, Renal Disease Additional Past Medical History / Comment(s): BPH with surgery in 01/2019-had hematuria post op, past urinary retention, CRD stage III, sciatic nerve pain, vertigo, colitis years ago, past detached retina with surgery-pt cannot recall laterallity, gait sysfunction, wears R leg brace, [place]-wears hearing aides, pneumonia and yellow jaundice as a child. Last Myocardial Infarction Date:: 01/08/18 History of Any Multi-Drug Resistant Organisms: None Reported Past Surgical History: Heart Catheterization With Stent, Hernia Repair, Orthopedic Surgery, Tonsillectomy Additional Past Surgical History / Comment(s): PCI with stent 01/08/18, inguinal hernia repair-pt cannot recall laterallity, 02/17/19 TURP, R knee surgery to repair cartlidge, hemorroidectomy, colonoscopy, retinal surgery for detachment- pt cannot recall laterallity. Past Anesthesia/Blood Transfusion Reactions: No Reported Reaction Additional Past Anesthesia/Blood Transfusion Reaction / Comment(s): as a child had loss of vision after hernia surgery Date of Last Stent Placement:: 01/08/2018 Past Psychological History: No Psychological Hx Reported Smoking Status: Former smoker Past Alcohol Use History: None Reported Past Drug Use History: None Reported - Past Family History Father Additional Family Medical History / Comment(s): alcoholic- at age 69 Mother Family Medical History: CVA/TIA General Exam Limitations: no limitations General appearance: alert, in no apparent distress Head exam: Present: atraumatic, normocephalic Eye exam: Present: normal appearance. Absent: scleral icterus, conjunctival injection, periorbital swelling ENT exam: Present: normal oropharynx, mucous membranes moist, other (Left lower lip swelling nontender) Neck exam: Present: normal inspection, full ROM. Absent: tenderness, meningismus, lymphadenopathy, thyromegaly Respiratory exam: Present: normal lung sounds bilaterally. Absent: respiratory distress, wheezes, rales, rhonchi, stridor, accessory muscle use, decreased breath sounds Cardiovascular Exam: Present: regular rate GI/Abdominal exam: Present: soft, normal bowel sounds. Absent: distended, tenderness, guarding, rebound, rigid Extremities exam: Present: normal capillary refill. Absent: pedal edema Neurological exam: Present: alert, oriented X3 Psychiatric exam: Present: normal affect, normal mood Skin exam: Present: warm, dry, intact, normal color. Absent: cyanosis, diaphoretic, erythema, urticaria, vesicles, petechiae, pallor Course Vital Signs 10/14/21 15:53 Temperature 97.9 F Pulse Rate 79 Respiratory 16 Rate Blood Pressure 173/86 O2 Sat by Pulse 96 Oximetry Medical Decision Making - Medical Decision Making Patient presents with complaints of left lower lip swelling since 11:00 today. He denies any nausea vomiting, no difficulty breathing, no tongue swelling. He was seen here September 12 for angioedema related to NANCY inhibitor Accupril. He was taken off of this medication at that time. Patient denies the possibility of accidently taking this medication again. On exam lung sounds are clear to auscultation, oropharynx is patent no evidence of swelling. Patient denies any pruritus. He was given Benadryl in the emergency room. Vital signs are stable oxygen saturation 96% on room air I directed him to take the Benadryl 25mg every 6 hours until swelling resolves. Follow up with his primary care doctor tomorrow. There has been links to angioedema from Flomax and I requested patient speak to his physician regarding his other medications. Directed to return to the emergency room with any new or concerning symptoms including difficulty breathing, nausea vomiting, rash, tongue swelling or difficulty swallowing. Case discussed with Dr. Bowers. Disposition Clinical Impression: Angioedema Disposition: HOME SELF-CARE Condition: Good Instructions (If sedation given, give patient instructions): Angioedema (ED) Additional Instructions: Take 25 mg of Benadryl every 6 hours until swelling resolves. Return to the emergency room with any worsening symptoms including tongue or throat swelling, difficulty swallowing, difficulty breathing, nausea or vomiting, or rashes. Follow-up with your primary care doctor tomorrow to discuss other medications that may be causing your lip swelling including flomax or protonix. Is patient prescribed a controlled substance at d/c from ED?: No Referrals: Andrés Snow MD [Primary Care Provider] - 1-2 days Time of Disposition: 17:11
[2021-10-14] MEDS ORDERED: diphenhydrAMINE 25 MG CAP PO STA (17:00)
== END 2021-10-14 17:57 | disposition home or self-care (01) ==
LOC: EC 15:01
DX: T78.3XXA Angioneurotic edema, initial encounter (principal); I10 Essential (primary) hypertension; I25.2 Old myocardial infarction; Z79.82 Long term (current) use of aspirin; I25.10 Atherosclerotic heart disease of native coronary artery without angina pectoris; Z87.891 Personal history of nicotine dependence
CPT/HCPCS: 99282

== ENCOUNTER → 2021-11-16 | Outpatient (CLI) | payer MEDICARE, BC ==
[2021-11-16 20:12] LABS: Basophils # (A) 0.06 X 10*3/uL (0.00-0.10); Basophils % (A) 0.9 %; Eosinophils # (A) 0.09 X 10*3/uL (0.04-0.35); Eosinophils % (A) 1.4 %; HCT 44.9 % (39.6-50.0); HGB 13.9 g/dL (13.0-17.0); Immature Grans, Automated 0.5 %; Lymphocytes # (A) 1.02 X 10*3/uL (0.90-5.00); Lymphocytes % (A) 15.8 %; MCH 27.2 pg (27.0-32.0); MCV 87.9 fL (80.0-97.0); Mean Platelet Volume 11.1 fL (9.5-12.2); Monocytes # (A) 0.57 X 10*3/uL (0.20-1.00); Monocytes % (A) 8.8 %; NRBC Per 100 WBC 0 /100 WBCS (0.0-0.0); Neutrophils # (A) 4.69 X 10*3/uL (1.80-7.70); Neutrophils % (A) 72.6 %; Platelet Count 200 X 10*3/uL (140-440); RBC 5.11 X 10*6/uL (4.40-5.60); RDW 14.2 % (11.5-14.5); WBC 6.46 X 10*3/uL (4.50-10.00)
[2021-11-16 20:23] LABS: Erythrocyte Sedimentation Rate 21 mm/Hr (0-20)
[2021-11-16 22:10] LABS: African American GFR (CKD) 56.1 (60.0-200.0); Albumin 4.2 g/dL (3.8-4.9); Anion Gap 13.4 mmol/L (10.00-18.00); BUN/Creat Ratio 15.56 Ratio (12.00-20.00); Blood Urea Nitrogen 20.7 mg/dL (9.0-27.0); C Reactive Protein 0.5 mg/dL (0.00-0.80); Calcium 9.3 mg/dL (8.7-10.3); Carbon Dioxide 26.4 mmol/L (20.0-27.5); Globulin 2.1 g/dL (1.6-3.3); Non-African American GFR(CKD) 48.4 (60.0-200.0); Potassium 3.8 mmol/L (3.5-5.5); Total Bilirubin 0.8 mg/dL (0.30-1.20); Total Protein 6.4 g/dL (6.2-8.2)
[2021-11-17 02:18] LABS: Protein, Total 6.6 g/dL (6.2-8.2)
== END | disposition home or self-care (01) ==
LOC: LABWHC1 10:27
PROVIDERS: ATTEND Internal Medicine
DX: T78.3XXA Angioneurotic edema, initial encounter (principal)
CPT/HCPCS: 36415; 80053; 84165; 84443; 85025; 85652; 86038; 86140; 86160; 86161; 86332

== ENCOUNTER → 2022-12-10 | Outpatient (CLI) | payer MEDICARE, BC ==
--- NOTE | 2022-12-10 16:55 | US ---
EXAMINATION TYPE: US kidneys/renal and bladder DATE OF EXAM: 12/10/2022 COMPARISON: CT 01/21/2021 CLINICAL INDICATION: Male, 87 years old with history of N28.1 CYST OF KIDNEY, ACQUIRED; EXAM MEASUREMENTS: Right Kidney: 10.0 x 5.4 x 5.2 cm Left Kidney: 11.4 x 5.3 x 5.2 cm Right Kidney: Lateral anechoic area measures 1.3 x 1.3 x 1.2 cm, probable cyst. Left Kidney: 1.6 x 1.5 x 1.4 cm parapelvic cyst. No hydronephrosis on either side. Bladder: right sided diverticulum measuring up to 6.7 x 2.4 cm as seen on prior. Bilateral Jets seen: Yes IMPRESSION: 1. No hydronephrosis. 2. A couple benign renal cysts on either side measuring up to 1.6 cm. 3. A large 6.7 cm right posterior bladder wall diverticulum.
== END | disposition home or self-care (01) ==
LOC: RADUSWWP 11:38
PROVIDERS: ATTEND Family Medicine
DX: N28.1 Cyst of kidney, acquired (principal); N32.3 Diverticulum of bladder
CPT/HCPCS: 76770

== ENCOUNTER 2023-01-03 20:28 | Observation (INO) | payer MEDICARE, BC ==
--- NOTE | 2023-01-03 20:53 | ED ---
Chest Pain HPI - General Chief Complaint: Back Pain/Injury Stated Complaint: Back Pain Time Seen by Provider: 01/03/23 20:38 Source: family, RN notes reviewed, old records reviewed Mode of arrival: wheelchair Limitations: no limitations - History of Present Illness Initial Comments: This is a 7-year-old male who presents to ER today for evaluation regards to chest pain. He complains of back pain but it feels just like prior [place] when he had stents placed. One stent placed. Patient symptoms of been episodic for the last few days but are persistent today and was able to get him to come the hospital which she has not wanted to do. Patient has history of CAD high blood pressure high cholesterol. MD Complaint: chest pain, other (Back pain) -: days(s) Onset: during rest, during exertion Pain Location: substernal Pain Radiation: back Severity: moderate Severity scale (1-10): 6 Quality: tightness, heaviness Consistency: intermittent Improves With: nothing Worsens With: nothing Anginal Symptoms: sense of impending doom Other Symptoms: palpitations Treatments Prior to Arrival: none - Related Data Home Medications Medication Instructions Recorded Confirmed Quinapril HCl [Accupril] 20 mg PO BID 03/21/14 09/12/21 Tamsulosin HCl [Flomax] 0.8 mg PO DAILY 02/04/16 09/12/21 Metoprolol Tartrate [Lopressor] 50 mg PO DAILY 12/21/18 09/12/21 Aspirin EC [Ecotrin Low Dose] 81 mg PO DAILY 05/11/21 09/12/21 Atorvastatin [Lipitor] 40 mg PO DAILY 09/12/21 09/12/21 Pantoprazole [Protonix] 40 mg PO DAILY 09/12/21 09/12/21 Wheat Dextrin [Benefiber] 1 packet PO DAILY 09/12/21 09/12/21 hydroCHLOROthiazide [Hydrodiuril] 12.5 mg PO DAILY 09/12/21 09/12/21 Allergies Allergy/AdvReac Type Severity Reaction Status Date / Time No Known Allergies Allergy Verified 01/03/23 20:33 Review of Systems ROS Statement: Those systems with pertinent positive or pertinent negative responses have been documented in the HPI. ROS Other: All systems not noted in ROS Statement are negative. EKG Findings - EKG Comments: EKG Findings:: EKG sinus 62 FL 188 QRS 104 QTC 430 - EKG Results: EKG: interpreted by [facility] Past Medical History Past Medical History: Coronary Artery Disease (CAD), Hyperlipidemia, Hypertension, Memory Impairment, Myocardial Infarction ([place]), Pneumonia, Prostate Disorder, Renal Disease Additional Past Medical History / Comment(s): BPH with surgery in 01/2019-had hematuria post op, past urinary retention, CRD stage III, sciatic nerve pain, vertigo, colitis years ago, past detached retina with surgery-pt cannot recall laterallity, gait sysfunction, wears R leg brace, [place]-wears hearing aides, pneumonia and yellow jaundice as a child. Last Myocardial Infarction Date:: 01/08/18 History of Any Multi-Drug Resistant Organisms: None Reported Past Surgical History: Heart Catheterization With Stent, Hernia Repair, Orthopedic Surgery, Tonsillectomy Additional Past Surgical History / Comment(s): PCI with stent 01/08/18, inguinal hernia repair-pt cannot recall laterallity, 02/17/19 TURP, R knee surgery to repair cartlidge, hemorroidectomy, colonoscopy, retinal surgery for detachment- pt cannot recall laterallity. Past Anesthesia/Blood Transfusion Reactions: No Reported Reaction Additional Past Anesthesia/Blood Transfusion Reaction / Comment(s): as a child had loss of vision after hernia surgery Date of Last Stent Placement:: 01/08/2018 Past Psychological History: No Psychological Hx Reported Smoking Status: Former smoker Past Alcohol Use History: None Reported Past Drug Use History: None Reported - Past Family History Father Additional Family Medical History / Comment(s): alcoholic- at age 69 Mother Family Medical History: CVA/TIA General Exam Limitations: no limitations General appearance: alert, in no apparent distress Head exam: Present: atraumatic, normocephalic, normal inspection Eye exam: Present: normal appearance, PERRL, EOMI. Absent: scleral icterus, conjunctival injection, periorbital swelling ENT exam: Present: normal exam, mucous membranes moist Neck exam: Present: normal inspection. Absent: tenderness, meningismus, lymphadenopathy Respiratory exam: Present: normal lung sounds bilaterally. Absent: respiratory distress, wheezes, rales, rhonchi, stridor Cardiovascular Exam: Present: regular rate, normal rhythm, normal heart sounds. Absent: systolic murmur, diastolic murmur, rubs, gallop, clicks GI/Abdominal exam: Present: soft, normal bowel sounds. Absent: distended, tenderness, guarding, rebound, rigid Extremities exam: Present: normal inspection, full ROM, normal capillary refill. Absent: tenderness, pedal edema, joint swelling, calf tenderness Back exam: Present: normal inspection Neurological exam: Present: alert, oriented X3, CN II-XII intact Psychiatric exam: Present: normal affect, normal mood Skin exam: Present: warm, dry, intact, normal color. Absent: rash Course Vital Signs 01/03/23 01/03/23 20:29 22:00 Temperature 97.5 F L Pulse Rate 66 54 L Respiratory 18 16 Rate Blood Pressure 200/74 146/71 O2 Sat by Pulse 96 94 L Oximetry - Reevaluation(s) Reevaluation #1: 01/03/23 22:01 Medical record is reviewed. Reevaluation #2: 01/03/23 22:01 Patient does have persistent symptoms here in the ER Reevaluation #3: 01/03/23 22:01 Patient informed results questions answered Reevaluation #4: 01/03/23 22:01 Was pt. sent in by a medical professional or institution? @ -no Did you speak to anyone other than the patient for history? @ -no Did you review nursing and triage notes? @ -agree Were old charts reviewed? @ -no Differential Diagnosis? @ -prior EKG interpreted by me (3pts min.)? @ -yes X-rays interpreted by me (1pt min.)? @ -yes CT interpreted by me (1pt min.)? @ -no U/S interpreted by me (1pt. min.)? @ -no What testing was considered but not performed? (CT, X-rays, U/S, labs)? Why? @ -no What meds were considered but not given? Why? @ -no Did you discuss the management of the patient with other professionals? @ -no Did you reconcile home meds? @ -no Was smoking cessation discussed for >3mins.? @ -no Was critical care preformed (if so, how long)? @ -no Were there social determinants of health that impacted care today? How? (Homelessness, low income, unemployed, alcoholism, drug addiction, transportation, low edu. Level, literacy, decrease access to med. care, snf, rehab)? @ -no Was there de-escalation of care discussed even if they declined? (Discuss DNR or withdrawal of care, Hospice)? @ -no What co-morbidities impacted this encounter? (DM, HTN, Smoking, COPD, CAD, Cancer, CVA, Hep., AIDS, mental health diagnosis, sleep apnea, morbid obesity)? @ -none Was patient admitted / discharged? @ - Undiagnosed new problem with uncertain prognosis? @ -no Drug Therapy requiring intensive monitoring for toxicity (Heparin, Nitro, Insulin, Cardizem)? @ -no Were any procedures done? @ -no Diagnosis/symptom? @ - Acute, or Chronic, or Acute on Chronic? @ -no Uncomplicated (without systemic symptoms) or Complicated (systemic symptoms)? @ -uncomplicated Side effects of treatment? @ -no Exacerbation, Progression, or Severe Exacerbation] @ -no Poses a threat to life or bodily function? @ -yes Reevaluation #5: Reevaluation #5: 01/03/23 22:01 Differential Chest Pain: Stable Angina, Unstable Angina, STEMI, NSTEMI Aortic Dissection, Pneumothorax, Musculoskeletal, Esophageal Spasm GERD, Cholecystitis, Pancreatitis, Zoster, this is not meant to be an all-inclusive list. Chest Pain MDM - MDM 87 male DF for chest pain patient presents today with chest pain persistent here in the ER. Patient be admitted for cardiac observation, chest pain feels just like prior [place] Critical Care Time Critical Care Time: Yes Total Critical Care Time: 31 Disposition Clinical Impression: Chest pain Disposition: ADMITTED IP TO THIS [facility] Condition: Undetermined Is patient prescribed a controlled substance at d/c from ED?: No Referrals: Andrés Snow MD [Primary Care Provider] - 1-2 days Time of Disposition: 22:30
--- NOTE | 2023-01-03 21:32 | XR ---
EXAMINATION TYPE: XR chest 2V DATE OF EXAM: 01/03/2023 9:12 PM COMPARISON: Chest radiographs from 10/05/2021 TECHNIQUE: XR chest 2V Frontal and lateral views of the chest. CLINICAL INDICATION:Male, 87 years old with history of Chest Pain; FINDINGS: Lungs/Pleura: There is no evidence of pleural effusion, focal consolidation, or pneumothorax. Pulmonary vascularity: Unremarkable. Heart/mediastinum: Cardiomediastinal silhouette is unremarkable. Atherosclerotic calcifications are seen in the aorta. Musculoskeletal: No acute osseous pathology. IMPRESSION: No acute cardiopulmonary disease/process.
[2023-01-03 21:35] LABS: Basophils % (A) 0 %; Eosinophils # (A) 0.2 k/uL (0-0.7); Eosinophils % (A) 3 %; HCT 43.6 % (39.0-53.0); HGB 14.3 gm/dL (13.0-17.5); Lymphocytes # (A) 1.1 k/uL (1.0-4.8); Lymphocytes % (A) 16 %; MCH 27.7 pg (25.0-35.0); MCHC 32.9 g/dL (31.0-37.0); MCV 84.4 fL (80.0-100.0); Mean Platelet Volume 8.2; Monocytes # (A) 0.4 k/uL (0-1.0); Monocytes % (A) 7 %; Neutrophils # (A) 4.8 k/uL (1.3-7.7); Neutrophils % (A) 71 %; Platelet Count 156 k/uL (150-450); RBC 5.16 m/uL (4.30-5.90); RDW 14.7 % (11.5-15.5); WBC 6.8 k/uL (3.8-10.6)
[2023-01-03 21:43] LABS: Partial Thromboplastin Time 23.9 sec (22.0-30.0); Prothrombin Time 10.3 sec (9.0-12.0)
[2023-01-03 21:53] LABS: ALT 16 U/L (4-49); AST 20 U/L (17-59); African American GFR (CKD) 58 (>60 ml/min/1.73 sqM); Albumin 3.7 g/dL (3.5-5.0); Alkaline Phosphatase 123 U/L (38-126); Anion Gap 11 mmol/L; Blood Urea Nitrogen 21 mg/dL (9-20); Calcium 8.7 mg/dL (8.4-10.2); Carbon Dioxide 26 mmol/L (22-30); Chloride 100 mmol/L (98-107); Glucose 161 mg/dL (74-99); Lipase 57 U/L (23-300); Non-African American GFR(CKD) 50 (>60 ml/min/1.73 sqM); Potassium 3.7 mmol/L (3.5-5.1); Sodium 137 mmol/L (137-145); Total Bilirubin 0.6 mg/dL (0.2-1.3); Total Protein 6.2 g/dL (6.3-8.2)
[2023-01-03] MEDS ORDERED: ASPIRIN 81 MG PO STA (22:44)
[2023-01-03] MEDS ORDERED: NITROGLYCERIN SL TABS 0.4 MG TAB SUBLINGUAL PRN (22:44)
[2023-01-03] MEDS ORDERED: MORPHINE SULFATE 4 MG/ML SYRINGE IV PRN (22:44)
[2023-01-03] MEDS ORDERED: HEPARIN SODIUM 1,000 UN/ML (10ML VL) IV ONE (22:44)
[2023-01-03] MEDS ORDERED: HEPARIN SOD,PORK IN 0.45% NACL 25,000 UNIT in 0.45% NACL 1 250ML.BAG IV SCH (22:45)
[2023-01-04 05:37] LABS: Mean Platelet Volume 8.3; Platelet Count 156 k/uL (150-450)
[2023-01-04] MEDS: ASPIRIN 325 MG TAB PO SCH (10:50)
[2023-01-04] MEDS ORDERED: AMINOPHYLLINE 500 MG/20 ML VIAL IV PRN (12:23)
[2023-01-04] MEDS ORDERED: CAFFEINE CITRATE 60 MG/3 ML VIAL IV PRN (12:23)
--- NOTE | 2023-01-04 12:23 | P.CRDCN ---
History of Present Illness History of present illness: This is a pleasant 87-year-old male past medical history significant for coronary artery disease status post stent placement to the LAD in the setting of a non-ST elevated myocardial infarction January 2018, hypertension, dyslipidemia, BPH status post TURP in January 2019. He follows in the office with Dr. Ernandez. Patient previously set follow-up with Dr. Galvan. Patient initially had [place] with symptoms of left shoulder pain and states he started to have these episodes over last 2 weeks. Occasionally they can happen with exertion however also occurring at rest. He more recently he was washing dishes and then had an episode and therefore presented to emergency department. Troponins noted to be normal 3. He denies any associated shortness breath, nausea, diaphoresis. He did not receive any nitro. Blood pressure noted to be elevated however usually has some degree of whitecoat hypertension and came down on its own. He normally takes metoprolol 50 mg twice a day. EKG shows sinus rhythm with nonspecific minimal 0.[address] depression. At the time of my exam: CONSTITUTIONAL: Denies fever. Denies chills. EYES: Denies blurred vision. Denies vision changes. Denies eye pain. EARS, NOSE, MOUTH & THROAT: Denies headache. Denies sore throat. Denies ear pain. CARDIOVASCULAR: Denies chest pain. Denies shortness of breath. Denies orthopnea. Denies PND. Denies palpitations. RESPIRATORY: Denies cough. GASTROINTESTINAL: Denies abdominal pain. Denies diarrhea. Denies constipation. Denies nausea. Denies vomiting. MUSCULOSKELETAL: Denies myalgias. INTEGUMENTARY: Denies pruitis. Denies rash. NEUROLOGIC: Denies numbness. Denies tingling. Denies weakness. PSYCHIATRIC: Denies anxiety. Denies depression. ENDOCRINE: Denies fatigue. Denies weight change. Denies polydipsia. Denies polyurina. GENITOURINARY: Denies burning, hematuria or urgency with micturation. HEMATOLOGIC: Denies history of anemia. Denies bleeding. Vitals reviewed GENERAL: This is a 84-year-old male in no apparent distress at the time of my examination. HEENT: Head is atraumatic, normocephalic. Pupils are equal, round. Sclerae anicteric. Conjunctivae are clear. Mucous membranes of the mouth are moist. Neck is supple. There is no jugular venous distention. No carotid bruit is heard. LUNGS: Clear to auscultation no wheezes, rales or rhonchi. No chest wall tenderness is noted on palpation or with deep breathing. HEART: Regular rate and rhythm without murmurs, rubs or gallops. S1 and S2 heard. ABDOMEN: Soft, nontender. Bowel sounds are heard. No organomegaly noted. EXTREMITIES: No evidence of peripheral edema and no calf tenderness noted. VASCULAR: Radial and dorsalis pedis pulses palpated, no evidence of clubbing. NEUROLOGIC: Patient is awake, alert and oriented x3. ASSESSMENT Shoulder pain similar to his angina however atypical during rest and activity History of coronary artery disease s/p stent placement 01/2018 History of myocardial infarction Hypertension Dyslipidemia BPH s/p TURP 01/2019 PLAN Patient's symptoms are somewhat similar to his prior angina however not clearly associated with exertion. Given age, risk factors and CKG discussed options including stress testing versus heart catheterization. Given CKD we will proceed with stress testing first to further evaluate. Additionally increase antianginals with Lopressor 75 twice a day. If Lexiscan normal likely DC friday. Monitor on tele. Past Medical History Past Medical History: Coronary Artery Disease (CAD), Hyperlipidemia, Hypertension, Memory Impairment, Myocardial Infarction ([place]), Pneumonia, Prostate Disorder, Renal Disease Additional Past Medical History / Comment(s): BPH with surgery in 01/2019-had hematuria post op, past urinary retention, CRD stage III, sciatic nerve pain, vertigo, colitis years ago, past detached retina with surgery-pt cannot recall laterallity, gait sysfunction, wears R leg brace, [place]-wears hearing aides, pneumonia and yellow jaundice as a child. Last Myocardial Infarction Date:: 01/08/18 History of Any Multi-Drug Resistant Organisms: None Reported Past Surgical History: Heart Catheterization With Stent, Hernia Repair, Orthopedic Surgery, Tonsillectomy Additional Past Surgical History / Comment(s): PCI with stent 01/08/18, inguinal hernia repair-pt cannot recall laterallity, 02/17/19 TURP, R knee surgery to repair cartlidge, hemorroidectomy, colonoscopy, retinal surgery for detachment- pt cannot recall laterallity. Past Anesthesia/Blood Transfusion Reactions: No Reported Reaction Additional Past Anesthesia/Blood Transfusion Reaction / Comment(s): as a child had loss of vision after hernia surgery Date of Last Stent Placement:: 01/08/2018 Past Psychological History: No Psychological Hx Reported Smoking Status: Former smoker Past Alcohol Use History: None Reported Past Drug Use History: None Reported - Past Family History Father Additional Family Medical History / Comment(s): alcoholic- at age 69 Mother Family Medical History: CVA/TIA Medications and Allergies Home Medications Medication Instructions Recorded Confirmed Type Tamsulosin HCl [Flomax] 0.8 mg PO DAILY 02/04/16 01/04/23 History Metoprolol Tartrate [Lopressor] 50 mg PO DAILY 12/21/18 01/04/23 History Aspirin EC [Ecotrin Low Dose] 81 mg PO DAILY 05/11/21 01/04/23 History Atorvastatin [Lipitor] 40 mg PO DAILY 09/12/21 01/04/23 History Pantoprazole [Protonix] 40 mg PO DAILY 09/12/21 01/04/23 History hydroCHLOROthiazide [Hydrodiuril] 12.5 mg PO DAILY 09/12/21 01/04/23 History Allergies Allergy/AdvReac Type Severity Reaction Status Date / Time No Known Allergies Allergy Verified 01/04/23 11:14 Physical Exam Vitals: Vital Signs Temp Pulse Resp BP Pulse Ox 01/04/23 08:00 97 F L 54 L 18 178/76 96 01/04/23 06:53 98.8 F 56 L 18 144/87 97 01/04/23 02:00 46 L 16 139/75 96 01/03/23 22:00 54 L 16 146/71 94 L 01/03/23 20:29 97.5 F L 66 18 200/74 96 Intake and Output 01/03/23 01/04/23 01/04/23 22:59 06:59 14:59 Intake Total 89.333 Balance 89.333 Intake: Intake, IV Titration 89.333 Amount Heparin Sod,Pork in 0.45% 89.333 NaCl 25,000 unit In 0.45 % NaCl 1 250ml.bag @ 5. 319 UNITS/KG/HR 10 mls/hr IV .Q24H [facility] Rx#: [id number] Other: Weight 188 kg Results 01/04/23 04:33 01/03/23 21:06 Cardiac Enzymes 01/03/23 01/03/23 01/03/23 Range/Units 21:06 21:06 23:03 AST 20 (17-59) U/L Troponin I <0.012 <0.012 (0.000-0.034) ng/mL 01/04/23 Range/Units 04:33 AST (17-59) U/L Troponin I <0.012 (0.000-0.034) ng/mL Coagulation 01/03/23 01/03/23 01/04/23 Range/Units 21:06 23:03 04:33 PT 10.3 (9.0-12.0) sec APTT 23.9 24.5 94.3 H (22.0-30.0) sec CBC 01/03/23 01/04/23 Range/Units 21:02 04:33 WBC 6.8 (3.8-10.6) k/uL RBC 5.16 (4.30-5.90) m/uL Hgb 14.3 (13.0-17.5) gm/dL Hct 43.6 (39.0-53.0) % Plt Count 156 156 (150-450) k/uL Comprehensive Metabolic Panel 01/03/23 Range/Units 21:06 Sodium 137 (137-145) mmol/L Potassium 3.7 (3.5-5.1) mmol/L Chloride 100 (98-107) mmol/L Carbon Dioxide 26 (22-30) mmol/L BUN 21 H (9-20) mg/dL Creatinine 1.28 H (0.66-1.25) mg/dL Glucose 161 H (74-99) mg/dL Calcium 8.7 (8.4-10.2) mg/dL AST 20 (17-59) U/L ALT 16 (4-49) U/L Alkaline Phosphatase 123 (38-126) U/L Total Protein 6.2 L (6.3-8.2) g/dL Albumin 3.7 (3.5-5.0) g/dL Current Medications Generic Name Dose Route Start Last Admin Trade Name Freq PRN Reason Stop Dose Admin Aspirin 325 mg 01/04/23 09:00 01/04/23 10:50 Aspirin 325 Mg Tab PO 325 mg DAILY ANA Administration Heparin Sodium/Sodium Chloride 250 mls @ 10 mls/hr 01/03/23 22:45 01/04/23 09:26 25,000 unit/ Sodium Chloride IV 3.72 units/kg/hr .Q24H ANA 7 mls/hr Titration Protocol 5.319 UNITS/KG/HR Morphine Sulfate 4 mg 01/03/23 22:44 Morphine Sulfate 4 Mg/Ml Syringe IV Q4HR PRN Chest Pain Nitroglycerin 0.4 mg 01/03/23 22:44 Nitroglycerin Sl Tabs 0.4 Mg Tab SUBLINGUAL Q5M PRN Chest Pain Intake and Output 01/03/23 01/04/23 01/04/23 22:59 06:59 14:59 Intake Total 89.333 Balance 89.333 Intake: Intake, IV Titration 89.333 Amount Heparin Sod,Pork in 0.45% 89.333 NaCl 25,000 unit In 0.45 % NaCl 1 250ml.bag @ 5. 319 UNITS/KG/HR 10 mls/hr IV .Q24H [facility] Rx#: [id number] Other: Weight 188 kg 01/04/23 04:33 01/03/23 21:06
[2023-01-04] MEDS: METOPROLOL TARTRATE 25 MG TAB PO SCH (13:28)
[2023-01-04 13:46] LABS: Chol/HDL Ratio 3.07 Ratio; LDL Cholesterol,Calculated 71.1 mg/dL (0.0-131.0); VLDL Calculation 18.62 mg/dL (5.00-40.00)
[2023-01-04] MEDS ORDERED: HEPARIN SODIUM 1,000 UN/ML (10ML VL) IV PRN (14:56)
[2023-01-04] MEDS: HEPARIN SOD,PORK IN 0.45% NACL 25,000 UNIT in 0.45% NACL 1 250ML.BAG IV SCH (15:04)
[2023-01-04] MEDS: TAMSULOSIN 0.4 MG CAP.ER.24H PO SCH (15:05)
[2023-01-04] MEDS: hydroCHLOROthiazide 12.5 MG CAP PO SCH (16:00)
[2023-01-05] MEDS: METOPROLOL TARTRATE 25 MG TAB PO SCH ×2 (01:29→09:32)
[2023-01-05] MEDS: HEPARIN SOD,PORK IN 0.45% NACL 25,000 UNIT in 0.45% NACL 1 250ML.BAG IV SCH (03:53)
[2023-01-05 06:37] LABS: Mean Platelet Volume 8.1; Platelet Count 143 k/uL (150-450)
[2023-01-05] MEDS ORDERED: hydroCHLOROthiazide 12.5 MG CAP PO SCH (09:00)
[2023-01-05] MEDS ORDERED: TAMSULOSIN 0.4 MG CAP.ER.24H PO SCH (09:00)
[2023-01-05] MEDS: ASPIRIN 325 MG TAB PO SCH (09:31)
[2023-01-05] MEDS: hydroCHLOROthiazide 12.5 MG CAP PO SCH (09:31)
[2023-01-05] MEDS: TAMSULOSIN 0.4 MG CAP.ER.24H PO SCH (09:31)
[2023-01-05] MEDS: ATORVASTATIN 40 MG TAB PO SCH (09:31)
[2023-01-05] MEDS: PANTOPRAZOLE 40 MG TABLET PO SCH (09:32)
--- NOTE | 2023-01-05 10:11 | P.PN ---
Subjective This is a pleasant 87-year-old male past medical history significant for coronary artery disease status post stent placement to the LAD in the setting of a non-ST elevated myocardial infarction January 2018, hypertension, dyslipidemia, BPH status post TURP in January 2019. He follows in the office with Dr. Ernandez. Patient previously set follow-up with Dr. Galvan. Patient initially had MA with symptoms of left shoulder pain and states he started to have these episodes over last 2 weeks. Occasionally they can happen with exertion however also occurring at rest. He more recently he was washing dishes and then had an episode and therefore presented to emergency department. Troponins noted to be normal 3. He denies any associated shortness breath, nausea, diaphoresis. He did not receive any nitro. Blood pressure noted to be elevated however usually has some degree of whitecoat hypertension and came down on its own. He normally takes metoprolol 50 mg twice a day. EKG shows sinus rhythm with nonspecific minimal 0.[address] depression. 01/05 Patient seen and examined. Patient denies any further shoulder pain. He was placed on heparin drip from the ER. Troponins have been normal. We did increase his metoprolol from 50-75 twice a day however has had asymptomatic bradycardia with heart rates in the 50s. He additionally has been on the hydrochlorothiazide. Blood pressures labile from systolics 100s up to 170s. We will stop his hydrochlorothiazide and add Imdur and put him back on the metoprolol 50 twice a day. Vitals reviewed GENERAL: This is a 84-year-old male in no apparent distress at the ti me of my examination. HEENT: Head is atraumatic, normocephalic. Pupils are equal, round. Sclerae ani cteric. Conjunctivae are clear. Mucous membranes of the mouth are moist. Neck is supple. There is no jugular venous distention. No carotid bruit is heard. LUNGS: Clear to auscultation no wheezes, rales or rhonchi. No chest wall tenderness is noted on palpation or with deep breathing. HEART: Regular rate and rhythm without murmurs, rubs or gallops. S1 and S2 heard. ABDOMEN: Soft, nontender. Bowel sounds are heard. No organomegaly noted. EXTREMITIES: No evidence of peripheral edema and no calf tenderness noted. VASCULAR: Radial and dorsalis pedis pulses palpated, no evidence of clubbing. NEUROLOGIC: Patient is awake, alert and oriented x3. ASSESSMENT Shoulder pain similar to his angina however atypical during rest and activity History of coronary artery disease s/p stent placement 01/2018 History of myocardial infarction Hypertension Dyslipidemia BPH s/p TURP 01/2019 PLAN Patient's symptoms are somewhat similar to his prior angina however not clearly associated with exertion. Given age, risk factors and CKD we will proceed with stress testing first to further evaluate. We will add Imdur and stop the hydrochlorothiazide for better antianginals. Unable to tolerate increased dose of metoprolol with some asymptomatic bradycardia. Decreased back down to 50 mg twice a day and monitor response. Objective - Vital Signs Vital signs: Vital Signs Temp 97.8 F 01/05/23 07:00 Pulse 53 L 01/05/23 08:00 Resp 16 01/05/23 07:00 BP 147/73 01/05/23 07:00 Pulse Ox 92 L 01/05/23 07:00 FiO2 Intake & Output 01/04/23 01/05/23 01/05/23 18:59 06:59 18:59 Intake Total 243.319 105.545 154.327 Balance 243.319 105.545 154.327 Weight 85.275 kg Intake: Intake, IV Titration 125.319 105.545 36.327 Amount Heparin Sod,Pork in 0.45% 35.986 105.545 36.327 NaCl 25,000 unit In 0.45 % NaCl 1 250ml.bag @ 11. 72 UNITS/KG/HR 9.994 mls/ hr IV .Q24H [facility] Rx#: [id number] Heparin Sod,Pork in 0.45% 89.333 NaCl 25,000 unit In 0.45 % NaCl 1 250ml.bag @ 5. 319 UNITS/KG/HR 10 mls/hr IV .Q24H [facility] Rx#: [id number] Oral 118 118 Other: Voiding Method Toilet # Voids 1 2 1 - Labs CBC & Chem 7: 01/05/23 06:04 01/03/23 21:06 Labs: Abnormal Lab Results - Last 24 Hours (Table) 01/04/23 01/04/23 01/04/23 Range/Units 11:09 17:04 23:43 Plt Count (150-450) k/uL APTT 39.9 H 37.3 H 91.2 H (22.0-30.0) sec 01/05/23 01/05/23 Range/Units 06:04 06:04 Plt Count 143 L (150-450) k/uL APTT 77.0 H (22.0-30.0) sec
[2023-01-05] MEDS: METOPROLOL TARTRATE 50 MG TAB PO SCH (10:30)
[2023-01-05] MEDS: ISOSORBIDE MONONITRATE ER 30 MG TAB.ER.24H PO SCH (10:30)
--- NOTE | 2023-01-05 17:38 | P.HPIM ---
History of Present Illness H&P Date: 01/04/23 Chief Complaint: Chest pain 87-year-old male who presents to ER today for evaluation regards to chest pain. He complains of back pain but it feels just like prior CO when he had stents placed. One stent placed. Patient symptoms of been episodic for the last few days but are persistent today and was able to get him to come the hospital which she has not wanted to do. Patient has history of CAD high blood pressure high cholesterol. Troponins noted to be normal 3. He denies any associated shortness breath, nausea, diaphoresis. He did not receive any nitro. Blood pressure noted to be elevated however usually has some degree of whitecoat hypertension and came down on its own. He normally takes metoprolol 50 mg twice a day. EKG shows sinus rhythm with nonspecific minimal 0.[address] depression. Review of Systems REVIEW OF SYSTEMS: CONSTITUTIONAL: No fever, no malaise, no fatigue. HEENT: No recent visual problems or hearing problems. Denied any sore throat. CARDIOVASCULAR: No chest pain, orthopnea, PND, no palpitations, no syncope. PULMONARY: No shortness of breath, no cough, no hemoptysis. GASTROINTESTINAL: No diarrhea, no nausea, no vomiting, no abdominal pain. NEUROLOGICAL: No headaches, no weakness, no numbness. HEMATOLOGICAL: Denies any bleeding or petechiae. GENITOURINARY: Denies any burning micturition, frequency, or urgency. MUSCULOSKELETAL/RHEUMATOLOGICAL: Denies any joint pain, swelling, or any muscle pain. ENDOCRINE: Denies any polyuria or polydipsia. The rest of the 14-point review of systems is negative. Past Medical History Past Medical History: Coronary Artery Disease (CAD), Hyperlipidemia, Hypertension, Memory Impairment, Myocardial Infarction (CO), Pneumonia, Prostate Disorder, Renal Disease Additional Past Medical History / Comment(s): BPH with surgery in 01/2019-had hematuria post op, past urinary retention, CRD stage III, sciatic nerve pain, vertigo, colitis years ago, past detached retina with surgery-pt cannot recall laterallity, gait sysfunction, wears R leg brace, [place]-wears hearing aides, pneumonia and yellow jaundice as a child. Last Myocardial Infarction Date:: 01/08/18 History of Any Multi-Drug Resistant Organisms: None Reported Past Surgical History: Heart Catheterization With Stent, Hernia Repair, Orthopedic Surgery, Tonsillectomy Additional Past Surgical History / Comment(s): PCI with stent 01/08/18, inguinal hernia repair-pt cannot recall laterallity, 02/17/19 TURP, R knee surgery to repair cartlidge, hemorroidectomy, colonoscopy, retinal surgery for detachment- pt cannot recall laterallity. Past Anesthesia/Blood Transfusion Reactions: No Reported Reaction Additional Past Anesthesia/Blood Transfusion Reaction / Comment(s): as a child had loss of vision after hernia surgery Date of Last Stent Placement:: 01/08/2018 Past Psychological History: No Psychological Hx Reported Smoking Status: Former smoker Past Alcohol Use History: None Reported Past Drug Use History: None Reported - Past Family History Father Additional Family Medical History / Comment(s): alcoholic- at age 69 Mother Family Medical History: CVA/TIA Medications and Allergies Home Medications Medication Instructions Recorded Confirmed Type Tamsulosin HCl [Flomax] 0.8 mg PO DAILY 02/04/16 01/04/23 History Metoprolol Tartrate [Lopressor] 50 mg PO DAILY 12/21/18 01/04/23 History Aspirin EC [Ecotrin Low Dose] 81 mg PO DAILY 05/11/21 01/04/23 History Atorvastatin [Lipitor] 40 mg PO DAILY 09/12/21 01/04/23 History Pantoprazole [Protonix] 40 mg PO DAILY 09/12/21 01/04/23 History hydroCHLOROthiazide [Hydrodiuril] 12.5 mg PO DAILY 09/12/21 01/04/23 History Allergies Allergy/AdvReac Type Severity Reaction Status Date / Time No Known Allergies Allergy Verified 01/04/23 11:14 Physical Exam Vitals: Vital Signs Temp Pulse Resp BP Pulse Ox 01/04/23 12:00 98.3 F 58 L 16 97 01/04/23 08:00 97 F L 54 L 18 178/76 96 01/04/23 06:53 98.8 F 56 L 18 144/87 97 01/04/23 02:00 46 L 16 139/75 96 01/03/23 22:00 54 L 16 146/71 94 L 01/03/23 20:29 97.5 F L 66 18 200/74 96 Intake and Output 01/03/23 01/04/23 01/04/23 22:59 06:59 14:59 Intake Total 89.333 Balance 89.333 Intake: Intake, IV Titration 89.333 Amount Heparin Sod,Pork in 0.45% 89.333 NaCl 25,000 unit In 0.45 % NaCl 1 250ml.bag @ 5. 319 UNITS/KG/HR 10 mls/hr IV .Q24H [facility] Rx#: [id number] Other: Weight 188 kg PHYSICAL EXAMINATION: GENERAL: The patient is alert and oriented x3, not in any acute distress. Well developed, well nourished. HEENT: Pupils are round and equally reacting to light. EOMI. No scleral icterus. No conjunctival pallor. Normocephalic, atraumatic. No pharyngeal erythema. No thyromegaly. CARDIOVASCULAR: S1 and S2 present. No murmurs, rubs, or gallops. PULMONARY: Chest is clear to auscultation, no wheezing or crackles. ABDOMEN: Soft, nontender, nondistended, normoactive bowel sounds. No palpable organomegaly. MUSCULOSKELETAL: No joint swelling or deformity. EXTREMITIES: No cyanosis, clubbing, or pedal edema. NEUROLOGICAL: Gross neurological examination did not reveal any focal deficits. SKIN: No rashes. Results CBC & Chem 7: 01/05/23 06:04 01/03/23 21:06 Labs: Abnormal Lab Results - Last 24 Hours (Table) 01/03/23 01/04/23 01/04/23 Range/Units 21:06 04:33 11:09 APTT 94.3 H 39.9 H (22.0-30.0) sec BUN 21 H (9-20) mg/dL Creatinine 1.28 H (0.66-1.25) mg/dL Glucose 161 H (74-99) mg/dL Total Protein 6.2 L (6.3-8.2) g/dL Assessment and Plan Assessment: 1. Chest pain rule out ACS - Patient is to be admitted to telemetry to monitor EKG -Patient does have history of coronary artery disease with stent placement in January 2018 - Patient remains on aspirin, statins and beta blockers - Cardiology is consulted 2. Hypertension; metoprolol 50 mg twice a day; Imdur 30 mg daily 3. Hyperlipidemia; Lipitor 40 mg by mouth daily at bedtime 4. BPH; patient is status post TURP in January 2019; Flomax 0.8 mg daily 5. Chronic kidney disease; at baseline DVT prophylaxis; SCDs CODE STATUS; full code
--- NOTE | 2023-01-05 17:40 | P.PN ---
Subjective Progress Note Date: 01/05/23 87-year-old male who presents to ER today for evaluation regards to chest pain. He complains of back pain but it feels just like prior MA when he had stents placed. One stent placed. Patient symptoms of been episodic for the last few days but are persistent today and was able to get him to come the hospital which she has not wanted to do. Patient has history of CAD high blood pressure high cholesterol. Troponins noted to be normal 3. He denies any associated shortness breath, nausea, diaphoresis. He did not receive any nitro. Blood pressure noted to be elevated however usually has some degree of whitecoat hypertension and came down on its own. He normally takes metoprolol 50 mg twice a day. EKG shows sinus rhythm with nonspecific minimal 0.[address] depression. -- Patient has been evaluated by cardiology and is recommended stress test which will be completed tomorrow; patient was placed on metoprolol resulting in bradycardia; cardiology recommending to cut the dose down to 50 mg daily; Imdur 30 mg daily sided Objective - Vital Signs Vital signs: Vital Signs Temp 97.6 F 01/05/23 14:28 Pulse 62 01/05/23 14:28 Resp 14 01/05/23 14:28 BP 122/62 01/05/23 15:01 Pulse Ox 94 L 01/05/23 14:28 FiO2 Intake & Output 01/04/23 01/05/23 01/05/23 18:59 06:59 18:59 Intake Total 243.319 105.545 272.327 Balance 243.319 105.545 272.327 Weight 85.275 kg Intake: Intake, IV Titration 125.319 105.545 36.327 Amount Heparin Sod,Pork in 0.45% 35.986 105.545 36.327 NaCl 25,000 unit In 0.45 % NaCl 1 250ml.bag @ 11. 72 UNITS/KG/HR 9.994 mls/ hr IV .Q24H [facility] Rx#: [id number] Heparin Sod,Pork in 0.45% 89.333 NaCl 25,000 unit In 0.45 % NaCl 1 250ml.bag @ 5. 319 UNITS/KG/HR 10 mls/hr IV .Q24H [facility] Rx#: [id number] Oral 118 236 Other: Voiding Method Toilet # Voids 1 2 1 - Exam PHYSICAL EXAMINATION: GENERAL: The patient is alert and oriented x3, not in any acute distress. Well developed, well nourished. HEENT: Pupils are round and equally reacting to light. EOMI. No scleral icterus. No conjunctival pallor. Normocephalic, atraumatic. No pharyngeal erythema. No thyromegaly. CARDIOVASCULAR: S1 and S2 present. No murmurs, rubs, or gallops. PULMONARY: Chest is clear to auscultation, no wheezing or crackles. ABDOMEN: Soft, nontender, nondistended, normoactive bowel sounds. No palpable organomegaly. MUSCULOSKELETAL: No joint swelling or deformity. EXTREMITIES: No cyanosis, clubbing, or pedal edema. NEUROLOGICAL: Gross neurological examination did not reveal any focal deficits. SKIN: No rashes. - Labs CBC & Chem 7: 01/05/23 06:04 01/03/23 21:06 Labs: Abnormal Lab Results - Last 24 Hours (Table) 01/04/23 01/05/23 01/05/23 Range/Units 23:43 06:04 06:04 Plt Count 143 L (150-450) k/uL APTT 91.2 H 77.0 H (22.0-30.0) sec Assessment and Plan Assessment: 1. Chest pain rule out ACS - Patient is to be admitted to telemetry to monitor EKG -Patient does have history of coronary artery disease with stent placement in January 2018 - Patient remains on aspirin, statins and beta blockers - Cardiology is consulted 2. Hypertension; metoprolol 50 mg twice a day; Imdur 30 mg daily 3. Hyperlipidemia; Lipitor 40 mg by mouth daily at bedtime 4. BPH; patient is status post TURP in January 2019; Flomax 0.8 mg daily 5. Chronic kidney disease; at baseline DVT prophylaxis; SCDs CODE STATUS; full code
[2023-01-06 03:20] VITALS: RESP 16
[2023-01-06] MEDS: METOPROLOL TARTRATE 50 MG TAB PO SCH ×2 (03:30→12:20)
[2023-01-06] MEDS ORDERED: REGADENOSON 0.4 MG/5 ML SYRINGE IV PRN (05:00)
[2023-01-06 06:41] LABS: Mean Platelet Volume 8.4; Platelet Count 141 k/uL (150-450)
[2023-01-06 06:56] LABS: African American GFR (CKD) 55 (>60 ml/min/1.73 sqM); Anion Gap 6 mmol/L; Blood Urea Nitrogen 26 mg/dL (9-20); Calcium 8.6 mg/dL (8.4-10.2); Carbon Dioxide 30 mmol/L (22-30); Chloride 102 mmol/L (98-107); Glucose 99 mg/dL (74-99); Non-African American GFR(CKD) 48 (>60 ml/min/1.73 sqM); Potassium 3.9 mmol/L (3.5-5.1); Sodium 138 mmol/L (137-145)
--- NOTE | 2023-01-06 09:46 | P.PN ---
Subjective Progress Note Date: 01/06/23 This is a pleasant 87-year-old male past medical history significant for coronary artery disease status post stent placement to the LAD in the setting of a non-ST elevated myocardial infarction January 2018, hypertension, dyslipidemia, BPH status post TURP in January 2019. He follows in the office with Dr. Ernandez. Patient previously set follow-up with Dr. Galvan. Patient initially had GA with symptoms of left shoulder pain and states he started to have these episodes over last 2 weeks. Occasionally they can happen with exertion however also occurring at rest. He more recently he was washing dishes and then had an episode and therefore presented to emergency department. Troponins noted to be normal 3. He denies any associated shortness breath, nausea, diaphoresis. He did not receive any nitro. Blood pressure noted to be elevated however usually has some degree of whitecoat hypertension and came down on its own. He normally takes metoprolol 50 mg twice a day. EKG shows sinus rhythm with nonspecific minimal 0.[address] depression. 01/05 Patient seen and examined. Patient denies any further shoulder pain. He was placed on heparin drip from the ER. Troponins have been normal. We did increase his metoprolol from 50-75 twice a day however has had asymptomatic bradycardia with heart rates in the 50s. He additionally has been on the hydrochlorothiazide. Blood pressures labile from systolics 100s up to 170s. We will stop his hydrochlorothiazide and add Imdur and put him back on the metoprolol 50 twice a day. 01/06 Patient is seen today in follow-up. He states his breathing is okay, no chest pain, no lightheadedness or dizziness, no chest pressure. He is scheduled for Lexiscan stress test today. Indoor was added to his medication regime and hydrochlorothiazide was discontinued. Heart rate is in the 50s and 60s, blood pressure 148/71, pulse ox 95% on room air. Repeat blood work reveals electrolytes normal, BUN 26 creatinine 1.34. Platelet count 141. Vitals reviewed GENERAL: This is a 84-year-old male in no apparent distress at the time of my examination. HEENT: Head is atraumatic, normocephalic. Pupils are equal, round. Sclerae anicteric. Conjunctivae are clear. Mucous membranes of the mouth are moist. Neck is supple. There is no jugular venous distention. No carotid bruit is heard. LUNGS: Clear to auscultation no wheezes, rales or rhonchi. No chest wall tenderness is noted on palpation or with deep breathing. HEART: Regular rate and rhythm without murmurs, rubs or gallops. S1 and S2 heard. ABDOMEN: Soft, nontender. Bowel sounds are heard. No organomegaly noted. EXTREMITIES: No evidence of peripheral edema and no calf tenderness noted. VASCULAR: Radial and dorsalis pedis pulses palpated, no evidence of clubbing. NEUROLOGIC: Patient is awake, alert and oriented x3. ASSESSMENT Shoulder pain similar to his angina however atypical during rest and activity History of coronary artery disease s/p stent placement 01/2018 History of myocardial infarction Hypertension Dyslipidemia BPH s/p TURP 01/2019 PLAN Patient's symptoms are somewhat similar to his prior angina however not clearly associated with exertion. Given age, risk factors and CKD we will proceed with stress testing first to further evaluate. Unable to tolerate increased dose of metoprolol with some asymptomatic bradycardia. Decreased back down to 50 mg twice a day and monitor response. If stress test is within normal limits, patient is cleared for discharge from cardiology. Patient may follow-up in the office in one week. Nurse practitioner note has been reviewed, I agree with the documented findings and plan of care. Patient was seen and examined. Objective - Vital Signs Vital signs: Vital Signs Temp 97.6 F 01/06/23 02:00 Pulse 53 L 01/06/23 02:00 Resp 16 01/06/23 02:00 BP 118/48 01/06/23 02:00 Pulse Ox 93 L 01/06/23 02:00 FiO2 Intake & Output 01/05/23 01/06/23 01/06/23 18:59 06:59 18:59 Intake Total 512.327 Balance 512.327 Intake: Intake, IV Titration 36.327 Amount Heparin Sod,Pork in 0.45% 36.327 NaCl 25,000 unit In 0.45 % NaCl 1 250ml.bag @ 11. 72 UNITS/KG/HR 9.994 mls/ hr IV .Q24H [facility] Rx#: [id number] Oral 476 Other: Voiding Method Toilet # Voids 1 2 - Labs CBC & Chem 7: 01/06/23 06:05 06/12/23 06:05 Labs: Abnormal Lab Results - Last 24 Hours (Table) 01/06/23 01/06/23 Range/Units 06:05 06:05 Plt Count 141 L (150-450) k/uL BUN 26 H (9-20) mg/dL Creatinine 1.34 H (0.66-1.25) mg/dL
--- NOTE | 2023-01-06 11:49 | NM ---
EXAMINATION TYPE: NM stress lexiscan cardiolite DATE OF EXAM: 01/06/2023 COMPARISON: NONE CLINICAL INDICATION: Male, 87 years old with history of re: chest pain; TECHNIQUE: After the intravenous administration of 9.8 mCi Tc 99m Sestamibi - Cardiolite resting SPE CT images acquired 45 minutes post injection. The patient received 0.4mg Lexiscan, 25.4 mCi Tc 99m Sestamibi - Stress images obtained [address] injection FINDINGS: Review of stress and rest SPECT images demonstrates no distinct perfusion abnormality. Gated analysi s shows normal wall motion with an estimated left ventricular ejection fraction of 75 %. IMPRESSION: No scintigraphic evidence for reversible ischemia.
--- NOTE | 2023-01-06 11:49 | CA ---
Lexiscan Nuclear Stress Test Report Name: Harish Cain Exam Date: 01/06/2023 10:08 Exam Location: [facility] Ht (in): 66 Wt (lb): 128 BSA: 1.65 Ordering Phys: Prakash Marvin DO Referring Phys: Edy, Technologist: Paulino Rodriguez Age: 87 Gender: M : 1935 Procedure CPT: Indications: Reflex order-Stress test ICD-10 Codes: Patient History: Medications: SEE CHART Meds past 24 hrs: Pretest Chest Pain: STRESS TEST Lexiscan Protocol Exercise Duration (min:sec): 02:[address] Depressions (mm): Angina Score: Aburto Score: Resting HR (bpm): 60 Peak HR (bpm): 86 Resting BP (mmHg): 149 / 61 Peak BP (mmHg): / 58 MPHR: 134 Target HR: 114 % MPHR: 64 METS: 1.0 Total Dose: Peak Dose: Atropine: Double Product: BP Response: Stress Termination: PROTOCOL COMPLETE Stress Symptoms: NO SYMPTOMS Stress Summary: ECG ANALYSIS Resting ECG: Sinus rhythm. Normal conduction. No arrhythmias. Normal repolarization. Stress ECG: No ECG changes from baseline with Lexiscan infusion. CONCLUSIONS No ECG evidence of ischemia with Lexiscan infusion. Nuclear test results to follow. Dr. Ethan Delgado MD (Electronically Signed) Final Date: 06 January 2023 11:48
[2023-01-06 12:16] VITALS: BP 168/72; PULSE 63; TEMP 97.9
[2023-01-06] MEDS: PANTOPRAZOLE 40 MG TABLET PO SCH (12:17)
[2023-01-06] MEDS: ASPIRIN 325 MG TAB PO SCH (12:18)
[2023-01-06] MEDS: ISOSORBIDE MONONITRATE ER 30 MG TAB.ER.24H PO SCH (12:18)
[2023-01-06] MEDS: TAMSULOSIN 0.4 MG CAP.ER.24H PO SCH (12:18)
[2023-01-06] MEDS: ATORVASTATIN 40 MG TAB PO SCH (12:18)
--- NOTE | 2023-01-06 14:05 | P.DS ---
Providers Date of admission: 01/03/23 22:44 Attending physician: Cleveland Medley Consults: 01/03/23 22:44 Consult Physician Urgent Consulting Provider: Ethan Delgado Consult Reason/Comments: cp Do you want consulting provider notified?: Yes Primary care physician: Andrés Snow Hospital Course: Final Diagnosis Left shoulder pain, atypical similar to his angina, ACS ruled out. Hypertension Hx hyperlipidemia BPH s/p TURP Chronic kidney disease stage 3 at baseline Hx coronary artery disease with prior stent to the LAD Hx of HI Discharge Disposition Patient is stable for discharge home. Hydrodiuril has been discontinued, patient continues on metoprolol 50 mg twice a day. Patient has been started on isosorbide mononitrate ER daily. Recommend to see cardiology in the office in 1 - 2 weeks. Repeat labs in 2 to 3 days and f/u with your primary provider Dr. Snow on discharge. Hospital Course This is an 87 year old male with medical history of coronary artery disease with prior stent to the LAD back in 2018, hyperlipidemia, BPH with prior TURP, chronic kidney disease. Patient presents with concern for HI was having chest pain to the left shoulder intermittently over the last 2 weeks which has been happening with exertion and at rest. Patient came in to the [facility] for evaluation. Troponin level is negative x 3. Patient denies shortness of breath, no dizziness or lightheadedness, no nausea, vomiting, or diarrhea. He did have elevated blood pressure on admission in the 200s systolic which had improved on its own attributed to anxiety of being hospitalized. Patient underwent lexiscan stress t est reveals an EF of 75% estimated, with no scintographic evidence of reversible ischemia. Medications adjustments have been made as above. Patient currently denying chest pain, denying shortness of breath. No dizziness or lightheadedness. Heart rate of 50-60. Alert x 3. Creatinine is 1.34. Lungs are clear S1 S2 auscultatated and abdomen is soft and nontender. Patient is discharged home with the above mentioned changes and follow up. Please see medication reconciliation for a list of current medication. Thank you for allowing us to participate in the care of this patient. The impression and plan of care has been dictated by Aisha Garay, Nurse Practitioner as directed. Dr. Fatmata MD I have performed a history and physical examination and medical decision making of this patient, discussed the same with the dictator, and agree with the dictators assessment and plan as written, documented as a scribe. Based on total visit time, I have performed more than 50% of this visit. Patient Condition at Discharge: Stable Plan - Discharge Summary Discharge Rx Participant: Yes New Discharge Prescriptions: New Metoprolol Tartrate [Lopressor] 50 mg PO BID #60 tab Isosorbide Mononitrate ER [Imdur] 30 mg PO DAILY #30 tab Continue Tamsulosin HCl [Flomax] 0.8 mg PO DAILY Aspirin EC [Ecotrin Low Dose] 81 mg PO DAILY Pantoprazole [Protonix] 40 mg PO DAILY Atorvastatin [Lipitor] 40 mg PO DAILY Discontinued Metoprolol Tartrate [Lopressor] 50 mg PO DAILY hydroCHLOROthiazide [Hydrodiuril] 12.5 mg PO DAILY Discharge Medication List Tamsulosin HCl [Flomax] 0.8 mg PO DAILY 02/04/16 [History] Aspirin EC [Ecotrin Low Dose] 81 mg PO DAILY 05/11/21 [History] Atorvastatin [Lipitor] 40 mg PO DAILY 09/12/21 [History] Pantoprazole [Protonix] 40 mg PO DAILY 09/12/21 [History] Isosorbide Mononitrate ER [Imdur] 30 mg PO DAILY #30 tab 01/06/23 [Rx] Metoprolol Tartrate [Lopressor] 50 mg PO BID #60 tab 01/06/23 [Rx] Follow up Appointment(s)/Referral(s): Andrés Snow MD [Primary Care Provider] - 1-2 days Obey Ernandez MD [STAFF PHYSICIAN] - 1 Week (Office will call patient with appointment ) Ambulatory/Diagnostic Orders: Basic Metabolic Panel [LAB.AMB] Time Frame: 3 Days, Location: None Selected Complete Blood Count w/diff [LAB.AMB] Time Frame: 3 Days, Location: None Selected Activity/Diet/Wound Care/Special Instructions: Follow up with cardiology on discharge Monitor heart rate and keep log notify provider if heart rate in the mid to low 50s. Notify provider for any dizziness/lightheadedness Repeat labs in 2 to 3 days and follow up with Dr. Snow Discharge Disposition: HOME SELF-CARE
== END 2023-01-06 15:10 | disposition home or self-care (01) ==
LOC: EC 20:28 → 6NMEDSUR 22:44
PROVIDERS: ADMIT Hospitalist; ATTEND Hospitalist
DX: M25.512 Pain in left shoulder (principal); R07.9 Chest pain, unspecified; E78.5 Hyperlipidemia, unspecified; N40.0 Benign prostatic hyperplasia without lower urinary tract symptoms; I12.9 Hypertensive chronic kidney disease with stage 1 through stage 4 chronic kidney disease, or unspecified chronic kidney disease; N18.30 Chronic kidney disease, stage 3 unspecified; I25.10 Atherosclerotic heart disease of native coronary artery without angina pectoris; Z95.5 Presence of coronary angioplasty implant and graft; I25.2 Old myocardial infarction; Z98.890 Other specified postprocedural states; Z79.82 Long term (current) use of aspirin; Z79.899 Other long term (current) drug therapy; R41.3 Other amnesia; Z87.01 Personal history of pneumonia (recurrent); M54.30 Sciatica, unspecified side; Z87.19 Personal history of other diseases of the digestive system; H91.90 Unspecified hearing loss, unspecified ear; Z87.891 Personal history of nicotine dependence; Z81.1 Family history of alcohol abuse and dependence; Z82.3 Family history of stroke
CPT/HCPCS: 96366 ×4; 96365; 99285; 36415; 94760; 93005; 93017; 83880; 80061; 80053; 80048; 83690; 83735; 84484 ×2; 85025; 85049 ×3; 85610; 85730 ×3; 71046; 78452; G0378 ×4; A9500; J1644 ×4; J2785

== ENCOUNTER → 2023-01-09 | Outpatient (CLI) | payer MEDICARE, BC ==
[2023-01-09 16:25] LABS: Basophils # (A) 0.06 X 10*3/uL (0.00-0.10); Basophils % (A) 0.9 %; Eosinophils # (A) 0.14 X 10*3/uL (0.04-0.35); Eosinophils % (A) 2.2 %; HCT 41.4 % (39.6-50.0); HGB 13.1 d/dL (12.0-15.0); Lymphocytes # (A) 1.05 X 10*3/uL (0.90-5.00); Lymphocytes % (A) 16.3 %; MCH 27.8 pg (27.0-32.0); MCHC 31.6 d/dL (32.0-37.0); MCV 87.9 FL (80.0-97.0); Monocytes # (A) 0.52 X 10*3/uL (0.20-1.00); Monocytes % (A) 8.1 %; NRBC Per 100 WBC 0 X 10*3/uL (0.00-0.01); Neutrophils # (A) 4.65 X 10*3/uL (1.80-7.70); Neutrophils % (A) 72.3 %; Platelet Count 187 X 10*3/uL (140-440); RBC 4.71 X 10*6/uL (4.40-5.60); RDW 15.2 % (11.5-14.5); WBC 6.43 X 10*3/uL (4.50-10.00)
== END | disposition home or self-care (01) ==
LOC: LABWHC1 11:56
PROVIDERS: ATTEND Family Medicine
DX: D69.6 Thrombocytopenia, unspecified (principal); N18.30 Chronic kidney disease, stage 3 unspecified
CPT/HCPCS: 36415; 85025

== ENCOUNTER 2023-01-11 06:40 | Inpatient (IN) | payer MEDICARE, BC ==
--- NOTE | 2023-01-11 07:32 | ED ---
General Adult HPI - General Chief complaint: Arrhythmia/Palpitations Stated complaint: RAPID HEART BEAT Time Seen by Provider: 01/11/23 07:00 Source: patient, RN notes reviewed, old records reviewed Mode of arrival: wheelchair Limitations: no limitations - History of Present Illness Initial comments: This is an 87-year-old male who presents emergency department with past medical history significant for coronary artery disease. Patient comes in today because he experienced some left upper back pain which she states is the same pain he had when he had his heart attack. Patient states the pain started about 4:30 and has subsided since then it lasts about an hour and half. Patient states she is mildly short of breath. Patient any diaphoretic episodes. Patient has any radiation of the pain. Patient denies any nausea. Patient states he was not lightheaded or dizzy. Patient denies any headache patient denies numbness weakness. Patient states she was recently admitted for this and they did a stress test that was negative but he did not have a cardiac catheterization. Patient denies any abdominal pain at this time. - Related Data Home Medications Medication Instructions Recorded Confirmed Tamsulosin HCl [Flomax] 0.8 mg PO DAILY 02/04/16 01/04/23 Aspirin EC [Ecotrin Low Dose] 81 mg PO DAILY 05/11/21 01/04/23 Atorvastatin [Lipitor] 40 mg PO DAILY 09/12/21 01/04/23 Pantoprazole [Protonix] 40 mg PO DAILY 09/12/21 01/04/23 Previous Rx's Medication Instructions Recorded Isosorbide Mononitrate ER [Imdur] 30 mg PO DAILY #30 tab 01/06/23 Metoprolol Tartrate [Lopressor] 50 mg PO BID #60 tab 01/06/23 Allergies Allergy/AdvReac Type Severity Reaction Status Date / Time No Known Allergies Allergy Verified 01/11/23 06:43 Review of Systems ROS Statement: Those systems with pertinent positive or pertinent negative responses have been documented in the HPI. ROS Other: All systems not noted in ROS Statement are negative. Past Medical History Past Medical History: Coronary Artery Disease (CAD), Hyperlipidemia, Hy pertension, Memory Impairment, Myocardial Infarction ([place]), Pneumonia, Prostate Disorder, Renal Disease Additional Past Medical History / Comment(s): BPH with surgery in 01/2019-had hematuria post op, past urinary retention, CRD stage III, sciatic nerve pain, vertigo, colitis years ago, past detached retina with surgery-pt cannot recall laterallity, gait sysfunction, wears R leg brace, [place]-wears hearing aides, pneumonia and yellow jaundice as a child. Last Myocardial Infarction Date:: 01/08/18 History of Any Multi-Drug Resistant Organisms: None Reported Past Surgical History: Heart Catheterization With Stent, Hernia Repair, Orthopedic Surgery, Tonsillectomy Additional Past Surgical History / Comment(s): PCI with stent 01/08/18, inguinal hernia repair-pt cannot recall laterallity, 02/17/19 TURP, R knee surgery to repair cartlidge, hemorroidectomy, colonoscopy, retinal surgery for detachment- pt cannot recall laterallity. Past Anesthesia/Blood Transfusion Reactions: No Reported Reaction Additional Past Anesthesia/Blood Transfusion Reaction / Comment(s): as a child had loss of vision after hernia surgery Date of Last Stent Placement:: 01/08/2018 Past Psychological History: No Psychological Hx Reported Smoking Status: Former smoker Past Alcohol Use History: None Reported Past Drug Use History: None Reported - Past Family History Father Additional Family Medical History / Comment(s): alcoholic- at age 69 Mother Family Medical History: CVA/TIA General Exam - General Exam Comments Initial Comments: GENERAL: Patient is well-developed and well-nourished. Patient is nontoxic and well- hydrated and is in mild distress. ENT: Neck is soft and supple. No significant lymphadenopathy is noted. Oropharynx is clear. Moist mucous membranes. Neck has full range of motion without eliciting any pain. EYES: The sclera were anicteric and conjunctiva were pink and moist. Extraocular movements were intact and pupils were equal round and reactive to light. Eyelids were unremarkable. PULMONARY: Unlabored respirations. Good breath sounds bilaterally. No audible rales rhonchi or wheezing was noted. CARDIOVASCULAR: There is a regular rate and rhythm without any murmurs gallops or rubs. ABDOMEN: Soft and nontender with normal bowel sounds. SKIN: Skin is clear with no lesions or rashes and otherwise unremarkable. NEUROLOGIC: Patient is alert and oriented x3. Cranial nerves II through XII are grossly intact. Motor and sensory are also intact. Normal speech, volume and content. Symmetrical smile. MUSCULOSKELETAL: Normal extremities with adequate strength and full range of motion. LYMPHATICS: No significant lymphadenopathy is noted PSYCHIATRIC: Normal psychiatric evaluation. Limitations: no limitations Course Vital Signs 01/11/23 06:43 Temperature 97.7 F Pulse Rate 77 Respiratory 16 Rate Blood Pressure 194/101 O2 Sat by Pulse 95 Oximetry Medical Decision Making - Medical Decision Making EKG is interpreted by myself EKG shows a sinus rhythm at 60 bpm MO interval 170 QRS is 84 QT interval 4:15 QTC is 416. Patient's EKG shows no ST segment elevation or depression Was pt. sent in by a medical professional or institution (, [facility]OLAN, WAREHOUSE PROCESSOR, urgent care, hospital, or prison...) When possible be specific @ -[No] Did you speak to anyone other than the patient for history (EMS, parent, family, police, friend...)? What history was obtained from this source @ -[No] Did you review nursing and triage notes (agree or disagree)? Why? @ -[I reviewed and agree with nursing and triage notes] Were old charts reviewed (outside hosp., previous admission, EMS record, old EKG, old radiological studies, urgent care reports/EKG's, prison records)? Report findings @ -Old charts old lab work and old EKGs Differential Diagnosis (chest pain, altered mental status, abdominal pain women, abdominal pain men, vaginal bleeding, weakness, fever, dyspnea, syncope, headache, dizziness, GI bleed, back pain, seizure, CVA, palpatations, mental health, musculoskeletal)? @ -Differential Chest Pain: Stable Angina, Unstable Angina, STEMI, NSTEMI Aortic Dissection, Pneumothorax, Musculoskeletal, Esophageal Spasm GERD, Cholecystitis, Pancreatitis, Zoster, this is not meant to be an all-inclusive list. EKG interpreted by me (3pts min.). @ -[As above] X-rays interpreted by me (1pt min.). @ -Shows no acute abnormality CT interpreted by me (1pt min.). @ -[None done] U/S interpreted by me (1pt. min.). @ -[None done] What testing was considered but not performed or refused? (CT, X-rays, U/S, labs)? Why? @ -[None] What meds were considered but not given or refused? Why? @ -[None] Did you discuss the management of the patient with other professionals (professionals i.e. Dr. PA, WAREHOUSE PROCESSOR, lab, RT, psych nurse, social media campaign manager, drawbench operator helper, teacher, ambulance officer, protective services case worker)? Give summary @ -I spoke with the [facility] agreed to admit the patient admitted the patient I wrote admitting orders Was smoking cessation discussed for >3mins.? @ -[No] Was critical care preformed (if so, how long)? @ -[No] Were there social determinants of health that impacted care today? How? (Jacquelin elessness, low income, unemployed, alcoholism, drug addiction, transportation, low edu. Level, literacy, decrease access to med. care, retirement, rehab)? @ -[No] Was there de-escalation of care discussed even if they declined (Discuss DNR or withdrawal of care, Hospice)? DNR status @ -[No] What co-morbidities impacted this encounter? (DM, HTN, Smoking, COPD, CAD, Cancer, CVA, ARF, Chemo, Hep., AIDS, mental health diagnosis, sleep apnea, morbid obesity)? @ -[None] Was patient admitted / discharged? Hospital course, mention meds given and route, prescriptions, significant lab abnormalities, going to OR and other pertinent info. @ -Patient was seen in the hospital he was pain-free when he arrived he continued to be pain-free throughout the course. Lab work and x-rays were normal but because the patient's similarity to his pain when he had an [place] I spoke with [facility] hospitalist agreed to admit the patient admitted him and I consulted cardiology. Undiagnosed new problem with uncertain prognosis? @ -[No] Drug Therapy requiring intensive monitoring for toxicity (Heparin, Nitro, Insulin, Cardizem)? @ -[No] Were any procedures done? @ -[No] Diagnosis/symptom? @ -Chest pain Acute, or Chronic, or Acute on Chronic? @ -Acute Uncomplicated (without systemic symptoms) or Complicated (systemic symptoms)? @ -Complicated Side effects of treatment? @ -[No] Exacerbation, Progression, or Severe Exacerbation? @ -[No] Poses a threat to life or bodily function? How? (Chest pain, [place], [place], pneumonia, PE, COPD, DKA, ARF, appy, cholecystitis, CVA, Diverticulitis, Homicidal, Suicidal, threat to staff... and all critical care pts) @ -Yes this could lead to poor cardiac output and/or dysfunction - Lab Data Result diagrams: 01/11/23 07:41 01/11/23 07:41 Lab Results 01/11/23 01/11/23 01/11/23 Range/Units 07:41 07:41 07:41 WBC 6.1 (3.8-10.6) k/uL RBC 5.31 (4.30-5.90) m/uL Hgb 14.6 (13.0-17.5) gm/dL Hct 45.6 (39.0-53.0) % MCV 85.9 (80.0-100.0) fL MCH 27.5 (25.0-35.0) pg MCHC 32.0 (31.0-37.0) g/dL RDW 14.4 (11.5-15.5) % Plt Count 166 (150-450) k/uL MPV 7.8 Neutrophils % 75 % Lymphocytes % 13 % Monocytes % 8 % Eosinophils % 2 % Basophils % 1 % Neutrophils # 4.5 (1.3-7.7) k/uL Lymphocytes # 0.8 L (1.0-4.8) k/uL Monocytes # 0.5 (0-1.0) k/uL Eosinophils # 0.1 (0-0.7) k/uL Basophils # 0.0 (0-0.2) k/uL PT 10.4 (9.0-12.0) sec INR 1.0 (<1.2) APTT 25.8 (22.0-30.0) sec Sodium 137 (137-145) mmol/L Potassium 5.5 H (3.5-5.1) mmol/L Chloride 107 (98-107) mmol/L Carbon Dioxide 25 (22-30) mmol/L Anion Gap 5 mmol/L BUN 19 (9-20) mg/dL Creatinine 1.18 (0.66-1.25) mg/dL Est GFR (CKD-EPI)AfAm 64 (>60 ml/min/1.73 sqM) Est GFR (CKD-EPI)NonAf 56 (>60 ml/min/1.73 sqM) Glucose 110 H (74-99) mg/dL Calcium 8.7 (8.4-10.2) mg/dL Magnesium 2.1 (1.6-2.3) mg/dL Total Bilirubin 1.4 H (0.2-1.3) mg/dL AST 38 (17-59) U/L ALT 18 (4-49) U/L Alkaline Phosphatase 102 (38-126) U/L Troponin I (0.000-0.034) ng/mL Total Protein 7.0 (6.3-8.2) g/dL Albumin 3.9 (3.5-5.0) g/dL 01/11/23 Range/Units 07:41 WBC (3.8-10.6) k/uL RBC (4.30-5.90) m/uL Hgb (13.0-17.5) gm/dL Hct (39.0-53.0) % MCV (80.0-100.0) fL MCH (25.0-35.0) pg MCHC (31.0-37.0) g/dL RDW (11.5-15.5) % Plt Count (150-450) k/uL MPV Neutrophils % % Lymphocytes % % Monocytes % % Eosinophils % % Basophils % % Neutrophils # (1.3-7.7) k/uL Lymphocytes # (1.0-4.8) k/uL Monocytes # (0-1.0) k/uL Eosinophils # (0-0.7) k/uL Basophils # (0-0.2) k/uL PT (9.0-12.0) sec INR (<1.2) APTT (22.0-30.0) sec Sodium (137-145) mmol/L Potassium (3.5-5.1) mmol/L Chloride (98-107) mmol/L Carbon Dioxide (22-30) mmol/L Anion Gap mmol/L BUN (9-20) mg/dL Creatinine (0.66-1.25) mg/dL Est GFR (CKD-EPI)AfAm (>60 ml/min/1.73 sqM) Est GFR (CKD-EPI)NonAf (>60 ml/min/1.73 sqM) Glucose (74-99) mg/dL Calcium (8.4-10.2) mg/dL Magnesium (1.6-2.3) mg/dL Total Bilirubin (0.2-1.3) mg/dL AST (17-59) U/L ALT (4-49) U/L Alkaline Phosphatase (38-126) U/L Troponin I <0.012 (0.000-0.034) ng/mL Total Protein (6.3-8.2) g/dL Albumin (3.5-5.0) g/dL Disposition Clinical Impression: Chest pain Disposition: ADMITTED IP TO THIS HOSP Referrals: Andrés Snow MD [Primary Care Provider] - 1-2 days Time of Disposition: 08:43
[2023-01-11] MEDS ORDERED: SODIUM CHLORIDE 0.9% 500 ML 500 ML IV STA (07:40)
--- NOTE | 2023-01-11 07:58 | XR ---
EXAMINATION TYPE: XR chest 2V DATE OF EXAM: 01/11/2023 7:52 AM COMPARISON: Chest radiographs from 01/03/2023 TECHNIQUE: XR chest 2V Frontal and lateral views of the chest. CLINICAL INDICATION:Male, 87 years old with history of dysrhythmia; FINDINGS: Lungs/Pleura: There is no evidence of pleural effusion, focal consolidation, or pneumothorax. Pulmonary vascularity: Unremarkable. Heart/mediastinum: Cardiomediastinal silhouette is unremarkable. Musculoskeletal: No acute osseous pathology. IMPRESSION: No acute cardiopulmonary disease/process. No change from prior.
[2023-01-11 08:04] LABS: Basophils % (A) 1 %; Eosinophils # (A) 0.1 k/uL (0-0.7); Eosinophils % (A) 2 %; HCT 45.6 % (39.0-53.0); HGB 14.6 gm/dL (13.0-17.5); Lymphocytes # (A) 0.8 k/uL (1.0-4.8); Lymphocytes % (A) 13 %; MCH 27.5 pg (25.0-35.0); MCV 85.9 fL (80.0-100.0); Mean Platelet Volume 7.8; Monocytes # (A) 0.5 k/uL (0-1.0); Monocytes % (A) 8 %; Neutrophils # (A) 4.5 k/uL (1.3-7.7); Neutrophils % (A) 75 %; Platelet Count 166 k/uL (150-450); RBC 5.31 m/uL (4.30-5.90); RDW 14.4 % (11.5-15.5); WBC 6.1 k/uL (3.8-10.6)
[2023-01-11 08:17] LABS: ALT 18 U/L (4-49); AST 38 U/L (17-59); African American GFR (CKD) 64 (>60 ml/min/1.73 sqM); Albumin 3.9 g/dL (3.5-5.0); Alkaline Phosphatase 102 U/L (38-126); Anion Gap 5 mmol/L; Blood Urea Nitrogen 19 mg/dL (9-20); Calcium 8.7 mg/dL (8.4-10.2); Carbon Dioxide 25 mmol/L (22-30); Chloride 107 mmol/L (98-107); Glucose 110 mg/dL (74-99); Magnesium 2.1 mg/dL (1.6-2.3); Non-African American GFR(CKD) 56 (>60 ml/min/1.73 sqM); Sodium 137 mmol/L (137-145); Total Bilirubin 1.4 mg/dL (0.2-1.3)
[2023-01-11 08:26] LABS: Potassium 5.5 mmol/L (3.5-5.1)
[2023-01-11 08:30] LABS: Partial Thromboplastin Time 25.8 sec (22.0-30.0); Prothrombin Time 10.4 sec (9.0-12.0)
[2023-01-11] MEDS ORDERED: NITROGLYCERIN SL TABS 0.4 MG TAB SUBLINGUAL PRN (08:43)
--- NOTE | 2023-01-11 10:39 | US ---
EXAMINATION TYPE: US gallbladder DATE OF EXAM: 01/11/2023 COMPARISON: CT 01/21/2021 CLINICAL INDICATION: Male, 87 years old with history of gall stones; left shoulder pain, h/o heart is sues TECHNIQUE: Multiple sonographic images of the right upper quadrant are obtained. FINDINGS: EXAM MEASUREMENTS: Liver Length: 11.4 cm Gallbladder Wall: 0.2 cm CBD: 0.4 cm Right Kidney: 7.9 x 4.1 x 5.5 cm WOOD HEEL FITTER MACHINE NOTES:bowel gas limits exam Pancreas: not seen due to gas Liver: intercostal images only, wnl Gallbladder: possible 0.4cm polyp versus non shadowing stone Evidence for sonographic Sanz's sign: no CBD: wnl Right Kidney: estimated size was smaller then normal, bowel gas limited views. IMPRESSION: No evidence for acute process. Hyperechoic focus along the gallbladder wall could represent nonshadowing calculus versus polyp adher ent to 4 mm. Consider follow-up in 6 months to confirm stability.
--- NOTE | 2023-01-11 11:00 | P.HPIM ---
History of Present Illness Patient is a pleasant 87-year-old male came in with complaints of palpitations and occasional chest pain. Patient was extensively evaluated during his recent hospital physician Tresa he had a stress test which was within normal limits patient denied any associated diaphoresis. Patient states his pain is mild to moderate severity going to back of the shoulder blades. Because of the nature of the pain I obtain ultrasound of the gallbladder which showed suspicious polyp which can be followed as an outpatient, discussed with the Gen. surgery and patient will follow with general surgery as an outpatient. EKG did not show any acute ST-T wave changes troponins are negative. After cardiology evaluation patient may need a Holter monitor and after that patient can be discharged patient had mild hyperkalemia but patient has hemolysis will need a low potassium diet as an outpatient and basic metabolic profile on his visit to PCP. REVIEW OF SYSTEMS: CONSTITUTIONAL: No fever, no malaise, no fatigue. HEENT: No recent visual problems or hearing problems. Denied any sore throat. CARDIOVASCULAR: no orthopnea, PND, no syncope. PULMONARY: No shortness of breath, no cough, no hemoptysis. GASTROINTESTINAL: No diarrhea, no nausea, no vomiting, no abdominal pain. NEUROLOGICAL: No headaches, no weakness, no numbness. HEMATOLOGICAL: Denies any bleeding or petechiae. GENITOURINARY: Denies any burning micturition, frequency, or urgency. MUSCULOSKELETAL/RHEUMATOLOGICAL: Denies any joint pain, swelling, or any muscle pain. ENDOCRINE: Denies any polyuria or polydipsia. The rest of the 14-point review of systems is negative. PHYSICAL EXAMINATION: GENERAL: The patient is alert and oriented x3, not in any acute distress. Well developed, well nourished. HEENT: Pupils are round and equally reacting to light. EOMI. No scleral icterus. No conjunctival pallor. Normocephalic, atraumatic. No pharyngeal erythema. No thyromegaly. CARDIOVASCULAR: S1 and S2 present. No murmurs, rubs, or gallops. PULMONARY: Chest is clear to auscultation, no wheezing or crackles. ABDOMEN: Soft, nontender, nondistended, normoactive bowel sounds. No palpable organomegaly. MUSCULOSKELETAL: No joint swelling or deformity. EXTREMITIES: No cyanosis, clubbing, or pedal edema. NEUROLOGICAL: Gross neurological examination did not reveal any focal deficits. SKIN: No rashes. Assessment and plan -Palpitations and chest pressure: Patient may have heart rhythm abnormalities for which patient will need a monitor upon discharge -Ruled out cholelithiasis -GERD -Benign prostatic hypertrophy -Hyperlipidemia -Coronary artery disease with stents in the past Patient will be discharged if cleared by cardiology and if he can get a monitor. Past Medical History Past Medical History: Coronary Artery Disease (CAD), Hyperlipidemia, Hypertension, Memory Impairment, Myocardial Infarction ([place]), Pneumonia, Prostate Disorder, Renal Disease Additional Past Medical History / Comment(s): BPH with surgery in 01/2019-had hematuria post op, past urinary retention, CRD stage III, sciatic nerve pain, vertigo, colitis years ago, past detached retina with surgery-pt cannot recall l aterallity, gait sysfunction, wears R leg brace, [place]-wears hearing aides, pneumonia and yellow jaundice as a child. Last Myocardial Infarction Date:: 01/08/18 History of Any Multi-Drug Resistant Organisms: None Reported Past Surgical History: Heart Catheterization With Stent, Hernia Repair, Orthopedic Surgery, Tonsillectomy Additional Past Surgical History / Comment(s): PCI with stent 01/08/18, inguinal hernia repair-pt cannot recall laterallity, 02/17/19 TURP, R knee surgery to repair cartlidge, hemorroidectomy, colonoscopy, retinal surgery for detachment- pt cannot recall laterallity. Past Anesthesia/Blood Transfusion Reactions: No Reported Reaction Additional Past Anesthesia/Blood Transfusion Reaction / Comment(s): As a child had loss of vision after hernia surgery Date of Last Stent Placement:: 01/08/2018 Past Psychological History: No Psychological Hx Reported Additional Psychological History / Comment(s): Pt resides alone. He uses a R leg brace and cane or walker to ambulate. He drives short distances. He resides at [facility] in an apartment. There is an elevator. His friend America helps with other tasks. Smoking Status: Former smoker Past Alcohol Use History: None Reported Past Drug Use History: None Reported - Past Family History Father Additional Family Medical History / Comment(s): Alcoholic- at age 69 Mother Family Medical History: CVA/TIA Medications and Allergies Home Medications Medication Instructions Recorded Confirmed Type Tamsulosin HCl [Flomax] 0.8 mg PO DAILY 02/04/16 01/04/23 History Aspirin EC [Ecotrin Low Dose] 81 mg PO DAILY 05/11/21 01/04/23 History Atorvastatin [Lipitor] 40 mg PO DAILY 09/12/21 01/04/23 History Pantoprazole [Protonix] 40 mg PO DAILY 09/12/21 01/04/23 History Isosorbide Mononitrate ER [Imdur] 30 mg PO DAILY #30 tab 01/06/23 Rx Metoprolol Tartrate [Lopressor] 50 mg PO BID #60 tab 01/06/23 Rx Allergies Allergy/AdvReac Type Severity Reaction Status Date / Time No Known Allergies Allergy Verified 01/11/23 06:43 Physical Exam Vitals: Vital Signs Temp Pulse Pulse Resp BP BP Pulse Ox 01/11/23 09:36 97.3 F L 58 L 20 191/71 96 01/11/23 09:00 80 18 149/90 98 01/11/23 06:43 97.7 F 77 16 194/101 95 Intake and Output 01/10/23 01/11/23 01/11/23 22:59 06:59 14:59 Intake Total 762 Balance 762 Intake: Oral 762 Other: # Voids 1 Weight 90.718 kg 90.718 kg Results CBC & Chem 7: 01/11/23 07:41 01/11/23 07:41 Labs: Abnormal Lab Results - Last 24 Hours (Table) 01/11/23 01/11/23 Range/Units 07:41 07:41 Lymphocytes # 0.8 L (1.0-4.8) k/uL Potassium 5.5 H (3.5-5.1) mmol/L Glucose 110 H (74-99) mg/dL Total Bilirubin 1.4 H (0.2-1.3) mg/dL Thrombosis Risk Factor Assmnt - Choose All That Apply Any of the Below Risk Factors Present?: Yes Each Factor Represents 1 point: Obesity (BMI >25) Other Risk Factors: Yes Each Risk Factor Represents 3 Points: Age 75 years or older Other congenital or acquired thrombophilia - If yes, enter type in comment: No Thrombosis Risk Factor Assessment Total Risk Factor Score: 4 Thrombosis Risk Factor Assessment Level: Moderate Risk
--- NOTE | 2023-01-11 11:01 | P.DS ---
Providers Date of admission: 01/11/23 08:43 Attending physician: Cleveland Medley Consults: 01/11/23 08:43 Consult Physician Urgent Consulting Provider: [facility] Consult Reason/Comments: Chest pain Do you want consulting provider notified?: Yes Primary care physician: Andrés Snow [facility] Course: Patient is a pleasant 87-year-old male came in with complaints of palpitations and occasional chest pain. Patient was extensively evaluated during his recent hospital physician Tresa he had a stress test which was within normal limits patient denied any associated diaphoresis. Patient states his pain is mild to moderate severity going to back of the shoulder blades. Because of the nature of the pain I obtain ultrasound of the gallbladder which showed suspicious polyp which can be followed as an outpatient, discussed with the Gen. surgery and patient will follow with general surgery as an outpatient. EKG did not show any acute ST-T wave changes troponins are negative. After cardiology evaluation patient may need a Holter monitor and after that patient can be discharged patient had mild hyperkalemia but patient has hemolysis will need a low potassium diet as an outpatient and basic metabolic profile on his visit to PCP. REVIEW OF SYSTEMS: CONSTITUTIONAL: No fever, no malaise, no fatigue. HEENT: No recent visual problems or hearing problems. Denied any sore throat. CARDIOVASCULAR: no orthopnea, PND, no syncope. PULMONARY: No shortness of breath, no cough, no hemoptysis. GASTROINTESTINAL: No diarrhea, no nausea, no vomiting, no abdominal pain. NEUROLOGICAL: No headaches, no weakness, no numbness. HEMATOLOGICAL: Denies any bleeding or petechiae. GENITOURINARY: Denies any burning micturition, frequency, or urgency. MUSCULOSKELETAL/RHEUMATOLOGICAL: Denies any joint pain, swelling, or any muscle pain. ENDOCRINE: Denies any polyuria or polydipsia. The rest of the 14-point review of systems is negative. PHYSICAL EXAMINATION: GENERAL: The patient is alert and oriented x3, not in any acute distress. Well developed, well nourished. HEENT: Pupils are round and equally reacting to light. EOMI. No scleral icterus. No conjunctival pallor. Normocephalic, atraumatic. No pharyngeal erythema. No thyromegaly. CARDIOVASCULAR: S1 and S2 present. No murmurs, rubs, or gallops. PULMONARY: Chest is clear to auscultation, no wheezing or crackles. ABDOMEN: Soft, nontender, nondistended, normoactive bowel sounds. No palpable organomegaly. MUSCULOSKELETAL: No joint swelling or deformity. EXTREMITIES: No cyanosis, clubbing, or pedal edema. NEUROLOGICAL: Gross neurological examination did not reveal any focal deficits. SKIN: No rashes. Assessment and plan -Palpitations and chest pressure: Patient may have heart rhythm abnormalities for which patient will need a monitor upon discharge -Ruled out cholelithiasis -GERD -Benign prostatic hypertrophy -Hyperlipidemia -Coronary artery disease with stents in the past Patient will be discharged if cleared by cardiology and if he can get a monitor. Plan - Discharge Summary Discharge Rx Participant: Yes New Discharge Prescriptions: No Action Tamsulosin HCl [Flomax] 0.8 mg PO DAILY Metoprolol Tartrate [Lopressor] 50 mg PO BID #60 tab Aspirin EC [Ecotrin Low Dose] 81 mg PO DAILY Pantoprazole [Protonix] 40 mg PO DAILY Atorvastatin [Lipitor] 40 mg PO DAILY Isosorbide Mononitrate ER [Imdur] 30 mg PO DAILY #30 tab Discharge Medication List Tamsulosin HCl [Flomax] 0.8 mg PO DAILY 02/04/16 [History] Aspirin EC [Ecotrin Low Dose] 81 mg PO DAILY 05/11/21 [History] Atorvastatin [Lipitor] 40 mg PO DAILY 09/12/21 [History] Pantoprazole [Protonix] 40 mg PO DAILY 09/12/21 [History] Isosorbide Mononitrate ER [Imdur] 30 mg PO DAILY #30 tab 01/06/23 [Rx] Metoprolol Tartrate [Lopressor] 50 mg PO BID #60 tab 01/06/23 [Rx] Follow up Appointment(s)/Referral(s): Joss Montalvo MD [Medical Doctor] - 1 Week Andrés Snow MD [Primary Care Provider] - 3 Days Activity/Diet/Wound Care/Special Instructions: Cardiac, low potassium diet Discharge Disposition: HOME SELF-CARE
[2023-01-11] MEDS ORDERED: NITROGLYCERIN OINT 1 INCH/GM PACKET TOPICAL SCH (12:00)
[2023-01-11] MEDS ORDERED: ALPRAZolam 0.25 MG TAB PO STA (12:39)
--- NOTE | 2023-01-11 13:02 | P.CRDCN ---
History of Present Illness Consult date: 01/11/23 Chief complaint: Chest discomfort/back discomfort History of present illness: The patient is a pleasant 87-year-old gentleman with a past medical history significant for CAD with a prior stenting of the LAD in 2018 as well as hypertension and also dyslipidemia and prostate disease who follows with Dr. Ernandez regularly presented to the hospital complaining of chest discomfort. He just was admitted to the hospital a few days ago with a chest discomfort and he was ruled out for acute coronary event. He was seen by our service at that point and further risk stratification including stress test was performed and came in to be unremarkable were the patient was discharged in stable medical condition. He is here with a chest discomfort again. He described upper chest and upper back discomfort very similar to what he had before he underwent stenting of the LAD in 2018. Beside that he was experiencing agitation/heart racing. No dizziness or lightheadedness and no presyncope or syncope. He underwent an EKG and that showed sinus mechanism was nonspecific changes and also he underwent 3 sets of cardiac enzymes came in to be unremarkable. He continues to have a very mild discomfort. The pressure has been elevated and seems to be consistent with stage II hypertension. I'm going to add losartan to the current medical regimen. Also the patient underwent ultrasound of the gallbladder and that showed no acute abnormalities The examination is remarkable for regular rhythm with clear breathing sounds bilaterally and no lower extremities edema and the abdomen is soft and nontender Assessment Chest discomfort, recurrent, similar to prior angina CAD was prior stenting of the LAD Stage II hypertension Dyslipidemia Plan Acute coronary event was ruled out I advised proceeding with coronary angiogram Add losartan to the current medical regimen Follow-up with the patient Past Medical History Past Medical History: Coronary Artery Disease (CAD), Hyperlipidemia, Hypertension, Memory Impairment, Myocardial Infarction (SC), Pneumonia, Prostate Disorder, Renal Disease Additional Past Medical History / Comment(s): BPH with surgery in 01/2019-had hematuria post op, past urinary retention, CRD stage III, sciatic nerve pain, vertigo, colitis years ago, past detached retina with surgery-pt cannot recall laterallity, gait sysfunction, wears R leg brace, [place] [facility] [facility]-wears hearing aides, pneumonia and yellow jaundice as a child. Last Myocardial Infarction Date:: 01/08/18 History of Any Multi-Drug Resistant Organisms: None Reported Past Surgical History: Heart Catheterization With Stent, Hernia Repair, Orthopedic Surgery, Tonsillectomy Additional Past Surgical History / Comment(s): PCI with stent 01/08/18, inguinal hernia repair-pt cannot recall laterallity, 02/17/19 TURP, R knee surgery to repair cartlidge, hemorroidectomy, colonoscopy, retinal surgery for detachment- pt cannot recall laterallity. Past Anesthesia/Blood Transfusion Reactions: No Reported Reaction Additional Past Anesthesia/Blood Transfusion Reaction / Comment(s): As a child had loss of vision after hernia surgery Date of Last Stent Placement:: 01/08/2018 Past Psychological History: No Psychological Hx Reported Additional Psychological History / Comment(s): Pt resides alone. He uses a R leg brace and cane or walker to ambulate. He drives short distances. He resides at [facility] in an apartment. There is an elevator. His friend America helps with other tasks. Smoking Status: Former smoker Past Alcohol Use History: None Reported Past Drug Use History: None Reported - Past Family History Father Additional Family Medical History / Comment(s): Alcoholic- at age 69 Mother Family Medical History: CVA/TIA Medications and Allergies Home Medications Medication Instructions Recorded Confirmed Type Tamsulosin HCl [Flomax] 0.8 mg PO DAILY 02/04/16 01/11/23 History Aspirin EC [Ecotrin Low Dose] 81 mg PO DAILY 05/11/21 01/11/23 History Atorvastatin [Lipitor] 40 mg PO DAILY 09/12/21 01/11/23 History Pantoprazole [Protonix] 40 mg PO DAILY 09/12/21 01/11/23 History Isosorbide Mononitrate ER [Imdur] 30 mg PO DAILY #30 tab 01/06/23 01/11/23 Rx Metoprolol Tartrate [Lopressor] 50 mg PO BID #60 tab 01/06/23 01/11/23 Rx Meclizine [Antivert] 12.5 mg PO TID PRN 01/11/23 01/11/23 History Allergies Allergy/AdvReac Type Severity Reaction Status Date / Time No Known Allergies Allergy Verified 01/11/23 11:15 Physical Exam Vitals: Vital Signs Temp Pulse Pulse Resp BP BP Pulse Ox 01/11/23 11:17 69 20 154/73 95 01/11/23 09:36 97.3 F L 58 L 20 191/71 96 06/17/23 09:00 80 18 149/90 98 01/11/23 06:43 97.7 F 77 16 194/101 95 Intake and Output 01/10/23 01/11/23 01/11/23 22:59 06:59 14:59 Intake Total 762 Balance 762 Intake: Oral 762 Other: # Voids 1 Weight 90.718 kg 90.718 kg Results 01/11/23 07:41 01/11/23 07:41 Cardiac Enzymes 01/11/23 01/11/23 01/11/23 Range/Units 07:41 07:41 09:16 AST 38 (17-59) U/L Troponin I <0.012 <0.012 (0.000-0.034) ng/mL Coagulation 01/11/23 Range/Units 07:41 PT 10.4 (9.0-12.0) sec APTT 25.8 (22.0-30.0) sec CBC 01/11/23 Range/Units 07:41 WBC 6.1 (3.8-10.6) k/uL RBC 5.31 (4.30-5.90) m/uL Hgb 14.6 (13.0-17.5) gm/dL Hct 45.6 (39.0-53.0) % Plt Count 166 (150-450) k/uL Comprehensive Metabolic Panel 01/11/23 Range/Units 07:41 Sodium 137 (137-145) mmol/L Potassium 5.5 H (3.5-5.1) mmol/L Chloride 107 (98-107) mmol/L Carbon Dioxide 25 (22-30) mmol/L BUN 19 (9-20) mg/dL Creatinine 1.18 (0.66-1.25) mg/dL Glucose 110 H (74-99) mg/dL Calcium 8.7 (8.4-10.2) mg/dL AST 38 (17-59) U/L ALT 18 (4-49) U/L Alkaline Phosphatase 102 (38-126) U/L Total Protein 7.0 (6.3-8.2) g/dL Albumin 3.9 (3.5-5.0) g/dL Current Medications Generic Name Dose Route Start Last Admin Trade Name Freq PRN Reason Stop Dose Admin Aspirin 81 mg 01/12/23 09:00 Aspirin 81 Mg PO DAILY [facility] Atorvastatin Calcium 40 mg 01/12/23 09:00 Atorvastatin 40 Mg Tab PO DAILY [facility] Isosorbide Mononitrate 30 mg 01/11/23 13:00 Isosorbide Mononitrate Er 30 Mg Tab.Er.24h PO DAILY [facility] Metoprolol Tartrate 50 mg 01/11/23 21:00 Metoprolol Tartrate 50 Mg Tab PO BID [facility] Nitroglycerin 0.4 mg 01/11/23 08:43 Nitroglycerin Sl Tabs 0.4 Mg Tab SUBLINGUAL Q5M PRN Chest Pain Nitroglycerin 1 inch 01/11/23 12:00 01/11/23 11:23 Nitroglycerin Oint 1 Inch/Gm Packet TOPICAL 01/11/23 13:00 1 inch Q6HR [facility] Administration Pantoprazole Sodium 40 mg 01/12/23 09:00 Pantoprazole 40 Mg Tablet PO DAILY [facility] Tamsulosin HCl 0.8 mg 01/11/23 13:00 Tamsulosin 0.4 Mg Cap.Er.24h PO DAILY [facility] Intake and Output 01/10/23 01/11/23 01/11/23 22:59 06:59 14:59 Intake Total 762 Balance 762 Intake: Oral 762 Other: # Voids 1 Weight 90.718 kg 90.718 kg Patient Weight 01/12/23 06:59 Weight 90.718 kg 01/11/23 07:41 01/11/23 07:41
[2023-01-11] MEDS: ISOSORBIDE MONONITRATE ER 30 MG TAB.ER.24H PO SCH (13:36)
[2023-01-11] MEDS: TAMSULOSIN 0.4 MG CAP.ER.24H PO SCH (13:36)
[2023-01-11] MEDS: METOPROLOL TARTRATE 50 MG TAB PO SCH (20:32)
--- NOTE | 2023-01-12 06:56 | P.PN ---
Subjective Progress Note Date: 01/12/23 Principal diagnosis: Chest discomfort The patient is a pleasant 87-year-old gentleman with a past medical history significant for CAD with a prior stenting of the LAD in 2018 as well as hypertension and also dyslipidemia and prostate disease who follows with Dr. Ernandez regularly presented to the hospital complaining of chest discomfort. He just was admitted to the hospital a few days ago with a chest discomfort and he was ruled out for acute coronary event. He was seen by our service at that point and further risk stratification including stress test was performed and c deirdre in to be unremarkable were the patient was discharged in stable medical condition. He is here with a chest discomfort again. He described upper chest and upper back discomfort very similar to what he had before he underwent stenting of the LAD in 2018. Beside that he was experiencing agitation/heart racing. No dizziness or lightheadedness and no presyncope or syncope. He underwent an EKG and that showed sinus mechanism was nonspecific changes and also he underwent 3 sets of cardiac enzymes came in to be unremarkable. He continues to have a very mild discomfort. The pressure has been elevated and seems to be consistent with stage II hypertension. I'm going to add losartan to the current medical regimen. Also the patient underwent ultrasound of the gallbladder and that showed no acute abnormalities On 01/12/2023 The patient was seen and evaluated this morning. He seems to be asymptomatic. The plan is to proceed with coronary angiogram later on today. The procedure in details was explained to the patient with full understanding and agreement. The blood pressure seems to be under good control and on the current medical regimen and after losartan has been added to the current medical regimen. The examination is remarkable for regular rhythm with clear breathing sounds bilaterally and no lower extremities edema and the abdomen is soft and nontender Assessment Chest discomfort, recurrent, similar to prior angina CAD was prior stenting of the LAD Stage II hypertension Dyslipidemia Plan Acute coronary event was ruled out I advised proceeding with coronary angiogram Follow-up with the patient Objective - Vital Signs Vital signs: Vital Signs Temp 98.1 F 01/11/23 20:00 Pulse 57 L 01/12/23 03:57 Resp 16 01/12/23 03:57 BP 134/61 01/12/23 03:57 Pulse Ox 93 L 01/12/23 03:57 FiO2 Intake & Output 01/11/23 01/11/23 01/12/23 06:59 18:59 06:59 Intake Total 184 Balance 184 Weight 90.718 kg 90.718 kg Intake: Oral 1841 Other: Voiding Method Toilet Toilet Urinal Urinal # Voids 1 1 - Labs CBC & Chem 7: 01/11/23 07:41 01/11/23 07:41 Labs: Abnormal Lab Results - Last 24 Hours (Table) 01/11/23 01/11/23 Range/Units 07:41 07:41 Lymphocytes # 0.8 L (1.0-4.8) k/uL Potassium 5.5 H (3.5-5.1) mmol/L Glucose 110 H (74-99) mg/dL Total Bilirubin 1.4 H (0.2-1.3) mg/dL
[2023-01-12] MEDS: ISOSORBIDE MONONITRATE ER 30 MG TAB.ER.24H PO SCH (08:21)
[2023-01-12] MEDS: LOSARTAN 25 MG TAB PO SCH (08:21)
[2023-01-12] MEDS: PANTOPRAZOLE 40 MG TABLET PO SCH (08:21)
[2023-01-12] MEDS: ASPIRIN 81 MG PO SCH (08:21)
[2023-01-12] MEDS: METOPROLOL TARTRATE 50 MG TAB PO SCH ×2 (08:21→19:57)
[2023-01-12] MEDS: TAMSULOSIN 0.4 MG CAP.ER.24H PO SCH (08:21)
[2023-01-12] MEDS: ATORVASTATIN 40 MG TAB PO SCH (08:22)
[2023-01-12 08:41] LABS: African American GFR (CKD) 64 (>60 ml/min/1.73 sqM); Anion Gap 5 mmol/L; Blood Urea Nitrogen 18 mg/dL (9-20); Calcium 8.3 mg/dL (8.4-10.2); Carbon Dioxide 27 mmol/L (22-30); Chloride 105 mmol/L (98-107); Glucose 96 mg/dL (74-99); Non-African American GFR(CKD) 55 (>60 ml/min/1.73 sqM); Sodium 137 mmol/L (137-145)
[2023-01-12] MEDS ORDERED: ASPIRIN 325 MG TAB PO SCH (09:00)
--- NOTE | 2023-01-12 12:58 | P.PN ---
Subjective Progress Note Date: 01/12/23 Patient is a pleasant 87-year-old male came in with complaints of palpitations and occasional chest pain. Patient was extensively evaluated during his recent hospital physician Tresa he had a stress test which was within normal limits patient denied any associated diaphoresis. Patient states his pain is mild to moderate severity going to back of the shoulder blades. Because of the nature of the pain I obtain ultrasound of the gallbladder which showed suspicious polyp which can be followed as an outpatient, discussed with the Gen. surgery and patient will follow with general surgery as an outpatient. EKG did not show any acute ST-T wave changes troponins are negative. After cardiology evaluation patient may need a Holter monitor and after that patient can be discharged patient had mild hyperkalemia but patient has hemolysis will need a low potassium diet as an outpatient and basic metabolic profile on his visit to PCP. 01/12/2023 Patient evaluated by cardiology who is recommending cardiac categorization at this time. Patient scheduled to go today. Had a gallbladder ultrasound with no acute abnormalities. Patient will require Holter monitor on discharge. Currently having no chest pain or palpitations. Labs today showing a potassium level of 4.0, BUN 18, creatinine of 1.19. Blood pressure improved on losartan currently 158/64. Review of Systems Constitutional: Denied any fatigue denied any fever. Cardio vascular: denied any chest pain, palpitations Gastrointestinal: denied any nausea, vomiting, diarrhea Pulmonary: Denied any shortness of breath cough Neurologic denied any new focal deficits All inpatient medications were reviewed and appropriate changes in these medications as dictated in the interval history and assessment and plan. PHYSICAL EXAMINATION: GENERAL: The patient is alert and oriented x3, not in any acute distress. Well developed, well nourished. HEENT: Pupils are round and equally reacting to light. EOMI. No scleral icterus. No conjunctival pallor. Normocephalic, atraumatic. No pharyngeal erythema. No thyromegaly. CARDIOVASCULAR: S1 and S2 present. No murmurs, rubs, or gallops. PULMONARY: Chest is clear to auscultation, no wheezing or crackles. ABDOMEN: Soft, nontender, nondistended, normoactive bowel sounds. No palpable organomegaly. MUSCULOSKELETAL: No joint swelling or deformity. EXTREMITIES: No cyanosis, clubbing, or pedal edema. NEUROLOGICAL: Gross neurological examination did not reveal any focal deficits. Slight tremor at rest. SKIN: No rashes. Assessment and plan -Palpitations and chest pressure: Patient may have heart rhythm abnormalities for which patient will need a monitor upon discharge -Chest pain recently stress test was negative patient to undergo cardiac catheterization today -Ruled out cholelithiasis -GERD -Benign prostatic hypertrophy -Hyperlipidemia -Coronary artery disease with stents in the past GI prophylaxis on protonix Plan Patient to undergo cardiac cath today with further recommendations made by cardiology. Requires holter monitor for discharge. The impression and plan of care has been dictated by Aisha Garay, Nurse Practitioner as directed. Dr. Fatmata MD I have performed a history and physical examination and medical decision making of this patient, discussed the same with the dictator, and agree with the dictators assessment and plan as written, documented as a scribe. Based on total visit time, I have performed more than 50% of this visit. Objective - Vital Signs Vital signs: Vital Signs Temp 97.7 F 01/12/23 08:15 Pulse 67 01/12/23 11:00 Resp 20 01/12/23 11:00 BP 152/70 01/12/23 11:00 Pulse Ox 94 L 01/12/23 11:00 FiO2 Intake & Output 01/11/23 01/12/23 01/12/23 18:59 06:59 18:59 Intake Total 1842 0 0 Balance 1842 0 0 Weight 90.718 kg Intake: Oral 1842 0 0 Other: Voiding Method Toilet Toilet Toilet Urinal Urinal # Voids 1 1 1 - Labs CBC & Chem 7: 01/11/23 07:41 01/12/23 07:40 Labs: Abnormal Lab Results - Last 24 Hours (Table) 01/12/23 Range/Units 07:40 Calcium 8.3 L (8.4-10.2) mg/dL Assessment and Plan Time with Patient: Less than 30
[2023-01-12 13:06] LABS: Chol/HDL Ratio 3.37 Ratio; LDL Cholesterol,Calculated 62.9 mg/dL (0.0-131.0)
[2023-01-12] MEDS ORDERED: VERAPAMIL 2.5 MG/ML 2 ML AMP ONE (14:14)
[2023-01-12] MEDS ORDERED: MIDAZOLAM 2 MG/2 ML VIAL IV ONE ×2 (14:37)
[2023-01-12] MEDS ORDERED: SODIUM CHLORIDE 0.9% 500 ML 500 ML IV ONE (14:37)
[2023-01-12] MEDS ORDERED: LIDOCAINE 1% INJ 10MG/ML (5 ML VIAL-PF) SQ ONE (14:37)
[2023-01-12] MEDS ORDERED: VERAPAMIL SYRINGE (5 MG/10 ML) INTRAARTER ONE (14:37)
[2023-01-12] MEDS ORDERED: HEPARIN SODIUM 1,000 UN/ML (10ML VL) IV ONE (14:43)
[2023-01-12] MEDS ORDERED: IOPAMIDOL-370 100ML BTL INJ ONE (14:55)
[2023-01-12] MEDS ORDERED: RX INFO: IV CONTRAST WAS GIVEN 1 EACH MISC MISCELLANE PRN (14:57)
[2023-01-12] MEDS: SODIUM CHLORIDE 0.9% 1,000 ML IV SCH ×2 (15:25→17:05)
--- NOTE | 2023-01-12 21:17 | P.PCN ---
Date of Procedure: 01/12/23 Operative Findings: Cardiac catheterization Performing physician Gonzalo Oliver MD Procedure performed 1. Selective right and left coronary angiogram 2. Left heart catheterization Indication This is an 87-year-old gentleman with coronary artery disease and prior stenting of the LAD will was admitted to the hospital a few weeks ago with chest discomfort and underwent a stress test came in to be unremarkable and he was discharged in stable medical condition. He presented back to the hospital with a chest discomfort similar to what he had when he underwent stenting of the LAD. In the light of recurrent chest discomfort we decided to pursue with coronary angiogram for definitive diagnosis Approach Right radial artery Complications None Level of sedation Moderate with sedation at length of 12 minutes Procedure description After obtaining an informed consent the patient was brought to the cardiac matlab developer. The right radial artery was cannulated using micropuncture technique and the micropuncture wire passed easily then a place a 6 Nigerian sheath. I did selective right and left coronary angiogram with a JR4 and JL 3.5 catheters. Left heart catheterization was performed using the JR4 catheter which cross aortic valve then added pullback across the valve. The procedure was completed was no complication Selective coronary angiogram The RCA is a large caliber vessel and a dominant vessel. The RCA has mild to moderate nonobstructive coronary artery disease involving the proximal and midportion. No high-grade stenosis was identified The left main is short and angiographically normal. Bifurcates into an LCx and LAD The LCx is a large caliber vessel and a dominant vessel. The proximal LCx has mild to moderate disease with no high-grade stenosis. Gives rises into OM1 which appeared to be angiographically normal and OM 2 which also appeared to be angiographically normal. The circumflex distally appears to be angiographically normal and bifurcates into PDA and PLV branches and they appear to be angiographically normal. The LAD is a large caliber vessel. The proximal LAD is stented and the stent appeared to be patent. The mid LAD by the bifurcation of a large diagonal branch has intermediate lesion appears to be in the range of 40-50%. The LAD distally appears to be angiographically normal. Hemodynamic The LVEDP was about 14 mmHg with no significant gradient across the aortic valve Conclusion Intermediate disease involving the proximal LCx and mid LAD Postprocedure management Consider medical treatment at this point Consider FFR of the LCx and/or LAD if he remains symptomatic
[2023-01-12 21:57] VITALS: RESP 18
[2023-01-13] MEDS ORDERED: LOSARTAN 50 MG TAB PO SCH (09:15)
[2023-01-13] MEDS: PANTOPRAZOLE 40 MG TABLET PO SCH (09:27)
[2023-01-13] MEDS: METOPROLOL TARTRATE 50 MG TAB PO SCH (09:27)
[2023-01-13] MEDS: ASPIRIN 81 MG PO SCH (09:27)
[2023-01-13] MEDS: ISOSORBIDE MONONITRATE ER 30 MG TAB.ER.24H PO SCH (09:28)
[2023-01-13] MEDS: TAMSULOSIN 0.4 MG CAP.ER.24H PO SCH (09:28)
[2023-01-13] MEDS: ATORVASTATIN 40 MG TAB PO SCH (09:28)
[2023-01-13] MEDS: LOSARTAN 25 MG TAB PO SCH (10:21)
--- NOTE | 2023-01-13 11:10 | P.PN ---
Subjective Progress Note Date: 01/13/23 The patient is a pleasant 87-year-old gentleman with a past medical history significant for CAD with a prior stenting of the LAD in 2018 as well as hypertension and also dyslipidemia and prostate disease who follows with Dr. Ernandez regularly presented to the hospital complaining of chest discomfort. He just was admitted to the hospital a few days ago with a chest discomfort and he was ruled out for acute coronary event. He was seen by our service at that point and further risk stratification including stress test was performed and came in to be unremarkable were the patient was discharged in stable medical condition. He is here with a chest discomfort again. He described upper chest and upper back discomfort very similar to what he had before he underwent stenting of the LAD in 2018. Beside that he was experiencing agitation/heart racing. No dizziness or lightheadedness and no presyncope or syncope. He underwent an EKG and that showed sinus mechanism was nonspecific changes and also he underwent 3 sets of cardiac enzymes came in to be unremarkable. He continues to have a very mild discomfort. The pressure has been elevated and seems to be consistent with stage II hypertension. I'm going to add losartan to the current medical regimen. Also the patient underwent ultrasound of the gallbladder and that showed no acute abnormalities 01/13 Patient is seen following cardiac catheterization performed yesterday. This revealed intermediate disease with plan for medical management. The examination is remarkable for regular rhythm with clear breathing sounds bilaterally and no lower extremities edema and the abdomen is soft and nontender Assessment Chest discomfort, recurrent, similar to prior angina with cardiac catheterization finding intermediate disease CAD was prior stenting of the LAD Stage II hypertension Dyslipidemia Plan Acute coronary event was ruled out Plan to continue current home medication regime and add losartan Losartan dose increased today to 50 mg daily Patient is cleared for discharge home and may follow up in the office with Dr. Ernandez. Nurse practitioner note has been reviewed, I agree with the documented findings and plan of care. Patient was seen and examined. Objective - Vital Signs Vital signs: Vital Signs Temp 97.8 F 01/12/23 20:00 Pulse 63 01/13/23 04:00 Resp 18 01/13/23 04:00 BP 160/72 01/13/23 04:00 Pulse Ox 94 L 01/13/23 04:00 FiO2 Intake & Output 01/12/23 01/13/23 01/13/23 18:59 06:59 18:59 Intake Total 862 180 Balance 862 180 Intake: IV 100 Oral 762 180 Other: Voiding Method Toilet Toilet # Voids 1 1 # Bowel Movements 1 - Labs CBC & Chem 7: 01/11/23 07:41 01/12/23 07:40 Labs: Abnormal Lab Results - Last 24 Hours (Table) 01/12/23 Range/Units 07:40 HDL Cholesterol 35.90 L (40.00-60.00) mg/dL
[2023-01-13 12:26] VITALS: BP 94/54; PULSE 59; TEMP 98.2
--- NOTE | 2023-01-14 05:39 | P.DS ---
Providers Date of admission: 01/11/23 08:43 Expected date of discharge: 01/13/23 Attending physician: Cleveland Medley Consults: 01/11/23 08:43 Consult Physician Urgent Consulting Provider: [facility] Consult Reason/Comments: Chest pain Do you want consulting provider notified?: Yes Primary care physician: Andrés Snow Hospital Course: Final diagnosis -Palpitations and chest pressure: Patient may have heart rhythm abnormalities -Chest pain recently stress test was negative patient underwent cardiac catheterization with patent stents cardiology recommending maximizing medical management -Ruled out cholelithiasis -GERD -Benign prostatic hypertrophy -Hyperlipidemia -Coronary artery disease with stents in the past -GI prophylaxis -Full code Discharge disposition Patient is being discharged in a stable condition with guarded prognosis to home. Patient will follow-up with Dr. Snow in the outpatient setting upon discharge. Patient is to follow-up with cardiology this week and will receive an event monitor as scheduled. Total time taken is greater than 35 minutes. Hospital course This is a 87-year-old male who was recently admitted with palpitations and chest pain being closely monitored with cardiology following. Patient has cardiac history and cardiology recommending cardiac catheterization showing patent stents and considering further stones although continuing with maximizing medical management for now. Patient will follow up with cardiology in 1-2 weeks. Please refer to cardiology notes for further HPI. Adjustments to blood pressure and EKG is made including increasing losartan multiple brought the blood pressure down and cardiology recommending continuing with losartan 25 mg daily and monitoring blood pressures closely. Currently no reports of chest pain, shortness of breath, or palpitations. Patient is afebrile. No reports of nausea or vomiting and patient is tolerating diet. Patient will be discharged home today. Guarded prognosis. Physical exam: Gen: This is a 87-year-old male who is awake, alert and oriented 3, well- developed, well-nourished, obese HEENT: Head is atraumatic, normocephalic. Pupils equal, round. Sclerae is anicteric. NECK: Supple. No JVD. No lymphadenopathy. No thyromegaly. LUNGS: Clear to auscultation. No wheezes or rhonchi. No intercostal retractions. HEART: S1, S2 are muffled ABDOMEN: Soft. Bowel sounds are present. No masses. No tenderness. EXTREMITIES: No pedal edema. No calf tenderness. NEUROLOGICAL: Patient is awake, alert and oriented x3. Cranial nerves 2 through 12 are grossly intact. Please refer to medication reconciliation sheet for a list of medications. The impression and plan of care has been dictated by Jennifer Polk, Nurse Practitioner as directed. Dr. Galindo MD I have performed a history and examination and MDM of this patient, discussed the same with the dictator, and agree with the dictator's assessment and plan as written ,documented as a scribe. Based on total visit time, I have performed more than 50% of the visit. Patient Condition at Discharge: Fair Plan - Discharge Summary Discharge Rx Participant: Yes New Discharge Prescriptions: New Losartan [Cozaar] 25 mg PO DAILY 30 Days #15 tab Continue Tamsulosin HCl [Flomax] 0.8 mg PO DAILY Metoprolol Tartrate [Lopressor] 50 mg PO BID #60 tab Meclizine [Antivert] 12.5 mg PO TID PRN PRN Reason: Vertigo Aspirin EC [Ecotrin Low Dose] 81 mg PO DAILY Pantoprazole [Protonix] 40 mg PO DAILY Atorvastatin [Lipitor] 40 mg PO DAILY Isosorbide Mononitrate ER [Imdur] 30 mg PO DAILY #30 tab Discharge Medication List Tamsulosin HCl [Flomax] 0.8 mg PO DAILY 02/04/16 [History] Aspirin EC [Ecotrin Low Dose] 81 mg PO DAILY 05/11/21 [History] Atorvastatin [Lipitor] 40 mg PO DAILY 09/12/21 [History] Pantoprazole [Protonix] 40 mg PO DAILY 09/12/21 [History] Isosorbide Mononitrate ER [Imdur] 30 mg PO DAILY #30 tab 01/06/23 [Rx] Metoprolol Tartrate [Lopressor] 50 mg PO BID #60 tab 01/06/23 [Rx] Meclizine [Antivert] 12.5 mg PO TID PRN 01/11/23 [History] Losartan [Cozaar] 25 mg PO DAILY 30 Days #15 tab 01/13/23 [Rx] Follow up Appointment(s)/Referral(s): Joss Montalvo MD [Medical Doctor] - 04/02/23 2:00 pm (first available consult appointment) Andrés Snow MD [Primary Care Provider] - 01/16/23 2:00 pm Prakash Marvin DO [STAFF PHYSICIAN] - 01/21/23 10:30 am [facility], [NON-STAFF] - Patient Instructions/Handouts: *Surgery [facility] - After Heart Catheterization - Business Resiliency Manager Instructions Activity/Diet/Wound Care/Special Instructions: Cardiac, low potassium diet Activity Limited until follow-up Follow-up with cardiology outpatient Follow-up with primary care provider and discharged Continue taking medications as prescribed with losartan 25 mg daily and monitor blood pressure and keep a diary of all readings Bring all of your blood pressure readings to cardiology as well as primary care provider on discharge Blood pressure is 100 systolic or less hold blood pressure medication Discharge Disposition: HOME SELF-CARE
== END 2023-01-13 14:20 | disposition home health service (06) | DRG 287 ==
LOC: EC 06:40 → 3SCARD 08:43
PROVIDERS: ADMIT Hospitalist; ATTEND Hospitalist
PROC: 4A023N7 Measurement of Cardiac Sampling and Pressure, Left Heart, Percutaneous Approach (ICD-10-PCS; principal; 2023-01-12 12:00)
PROC: B2111ZZ Fluoroscopy of Multiple Coronary Arteries using Low Osmolar Contrast (ICD-10-PCS; principal; 2023-01-12 12:00)
DX: I25.119 Atherosclerotic heart disease of native coronary artery with unspecified angina pectoris (principal); E78.5 Hyperlipidemia, unspecified; R41.3 Other amnesia; N40.0 Benign prostatic hyperplasia without lower urinary tract symptoms; E87.5 Hyperkalemia; I12.9 Hypertensive chronic kidney disease with stage 1 through stage 4 chronic kidney disease, or unspecified chronic kidney disease; N18.30 Chronic kidney disease, stage 3 unspecified; G58.8 Other specified mononeuropathies; K21.9 Gastro-esophageal reflux disease without esophagitis; R07.9 Chest pain, unspecified; K82.4 Cholesterolosis of gallbladder; E66.9 Obesity, unspecified; M54.30 Sciatica, unspecified side; R26.9 Unspecified abnormalities of gait and mobility; H91.90 Unspecified hearing loss, unspecified ear; Z68.32 Body mass index [BMI] 32.0-32.9, adult; I25.2 Old myocardial infarction; Z87.01 Personal history of pneumonia (recurrent); Z95.5 Presence of coronary angioplasty implant and graft; Z87.891 Personal history of nicotine dependence; Z79.899 Other long term (current) drug therapy; Z79.82 Long term (current) use of aspirin
CPT/HCPCS: 36415; 71046; 76705; 80048; 80053; 80061; 83735; 84443; 84484; 85025; 85610; 85730; 93005; 93270; 93458; 94760; 96360; 99285

== ENCOUNTER 2023-03-05 08:40 | Emergency (ER) | payer MEDICARE, BC ==
[2023-03-05] MEDS ORDERED: LORazepam 0.5 MG TAB PO STA (08:51)
--- NOTE | 2023-03-05 08:55 | ED ---
General Adult HPI - General Chief complaint: Recheck/Abnormal Lab/Rx Stated complaint: hypertension Time Seen by Provider: 03/05/23 08:41 Source: patient, EMS, RN notes reviewed, old records reviewed Mode of arrival: EMS Limitations: no limitations - History of Present Illness Initial comments: Patient is an 88-year-old male who presents to [facility] department today over concern for hypertension. He has a history of hypertension, CAD with stenting, memory impairment, prostate disease. States there has been some medication adjustments for his hypertension recently. States he awoke, was feeling normal but checked his blood pressure and saw that was elevated to 190 systolic. Became anxious and took his blood pressure medications. Called his home nurse immediately after taking blood pressure Menser recommended he call EMS and from the hospital. He has no other complaints. Denies chest pain, shortness breath, abdominal pain, nausea, vomiting, diaphoresis. States she took all of his normal medications this morning shortly prior to arrival here in the department. Did not wait to see if they took effect. States he normally runs with a [employer] blood pressure between 160 and 175. Was 191 at home. States he did have his diuretic medications removed. States he occasionally will have swollen legs with some tingling sensation but this is not new. Also states he has a history of anxiety and feels anxious at this time it states that when his anxiety takes over usually gets shaky. States it is improving, however started this morning after he saw his blood pressure was elevated. His no other acute complaints at this time. Presents for further evaluation at this time. Does have follow-up with multiple physicians later today. - Related Data Home Medications Medication Instructions Recorded Confirmed Tamsulosin HCl [Flomax] 0.8 mg PO DAILY 02/04/16 01/11/23 Aspirin EC [Ecotrin Low Dose] 81 mg PO DAILY 05/11/21 01/11/23 Atorvastatin [Lipitor] 40 mg PO DAILY 09/12/21 01/11/23 Pantoprazole [Protonix] 40 mg PO DAILY 09/12/21 01/11/23 Meclizine [Antivert] 12.5 mg PO TID PRN 01/11/23 01/11/23 Previous Rx's Medication Instructions Recorded Isosorbide Mononitrate ER [Imdur] 30 mg PO DAILY #30 tab 01/06/23 Metoprolol Tartrate [Lopressor] 50 mg PO BID #60 tab 01/06/23 Losartan [Cozaar] 25 mg PO DAILY 30 Days #15 tab 01/13/23 Allergies Allergy/AdvReac Type Severity Reaction Status Date / Time No Known Allergies Allergy Verified 03/05/23 08:50 Review of Systems ROS Statement: Those systems with pertinent positive or pertinent negative responses have been documented in the HPI. Review of Systems: CONST: Denies fever EYES: Denies blurry vision ENT: Denies nasal congestion C/V: Denies Chest pain RESP: Denies shortness of breath GI: Denies abdominal pain : Denies dysuria SKIN: Denies rash. MSK: Denies joint pain. NEURO: Denies headache ROS Other: All systems not noted in ROS Statement are negative. Past Medical History Past Medical History: Coronary Artery Disease (CAD), Hyperlipidemia, Hypertension, Memory Impairment, Myocardial Infarction (IA), Pneumonia, Prostate Disorder, Renal Disease Additional Past Medical History / Comment(s): BPH with surgery in 01/2019-had hematuria post op, past urinary retention, CRD stage III, sciatic nerve pain, vertigo, colitis years ago, past detached retina with surgery-pt cannot recall laterallity, gait sysfunction, wears R leg brace, [place]-wears hearing aides, pneumonia and yellow jaundice as a child. Last Myocardial Infarction Date:: 01/08/18 History of Any Multi-Drug Resistant Organisms: None Reported Past Surgical History: Heart Catheterization With Stent, Hernia Repair, Orthopedic Surgery, Tonsillectomy Additional Past Surgical History / Comment(s): PCI with stent 01/08/18, inguinal hernia repair-pt cannot recall laterallity, 02/17/19 TURP, R knee surgery to repair cartlidge, hemorroidectomy, colonoscopy, retinal surgery for detachment- pt cannot recall laterallity. Past Anesthesia/Blood Transfusion Reactions: No Reported Reaction Additional Past Anesthesia/Blood Transfusion Reaction / Comment(s): As a child had loss of vision after hernia surgery Date of Last Stent Placement:: 01/08/2018 Past Psychological History: No Psychological Hx Reported Smoking Status: Former smoker Past Alcohol Use History: None Reported Past Drug Use History: None Reported - Past Family History Mother Family Medical History: CVA/TIA General Exam - General Exam Comments Initial Comments: General: Appears in no acute distress. Appears anxious mildly. HEAD: Normal with no signs of head trauma. EYES: PERRLA, EOMI, conjunctiva normal, no discharge. ENT: Hearing grossly intact, normal oropharynx. RESPIRATORY: Clear breath sounds bilaterally. No wheezes, rales, or rhonchi. C/V: Regular rate and rhythm. S1 and S2 auscultated, no significant bilateral pitting edema, peripheral pulses 2+ and intact throughout ABD: Abd is soft, nontender, nondistended EXT: Normal range of motion, no obvious deformity SKIN: No rashes or lesions observed on exposed skin. NEURO: Alert and oriented 4. No focal sensory strength deficits. Limitations: no limitations Course Vital Signs 03/05/23 03/05/23 03/05/23 08:42 09:02 09:47 Temperature 97.7 F 98.0 F Pulse Rate 56 L 64 54 L Respiratory 20 20 18 Rate Blood Pressure 181/87 167/88 147/90 O2 Sat by Pulse 95 95 94 L Oximetry Medical Decision Making - Medical Decision Making Was pt. sent in by a medical professional or institution (, PA, STAIN REMOVER, urgent care, hospital, or fci...) When possible be specific @ -Home nursing recommended the patient to the emergency department for evaluation. They did not evaluate the patient but rather spoke with him over the phone. Did you speak to anyone other than the patient for history (EMS, parent, family, police, friend...)? What history was obtained from this source @ -No Did you review nursing and triage notes (agree or disagree)? Why? @ -I reviewed and agree with nursing and triage notes Were old charts reviewed (outside hosp., previous admission, EMS record, old EKG, old radiological studies, urgent care reports/EKG's, fci records)? Report findings @ -Old charts reviewed from December 2022. Differential Diagnosis (chest pain, altered mental status, abdominal pain women, abdominal pain men, vaginal bleeding, weakness, fever, dyspnea, syncope, headache, dizziness, GI bleed, back pain, seizure, CVA, palpatations, mental health, musculoskeletal)? @ -Breakthrough hypertension, dehydration, TYLER on CK D, CHF. Anxiety. This list is not all-inclusive. EKG interpreted by me (3pts min.). @ -As above X-rays interpreted by me (1pt min.). @ -Chest x-ray reveals no obvious acute cardio pulmonary process. CT interpreted by me (1pt min.). @ -None done U/S interpreted by me (1pt. min.). @ -None done What testing was considered but not performed or refused? (CT, X-rays, U/S, labs)? Why? @ -None What meds were considered but not given or refused? Why? @ -None Did you discuss the management of the patient with other professionals (professionals i.e. DrAldair, PA, STAIN REMOVER, lab, RT, psych nurse, sexual assault social worker, wood cut engraver, teacher, operations officer, machine adjuster leader case trim)? Give summary @ -No Was smoking cessation discussed for >3mins.? @ -No Was critical care preformed (if so, how long)? @ -No Were there social determinants of health that impacted care today? How? (Homelessness, low income, unemployed, alcoholism, drug addiction, transportation, low edu. Level, literacy, decrease access to med. care, nursing home, rehab)? @ -No Was there de-escalation of care discussed even if they declined (Discuss DNR or withdrawal of care, Hospice)? DNR status @ -No What co-morbidities impacted this encounter? (DM, HTN, Smoking, COPD, CAD, Cancer, CVA, ARF, Chemo, Hep., AIDS, mental health diagnosis, sleep apnea, morbid obesity)? @ -Hypertension Was patient admitted / discharged? Hospital course, mention meds given and route, prescriptions, significant lab abnormalities, going to OR and other pe rtinent info. @ -Based on the patient's presentation physical exam, he presents with a symptomatically hypertension and what appears to be anxiety. Woke up and found his blood pressure was elevated in the morning. Took his normal meds prior to evaluation. Blood pressure is improving as systolics are now in the 180s. He has no acute complaints at this time. States he does feel anxious as he does have shaking in his hands which he states is pretty typical when he has anxiety. We will obtain basic labs, screening EKG, chest x-ray as well as screening BNP. He was in agreement this plan. He'll receive a dose of Ativan while here in the department. Vital signs otherwise within acceptable limits. EKG shows no signs of acute ischemia.Chest x-ray is unremarkable. Patient's laboratory studies are remarkable for his CK D. BNP within normal limits. Patient's blood pressure is improved at this time. Latest reading as 147/90. He is asymptomatic. States his anxiety is improved. We did discuss his workup. I believe it is safe for him to be discharged home. His normal blood pressure medications that he took at home seemed to finally taken effect. We discussed that he has asymptomatic hypertension upon arrival, likely secondary to needing his medications. He was in agreement with the plan for discharge and would like to go as he does have appointments later this morning and this afternoon with his PCP and process control tech. Strict return precautions were discussed. I instructed the patient to follow up with their PCP in the next 1-3 days. I explained that the patient should return to the emergency department if they experience any worsening symptoms. Strict return precautions were discussed with the patient. The patient expressed understanding of these instructions. I answered all questions that the patient had. The patient was discharged home in good condition with their prescriptions and follow up information. Undiagnosed new problem with uncertain prognosis? @ -No Drug Therapy requiring intensive monitoring for toxicity (Heparin, Nitro, Insulin, Cardizem)? @ -No Were any procedures done? @ -No Diagnosis/symptom? @ -Asymptomatic Hypertension, anxiety Acute, or Chronic, or Acute on Chronic? @ -Acute on chronic Uncomplicated (without systemic symptoms) or Complicated (systemic symptoms)? @ -Uncomplicated Side effects of treatment? @ -No Exacerbation, Progression, or Severe Exacerbation? @ -No Poses a threat to life or bodily function? How? (Chest pain, USA, IA, pneumonia, PE, COPD, DKA, ARF, appy, cholecystitis, CVA, Diverticulitis, Homicidal, Suicidal, threat to staff... and all critical care pts) @ -No - Lab Data Result diagrams: 03/05/23 08:53 03/05/23 08:53 Lab Results 03/05/23 03/05/23 Range/Units 08:53 08:53 WBC 5.6 (3.8-10.6) k/uL RBC 5.47 (4.30-5.90) m/uL Hgb 15.5 (13.0-17.5) gm/dL Hct 46.9 (39.0-53.0) % MCV 85.8 (80.0-100.0) fL MCH 28.3 (25.0-35.0) pg MCHC 32.9 (31.0-37.0) g/dL RDW 14.3 (11.5-15.5) % Plt Count 163 (150-450) k/uL MPV 7.8 Neutrophils % 78 % Lymphocytes % 13 % Monocytes % 6 % Eosinophils % 1 % Basophils % 1 % Neutrophils # 4.4 (1.3-7.7) k/uL Lymphocytes # 0.7 L (1.0-4.8) k/uL Monocytes # 0.3 (0-1.0) k/uL Eosinophils # 0.1 (0-0.7) k/uL Basophils # 0.0 (0-0.2) k/uL Sodium 139 (137-145) mmol/L Potassium 4.3 (3.5-5.1) mmol/L Chloride 102 (98-107) mmol/L Carbon Dioxide 29 (22-30) mmol/L Anion Gap 8 mmol/L BUN 19 (9-20) mg/dL Creatinine 1.26 H (0.66-1.25) mg/dL Est GFR (CKD-EPI)AfAm 59 (>60 ml/min/1.73 sqM) Est GFR (CKD-EPI)NonAf 51 (>60 ml/min/1.73 sqM) Glucose 122 H (74-99) mg/dL Calcium 9.1 (8.4-10.2) mg/dL NT-Pro-B Natriuret Pep 228 pg/mL - EKG Data -: EKG Interpreted by Me EKG Comments: 12-lead Electrocardiogram Interpretation Note EKG was reviewed and interpreted by myself. 12-lead ECG performed at 0842 is interpreted by me as revealing sinus bradycardia at a rate of 55 beats per minute. Left axis deviation. CO interval is 193 ms, QRS duration is 88 ms, QTc is 409 ms.. There were no ST or T wave abnormalities to suggest myocardial ischemia or injury. R wave progression across the precordium was satisfactory. By my interpretation this EKG is non-diagnostic for acute ischemia. Compared with EKG from December 2022 with no significant change. Disposition Clinical Impression: Hypertension, Anxiety Disposition: HOME SELF-CARE Condition: Good Instructions (If sedation given, give patient instructions): Hypertension (ED) Is patient prescribed a controlled substance at d/c from ED?: No Referrals: Andrés Snow MD [Primary Care Provider] - 1-2 days Time of Disposition: 09:42
[2023-03-05 09:01] LABS: Basophils % (A) 1 %; Eosinophils # (A) 0.1 k/uL (0-0.7); Eosinophils % (A) 1 %; HCT 46.9 % (39.0-53.0); HGB 15.5 gm/dL (13.0-17.5); Lymphocytes # (A) 0.7 k/uL (1.0-4.8); Lymphocytes % (A) 13 %; MCH 28.3 pg (25.0-35.0); MCHC 32.9 g/dL (31.0-37.0); MCV 85.8 fL (80.0-100.0); Mean Platelet Volume 7.8; Monocytes # (A) 0.3 k/uL (0-1.0); Monocytes % (A) 6 %; Neutrophils # (A) 4.4 k/uL (1.3-7.7); Neutrophils % (A) 78 %; Platelet Count 163 k/uL (150-450); RBC 5.47 m/uL (4.30-5.90); RDW 14.3 % (11.5-15.5); WBC 5.6 k/uL (3.8-10.6)
--- NOTE | 2023-03-05 09:23 | XR ---
EXAMINATION TYPE: XR chest 2V DATE OF EXAM: 03/05/2023 COMPARISON: 01/11/2023 HISTORY: Shortness of breath TECHNIQUE: Frontal and lateral views of the chest are obtained. FINDINGS: Scattered senescent parenchymal changes noted. Hyperinflation compatible with COPD. Focal eventration right hemidiaphragm. No evidence for infiltrate. No evidence for atelectasis. Heart size is stable. Mediastinal structures are stable and grossly unremarkable. No evidence for hilar prominence. Degenerative changes dorsal spine. IMPRESSION: 1. No evidence for acute pulmonary disease.
[2023-03-05 09:25] LABS: African American GFR (CKD) 59 (>60 ml/min/1.73 sqM); Anion Gap 8 mmol/L; Blood Urea Nitrogen 19 mg/dL (9-20); Calcium 9.1 mg/dL (8.4-10.2); Carbon Dioxide 29 mmol/L (22-30); Chloride 102 mmol/L (98-107); Glucose 122 mg/dL (74-99); Non-African American GFR(CKD) 51 (>60 ml/min/1.73 sqM); Potassium 4.3 mmol/L (3.5-5.1); Sodium 139 mmol/L (137-145)
[2023-03-05 09:32] LABS: NT-Pro-B-Type Natriuretic Pept 228 pg/mL
[2023-03-05 09:48] VITALS: BP 147/90; PULSE 54; RESP 18; TEMP 98
== END 2023-03-05 09:59 | disposition home or self-care (01) ==
LOC: EC 08:40
DX: I12.9 Hypertensive chronic kidney disease with stage 1 through stage 4 chronic kidney disease, or unspecified chronic kidney disease (principal); N18.30 Chronic kidney disease, stage 3 unspecified; F41.9 Anxiety disorder, unspecified; I25.10 Atherosclerotic heart disease of native coronary artery without angina pectoris; E78.5 Hyperlipidemia, unspecified; I25.2 Old myocardial infarction; Z79.82 Long term (current) use of aspirin; Z79.899 Other long term (current) drug therapy; Z87.891 Personal history of nicotine dependence
CPT/HCPCS: 36415; 71046; 80048; 83880; 85025; 93005; 99285

== ENCOUNTER → 2023-08-12 | Outpatient (CLI) | payer MEDICARE, BC ==
--- NOTE | 2023-08-12 10:04 | US ---
EXAMINATION TYPE: US gallbladder DATE OF EXAM: 08/12/2023 COMPARISON: US 2022 CLINICAL INDICATION: Male, 88 years old with history of K82.4 CHOLESTEROLOSIS OF GALLBLADDER; TECHNIQUE: Multiple sonographic images of the right upper quadrant are obtained. FINDINGS: EXAM MEASUREMENTS: Liver Length: 12.0 cm Gallbladder Wall: 0.2 cm CBD: 0.4 cm Right Kidney: 8.5 x 4.0 x 4.9 cm Pancreas: obscured by overlying midline bowel gas Liver: limited visualization, scanned intercostally, wnl as seen Gallbladder: 0.4 cm polyp vs. stone Evidence for sonographic Sanz's sign: no CBD: visualized portions wnl, limited by overlying bowel gas Right Kidney: small in size, limited by overlying bowel gas IMPRESSION: 1. No evidence for acute process. 2. Gallbladder adherent stone versus polyp. Short-term follow-up in 6 months recommended to ensure s tability.
== END | disposition home or self-care (01) ==
LOC: RADUSWWP 08:38
PROVIDERS: ATTEND Family Medicine
DX: K82.4 Cholesterolosis of gallbladder (principal)
CPT/HCPCS: 76705

== ENCOUNTER 2023-08-16 22:32 | Emergency (ER) | payer MEDICARE, BC ==
[2023-08-16 22:49] VITALS: RESP 18
--- NOTE | 2023-08-16 23:16 | ED ---
General Adult HPI - General Chief complaint: Shortness of Breath Stated complaint: Shortness of Breath, Hypertension Time Seen by Provider: 08/16/23 22:41 Source: patient, EMS Mode of arrival: EMS Limitations: no limitations - History of Present Illness Initial comments: Dictation was produced using [employer] dictation software. please excuse any gram matical, word or spelling errors. Chief Complaint: 88-year-old male presents with hypertension History of Present Illness: Patient is a 88-year-old male presents emergency Department with hypertension. Patient checks his blood pressure daily. He takes blood pressure medications. He has been having elevated blood pressures for the last several days. Called EMS today because it was high. Patient denies any chest pain. No shortness of breath no numbness and paresthesias to the arms or legs and no headache. The ROS documented in this emergency department record has been reviewed and confirmed by me. Those systems with pertinent positive or negative responses have been documented in the HPI. All other systems are other negative and/or noncontributory. - Related Data Home Medications Medication Instructions Recorded Confirmed Tamsulosin HCl [Flomax] 0.8 mg PO DAILY 02/04/16 04/14/23 Aspirin EC [Ecotrin Low Dose] 81 mg PO DAILY 05/11/21 04/14/23 Atorvastatin [Lipitor] 40 mg PO DAILY 09/12/21 04/14/23 Pantoprazole [Protonix] 40 mg PO DAILY 09/12/21 04/14/23 Acetaminophen [Tylenol Extra 1,000 mg PO Q6H PRN 04/14/23 04/14/23 Strength] Losartan [Cozaar] 50 mg PO DAILY 04/14/23 04/14/23 Metoprolol Tartrate [Lopressor] 50 mg PO BID 04/14/23 04/14/23 Previous Rx's Medication Instructions Recorded Isosorbide Mononitrate ER [Imdur] 30 mg PO DAILY #30 tab 01/06/23 Acetaminophen Tab [Tylenol] 650 mg PO Q6H 3 Days #12 tab 04/17/23 Cyclobenzaprine [Flexeril] 5 mg PO TID PRN tab 04/17/23 amLODIPine [Norvasc] 5 mg PO DAILY tab 04/17/23 Allergies Allergy/AdvReac Type Severity Reaction Status Date / Time No Known Allergies Allergy Verified 08/16/23 22:41 Review of Systems ROS Statement: Those systems with pertinent positive or pertinent negative responses have been documented in the HPI. ROS Other: All systems not noted in ROS Statement are negative. Past Medical History Past Medical History: Coronary Artery Disease (CAD), Hyperlipidemia, Hypertension, Memory Impairment, Myocardial Infarction ([place]), Pneumonia, Prostate Disorder, Renal Disease Additional Past Medical History / Comment(s): BPH with surgery in 01/2019-had hematuria post op, past urinary retention, CRD stage III, sciatic nerve pain, vertigo, colitis years ago, past detached retina with surgery-pt cannot recall laterallity, gait sysfunction, wears R leg brace, TULALIP-wears hearing aides, pneumonia and jaundice as a child. Last Myocardial Infarction Date:: 01/08/18 History of Any Multi-Drug Resistant Organisms: None Reported Past Surgical History: Heart Catheterization With Stent, Hernia Repair, Orthopedic Surgery, Tonsillectomy Additional Past Surgical History / Comment(s): PCI with stent 01/08/18, inguinal hernia repair-pt cannot recall laterallity, 02/17/19 TURP, R knee surgery to repair cartlidge, hemorroidectomy, colonoscopy, retinal surgery for detachment- pt cannot recall laterallity. Past Anesthesia/Blood Transfusion Reactions: No Reported Reaction Additional Past Anesthesia/Blood Transfusion Reaction / Comment(s): As a child had loss of vision after hernia surgery Date of Last Stent Placement:: 01/08/2018 Past Psychological History: No Psychological Hx Reported Smoking Status: Former smoker Past Alcohol Use History: None Reported Past Drug Use History: None Reported - Past Family History Father Additional Family Medical History / Comment(s): alcoholic- at age 69 Mother Family Medical History: CVA/TIA General Exam - General Exam Comments Initial Comments: PHYSICAL EXAM: General Impression: Alert and oriented x3, not in acute distress HEENT: Normocephalic atraumatic, extra-ocular movements intact, pupils equal and reactive to light bilaterally, mucous membranes moist. Cardiovascular: Heart regular rate and rhythm Chest: Able to complete full sentences, no retractions, no tachypnea Abdomen: abdomen soft, non-tender, non-distended, no organomegaly Musculoskeletal: Pulses present and equal in all extremities, no peripheral edema Motor: no focal deficits noted Neurological: CN II-XII grossly intact, no focal motor or sensory deficits noted Skin: Intact with no visualized rashes Psych: Normal affect and mood Limitations: no limitations Course Vital Signs 08/16/23 08/16/23 08/17/23 22:38 23:52 00:57 Temperature 97.7 F Pulse Rate 56 L 76 51 L Respiratory 18 18 18 Rate Blood Pressure 176/104 188/96 194/79 O2 Sat by Pulse 95 95 96 Oximetry Medical Decision Making - Medical Decision Making Was pt. sent in by a medical professional or institution (NOLAN Marin, PREVENTIVE MAINTENANCE ENGINEER, urgent care, hospital, or snf...) When possible be specific @ -No Did you speak to anyone other than the patient for history (EMS, parent, family, police, friend...)? What history was obtained from this source @ -No Did you review nursing and triage notes (agree or disagree)? Why? @ -I reviewed and agree with nursing and triage notes Were old charts reviewed (outside hosp., previous admission, EMS record, old EKG, old radiological studies, urgent care reports/EKG's, snf records)? Report findings @ -No old charts were reviewed Differential Diagnosis (chest pain, altered mental status, abdominal pain women, abdominal pain men, vaginal bleeding, musculoskeletal, weakness, fever, dyspnea, syncope, headache, dizziness, GI bleed, back pain, seizure, CVA, palpatations, mental health)? @ -not applicable EKG interpreted by me (3pts min.). @ -None done X-rays interpreted by me (1pt min.). @ -Chest x-ray shows no acute processes CT interpreted by me (1pt min.). @ -None done U/S interpreted by me (1pt. min.). @ -None done What testing was considered but not performed or refused? (CT, X-rays, U/S, labs)? Why? @ -None What meds were considered but not given or refused? Why? @ -None Did you discuss the management of the patient with other professionals (tasha stoddard i.e. NOLAN Marin, PREVENTIVE MAINTENANCE ENGINEER, lab, RT, psych nurse, social insurance administrator, head wood grinder, teacher, custom protection officer, skilled nursing case manager)? Give summary @ -No Was smoking cessation discussed for >3mins.? @ -No Was critical care preformed (if so, how long)? @ -No Were there social determinants of health that impacted care today? How? (Homelessness, low income, unemployed, alcoholism, drug addiction, transportatio n, low edu. Level, literacy, decrease access to med. care, snf, rehab)? @ -No Was there de-escalation of care discussed even if they declined (Discuss DNR or withdrawal of care, Hospice)? DNR status @ -No What co-morbidities impacted this encounter? (DM, HTN, Smoking, COPD, CAD, Cancer, CVA, ARF, Chemo, Hep., AIDS, mental health diagnosis, sleep apnea, morbid obesity)? @ -None Was patient admitted / discharged? Hospital course, mention meds given and route, prescriptions, significant lab abnormalities, going to OR and other pertinent info. @ -88-year-old male presents emergency Department with asymptomatic hypertension. Vital signs stable. Patient's well-appearing at the bedside he has no high-risk complaints. Laboratory evaluation obtained. Unremarkable. X- ray negative. Patient observed in the ER stable medical condition he is discharged with follow-up with primary care doctor for outpatient management of hypertension. Undiagnosed new problem with uncertain prognosis? @ -No Drug Therapy requiring intensive monitoring for toxicity (Heparin, Nitro, Insulin, Cardizem)? @ -No Were any procedures done? @ -No Diagnosis/symptom? Acute, or Chronic, or Acute on Chronic? Uncomplicated (without systemic symptoms) or Complicated (systemic symptoms)? @ -Asymptomatic hypertension Side effects of treatment? @ -No Exacerbation, Progression, or Severe Exacerbation? @ -No Poses a threat to life or bodily function? How? (Chest pain, [place], [place], pneumonia, PE, COPD, DKA, ARF, appy, cholecystitis, CVA, Diverticulitis, Homicidal, Suicidal, threat to staff... and all critical care pts) @ -No - Lab Data Result diagrams: 08/16/23 23:25 08/16/23 23:25 Lab Results 08/16/23 08/16/23 08/16/23 Range/Units 23:25 23:25 23:25 WBC 6.7 (3.8-10.6) k/uL RBC 4.90 (4.30-5.90) m/uL Hgb 13.9 (13.0-17.5) gm/dL Hct 42.5 (39.0-53.0) % MCV 86.8 (80.0-100.0) fL MCH 28.4 (25.0-35.0) pg MCHC 32.8 (31.0-37.0) g/dL RDW 14.1 (11.5-15.5) % Plt Count 149 L (150-450) k/uL MPV 7.8 Neutrophils % 73 % Lymphocytes % 15 % Monocytes % 6 % Eosinophils % 4 % Basophils % 1 % Neutrophils # 4.9 (1.3-7.7) k/uL Lymphocytes # 1.0 (1.0-4.8) k/uL Monocytes # 0.4 (0-1.0) k/uL Eosinophils # 0.3 (0-0.7) k/uL Basophils # 0.1 (0-0.2) k/uL PT 10.7 (10.0-12.5) sec INR 1.0 (<1.2) APTT 25.4 (22.0-30.0) sec Sodium 140 (137-145) mmol/L Potassium 3.9 (3.5-5.1) mmol/L Chloride 108 H (98-107) mmol/L Carbon Dioxide 26 (22-30) mmol/L Anion Gap 6 mmol/L BUN 19 (9-20) mg/dL Creatinine 1.21 (0.66-1.25) mg/dL Est GFR (CKD-EPI)AfAm 62 (>60 ml/min/1.73 sqM) Est GFR (CKD-EPI)NonAf 54 (>60 ml/min/1.73 sqM) Glucose 105 H (74-99) mg/dL Calcium 8.6 (8.4-10.2) mg/dL Total Bilirubin 0.6 (0.2-1.3) mg/dL AST 18 (17-59) U/L ALT 14 (4-49) U/L Alkaline Phosphatase 99 (38-126) U/L Troponin I (0.000-0.034) ng/mL NT-Pro-B Natriuret Pep 596 pg/mL Total Protein 6.1 L (6.3-8.2) g/dL Albumin 3.6 (3.5-5.0) g/dL 08/16/23 Range/Units 23:25 WBC (3.8-10.6) k/uL RBC (4.30-5.90) m/uL Hgb (13.0-17.5) gm/dL Hct (39.0-53.0) % MCV (80.0-100.0) fL MCH (25.0-35.0) pg MCHC (31.0-37.0) g/dL RDW (11.5-15.5) % Plt Count (150-450) k/uL MPV Neutrophils % % Lymphocytes % % Monocytes % % Eosinophils % % Basophils % % Neutrophils # (1.3-7.7) k/uL Lymphocytes # (1.0-4.8) k/uL Monocytes # (0-1.0) k/uL Eosinophils # (0-0.7) k/uL Basophils # (0-0.2) k/uL PT (10.0-12.5) sec INR (<1.2) APTT (22.0-30.0) sec Sodium (137-145) mmol/L Potassium (3.5-5.1) mmol/L Chloride (98-107) mmol/L Carbon Dioxide (22-30) mmol/L Anion Gap mmol/L BUN (9-20) mg/dL Creatinine (0.66-1.25) mg/dL Est GFR (CKD-EPI)AfAm (>60 ml/min/1.73 sqM) Est GFR (CKD-EPI)NonAf (>60 ml/min/1.73 sqM) Glucose (74-99) mg/dL Calcium (8.4-10.2) mg/dL Total Bilirubin (0.2-1.3) mg/dL AST (17-59) U/L ALT (4-49) U/L Alkaline Phosphatase (38-126) U/L Troponin I <0.012 (0.000-0.034) ng/mL NT-Pro-B Natriuret Pep pg/mL Total Protein (6.3-8.2) g/dL Albumin (3.5-5.0) g/dL Disposition Clinical Impression: Hypertension Disposition: HOME SELF-CARE Condition: Good Instructions (If sedation given, give patient instructions): Hypertension (ED) Is patient prescribed a controlled substance at d/c from ED?: No Referrals: Andrés Snow MD [Primary Care Provider] - 1-2 days Time of Disposition: 01:00
[2023-08-16 23:32] LABS: Basophils # (A) 0.1 k/uL (0-0.2); Basophils % (A) 1 %; Eosinophils # (A) 0.3 k/uL (0-0.7); Eosinophils % (A) 4 %; HCT 42.5 % (39.0-53.0); HGB 13.9 gm/dL (13.0-17.5); Lymphocytes % (A) 15 %; MCH 28.4 pg (25.0-35.0); MCHC 32.8 g/dL (31.0-37.0); MCV 86.8 fL (80.0-100.0); Mean Platelet Volume 7.8; Monocytes # (A) 0.4 k/uL (0-1.0); Monocytes % (A) 6 %; Neutrophils # (A) 4.9 k/uL (1.3-7.7); Neutrophils % (A) 73 %; Platelet Count 149 k/uL (150-450); RDW 14.1 % (11.5-15.5); WBC 6.7 k/uL (3.8-10.6)
[2023-08-16 23:40] LABS: ALT 14 U/L (4-49); AST 18 U/L (17-59); African American GFR (CKD) 62 (>60 ml/min/1.73 sqM); Albumin 3.6 g/dL (3.5-5.0); Alkaline Phosphatase 99 U/L (38-126); Anion Gap 6 mmol/L; Blood Urea Nitrogen 19 mg/dL (9-20); Calcium 8.6 mg/dL (8.4-10.2); Carbon Dioxide 26 mmol/L (22-30); Chloride 108 mmol/L (98-107); Glucose 105 mg/dL (74-99); Non-African American GFR(CKD) 54 (>60 ml/min/1.73 sqM); Potassium 3.9 mmol/L (3.5-5.1); Sodium 140 mmol/L (137-145); Total Bilirubin 0.6 mg/dL (0.2-1.3); Total Protein 6.1 g/dL (6.3-8.2)
[2023-08-16 23:49] LABS: NT-Pro-B-Type Natriuretic Pept 596 pg/mL
[2023-08-17 00:10] LABS: Partial Thromboplastin Time 25.4 sec (22.0-30.0); Prothrombin Time 10.7 sec (10.0-12.5)
--- NOTE | 2023-08-17 00:48 | XR ---
EXAM: XR Chest, 2 Views CLINICAL HISTORY: ITS.REASON XR Reason: leg swelling, htn TECHNIQUE: Frontal and lateral views of the chest. COMPARISON: Chest x-ray 03/05/2023 FINDINGS: Lungs: No consolidation. No overt edema. Pleural space: No pleural effusion. No pneumothorax. Heart: Unremarkable. No cardiomegaly. Bones/joints: Unremarkable. No fracture or malalignment. IMPRESSION: No acute cardiopulmonary abnormality.
[2023-08-17 01:33] VITALS: BP 180/80; PULSE 54; TEMP 97.8
== END 2023-08-17 01:26 | disposition home or self-care (01) ==
LOC: EC 22:32
DX: I12.9 Hypertensive chronic kidney disease with stage 1 through stage 4 chronic kidney disease, or unspecified chronic kidney disease (principal); N18.30 Chronic kidney disease, stage 3 unspecified; I25.10 Atherosclerotic heart disease of native coronary artery without angina pectoris; E78.5 Hyperlipidemia, unspecified; I25.2 Old myocardial infarction; Z79.82 Long term (current) use of aspirin; Z79.899 Other long term (current) drug therapy; Z87.891 Personal history of nicotine dependence
CPT/HCPCS: 36415; 71046; 80053; 83880; 84484; 85025; 85610; 85730; 93005; 99285